=== PATIENT | male | born 1965 | race Caucasian/White ===

== ENCOUNTER → 2017-08-22 12:10 | Outpatient (CLI) | payer OTHER, SELFPAY ==
[2017-08-22 12:45] LABS: Absolute Lymphocyte Count 1.87 X10^3/ul (0.83-4.51); Absolute Neutrophil Count 3.2 X10^3/uL (2.0-7.7); Basophil# 0.02 X10^3/uL; Basophil% 0.4 % (0-1); Eosinophils% 1.8 % (0-5); Hematocrit 42.6 % (40-54); Hemoglobin 14.7 g/dl (13.0-16.5); Lymphocyte # 1.87 X10^3/ul (4.0); Lymphocyte % 33.9 % (19-41); Mean Corp Hgb Conc 34.5 g/gl (32-36); Mean Corpuscular Volume 89.9 fL (80-94); Mean Platelet Vol. 9.1 fl (6.2-12.0); Monocyte# 0.35 X10^3/uL; Monocyte% 6.4 % (0-10); Neutrophil # 3.17 X10^3/uL (2.7-7.7); Neutrophil % 57.5 % (47-70); POSITIVE COUNT NO; POSITIVE DIFFERENTIAL NO; POSITIVE MORPHOLOGY NO; Platelet Count 224 K/mm3 (150-450); RBC Distribution Width CV 13.4 % (11.6-14.6); Red Blood Count 4.74 M/mm3 (4.6-6.2); White Blood Count 5.5 K/mm3 (4.4-11.0)
== END ==
PROVIDERS: Family Provider Internal Medicine; PCP Internal Medicine; Visit Provider Internal Medicine
DX: D72.819 Decreased white blood cell count, unspecified (principal)
CPT/HCPCS: 36415; 85025

== ENCOUNTER → 2018-04-03 08:00 | Outpatient (CLI) | payer OTHER, SELFPAY ==
[2018-04-03 08:09] LABS: Bacteria 0 SEEN /hpf (None Seen); Mucous, Urine 0 SEEN /hpf (<or=2+); Squamous Epithelial Cells - UA 0 SEEN /hpf (0-5); White Blood Cells 0 SEEN /hpf (0-5)
[2018-04-03 09:20] LABS: Absolute Lymphocyte Count 1.86 X10^3/ul (0.83-4.51); Basophil# 0.04 X10^3/uL; Basophil% 0.9 % (0-1); Eosinophil# 0.16 X10^3/uL; Eosinophils% 3.6 % (0-5); Hematocrit 41.9 % (40-54); Hemoglobin 13.9 g/dl (13.0-16.5); Lymphocyte # 1.86 X10^3/ul (4.0); Lymphocyte % 41.8 % (19-41); Mean Corp Hgb Conc 33.2 g/gl (32-36); Mean Corpuscular Hgb 30.9 pg (27.0-32.0); Mean Corpuscular Volume 93.1 fL (80-94); Mean Platelet Vol. 9.9 fl (6.2-12.0); Neutrophil # 1.98 X10^3/uL (2.7-7.7); Neutrophil % 44.5 % (47-70); Platelet Count 209 K/mm3 (150-450); RBC Distribution Width CV 13.4 % (11.6-14.6); RBC Distribution Width SD 44.3 fl (35.1-43.9); White Blood Count 4.5 K/mm3 (4.4-11.0)
[2018-04-03 09:23] LABS: Color, Urine Yellow (Yellow); Glucose, Dipstick Normal (Normal); Ketone-Dipstick Negative (Negative); Leukocyte Esterase-Dipstick Negative /ul (Negative); Nitrite-Dipstick Negative (Negative); Occult Blood-Urine 25 /ul (Negative); Protein-Dipstick Negative (Negative); Urine Bilirubin Dipstick Negative (Negative); Urine Clarity Clear (Clear); Urine Urobilinogen Normal (Normal); Urine pH 6.5 (5.0 - 8.0)
[2018-04-03 09:26] LABS: POSITIVE COUNT NO; POSITIVE DIFFERENTIAL NO; POSITIVE MORPHOLOGY NO
[2018-04-03 09:37] LABS: Red Blood Cells-Urine 0-5 SEEN /hpf (0-5)
[2018-04-03 09:44] LABS: Microalbumin,Random Urine 6.3 mg/L (NO RANGE EST.); Microalbumin:Creatinine Ratio 8.9 mg/g CRE (<30 mg/g CRE)
[2018-04-03 09:46] LABS: ALB/GLOB Ratio 1.1 RATIO (0.9-2.4); AST(SGOT) 20 U/L (15-37); Alanine Aminotransfer ALT/SGPT 39 U/L (16-61); Albumin, Serum 3.6 g/dL (3.2-5.0); Alkaline Phosphatase 72 U/L (45-117); Anion Gap 6 (5-15); BUN 10 mg/dL (7-18); BUN/Creat Ratio 10.2 RATIO (10-20); Calcium,Total 8.5 mg/dL (8.5-10.1); Chloride 108 mmol/L (98-107); Cholesterol 141 mg/dL (200); Creatinine, Serum 0.98 mg/dL (0.70-1.30); EST Glomerular Filtration Rate 84 mL/min (>60); Est Glom Filt Rate - Afr Amer 102 mL/min (>60); Globulin 3.3 g/dL (2.2-4.2); Glucose 93 mg/dL (74-106); High Density Lipoprotein 34 mg/dL; Potassium 4.4 mmol/L (3.5-5.1); Protein, Total 6.9 g/dL (6.4-8.2); Sodium Level 142 mmol/L (136-145); Thyroid Stim Hormone (TSH) 2.56 uIU/mL (0.358-3.74); Triglycerides 178 mg/dL; Very Low Density Lipoprotein 36 mg/dL (5-40)
[2018-04-03 10:21] LABS: Vitamin D,25 Hydroxy 38.3 ng/mL (29.95-100.01)
--- OUTSIDE RECORDS SUMMARY | 2018-05-29 07:49 | XMS RPT_ITS | Continuity of Care Document ---
:1965 Author Organization [facility] Address [address] [facility] [address] [place] [address] Phone Support Name Relationship Address Phone Marcus Matias Unavailable [address] [place] [address] Alton Matias Unavailable [address] [facility] [address] [place] [address] Care Team Providers Name Role Phone Anai Hernandez DO Unavailable Dameon Mcgregor MD Unavailable Maegan Mathew MD Unavailable Dr. Jorje Hogan MD Unavailable Dr. Rashawn Foster Unavailable Mesfin Milligan MD Unavailable Alton Hurst DPM Unavailable MATILDE Rouse Unavailable Unavailable Pancho Carias Unavailable Unavailable Felicia Galdamez Unavailable Unavailable Unavailable Unavailable Problems Name Dates Details Acute bronchitis due to other specified organisms (J20.8, 466.0) Status: Active Acute pain of both knees (M25.561, 338.19) Status: Active Bilateral hearing loss, unspecified hearing loss type (H91.93, 389.9) Status: Active BMI 34.0-34.9,adult (Z68.34, V85.34) Status: Active BMI 35.0-35.9,adult (Z68.35, V85.35) Status: Active BPH without urinary obstruction (N40.0, 600.00) Comments: pt didnt want rx ( ithought would help with sleep) saw urology few yrs ago for blood in urine and /mar normal Status: Active Colon polyps (K63.5, 211.3) Comments: scope 2013 due in 5yr-[facility] Status: Active Common cold virus (J00, 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) Status: Active CRP elevated (R79.82, 790.95) Status: Active Enchondroma (D16.9, 213.9) Status: Active Encounter for screening for malignant neoplasm of colon (Renamed from Special screening for malignant neoplasms, colon) (Z12.11, V76.51) Comments: last scope 2014/lea 5yr repeat Status: Active family hx of bladder and thyroid cancer- check Tsh and ua cbc cmp Status: Active Hearing loss, unspecified laterality (389.9) Status: Active Hematuria (R31.9, 599.7) Status: Active 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, 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 Hypercholesterolemia (E78.00, 272.0) Comments: he might try statin qod Status: Active Impaired fasting glucose (R73.01, 790.21) Status: Active Nonsmoker (Z78.9, V49.89) Status: Active Other and unspecified hyperlipidemia (E78.5, 272.4) Status: Active Possible exposure to STD (Z20.2, V01.6) Status: Active probable sebaceous cyst- will follow- call if any change Status: Active screening Status: Active Screening for prostate cancer (Z12.5, V76.44) Status: Active Skin lesion of back (L98.9, 709.9) Comments: mixture of lentigo ansd sebs and skin tags Status: Active Sleep Disorder (G47.9, 780.50) Status: Active Tachycardia (R00.0, 785.0) Comments: ? related to OTC cough med, caffeine? Status: Active Unspecified Diagnosis Status: Active Upper Respiratory Infection (Renamed from Infection of the upper respiratory tract) (J06.9, 465.9) Status: Active Vasectomy Status: Active Vitamin D deficiency (E55.9, 268.9) Comments: increase vit D 5K Status: Active Wheeze (R06.2, 786.07) Status: Active Medications Name Dates Details ASPIRIN LOW DOSE, 81MG (Oral Tablet) Active 1 tab qd (81 MG) CoQ10 Active MULTIVITAMIN (PO Tab) 1 tab qd for 0 days Refills: 0 Ordered:13-Sep-2009 Starr McmahonActive Omeprazole 20 MG Oral Tablet Delayed Release 1 (one) Capsule daily for 90 days Quantity: 90 {Capsule} Refills: 1 Ordered:11-Apr-2018 Maikel Hernandez DO, DO, Kathleen Start : 11-Apr-2018 Active ProAir HFA 108 (90 Base) MCG/ACT Inhalation Aerosol Solution 2 (two) Aerosol Soln puffs q 6hrs prn wheeze for 0 days Quantity: 1 {Inhaler} Refills: 0 Ordered:21-Jun-2017 CiMarietta mayfield CNP Start : 21-Jun-2017 Active Simvastatin 20 MG Oral Tablet 1 (one) Tablet qd duane for 0 days Quantity: 90 {Tablet} Refills: 1 Ordered:11-Apr-2018 Maikel Hernandez DO, DO, Kathleen Start : 11-Apr-2018 Active Vascepa 1 GM Oral Capsule 2 (two) Capsule Capsule pills twice a day for 90 days Quantity: 360 {Capsule} Refills: 1 Ordered:11-Apr-2018 Maikel Hernandez DO, DO, Kathleen Start : 11-Apr-2018 Active Acyclovir 400 MG Oral Tablet 1 (one) Tablet Tablet bid for 30 days Quantity: 60 {Tablet} Refills: 11 Ordered:25-Mar-2017 Kendra Mcclure LPN L Start : 08-Jan-2014 End : 25-Mar-2017 Inactive ANUSOL-HC, 25MG (Rectal Suppository) 1 (one) Suppository prn for 30 days Quantity: 30 {Suppository} Refills: 0 Ordered:21-Oct-2009 Starr Mcmahon Start : 21-Oct-2009 End : 20-Nov-2009 Inactive ASPIRIN LOW DOSE, 81MG (Oral Tablet) 1 (one) Tablet qd for 30 days Quantity: 30 {Tablet} Refills: 0 Ordered:07-Sep-2013 Teresita Singleton DO Start : 07-Sep-2013 End : 07-Oct-2013 Inactive Augmentin 875-125 MG Oral Tablet 1 (one) Tablet bid for 0 days Quantity: 28 {Tablet} Refills: 0 Ordered:05-Apr-2017 Kendra Mcclure LPN Start : 25-Mar-2017 End : 05-Apr-2017 Inactive Comments:Take with food Cheratussin AC 100-10 MG/5ML Oral Solution 1-2 Teaspoon q6hrs prn for 0 days Quantity: 6 {Ounce} Refills: 0 Ordered:17-Oct-2016 Flor Rouse LPN Start : 23-Apr-2016 End : 17-Oct-2016 Inactive NIASPAN, 500MG (Oral Tablet Extended Release) 1 (one) Tablet ER qd for 0 days Quantity: 30 {Tablet_ER} Refills: 3 Ordered:05-Apr-2008 Starr Mcmahon Start : 05-Apr-2008 End : 06-Jul-2008 Inactive Vitamin D 4 qd End : 11-Apr-2018 Inactive Zithromax Z-Hernán 250 MG Oral Tablet 1 (one) Tablet TAD for 0 days Quantity: 1 {Package} Refills: 0 Ordered:23-Aug-2017 Flor Rouse LPN Start : 21-Jun-2017 End : 23-Aug-2017 Inactive Zithromax Z-Hernán 250 MG Oral Tablet 1 (one) Tablet TAD for 0 days Quantity: 1 {Package} Refills: 0 Ordered:17-Oct-2016 Flor Rouse LPN Start : 23-Apr-2016 End : 17-Oct-2016 Inactive AMOXICILLIN-POT CLAVULANATE, 875-125MG (Oral Tablet) 1 (one) Tablet Tablet bid for 0 days Quantity: 20 {Tablet} Refills: 0 Ordered:13-Sep-2015 Starr Mcmahon Start : 27-Jul-2014 End : 13-Sep-2015 Discontinued LUNESTA, 2MG (Oral Tablet) 1 Tablet qhs prn for 0 days Quantity: 30 {Tablet} Refills: 3 Ordered:07-Sep-2013 Starr Mcmahon Start : 29-Aug-2012 End : 07-Sep-2013 Discontinued NASACORT AQ, 55MCG/ACT (Nasal Aerosol Solution) 2 (two) Puff(s) once daily for 0 days Quantity: 1 {Aerosol_Soln} Refills: 0 Ordered:13-Jul-2011 Starr Mcmahon Start : 13-Jul-2011 End : 13-Jul-2011 Discontinued PREVACID, 30MG (Oral Capsule Delayed Release) [address] daily for 0 days Quantity: 30 {Capsule_DR} Refills: 3 Ordered:28-Dec-2011 Starr Mcmahon Start : 28-Dec-2011 End : 28-Dec-2011 Discontinued TRAZODONE HCL, 50MG (Oral Tablet) 1/2 Tablet qhs for 0 days Quantity: 30 {Tablet} Refills: 3 Ordered:29-Aug-2012 Teresita Singleton DO Start : 29-Aug-2012 End : 29-Aug-2012 Discontinued Allergies and Adverse Reactions Name Dates Details Augmentin *PENICILLINS* Reaction: Itching (Allergy) Status: Active NIASPAN, 1000MG (Oral Tablet Status: Active Extended Release) (Allergy) Comments: palpitations and flushing No Known Drug Allergies Onset: 29-Aug-2012 Status: Inactive (Allergy) No Known Drug Allergies Onset: 29-Aug-2012 Status: Inactive (Allergy) Past Medical History Name Dates Details Abnormal laboratory test (R89.9, 796.4) Status: Inactive as of 24-Apr-2017 Acute bronchospasm due to viral infection (J98.01, 519.11) Status: Resolved as of 23-Aug-2017 alopecia areata Status: Resolved as of 28-Dec-2011 Anemia, unspecified (D64.9, 285.9) Status: Resolved as of 13-Jul-2011 Benign paroxysmal positional vertigo, unspecified laterality (H81.10, 386.11) Status: Resolved as of 28-Dec-2011 BMI 33.0-33.9,adult (Z68.33, V85.33) Status: Inactive as of 24-Apr-2017 Body aches (R52, 780.96) Status: Inactive as of 24-Apr-2017 Chest pain (R07.9, 786.59) Status: Resolved as of 26-Jan-2014 Chills (R68.83, 780.64) Status: Inactive as of 24-Apr-2017 Constipation (K59.00, 564.00) Comments: add prunes and water - do fiber Status: Inactive as of 13-Apr-2016 Cough (R05, 786.2) Status: Inactive as of 17-Oct-2016 Cough (R05, 786.2) Status: Inactive as of 23-Aug-2017 Elevated blood pressure (not hypertension) (R03.0, 796.2) Status: Resolved as of 28-Dec-2011 Encounter for screening for malignant neoplasm of testis (Z12.71, V76.45) Status: Inactive as of 12-Oct-2008 Facial pressure (R68.89, 780.99) Status: Inactive as of 11-Apr-2018 Heartburn (R12, 787.1) Status: Inactive as of 24-Apr-2017 Hematuria (R31.9, 599.70) Comments: benign -- work up by urology Status: Inactive as of 24-Apr-2017 Hemorrhoids, unspecified hemorrhoid type (K64.9, 455.6) Status: Inactive as of 24-Apr-2017 Leukopenia, unspecified type (D72.819, 288.50) Status: Resolved as of 11-Apr-2018 Low Back Pain (Renamed from Low back ache) (M54.5, 724.2) Comments: chronic stable- continue present regimen Status: Inactive as of 13-Apr-2016 Need for prophylactic vaccination and inoculation against influenza (Z23, V04.81) Status: Inactive as of 13-Jul-2011 Onychomycosis (B35.1, 110.1) Status: Inactive as of 13-Apr-2016 Paresthesia (R20.2, 782.0) Comments: he feels better at this point and doesnt want to do emgncs yet Status: Inactive as of 13-Apr-2016 Pulsatile tinnitus (H93.19, 388.30) Status: Resolved as of 26-Jan-2014 Right foot pain (M79.671, 729.5) Status: Inactive as of 24-Apr-2017 Sinusitis, bacterial (J32.9, 473.9) Status: Inactive as of 24-Apr-2017 Vertigo (R42, 780.4) Status: Resolved as of 07-Sep-2013 Procedures Procedure Dates Details Colonoscopy Completed Comments: Normal. 02/2014 and recheck in 5 years Date Value Details 11-Apr-2018 Knee 4 or More Views Result: Comments: See Note; NOTES: [facility] Imaging Services [address] [place] [address] Knee 4 or More Views MR#: [id number] Acct: [id number] Name: MARCUS MATIAS Rep #: [id number] : 1965 M 52 From: Sanchez Elliott MD PCP: Anai Hernandez DO Status: REG CLI Study: Knee 4 or More Views Date of Exam: 04/11/18 Exam# [id number] Ordering Dr: Anai Hernandez DO STUDY: X- RAY - LEFT KNEE REASON FOR EXAM: Male, 52 years old. Pain and swelling TECHNIQUE: 4 view(s) of the knee. COMPARISON: None. FINDINGS: There is intramedullary mottl ed sclerosis of the mid femoral shaft Normal visualized proximal tibia and fibula. Normal proximal tibiofibular articulation. Normal medial femorotibial compartment. Normal lateral femorotibial compart ment. Normal patellofemoral articulation. There is an enthesophyte in the region of the quadriceps tendon insertion on the superior patella. The soft tissue structures are unremarkable. RAD/Knee 4 or More Views IMPRESSION: Mottled intramedullary sclerotic process of the mid femoral shaft consistent with enchondroma versus bone infarct. Small e nthesophyte of the superior patella. There is no evidence of fracture, dislocation, significant degenerative disease, free intra-articular calcifications, or suprapatellar effusion. Electronically Sig janet: Sanchez Elliott MD at 18:20 EST , Service support , CC: Anai Hernandez DO Service Parts Coordinator: Signed 11-Apr-2018 Knee 4 or More Views Result: Comments: See Note; NOTES: [facility] Imaging Services [address] [place] [address] Knee 4 or More Views MR#: [id number] Acct: [id number] Name: MARCUS MATIAS Rep #: [id number] : 1965 M 52 From: Sanchez Elliott MD PCP: Anai Hernandez DO Status: REG CLI Study: Knee 4 or More Views Date of Exam: 04/11/18 Exam# [id number] Ordering Dr: Anai Hernandez DO STUDY: X- RAY - RIGHT KNEE REASON FOR EXAM: Male, 52 years old. Pain TECHNIQUE: 4 view(s) of the knee. COMPARISON: None. FINDINGS: Normal visualized distal femur. Normal vi sualized proximal tibia and fibula. Normal proximal tibiofibular articulation. Normal medial femorotibial compartment. Normal lateral femorotibial compartment. Normal patellofemoral articulation. The soft tissue structures are unremarkable. RAD/Knee 4 or More Views IMPRESSION: Normal x-ray examination of the knee. Electronically Signed: Zac Elliott MD at 18:21 EST , Service support , CC: Anai Hernandez DO Service Parts Coordinator: Signed 21-Apr-2015 Abdomen Single View Result: Comments: See Note; NOTES: [facility] Imaging Services [address] [place] [address] Verdana 4d Abdomen Single View MR#: [id number] Acct: [id number] Name: MARCUS MATIAS Rep #: [id number] : 1965 M 49 From: Jimmy Negrete DO PCP: Teresita Singleton DO Status: REG CLI Study: Abdomen Single View Date of Exam: 04/21/15 Exam# [id number] Ordering Dr: Anahy Lo MD STUDY: X-RAY - ABDOMEN/PELVIS REASON FOR EXAM: Male, 49 years old. Hematuria TECHNIQUE: Two AP supine views of the abdomen and pelvis. COMPARISON: Ultrasound 04/21/15 FINDINGS: Normal visualized lung bases. There is an unremarkable bowel gas pattern. There is a moderate amount of fecal debris throughout the colon. There is no demonstrated f ree abdominal air. The visualized liver, spleen and kidneys are grossly normal in size and morphology. No definite renal calcification. Normal visualized osseous structures. Small phleboliths are seen within the pelvis. IMPRESSION: No acute process. No definite renal calcifications. Electronically Signed: Jimmy Negrete DO at 7:34 EST Te l , Service support [phone], RAD/Abdomen Single View IMPRESSION: No acute process. No definite renal calcifications. Electronically Signed: Jimmy Negrete DO at 7:34 EST Tel , Service support [phone], CC: Teresita Singleton DO; Obie Lo MD Service Parts Coordinator: Signed 21-Apr-2015 Kidney and Bladder Result: Comments: See Note; NOTES: [facility] Imaging Services [address] [place] [address] Verdana 4d Kidney and Bladder MR#: [id number] Acct: [id number] Name: Awa MATIAS Rep #: [id number] : 1965 M 49 From: Daniel Long MD PCP: Teresita Singleton DO Status: REG CLI Study: Kidney and Bladder Date of Exam: 04/21/15 Exam# [id number] Ordering Dr: Maegan Lo MD STUDY: RENAL ULTRASOUND - COMPLETE REASON FOR EXAM: Male, 49 years old. Hematuria. TECHNIQUE: Ultrasound evaluation of the kidneys was performed with real-time and static patel-scale i maging. COMPARISON: None. FINDINGS: RIGHT KIDNEY: Normal location of the right kidney, which is normal in size. The right kidney measures 10.0 cm x 4.6 cm x 5 .5 cm. There is a normal cortex of the right kidney. The renal cortex measures 1.9 cm. There is no right renal mass or cyst. There are no right renal calculi. There is no right hydronephrosis. DIST AL RIGHT URETER: There is non-visualization of the distal right ureter. There is no demonstrated right ureterovesical junction calculus. There is no demonstrated right ureteral jet. LEFT KIDNEY: Nor mal location of the left kidney, which is normal in size. The left kidney measures 11.4 cm x 5.1 cm x 5.8 cm. There is a normal cortex of the left kidney. The renal cortex measures 1.2 cm. There is no left renal mass or cyst. I suspect a 6 mm nonobstructive calculus in the left kidney. There is no left hydronephrosis. DISTAL LEFT URETER: There is non- visualization of the distal left ureter. The re is no demonstrated left ureterovesical junction calculus. There is no demonstrated left ureteral jet. BLADDER: The bladder is empty at the time of the examination. ____ IMPRESSION: Findings suggestive of a small nonobstructive calculus in the left kidney. Electronically Signed: Daniel Long MD at 11:21 EST Tel [phone], Service support [phone], CC: Teresita Singleton DO; Obie Lo MD Service Parts Coordinator: Signed 13-Dec-2014 L/S Spine Min 4 Views Result: Comments: See Note; NOTES: [facility] Imaging Services [address] [place] [address] Radiology Report MR#: [id number] Acct: [id number] Name: MARCUS MATIAS Rep #: [id number] : 1965 M 49 From: Sai Wu DO PCP: Teresita Singleton DO Status: REG CLI Study: L/S Spine Min 4 Views Date of Exam: 12/13/14 Exam# [id number] Ordering Dr: Teresita Singleton DO STUDY: X-RAY - LUMBAR SPINE REASON FOR EXAM: Male, 49 years old. Lower back pain. No trauma. TECHNIQUE: 5 view(s) of the lumbar spine were obtained. COMPARISON: None FIND INGS: Normal lumbar lordosis. There is no substantial scoliosis. There is a normal alignment of the vertebrae. Minimal endplate spondylosis at multiple levels. Normal disc space heights. There is n o evidence of acute fracture or loss of vertebral axial height. One The soft tissue structures are unremarkable. IMPRESSION: Minimal endplate spondylosis witho ut other evidence of lumbar spine abnormality. Electronically Signed: Sai Wu DO at 16:53 EDT Tel [phone], Service support [phone], RAD/L/S Spine Min 4 Views IMPRESSION: Minimal endplate spondylosis without other evidence of lumbar spine abnormality. Electronically Signed: Sai Wu DO at 16:53 EDT Tel [phone], Service support [phone], CC: Teresita Singleton DO Service Parts Coordinator: Signed 15-Sep-2013 Echocardiogram Complete Result: Comments: See Note; NOTES: [facility] Cardiovascular Services [address] [place] [address] Echo Complete 09/15/13 0754 MR#: [id number] Acct: [id number] Name: JESICA MATIAS Rep #: [id number] : 1965 47 From: Jorje Gomez MD Attending Dr: Teresita Singleton DO Status: REG CLI Ordering Dr: Teresita Singleton DO Date: 09/15/13 Location: [facility] Sex: M C Admitted: [facility] This was a 2D Doppler, Color Flow transthoracic echocardiogram. The exam was of fair technical quality due to body habitus. Exam performed in department. Left Ventricle Normal LV size. Left v entricular systolic function is normal. The estimated ejection fraction is 65 %. Right Ventricle Normal RV size. Normal systolic function. Atria Normal left atrium. Normal right atrium. No doppl er evidence for ASD. Bubble contrast study negative for right to left interatrial shunt. Mitral Valve There is no mitral annular calcification. Normal mitral valve. Trivial eccentric mitral valve insufficiency. Tricuspid Valve Normal tricuspid valve. Trivial tricuspid valve insufficiency. Right ventricular systolic pressure estimated to be 23 mmHg. Aortic Valve Trisinus/trileaflet aorti c valve. Normal aortic valve. Pulmonic Valve The pulmonic valve is not well visualized. Trivial pulmonic valve insufficiency. Great Vessels Normal sized aortic root. Pericardium/Pleural No per icardial effusion. Medication Performed a rapid injection of agitated mix of 9 cc saline and 1cc air to assess for atrial septal defect. LVIDd: 3.7 cm IVSd: 1.3 cm Ao root diam: 3.4 cm LAV(MOD-b p): 38.6 ml LVIDs: 2.4 cm LVPWd: 1.2 cm Ao root area: 9.1 cm2 LAV(MOD-bp) Indexed: 18.2 ml/m2 RVDd: 3.4 cm FS: 35.8 % LA dimension: 3.9 cm LAV(MOD-sp2): 38.6 ml LAV(MOD-sp4): 34.9 ml LA A4 area: 14.0 cm2 RA A4 area: 12.9 cm2 MV E max joon: Lat Peak E' Joon: Med Peak E' Joon: Ao V2 max: 67.3 cm/sec 11.6 cm/sec 8.5 cm/sec 105.3 cm/sec MV A max joon: Ao max P.4 mmHg 60.3 cm/sec MV E/A: 1.1 LV V1 max: 100.4 cm/sec PA V 2 max: 76.0 cm/sec TR max joon: 209.0 cm/sec E /E' lat: 5.8 LV V1 max P.0 mmHg PA max P.3 mmHg TR max P.5 mmHg E/E' med: 7.9 Interpretation Summary Left ventricular systolic function is normal. The estimated ejection fraction is 65 %. Trivial eccentric mitral valve insufficiency. Trivial tricuspid v alve insufficiency. Trivial pulmonic valve insufficiency. Bubble contrast study negative for right to left interatrial shunt. Right ventricular systolic pressure estimated to be 23 mmHg. Ordering Physician: Teresita Singleton Performed By: Aggie Hathaway [facility] : Teresita Singleton DO Date Dictated: 09/15/13 0754 Date Transcribed: 09/15/13 1712 Service Parts Coordinator: Signed 15-Sep-2013 Chest PA and Lateral Result: Comments: See Note; NOTES: [facility] Imaging Services [address] [place] [address] Radiology Report MR#: [id number] Acct: [id number] Name: MARCUS MATIAS Rep #: [id number] : 1965 M 47 From: Daniel Long MD PCP: Teresita Singleton DO Status: REG CLI Study: Chest PA and Lateral Date of Exam: 09/15/13 Exam# [id number] Ordering Dr: Teresita Singleton DO STUDY: X -RAY CHEST REASON FOR EXAM: Male, 47 years old. Chest pain. TECHNIQUE: PA and lateral views of the chest. COMPARISON: Comparison is made with prior study dated April 03, 2011. FINDINGS: There is elevation of the right hemidiaphragm. The lungs are clear and expanded. There is no demonstrated pleural abnormality. Normal size heart. Normal mediastinum and nunu. Normal visualized pulmonary arteries. Normal visualized aortic arch and descending thoracic aorta. Normal visualized thoracic spine. Normal visualized ribs, clavicles, and shoulders. T here is no demonstrated abnormality of the visualized soft tissue structures of the upper abdomen. IMPRESSION: No acute abnormality is seen. Electronically Sig janet: Daniel Long MD at 13:17 EDT Tel [phone], Service support [phone], CC: Teresita Singleton DO Service Parts Coordinator: Signed 15-Sep-2013 Nuclear Stress Test - Treadmil Result: Comments: See Note; NOTES: [facility] Imaging Services [address] [place] [address] Nuclear Medicine Report MR#: [id number] Acct: [id number] Name: MARCUS MATIAS Rep #: [id number] : 1965 M 47 From: Jorje Gomez MD PCP: Teresita Singleton DO Status: REG CLI Study: Nuclear Stress Test - Treadmil Date of Exam: 09/15/13 Exam# [id number] Ordering Dr: Teresita Singleton DO EXERCISE TOLERANCE TEST: The patient exercised on a Johan protocol for 9 minutes completing stage 3 achieving a peak heart rate of 166 beats per minute (97% predicted maximum heart rate) and a p eak blood pressure of 138/88 mmHg and a peak MET capacity of 10 METS. The baseline ECG demonstrated normal sinus rhythm. The peak exercise ECG demonstrated no obvious ECG changes. There were no ca rdiac dysrhythmias pretest, during exercise, or recovery. The functional capacity was considered good. The patient had no complaint of chest discomfort during exercise or recovery. The examination was discontinued secondary to dyspnea and leg fatigue.. IMPRESSION: 1. Technically adequate (percent predicted maximum heart rate greater than 85%) exercise tolerance test. 2. Peak exercise ECG wit h no obvious ECG changes. 3. Nuclear images pending. MYOCARDIAL PERFUSION IMAGING STUDY: TECHNIQUE: The patient was injected with 13.6 mCi of Tc99m Cardiolite and subsequently rest SPECT Cardiolit e nuclear imaging was obtained in the horizontal long, vertical long, and short axes views. The patient exercised on a Johan protocol for 9 minutes achieving a peak heart rate of 166 beats per minute (97% predicted maximum heart rate) and a peak blood pressure of 138/88 mmHg and a peak MET capacity of 10 METS. The patient was injected with 40.2 mCi of Tc99m Cardiolite and subsequently stress SPECT Cardiolite nuclear imaging was obtained in the horizontal long, vertical long, and short axes views. A gated Cardiolite study at peak stress was obtained. INTERPRETATION: Rest and stress SPECT Car diolite nuclear imaging demonstrate relative uniform tracer uptake and myocardial perfusion appearing within normal limits. There was end systolic thickening and brightening. The gated Cardiolite stud y demonstrates myocardial thickening and inward wall motion. The reported LVEF was 69%. IMPRESSION: 1. Rest and stress SPECT Cardiolite nuclear imaging demonstrate relative uniform tracer uptake a nd myocardial perfusion appearing within normal limits. 2. The gated Cardiolite study reports an LVEF of 69%. CC: Teresita Singleton DO Service Parts Coordinator: WAN Signed 07-Sep-2013 Spirometry (00704) Result: 07-Sep-2013 EKG (82368) Result: [MEASUREMENTS ANALYSIS] Date of Test: 09/07/2013 10:09:59; Heart Rate: 75; OR Interval: 166; QRS: 89; QT Interval: 370; Corrected QT Interval (QTc): 396; P Wave [place]: 24; QRS Wave [place]: 13; T Wave [place]: 19; Blood Pressure: 110/80 [ECG DIAGNOSTIC STATEMENTS] Date of Test: 09/07/2013 10:09:59; Summary: Sinus Rhythm WITHIN NORMAL LIMITS Family History Unknown Family Member Name Dates Details Brother 1 Comments: 3 brothers all younger and healthy Status: Active Father Comments: In good health Status: Active Maternal Grandfather Comments: colon cancer age 80 aortic aneurysm cad Status: Active Maternal Grandmother Comments: melanoma Status: Active Mother Comments: breast and thyroid cancer htn Status: Active Paternal Grandfather Comments: bladder cancer Status: Active Social History Name Dates Details Alcohol Use Comments: Occasional alcohol use Status: Active No Drug Use Status: Active Non Smoker/No Tobacco Use Comments: never smoker Status: Active recently 2011 Status: Active Tobacco use: Never smoker. Status: Active Tobacco use: Never smoker. Status: Active Smoking Status Name Dates Details Never smoker Vital Signs Date Test Result Details :56 Pulse 84 /min Comments: Pattern: Regular Respiration Rate 18 /min Comments: Pattern: Unlabored O2 SAT 93 % Comments: Room air BP Systolic 138 mm[Hg] Comments: Patient Position: Standing; Cuff Location: Left Arm; Cuff Size: Large BP Diastolic 84 mm[Hg] Comments: Patient Position: Standing; Cuff Location: Left Arm; Cuff Size: Large Weight 233.5 lb Height 68 in Body Mass Index Calculated 35.5 kg/m2 Body Surface Area Calculated 2.18 m2 :00 Pulse 84 /min Comments: Pattern: Regular Respiration Rate 18 /min Comments: Pattern: Unlabored O2 SAT 98 % Comments: Room air BP Systolic 122 mm[Hg] Comments: Patient Position: Sitting; Cuff Location: Left Arm; Cuff Size: Large BP Diastolic 98 mm[Hg] Comments: Patient Position: Sitting; Cuff Location: Left Arm; Cuff Size: Large Weight 232.25 lb Height 68 in Body Mass Index Calculated 35.31 kg/m2 Body Surface Area Calculated 2.18 m2 :13 Temperature 97.2 f Pulse 93 /min Comments: Pattern: Regular Respiration Rate 17 /min Comments: Pattern: Unlabored O2 SAT 95 % Comments: Room air BP Systolic 122 mm[Hg] Comments: Patient Position: Sitting; Cuff Location: Left Arm; Cuff Size: Standard BP Diastolic 82 mm[Hg] Comments: Patient Position: Sitting; Cuff Location: Left Arm; Cuff Size: Standard Weight 233 lb Height 68 in Body Mass Index Calculated 35.43 kg/m2 Body Surface Area Calculated 2.18 m2 :59 Pulse 88 /min Comments: Pattern: Regular Respiration Rate 18 /min Comments: Pattern: Unlabored O2 SAT 98 % Comments: Room air BP Systolic 138 mm[Hg] Comments: Patient Position: Sitting; Cuff Location: Left Arm; Cuff Size: Large BP Diastolic 72 mm[Hg] Comments: Patient Position: Sitting; Cuff Location: Left Arm; Cuff Size: Large Weight 227.5 lb Height 68 in Body Mass Index Calculated 34.59 kg/m2 Body Surface Area Calculated 2.16 m2 :47 Temperature 98.8 f Comments: Method: Temporal Pulse 111 /min Comments: Pattern: Regular Respiration Rate 16 /min Comments: Pattern: Unlabored O2 SAT 94 % Comments: Room air BP Systolic 124 mm[Hg] Comments: Patient Position: Sitting; Cuff Location: Left Arm; Cuff Size: Standard BP Diastolic 80 mm[Hg] Comments: Patient Position: Sitting; Cuff Location: Left Arm; Cuff Size: Standard Weight 225.25 lb Height 68 in Body Mass Index Calculated 34.25 kg/m2 Body Surface Area Calculated 2.15 m2 :49 Pulse 76 /min Comments: Pattern: Regular Respiration Rate 18 /min Comments: Pattern: Unlabored O2 SAT 97 % Comments: Room air BP Systolic 122 mm[Hg] Comments: Patient Position: Sitting; Cuff Location: Left Arm; Cuff Size: Large BP Diastolic 82 mm[Hg] Comments: Patient Position: Sitting; Cuff Location: Left Arm; Cuff Size: Large Weight 225.25 lb Height 68 in Body Mass Index Calculated 34.25 kg/m2 Body Surface Area Calculated 2.15 m2 :14 Temperature 98.8 f Pulse 112 /min Comments: Pattern: Regular Respiration Rate 17 /min Comments: Pattern: Unlabored O2 SAT 97 % Comments: Room air BP Systolic 116 mm[Hg] Comments: Patient Position: Sitting; Cuff Location: Left Arm; Cuff Size: Standard BP Diastolic 78 mm[Hg] Comments: Patient Position: Sitting; Cuff Location: Left Arm; Cuff Size: Standard Weight 223.125 lb Height 68 in Body Mass Index Calculated 33.93 kg/m2 Body Surface Area Calculated 2.14 m2 :02 Pulse 73 /min Comments: Pattern: Regular Respiration Rate 18 /min Comments: Pattern: Unlabored O2 SAT 98 % Comments: Room air BP Systolic 122 mm[Hg] Comments: Patient Position: Sitting; Cuff Location: Left Arm; Cuff Size: Standard BP Diastolic 78 mm[Hg] Comments: Patient Position: Sitting; Cuff Location: Left Arm; Cuff Size: Standard Weight 223.125 lb Height 68 in Body Mass Index Calculated 33.93 kg/m2 Body Surface Area Calculated 2.14 m2 :25 Temperature 97.9 f Comments: Method: Temporal Pulse 96 /min Comments: Pattern: Regular Respiration Rate 15 /min Comments: Pattern: Unlabored O2 SAT 97 % Comments: Room air BP Systolic 104 mm[Hg] Comments: Patient Position: Sitting; Cuff Location: Left Arm; Cuff Size: Standard BP Diastolic 76 mm[Hg] Comments: Patient Position: Sitting; Cuff Location: Left Arm; Cuff Size: Standard Weight 225 lb Height 68 in Body Mass Index Calculated 34.21 kg/m2 Body Surface Area Calculated 2.15 m2 :38 Pulse 93 /min Comments: Pattern: Regular Respiration Rate 18 /min Comments: Pattern: Unlabored O2 SAT 98 % Comments: Room air BP Systolic 120 mm[Hg] Comments: Patient Position: Sitting; Cuff Location: Left Arm; Cuff Size: Large BP Diastolic 70 mm[Hg] Comments: Patient Position: Sitting; Cuff Location: Left Arm; Cuff Size: Large Weight 219 lb Height 68 in Body Mass Index Calculated 33.3 kg/m2 Body Surface Area Calculated 2.12 m2 :41 Temperature 97.6 f Comments: Method: Oral Pulse 86 /min Comments: Pattern: Regular Respiration Rate 16 /min Comments: Pattern: Unlabored BP Systolic 124 mm[Hg] Comments: Patient Position: Sitting; Cuff Location: Left Arm; Cuff Size: Standard BP Diastolic 76 mm[Hg] Comments: Patient Position: Sitting; Cuff Location: Left Arm; Cuff Size: Standard Weight 204 lb Height 68 in Body Mass Index Calculated 31.02 kg/m2 Body Surface Area Calculated 2.06 m2 :17 Temperature 99.2 f Pulse 100 /min Comments: Pattern: Regular Respiration Rate 16 /min Comments: Pattern: Unlabored BP Systolic 126 mm[Hg] Comments: Patient Position: Sitting; Cuff Location: Left Arm; Cuff Size: Large BP Diastolic 90 mm[Hg] Comments: Patient Position: Sitting; Cuff Location: Left Arm; Cuff Size: Large Weight 211 lb Height 68 in Body Mass Index Calculated 32.08 kg/m2 Body Surface Area Calculated 2.09 m2 :32 Temperature 98.5 f Pulse 84 /min Comments: Pattern: Regular Respiration Rate 16 /min Comments: Pattern: Unlabored BP Systolic 128 mm[Hg] Comments: Patient Position: Sitting; Cuff Location: Left Arm; Cuff Size: Large BP Diastolic 80 mm[Hg] Comments: Patient Position: Sitting; Cuff Location: Left Arm; Cuff Size: Large Weight 211 lb Height 68 in Body Mass Index Calculated 32.08 kg/m2 Body Surface Area Calculated 2.09 m2 :09 Pulse 92 /min Comments: Pattern: Regular Respiration Rate 16 /min Comments: Pattern: Unlabored O2 SAT 97 % Comments: Room air BP Systolic 126 mm[Hg] Comments: Patient Position: Sitting; Cuff Location: Left Arm; Cuff Size: Standard BP Diastolic 84 mm[Hg] Comments: Patient Position: Sitting; Cuff Location: Left Arm; Cuff Size: Standard Weight 206 lb Height 68 in Body Mass Index Calculated 31.32 kg/m2 Body Surface Area Calculated 2.07 m2 :43 Comments: I am nervous Temperature 97.8 f Comments: Method: Oral Pulse 108 /min Comments: Pattern: Regular Respiration Rate 16 /min O2 SAT 98 % Comments: Room air BP Systolic 142 mm[Hg] Comments: Patient Position: Sitting; Cuff Location: Left Arm; Cuff Size: Standard BP Diastolic 90 mm[Hg] Comments: Patient Position: Sitting; Cuff Location: Left Arm; Cuff Size: Standard Weight 207.4375 lb Height 68 in Body Mass Index Calculated 31.54 kg/m2 Body Surface Area Calculated 2.08 m2 :01 Temperature 97.2 f Comments: Method: Temporal Pulse 76 /min Comments: Pattern: Regular Respiration Rate 16 /min Comments: Pattern: Unlabored O2 SAT 98 % Comments: Room air BP Systolic 128 mm[Hg] Comments: Patient Position: Sitting; Cuff Location: Left Arm; Cuff Size: Standard BP Diastolic 74 mm[Hg] Comments: Patient Position: Sitting; Cuff Location: Left Arm; Cuff Size: Standard Weight 210 lb Height 68.75 in Body Mass Index Calculated 31.24 kg/m2 Body Surface Area Calculated 2.1 m2 :46 Temperature 98.1 f Pulse 92 /min Comments: Pattern: Regular Respiration Rate 16 /min Comments: Pattern: Unlabored BP Systolic 110 mm[Hg] Comments: Patient Position: Sitting; Cuff Location: Left Arm; Cuff Size: Large BP Diastolic 80 mm[Hg] Comments: Patient Position: Sitting; Cuff Location: Left Arm; Cuff Size: Large Weight 213 lb Height 68.75 in Body Mass Index Calculated 31.68 kg/m2 Body Surface Area Calculated 2.12 m2 :31 Temperature 97 f Pulse 78 /min Comments: Pattern: Regular Respiration Rate 18 /min Comments: Pattern: Unlabored BP Systolic 110 mm[Hg] Comments: Patient Position: Sitting; Cuff Location: Left Arm; Cuff Size: Large BP Diastolic 80 mm[Hg] Comments: Patient Position: Sitting; Cuff Location: Left Arm; Cuff Size: Large Weight 207 lb Height 69.25 in Body Mass Index Calculated 30.35 kg/m2 Body Surface Area Calculated 2.1 m2 :57 Temperature 97 f Pulse 84 /min Comments: Pattern: Regular Respiration Rate 16 /min Comments: Pattern: Unlabored BP Systolic 118 mm[Hg] Comments: Patient Position: Sitting; Cuff Location: Left Arm; Cuff Size: Large BP Diastolic 80 mm[Hg] Comments: Patient Position: Sitting; Cuff Location: Left Arm; Cuff Size: Large Weight 204 lb Height 69.25 in Body Mass Index Calculated 29.91 kg/m2 Body Surface Area Calculated 2.09 m2 :44 Temperature 97.3 f Pulse 84 /min Comments: Pattern: Regular Respiration Rate 16 /min Comments: Pattern: Unlabored BP Systolic 120 mm[Hg] Comments: Patient Position: Sitting; Cuff Location: Left Arm; Cuff Size: Large BP Diastolic 84 mm[Hg] Comments: Patient Position: Sitting; Cuff Location: Left Arm; Cuff Size: Large Weight 202 lb Height 69.25 in Body Mass Index Calculated 29.61 kg/m2 Body Surface Area Calculated 2.08 m2 :29 Temperature 98.3 f Pulse 92 /min Comments: Pattern: Regular Respiration Rate 18 /min Comments: Pattern: Unlabored BP Systolic 98 mm[Hg] Comments: Patient Position: Sitting; Cuff Location: Left Arm; Cuff Size: Large BP Diastolic 74 mm[Hg] Comments: Patient Position: Sitting; Cuff Location: Left Arm; Cuff Size: Large Weight 192 lb Height 69.25 in Body Mass Index Calculated 28.15 kg/m2 Body Surface Area Calculated 2.04 m2 :49 Temperature 97 f Pulse 96 /min Comments: Pattern: Regular Respiration Rate 16 /min Comments: Pattern: Unlabored BP Systolic 110 mm[Hg] Comments: Patient Position: Sitting; Cuff Location: Left Arm; Cuff Size: Large BP Diastolic 86 mm[Hg] Comments: Patient Position: Sitting; Cuff Location: Left Arm; Cuff Size: Large Weight 204 lb Height 69.25 in Body Mass Index Calculated 29.91 kg/m2 Body Surface Area Calculated 2.09 m2 :28 Temperature 97.1 f Comments: Method: Oral Pulse 78 /min Comments: Pattern: Regular Respiration Rate 16 /min Comments: Pattern: Unlabored BP Systolic 122 mm[Hg] Comments: Patient Position: Sitting; Cuff Location: Left Arm; Cuff Size: Standard BP Diastolic 80 mm[Hg] Comments: Patient Position: Sitting; Cuff Location: Left Arm; Cuff Size: Standard Weight 201 lb Height 68.75 in Body Mass Index Calculated 29.9 kg/m2 Body Surface Area Calculated 2.06 m2 :40 Temperature 97.6 f Comments: Method: Oral Pulse 80 /min Comments: Pattern: Regular Respiration Rate 16 /min O2 SAT 95 % Comments: Room air BP Systolic 120 mm[Hg] Comments: Patient Position: Sitting; Cuff Location: Left Arm; Cuff Size: Standard BP Diastolic 80 mm[Hg] Comments: Patient Position: Sitting; Cuff Location: Left Arm; Cuff Size: Standard Weight 201 lb Height 68.75 in Body Mass Index Calculated 29.9 kg/m2 Body Surface Area Calculated 2.06 m2 :52 Temperature 97.1 f Pulse 82 /min Comments: Pattern: Regular Respiration Rate 18 /min Comments: Pattern: Unlabored BP Systolic 122 mm[Hg] Comments: Patient Position: Sitting; Cuff Location: Left Arm; Cuff Size: Large BP Diastolic 88 mm[Hg] Comments: Patient Position: Sitting; Cuff Location: Left Arm; Cuff Size: Large Weight 201 lb Height 68.75 in Body Mass Index Calculated 29.9 kg/m2 Body Surface Area Calculated 2.06 m2 :48 Temperature 96.6 f Pulse 72 /min Comments: Pattern: Regular Respiration Rate 16 /min Comments: Pattern: Unlabored BP Systolic 106 mm[Hg] Comments: Patient Position: Sitting; Cuff Location: Left Arm; Cuff Size: Standard BP Diastolic 78 mm[Hg] Comments: Patient Position: Sitting; Cuff Location: Left Arm; Cuff Size: Standard Weight 177 lb Height 69 in Body Mass Index Calculated 26.14 kg/m2 Body Surface Area Calculated 1.96 m2 :27 BP Systolic 122 mm[Hg] Comments: Patient Position: Sitting; Cuff Location: Left Arm; Cuff Size: Standard BP Diastolic 78 mm[Hg] Comments: Patient Position: Sitting; Cuff Location: Left Arm; Cuff Size: Standard :55 Pulse 96 /min Comments: Pattern: Regular Respiration Rate 16 /min Comments: Pattern: Unlabored BP Systolic 102 mm[Hg] Comments: Patient Position: Sitting; Cuff Location: Left Arm; Cuff Size: Standard BP Diastolic 82 mm[Hg] Comments: Patient Position: Sitting; Cuff Location: Left Arm; Cuff Size: Standard Weight 190 lb Height 68.75 in Body Mass Index Calculated 28.26 kg/m2 Body Surface Area Calculated 2.02 m2 :17 BP Systolic 125 mm[Hg] Comments: Patient Position: Sitting; Cuff Location: Undefined; Cuff Size: Undefined BP Diastolic 75 mm[Hg] Comments: Patient Position: Sitting; Cuff Location: Undefined; Cuff Size: Undefined Weight 0 lb Height 0 in Head Circumference 0.00 cm :47 Temperature 98.1 f Comments: Method: Undefined Pulse 84 /min Comments: Pattern: Regular Respiration Rate 18 /min Comments: Pattern: Undefined BP Systolic 124 mm[Hg] Comments: Patient Position: Sitting; Cuff Location: Left Arm; Cuff Size: Standard BP Diastolic 86 mm[Hg] Comments: Patient Position: Sitting; Cuff Location: Left Arm; Cuff Size: Standard Weight 204 lb Height 0 in Head Circumference 0.00 cm :16 Temperature 98 f Comments: Method: Undefined Pulse 96 /min Comments: Pattern: Regular Respiration Rate 16 /min Comments: Pattern: Undefined BP Systolic 100 mm[Hg] Comments: Patient Position: Sitting; Cuff Location: Left Arm; Cuff Size: Large BP Diastolic 74 mm[Hg] Comments: Patient Position: Sitting; Cuff Location: Left Arm; Cuff Size: Large Weight 206 lb Height 0 in Head Circumference 0.00 cm :13 Temperature 98.5 f Comments: Method: Undefined Pulse 80 /min Comments: Pattern: Regular Respiration Rate 16 /min Comments: Pattern: Undefined BP Systolic 118 mm[Hg] Comments: Patient Position: Sitting; Cuff Location: Right Arm; Cuff Size: Large BP Diastolic 80 mm[Hg] Comments: Patient Position: Sitting; Cuff Location: Right Arm; Cuff Size: Large Weight 205 lb Height 0 in Head Circumference 0.00 cm :04 Temperature 98 f Comments: Method: Undefined Pulse 76 /min Comments: Pattern: Regular Respiration Rate 16 /min Comments: Pattern: Undefined BP Systolic 112 mm[Hg] Comments: Patient Position: Sitting; Cuff Location: Right Arm; Cuff Size: Large BP Diastolic 78 mm[Hg] Comments: Patient Position: Sitting; Cuff Location: Right Arm; Cuff Size: Large Weight 0 lb Height 0 in Head Circumference 0.00 cm :35 Temperature 98.2 f Comments: Method: Undefined Pulse 76 /min Comments: Pattern: Regular Respiration Rate 16 /min Comments: Pattern: Undefined BP Systolic 116 mm[Hg] Comments: Patient Position: Sitting; Cuff Location: Right Arm; Cuff Size: Large BP Diastolic 94 mm[Hg] Comments: Patient Position: Sitting; Cuff Location: Right Arm; Cuff Size: Large Weight 199 lb Height 0 in Head Circumference 0.00 cm :32 Temperature 98.3 f Comments: Method: Oral Pulse 88 /min Comments: Pattern: Regular Respiration Rate 16 /min Comments: Pattern: Unlabored BP Systolic 116 mm[Hg] Comments: Patient Position: Sitting; Cuff Location: Right Arm; Cuff Size: Standard BP Diastolic 72 mm[Hg] Comments: Patient Position: Sitting; Cuff Location: Right Arm; Cuff Size: Standard Weight 202 lb Height 69 in Body Mass Index Calculated 29.83 kg/m2 Body Surface Area Calculated 2.07 m2 Head Circumference 0.00 cm Results Date Description Value Details :55 CBC W/Diff, Automated Comments: [facility] [id number] [place], [address] Absolute Lymph 1.81 {X10_3/ul} (Normal) Range: 0.83-4.51 Absolute Neut 2.4 {X10_3/uL} (Normal) Range: 2.0-7.7 IM GRAN % 0.200 % (Normal) Range: 0.0-0.9 Comments: IG% - Immature Granulocytes (promyelocytes, myelocytes andmetamyelocytes) > 1% indicates that a LEFT SHIFT is Present. BASO% 0.7 % (Normal) Range: 0-1 EO% 1.5 % (Normal) Range: 0-5 MONO% 5.9 % (Normal) Range: 0-10 LY% 39.5 % (Normal) Range: 19-41 NEUT% 52.2 % (Normal) Range: 47-70 MPV 9.4 fL (Normal) Range: 6.2-12.0 PLT 208 K/mm3 (Normal) Range: 150-450 RDW SD 43.3 fL (Normal) Range: 35.1-43.9 RDW CV 13.1 % (Normal) Range: 11.6-14.6 MCHC 33.7 {g/gl} (Normal) Range: 32-36 MCH 30.7 pg (Normal) Range: 27.0-32.0 MCV 91.1 fL (Normal) Range: 80-94 HCT 42.1 % (Normal) Range: 40-54 HGB 14.2 g/dL (Normal) Range: 13.0-16.5 RBC 4.62 {M/mm3} (Normal) Range: 4.6-6.2 WBC 4.6 K/mm3 (Normal) Range: 4.4-11.0 [id number] Comprehensive Metabolic Profil Comments: [facility] [id number] [place], [place], [id number] GAP 9 (Normal) Range: 5-15 CO2 25.0 mmol/L (Normal) Range: 21.0-32.0 CL 107 mmol/L (Normal) Range: 98-107 K 4.0 mmol/L (Normal) Range: 3.5-5.1 NA 141 mmol/L (Normal) Range: 136-145 T BILI 0.50 mg/dL (Normal) Range: 0.20-1.00 ALT 35 U/L (Normal) Range: 16-61 ALK P 82 U/L (Normal) Range: 45-117 AST 14 U/L (Abnormal) Range: 15-37 CA 8.6 mg/dL (Normal) Range: 8.5-10.1 A/G 1.2 {RATIO} (Normal) Range: 0.9-2.4 GLOB 3.2 g/dL (Normal) Range: 2.2-4.2 ALB 3.9 g/dL (Normal) Range: 3.2-5.0 T PROT 7.1 g/dL (Normal) Range: 6.4-8.2 BUN/CRE 12.8 {RATIO} (Normal) Range: 10-20 EST GFR - AA 91 mL/min (Normal) Comments: GFR Calc EST GFR 75 mL/min (Normal) Comments: Non- GFR Calc CREAT,SERUM 1.09 mg/dL (Normal) Range: 0.70-1.30 Comments: The validity of the calculated GFR AND GFRAA in patients over70 years has not been determined. Clinical correlation isessential. BUN 14 mg/dL (Normal) Range: 7-18 GLU 135 mg/dL (Abnormal) Range: 74-106 Comments: Fasting Glucose result greater than or equal to 126 mg/dLsuggests DIABETES MELLITUS per A.D.A. criteria.Please note revised GLUCOSE reference range [id number]/02/2018. [id number] CRP Comments: [facility] [id number] [place], [place], [id number] C-REACTIVE PROT 5.66 mg/L (Abnormal) Range: 0.0-3.0 Comments: C-Reactive Protein (CRP) provides useful information for thediagnosis, therapy and monitoring of inflammatory processesand associated diseases. For the evaluation of Relative Riskfor Cardiovascular Dise ase, a High Sensitivity CRP (HSCRP)should be ordered. :55 CRP, High Sensitivity Cardiac Comments: [facility] [id number] [place], [place], [id number] CRP HIGH SENS 5.58 mg/L (Abnormal) Comments: Low Relative Risk of CVD <1.0 mg/L Average Relative Risk of CVD 1.0 - 3.0 mg/L High Relative Risk of CVD >3.0 mg/L :55 Erythrocyte Sed Rate Comments: [facility] [id number] [place], [place], [id number] SED RATE 7 mm/h (Normal) Range: 0-20 :48 HgA1C , Office (59450) HgA1C , Office 5.6 % (Normal) Range: 4.6 - 7.1 :48 Blood Glucose , Office (34147) Blood Glucose , Office 105 (Normal) :08 CBC W/Diff, Automated Comments: [facility] [id number] [place], [address] Absolute Lymph 1.86 {X10_3/ul} (Normal) Range: 0.83-4.51 Absolute Neut 2.0 {X10_3/uL} (Normal) Range: 2.0-7.7 IM GRAN % 0.200 % (Normal) Range: 0.0-0.9 Comments: IG% - Immature Granulocytes (promyelocytes, myelocytes andmetamyelocytes) > 1% indicates that a LEFT SHIFT is Present. BASO% 0.9 % (Normal) Range: 0-1 EO% 3.6 % (Normal) Range: 0-5 MONO% 9.0 % (Normal) Range: 0-10 LY% 41.8 % (Abnormal) Range: 19-41 NEUT% 44.5 % (Abnormal) Range: 47-70 MPV 9.9 fL (Normal) Range: 6.2-12.0 PLT 209 K/mm3 (Normal) Range: 150-450 RDW SD 44.3 fL (Abnormal) Range: 35.1-43.9 RDW CV 13.4 % (Normal) Range: 11.6-14.6 MCHC 33.2 {g/gl} (Normal) Range: 32-36 MCH 30.9 pg (Normal) Range: 27.0-32.0 MCV 93.1 fL (Normal) Range: 80-94 HCT 41.9 % (Normal) Range: 40-54 HGB 13.9 g/dL (Normal) Range: 13.0-16.5 RBC 4.50 {M/mm3} (Abnormal) Range: 4.6-6.2 WBC 4.5 K/mm3 (Normal) Range: 4.4-11.0 [id number] Comprehensive Metabolic Profil Comments: [facility] [id number] [place], [address] GAP 6 (Normal) Range: 5-15 CO2 28.0 mmol/L (Normal) Range: 21.0-32.0 CL 108 mmol/L (Abnormal) Range: 98-107 K 4.4 mmol/L (Normal) Range: 3.5-5.1 NA 142 mmol/L (Normal) Range: 136-145 T BILI 0.40 mg/dL (Normal) Range: 0.20-1.00 ALT 39 U/L (Normal) Range: 16-61 ALK P 72 U/L (Normal) Range: 45-117 AST 20 U/L (Normal) Range: 15-37 CA 8.5 mg/dL (Normal) Range: 8.5-10.1 A/G 1.1 {RATIO} (Normal) Range: 0.9-2.4 GLOB 3.3 g/dL (Normal) Range: 2.2-4.2 ALB 3.6 g/dL (Normal) Range: 3.2-5.0 T PROT 6.9 g/dL (Normal) Range: 6.4-8.2 BUN/CRE 10.2 {RATIO} (Normal) Range: 10-20 EST GFR - AA 102 mL/min (Normal) Comments: GFR Calc EST GFR 84 mL/min (Normal) Comments: Non- GFR Calc CREAT,SERUM 0.98 mg/dL (Normal) Range: 0.70-1.30 Comments: The validity of the calculated GFR AND GFRAA in patients over70 years has not been determined. Clinical correlation isessential. BUN 10 mg/dL (Normal) Range: 7-18 GLU 93 mg/dL (Normal) Range: 74-106 Comments: Please note revised GLUCOSE reference range /02/2018. [id number] Lipid Profile Comments: [facility] [id number] [place], [place], [phone]) VLDL 36 mg/dL (Normal) Range: 5-40 LDL 71 mg/dL (Normal) Range: 0-130 HDL 34 mg/dL (Abnormal) Comments: The drugs N-Acetylcysteine and Metamizole may falselydepress this assay. Reference Range HDL <40 mg/dL Low HDL Cholesterol HDL >or= 60 mg/dL High HDL Cholesterol TRIG 178 mg/dL (Normal) Comments: The drugs N-Acetylcysteine and Metamizole may falselydepress this assay.Serum Triglycerides Reference Interval Normal <150 mg/dL Borderline high 150 - 199 mg/dL High 200 - 499 mg/dL Very High > or = 500 mg/dL CHOL 141 mg/dL (Normal) Comments: <200 mg/dL Desirable 200-240 mg/dL Borderline >240 mg/dL High Risk :08 Microalb:Creat Ratio,Random UR Comments: [facility] [id number] [place], [address] MALB:CREAT 8.9 {mg/g_CRE} (Normal) MICROALBUMIN,UR 6.3 mg/L (Normal) UR CREAT 71.30 mg/dL (Normal) :08 PSA,Total - Annual Screen Comments: [facility] [id number] [place], [address] PSA,TOT SCREEN 0.20 ng/mL (Normal) Range: 0.00-4.00 Comments: This test was performed using the TPSA assay method for [employer] chemistry system. Values obtained with differentassay methods cannot be used interchangably.When changing PSA assays in the course of monitoring apatient, additional sequential testing should be carriedout to confirm baseline values. :08 Thyroid Stim Hormone (TSH) Comments: [facility] [id number] [place], [id number] TSH 2.56 {uIU/mL} (Normal) Range: 0.358-3.74 :08 Urinalysis, Complete Comments: How was Urine Obtained? CLEAN [facility] [id number] [place], [id number] MUCUS, URINE 0 SEEN {/hpf} (Normal) BACTERIA 0 SEEN {/hpf} (Normal) SQUAM EPI 0 SEEN {/hpf} (Normal) Range: 0-5 RBC-UA 0-5 SEEN {/hpf} (Normal) Range: 0-5 WBC 0 SEEN {/hpf} (Normal) Range: 0-5 LEUK ESTERASE Negative /ul (Normal) OCCULT BLOOD-UR 25 /ul (Abnormal) NITRITE UR Negative (Normal) UROBILI Normal mg/dL (Normal) PROT DIPSTX Negative mg/dL (Normal) pH UR 6.5 (Normal) Range: 5.0 - 8.0 SP.GR. DIPSTX 1.010 (Normal) Range: 1.002-1.030 KETONE UR Negative mg/dL (Normal) BILIRUBIN URINE Negative mg/dL (Normal) GLUCOSE, UR Normal mg/dL (Normal) CLARITY Clear (Normal) COLOR Yellow (Normal) :08 Vitamin D,25 Hydroxy Comments: [facility] [id number] [place], [address] Vitamin D 25-OH 38.3 ng/mL (Normal) Range: 29.95-100.01 Comments: Vitamin D 25(OH) Status Range Deficiency <20 ng/mL (50nmol/L) Insuffciency 20 - 30 ng/mL (50 - 75 nmol/L) Sufficiency 30 - 100 ng/mL (75 - 250 nmol/L) Toxicity >100 ng/mL (>250 nmol/L) :56 HgA1C , Office (19372) HgA1C , Office 5.6 % (Normal) Range: 4.6 - 7.1 :55 Blood Glucose , Office (59908) Blood Glucose , Office 97 (Normal) :18 CBC W/Diff, Automated Comments: [facility] [id number] [place], [id number] ; ov 4/20 Absolute Lymph 1.87 {X10_3/ul} (Normal) Range: 0.83-4.51 Absolute Neut 3.2 {X10_3/uL} (Normal) Range: 2.0-7.7 IM GRAN % 0.000 % (Normal) Range: 0.0-0.9 Comments: IG% - Immature Granulocytes (promyelocytes, myelocytes andmetamyelocytes) > 1% indicates that a LEFT SHIFT is Present. BASO% 0.4 % (Normal) Range: 0-1 EO% 1.8 % (Normal) Range: 0-5 MONO% 6.4 % (Normal) Range: 0-10 LY% 33.9 % (Normal) Range: 19-41 NEUT% 57.5 % (Normal) Range: 47-70 MPV 9.1 fL (Normal) Range: 6.2-12.0 PLT 224 K/mm3 (Normal) Range: 150-450 RDW SD 44.0 fL (Abnormal) Range: 35.1-43.9 RDW CV 13.4 % (Normal) Range: 11.6-14.6 MCHC 34.5 {g/gl} (Normal) Range: 32-36 MCH 31.0 pg (Normal) Range: 27.0-32.0 MCV 89.9 fL (Normal) Range: 80-94 HCT 42.6 % (Normal) Range: 40-54 HGB 14.7 g/dL (Normal) Range: 13.0-16.5 RBC 4.74 {M/mm3} (Normal) Range: 4.6-6.2 WBC 5.5 K/mm3 (Normal) Range: 4.4-11.0 55-Yfe-747287:29 CBC W/Diff, Automated Comments: [facility] [address] [place], [place], [id number] Absolute Lymph 1.69 {X10_3/ul} (Normal) Range: 0.83-4.51 Absolute Neut 1.8 {X10_3/uL} (Abnormal) Range: 2.0-7.7 IM GRAN % 0.200 % (Normal) Range: 0.0-0.9 Comments: IG% - Immature Granulocytes (promyelocytes, myelocytes andmetamyelocytes) > 1% indicates that a LEFT SHIFT is Present. BASO% 0.7 % (Normal) Range: 0-1 EO% 2.7 % (Normal) Range: 0-5 MONO% 10.2 % (Abnormal) Range: 0-10 LY% 42.1 % (Abnormal) Range: 19-41 NEUT% 44.1 % (Abnormal) Range: 47-70 MPV 9.6 fL (Normal) Range: 6.2-12.0 PLT 199 K/mm3 (Normal) Range: 150-450 RDW SD 46.1 fL (Abnormal) Range: 35.1-43.9 RDW CV 13.8 % (Normal) Range: 11.6-14.6 MCHC 32.9 {g/gl} (Normal) Range: 32-36 MCH 30.3 pg (Normal) Range: 27.0-32.0 MCV 92.4 fL (Normal) Range: 80-94 HCT 42.3 % (Normal) Range: 40-54 HGB 13.9 g/dL (Normal) Range: 13.0-16.5 RBC 4.58 {M/mm3} (Abnormal) Range: 4.6-6.2 WBC 4.0 K/mm3 (Abnormal) Range: 4.4-11.0 :29 Erythrocyte Sed Rate Comments: [facility] [address] [place], [place], [id number] SED RATE 4 mm/h (Normal) Range: 0-20 :53 HgA1C , Office (20735) HgA1C , Office 5.6 % (Normal) Range: 4.6 - 7.1 :53 Blood Glucose , Office (62702) Blood Glucose , Office 100 (Normal) :25 CBC W/Diff, Automated Comments: [facility] [address] [place], [place], [id number] Absolute Lymph 1.62 {X10_3/ul} (Normal) Range: 0.83-4.51 Absolute Neut 1.5 {X10_3/uL} (Abnormal) Range: 2.0-7.7 IM GRAN % 0.000 % (Normal) Range: 0.0-0.9 Comments: IG% - Immature Granulocytes (promyelocytes, myelocytes andmetamyelocytes) > 1% indicates that a LEFT SHIFT is Present. BASO% 1.1 % (Abnormal) Range: 0-1 EO% 2.3 % (Normal) Range: 0-5 MONO% 7.6 % (Normal) Range: 0-10 LY% 45.9 % (Abnormal) Range: 19-41 NEUT% 43.1 % (Abnormal) Range: 47-70 MPV 9.4 fL (Normal) Range: 6.2-12.0 PLT 212 K/mm3 (Normal) Range: 150-450 RDW SD 44.5 fL (Abnormal) Range: 35.1-43.9 RDW CV 13.4 % (Normal) Range: 11.6-14.6 MCHC 32.8 {g/gl} (Normal) Range: 32-36 MCH 30.2 pg (Normal) Range: 27.0-32.0 MCV 92.0 fL (Normal) Range: 80-94 HCT 42.7 % (Normal) Range: 40-54 HGB 14.0 g/dL (Normal) Range: 13.0-16.5 RBC 4.64 {M/mm3} (Normal) Range: 4.6-6.2 WBC 3.5 K/mm3 (Abnormal) Range: 4.4-11.0 :25 Comprehensive Metabolic Profil Comments: [facility] [address] [place], [place], [address] GAP 7 (Normal) Range: 5-15 CO2 25.0 mmol/L (Normal) Range: 21.0-32.0 CL 107 mmol/L (Normal) Range: 98-107 K 4.2 mmol/L (Normal) Range: 3.5-5.1 NA 139 mmol/L (Normal) Range: 136-145 T BILI 0.70 mg/dL (Normal) Range: 0.20-1.00 ALT 31 U/L (Normal) Range: 12-78 ALK P 88 U/L (Normal) Range: 45-117 AST 19 U/L (Normal) Range: 15-37 CA 8.6 mg/dL (Normal) Range: 8.5-10.1 A/G 1.1 {RATIO} (Normal) Range: 0.9-2.4 GLOB 3.6 g/dL (Normal) Range: 2.2-4.2 ALB 3.9 g/dL (Normal) Range: 3.4-5.0 Comments: Please note revised Albumin AND Globulin reference rangeeffective 2017. T PROT 7.5 g/dL (Normal) Range: 6.4-8.2 BUN/CRE 13.6 {RATIO} (Normal) Range: 10-20 EST GFR - AA 106 mL/min (Normal) Comments: GFR Calc EST GFR 87 mL/min (Normal) Comments: Non- GFR Calc CREAT,SERUM 0.96 mg/dL (Normal) Range: 0.70-1.30 Comments: The validity of the calculated GFR AND GFRAA in patients over70 years has not been determined. Clinical correlation isessential. BUN 13 mg/dL (Normal) Range: 7-18 GLU 99 mg/dL (Normal) Range: 70-110 :25 Lipid Profile Comments: [facility] [address] [place], [place], [id number] VLDL 27 mg/dL (Normal) Range: 5-40 LDL 80 mg/dL (Normal) Range: 0-130 HDL 35 mg/dL (Abnormal) Comments: The drugs N-Acetylcysteine and Metamizole may falselydepress this assay. Reference Range HDL <40 mg/dL Low HDL Cholesterol HDL >or= 60 mg/dL High HDL Cholesterol TRIG 135 mg/dL (Normal) Comments: The drugs N-Acetylcysteine and Metamizole may falselydepress this assay.Serum Triglycerides Reference Interval Normal <150 mg/dL Borderline high 150 - 199 mg/dL High 200 - 499 mg/dL Very High > or = 500 mg/dL CHOL 142 mg/dL (Normal) Comments: <200 mg/dL Desirable 200-240 mg/dL Borderline >240 mg/dL High Risk :25 Microalb:Creat Ratio,Random UR Comments: [facility] [address] [place], [place], [id number] MALB:CREAT 13.5 {mg/g_CRE} (Normal) MICROALBUMIN,UR 12.4 mg/L (Normal) UR CREAT 92.00 mg/dL (Normal) :25 Thyroid Stim Hormone (TSH) Comments: [facility] [address] [place], [place], [id number] TSH 2.01 {uIU/mL} (Normal) Range: 0.358-3.74 :25 Vitamin D,25 Hydroxy Comments: [facility] [address] [facility] [address] [place], [place], [id number] Vitamin D 25-OH 26.3 ng/mL (Normal) Comments: Vitamin D 25(OH) Status Range Deficiency <20 ng/mL (50nmol/L) Insuffciency 20 - 30 ng/mL (50 - 75 nmol/L) Sufficiency 30 - 100 ng/mL (75 - 250 nmol/L) Toxicity >100 ng/mL (>250 nmol/L) :50 Rapid Flu (33781 x 2) Comments: Negative Influenza A Ag Negative (Normal) :53 HgA1C , Office (27936) HgA1C , Office 5.5 % (Normal) Range: 4.6 - 7.1 :53 Blood Glucose , Office (20507) Blood Glucose , Office 85 (Normal) 3-Qyf-877851:23 Microscopic Examination Comments: PATIENT WAS FASTINGPERFORMED BY: [employer] [address]ublin [place] [id number] Bacteria None seen (Normal) Mucus Threads Present (Normal) Epithelial Cells (non renal) None seen {/hpf} (Normal) Range: 0 - 10 RBC None seen {/hpf} (Normal) Range: 0 - 2 WBC 0-5 {/hpf} (Normal) Range: 0 - 5 :23 CALCIFIDIOL (32099) VIT D 25 Comments: PATIENT WAS FASTINGPERFORMED BY: [facility] Liptkc[address]Dublin [place] [id number] Vitamin D, 25-Hydroxy 29.6 ng/mL (Abnormal) Range: 30.0-100.0 Comments: Vitamin D deficiency has been defined by the [place] and an Endocrine Society practice guideline as alevel of serum 25-OH vitamin D less than 20 ng/mL (1,2).The Endocrine Society went on to further define vitamin Dinsufficiency as a level between 21 and 29 ng/mL (2).1. IOM ([place]). 2010. Dietary reference intakes for calcium and D. [place]: The National Academies Press.2. Darcie MF, Chris NC, Nancy WAN, et al. Evaluation, treatment, and prevention of vitamin D deficiency: an Endocrine Society clinical practice guideline. JCEM. 2010; 96(7):1911-30. 2-Plf-993955:23 TSH (99871) Comments: PATIENT WAS FASTINGPERFORMED BY: [facility] [address]Dublin [place] [id number] TSH 2.180 {uIU/mL} (Normal) Range: 0.450-4.500 5-Vqr-685544:23 URINALYSIS, W/ MICRO (92890) Comments: PATIENT WAS FASTINGPERFORMED BY: [facility] Mkqjkb[address]Dublin [place] [id number] Microscopic Examination See below: (Normal) Comments: Microscopic was indicated and was performed. Nitrite, Urine Negative (Normal) Urobilinogen,Semi-Qn 0.2 mg/dL (Normal) Range: 0.2-1.0 Bilirubin Negative (Normal) Occult Blood Trace (Abnormal) Ketones Negative (Normal) Glucose Negative (Normal) Protein Negative (Normal) WBC Esterase Negative (Normal) Appearance Clear (Normal) Urine-Color Yellow (Normal) pH 6.5 (Normal) Range: 5.0-7.5 Specific [place] 1.016 (Normal) Range: 1.005-1.030 0-Hxd-154297:23 MICROALBUMIN: CREATININE RATIO Comments: PATIENT WAS FASTINGPERFORMED BY: [facility]edsafeEng[facility] CenterJgllgr3041 [facility] [id number] ([id number]) AND (35483) Microalb/Creat Ratio <3.1 {mg/g_creat} (Normal) Range: 0.0-30.0 Microalbumin, Urine <3.0 ug/mL (Normal) Creatinine, Urine 96.8 mg/dL (Normal) :23 METABOLIC PANEL, COMPREHENSIVE Comments: PATIENT WAS FASTINGPERFORMED BY: [facility]edsafePres[facility] HospitalHjewdc2170 [facility] [id number] (29928) ALT (SGPT) 27 [iU]/L (Normal) Range: 0-44 AST (SGOT) 21 [iU]/L (Normal) Range: 0-40 Alkaline Phosphatase, S 72 [iU]/L (Normal) Range: 39-117 Bilirubin, Total 0.4 mg/dL (Normal) Range: 0.0-1.2 A/G Ratio 1.9 (Normal) Range: 1.2-2.2 Globulin, Total 2.3 g/dL (Normal) Range: 1.5-4.5 Albumin, Serum 4.4 g/dL (Normal) Range: 3.5-5.5 Protein, Total, Serum 6.7 g/dL (Normal) Range: 6.0-8.5 Calcium, Serum 9.3 mg/dL (Normal) Range: 8.7-10.2 Carbon Dioxide, Total 22 mmol/L (Normal) Range: 18-29 Chloride, Serum 103 mmol/L (Normal) Range: 96-106 Potassium, Serum 4.7 mmol/L (Normal) Range: 3.5-5.2 Sodium, Serum 144 mmol/L (Normal) Range: 134-144 BUN/Creatinine Ratio 16 (Normal) Range: 9-20 eGFR If Africn Am 115 mL/min/1.73 (Normal) eGFR If NonAfricn Am 100 mL/min/1.73 (Normal) Creatinine, Serum 0.86 mg/dL (Normal) Range: 0.76-1.27 BUN 14 mg/dL (Normal) Range: 6-24 Glucose, Serum 82 mg/dL (Normal) Range: 65-99 9-Yxy-366790:23 LIPID PANEL (23213) Comments: PATIENT WAS FASTINGPERFORMED BY: [facility]Nov[facility] [id number] LDL/HDL Ratio 2.3 {ratio_units} (Normal) Range: 0.0-3.6 Comments: LDL/HDL Ratio Men Women 1/2 Avg.Risk 1.0 1.5 Av g.Risk 3.6 3.2 2X Avg.Risk 6.2 5.0 3X Avg.Risk 8.0 6.1 LDL Cholesterol Calc 84 mg/dL (Normal) Range: 0-99 VLDL Cholesterol Nader 24 mg/dL (Normal) Range: 5-40 HDL Cholesterol 37 mg/dL (Abnormal) Triglycerides 118 mg/dL (Normal) Range: 0-149 Cholesterol, Total 145 mg/dL (Normal) Range: 100-199 9-Xcz-022050:23 CBC W/AUTO DIFF WBC (57404) Comments: PATIENT WAS FASTINGPERFORMED BY: [facility]Nov[facility] [id number] Immature Grans (Abs) 0.0 {x10E3/uL} (Normal) Range: 0.0-0.1 Immature Granulocytes 0 % (Normal) Baso (Absolute) 0.0 {x10E3/uL} (Normal) Range: 0.0-0.2 Eos (Absolute) 0.1 {x10E3/uL} (Normal) Range: 0.0-0.4 Monocytes(Absolute) 0.4 {x10E3/uL} (Normal) Range: 0.1-0.9 Lymphs (Absolute) 1.7 {x10E3/uL} (Normal) Range: 0.7-3.1 Neutrophils (Absolute) 2.6 {x10E3/uL} (Normal) Range: 1.4-7.0 Basos 1 % (Normal) Eos 1 % (Normal) Monocytes 8 % (Normal) Lymphs 35 % (Normal) Neutrophils 55 % (Normal) Platelets 215 {x10E3/uL} (Normal) Range: 150-379 RDW 13.6 % (Normal) Range: 12.3-15.4 MCHC 33.4 g/dL (Normal) Range: 31.5-35.7 MCH 30.5 pg (Normal) Range: 26.6-33.0 MCV 91 fL (Normal) Range: 79-97 Hematocrit 42.8 % (Normal) Range: 37.5-51.0 Hemoglobin 14.3 g/dL (Normal) Range: 12.6-17.7 RBC 4.69 {x10E6/uL} (Normal) Range: 4.14-5.80 WBC 4.7 {x10E3/uL} (Normal) Range: 3.4-10.8 :09 HgA1C , Office (98169) HgA1C , Office 5.4 % (Normal) Range: 4.6 - 7.1 :29 CBC W/Diff, Automated Comments: [facility] [address] [place], [place], [id number] Absolute Lymph 1.84 {X10_3/ul} (Normal) Range: 0.83-4.51 Absolute Neut 1.9 {X10_3/uL} (Abnormal) Range: 2.0-7.7 IM GRAN % 0.200 % (Normal) Range: 0.0-0.9 Comments: IG% - Immature Granulocytes (promyelocytes, myelocytes andmetamyelocytes) > 1% indicates that a LEFT SHIFT is Present. BASO% 1.0 % (Normal) Range: 0-1 EO% 2.4 % (Normal) Range: 0-5 MONO% 5.5 % (Normal) Range: 0-10 LY% 44.3 % (Abnormal) Range: 19-41 NEUT% 46.6 % (Abnormal) Range: 47-70 MPV 9.8 fL (Normal) Range: 6.2-12.0 PLT 234 K/mm3 (Normal) Range: 150-450 RDW SD 44.2 fL (Abnormal) Range: 35.1-43.9 RDW CV 13.3 % (Normal) Range: 11.6-14.6 MCHC 33.6 {g/gl} (Normal) Range: 32-36 MCH 31.0 pg (Normal) Range: 27.0-32.0 MCV 92.0 fL (Normal) Range: 80-94 HCT 42.8 % (Normal) Range: 40-54 HGB 14.4 g/dL (Normal) Range: 13.0-16.5 RBC 4.65 {M/mm3} (Normal) Range: 4.6-6.2 WBC 4.2 K/mm3 (Abnormal) Range: 4.4-11.0 10-Apr-20168:29 Comprehensive Metabolic Profil Comments: [facility] [address] [place], [place], [id number] GAP 5 (Normal) Range: 5-15 CO2 29.0 mmol/L (Normal) Range: 21.0-32.0 CL 107 mmol/L (Normal) Range: 98-107 K 4.1 mmol/L (Normal) Range: 3.5-5.1 NA 141 mmol/L (Normal) Range: 136-145 T BILI 0.50 mg/dL (Normal) Range: 0.20-1.00 ALT 34 U/L (Normal) Range: 12-78 ALK P 75 U/L (Normal) Range: 45-117 AST 17 U/L (Normal) Range: 15-37 CA 8.5 mg/dL (Normal) Range: 8.5-10.1 A/G 1.1 {RATIO} (Normal) Range: 0.9-2.4 GLOB 3.3 g/dL (Normal) Range: 2.3-3.5 ALB 3.7 g/dL (Normal) Range: 3.4-5.0 T PROT 7.0 g/dL (Normal) Range: 6.4-8.2 BUN/CRE 11.4 {RATIO} (Normal) Range: 10-20 EST GFR - AA 95 mL/min (Normal) Comments: GFR Calc EST GFR 79 mL/min (Normal) Comments: Non- GFR Calc CREAT,SERUM 1.05 mg/dL (Normal) Range: 0.70-1.30 Comments: The validity of the calculated GFR AND GFRAA in patients over70 years has not been determined. Clinical correlation isessential. BUN 12 mg/dL (Normal) Range: 7-18 GLU 99 mg/dL (Normal) Range: 70-110 :29 Lipid Profile Comments: [facility] [address] [place], [place], [id number] VLDL 29 mg/dL (Normal) Range: 5-40 LDL 96 mg/dL (Normal) Range: 0-130 HDL 38 mg/dL (Abnormal) Comments: The drugs N-Acetylcysteine and Metamizole may falsely deressthis assay. Reference Range HDL <40 mg/dL Low HDL Cholesterol HDL >or= 60 mg/dL High HDL Cholesterol TRIG 147 mg/dL (Normal) Comments: The drugs N-Acetylcysteine and Metamizole may falsely deressthis assay.Serum Triglycerides Reference Interval Normal <150 mg/dL Borderline high 150 - 199 mg/dL High 200 - 499 mg/dL Very High > or = 500 mg/dL CHOL 163 mg/dL (Normal) Comments: <200 mg/dL Desirable 200-240 mg/dL Borderline >240 mg/dL High Risk 10-Apr-20168:29 Microalb:Creat Ratio,Random UR Comments: [facility] [address] [place], [address] MALB:CREAT 7.5 {mg/g_CRE} (Normal) MICROALBUMIN,UR 8.2 mg/L (Normal) UR CREAT 109.00 mg/dL (Normal) 19-Vlw-04819:00 Cytology, Body Fluid / CSF Comments: Specimen Source: [facility] [address] [place], [address] CYTOLOGY,BF/CSF SEE PATHOLOGY REPORT (Normal) Comments: Specimen submitted to Anatomical Pathology Department anne marie. 05-Xwm-81347:00 Urinalysis, Complete Comments: How was Urine Obtained? [facility] [address] [place], [address] MUCUS, URINE 1+ {/hpf} (Normal) BACTERIA 0 SEEN {/hpf} (Normal) SQUAM EPI 0 SEEN {/hpf} (Normal) Range: 0-5 RBC-UA 0-5 SEEN {/hpf} Range: 0-5 (Normal) WBC 0 SEEN {/hpf} (Normal) Range: 0-5 LEUK ESTERASE Negative /ul (Normal) OCCULT BLOOD-UR 50 /ul (Abnormal) NITRITE UR Negative (Normal) UROBILI Normal mg/dL (Normal) PROT DIPSTX Negative mg/dL (Normal) pH UR 6.0 (Normal) Range: 5.0 - 8.0 SP.GR. DIPSTX 1.020 (Normal) Range: 1.002-1.030 KETONE UR Negative mg/dL (Normal) BILIRUBIN URINE Negative mg/dL (Normal) GLUCOSE, UR Normal mg/dL (Normal) CLARITY Clear (Normal) COLOR Yellow (Normal) 51-Atd-42460:00 CYTOSPIN ON FLUID See Note (Normal) Comments: [facility] [address] [place], [place], [id number] Comments: Patient: MARCUS MATIAS : 1965 (50/M) Acct Num: [id number] Phys: Rolando CHADWICK,Philip Unit Num: [id number] Loc: LABSPEC Specimen: [id number] Received: 11/01/15 - 1428 Spec Type: CYSPIN FL TISSUES TISSUES: CYTOLOGY GROSS Received is 70 ml of gold cloudy fluid labeled with the patient's name and and designated per the requisition as urine. Submit joselin for cytology preparation. 11/01/15 TC:5 CPT:25836 CYTOLOGY STUDY Slides are reviewed. DIAGNOSIS CYTOLOGY Urine for cytology (cytospins): Negative for malignant cells. AM:kena 11/02/15 HEADER OPERATION: Not noted PRE-OP DIAGNOSIS: Hematuria TISSUE SUBMITTED: Urine for cytology Signed Srinivasa Trejo 11/02/15 <sig nature on file> 32-Mfz-582064:05 HgA1C , Office (35326) HgA1C , Office 5.5 % (Normal) Range: 4.6 - 7.1 :05 CBC W/Diff, Automated Comments: [facility] [address] [place], [place], [phone] Absolute Lymph 1.54 {X10_3/ul} (Normal) Range: 0.83-4.51 Absolute Neut 2.0 {X10_3/uL} (Normal) Range: 2.0-7.7 IM GRAN % 0.000 % (Normal) Range: 0.0-0.9 Comments: IG% - Immature Granulocytes (promyelocytes, myelocytes andmetamyelocytes) > 1% indicates that a LEFT SHIFT is Present. BASO% 0.8 % (Normal) Range: 0-1 EO% 2.8 % (Normal) Range: 0-5 MONO% 7.3 % (Normal) Range: 0-10 LY% 38.6 % (Normal) Range: 19-41 NEUT% 50.5 % (Normal) Range: 47-70 MPV 9.2 fL (Normal) Range: 6.2-12.0 PLT 210 K/mm3 (Normal) Range: 150-450 RDW SD 45.1 fL (Abnormal) Range: 35.1-43.9 RDW CV 13.5 % (Normal) Range: 11.6-14.6 MCHC 34.0 {g/gl} (Normal) Range: 32-36 MCH 31.1 pg (Normal) Range: 27.0-32.0 MCV 91.5 fL (Normal) Range: 80-94 HCT 40.9 % (Normal) Range: 40-54 HGB 13.9 g/dL (Normal) Range: 13.0-16.5 RBC 4.47 {M/mm3} (Abnormal) Range: 4.6-6.2 WBC 4.0 K/mm3 (Abnormal) Range: 4.4-11.0 :05 Comprehensive Metabolic Profil Comments: [facility] [address] [place], [place], [phone] GAP 8 (Normal) Range: 5-15 CO2 24.0 mmol/L (Normal) Range: 21.0-32.0 CL 109 mmol/L (Abnormal) Range: 98-107 K 4.0 mmol/L (Normal) Range: 3.5-5.1 NA 141 mmol/L (Normal) Range: 136-145 T BILI 0.50 mg/dL (Normal) Range: 0.20-1.00 ALT 38 U/L (Normal) Range: 12-78 ALK P 63 U/L (Normal) Range: 50-136 AST 22 U/L (Normal) Range: 15-37 CA 8.3 mg/dL (Abnormal) Range: 8.5-10.1 A/G 1.2 {RATIO} (Normal) Range: 0.9-2.4 GLOB 3.3 g/dL (Normal) Range: 2.3-3.5 ALB 3.9 g/dL (Normal) Range: 3.4-5.0 T PROT 7.2 g/dL (Normal) Range: 6.4-8.2 BUN/CRE 11.3 {RATIO} (Normal) Range: 10-20 EST GFR - AA 105 mL/min (Normal) Comments: GFR Calc EST GFR 86 mL/min (Normal) Comments: Non- GFR Calc CREAT,SERUM 0.97 mg/dL (Normal) Range: 0.70-1.30 Comments: The validity of the calculated GFR AND GFRAA in patients over70 years has not been determined. Clinical correlation isessential. BUN 11 mg/dL (Normal) Range: 7-18 GLU 104 mg/dL (Normal) Range: 70-110 :05 Lipid Profile Comments: [facility] [address] [place], [place], [id number] ; sent message he needs an apt VLDL 43 mg/dL (Abnormal) Range: 5-40 LDL 93 mg/dL (Normal) Range: 0-130 HDL 37 mg/dL (Abnormal) Comments: Reference Range HDL <40 mg/dL Low HDL Cholesterol HDL >or= 60 mg/dL High HDL Cholesterol TRIG 214 mg/dL (Abnormal) Comments: Serum Triglycerides Reference Interval Normal <150 mg/dL Borderline high 150 - 199 mg/dL High 200 - 499 mg/dL Very High > or = 500 mg/dL CHOL 173 mg/dL (Normal) Comments: <200 mg/dL Desirable 200-240 mg/dL Borderline >240 mg/dL High Risk :05 PSA,Total - Annual Screen Comments: [facility] [address] [place], [address] PSA,TOT SCREEN 0.24 ng/mL (Normal) Range: 0.00-4.00 Comments: This test was performed using the TPSA assay method for [employer] chemistry system. Values obtained with differentassay methods cannot be used interchangably.When changing PSA assays in the course of monitoring apatient, additional sequential testing should be carriedout to confirm baseline values. 49-Kbb-127297:50 Cytology, Body Fluid / CSF Comments: [facility] [address] [place], [address] CYTOLOGY,BF/CSF SEE PATHOLOGY REPORT (Normal) Comments: Specimen submitted to Anatomical Pathology Department [facility]. :50 Urinalysis, Complete Comments: How was Urine Obtained? [facility] [address] [place], [address] MUCUS, URINE 0 SEEN {/hpf} (Normal) BACTERIA 0 SEEN {/hpf} (Normal) SQUAM EPI 0 SEEN {/hpf} (Normal) Range: 0-5 RBC-UA 0-5 SEEN {/hpf} Range: 0-5 (Normal) WBC 0 SEEN {/hpf} (Normal) Range: 0-5 LEUK ESTERASE Negative /ul (Normal) OCCULT BLOOD-UR 25 /ul (Abnormal) NITRITE UR Negative (Normal) UROBILI Normal mg/dL (Normal) PROT DIPSTX Negative mg/dL (Normal) pH UR 6.0 (Normal) Range: 5.0 - 8.0 SP.GR. DIPSTX 1.015 (Normal) Range: 1.002-1.030 KETONE UR Negative mg/dL (Normal) BILIRUBIN URINE Negative mg/dL (Normal) GLUCOSE, UR Normal mg/dL (Normal) CLARITY Clear (Normal) COLOR Yellow (Normal) :00 CYTOSPIN ON FLUID See Note (Normal) Comments: [facility] [address] [place], [address] Comments: Patient: MARCUS MATIAS : 1965 (49/M) Acct Num: [id number] Phys: Rolando CHADWICK,Philip Unit Num: [id number] Loc: LABSPEC Specimen: [id number] Received: 04/26/15 - 1422 Spec Type: CYSPIN FL TISSUES TISSUES: CULTURE RESULTS No results available. CYTOLOGY GROSS Received is 60 ml of yellow gold hazy fluid labeled with the patient's name and and d esignated per the requisition as urine. Submitted for cytology preparation. / 04/26/15 TC:5 CPT: 71299 CYTOLOGY STUDY Slides are reviewed. DIAGNOSIS CYTOLOGY Urine for cytology (cyto spin): Negative for malignant cells. AM: 04/27/15 HEADER OPERATION: Not noted PRE-OP DIAGNOSIS: Hematuria TISSUE SUBMITTED: Urine cytology Signed Srinivasa Neil 04/27/15 <signature on file> :42 Blood Glucose , Office (37036) Blood Glucose , Office 94 (Normal) :34 HgA1C , Office (85170) HgA1C , Office 5.6 % (Normal) Range: 4.6 - 7.1 :57 Comprehensive Metabolic Profil Comments: Test performed at:[facility] [address] [place] [address] GAP 5 (Normal) Range: 5-15 CO2 28.0 mmol/L (Normal) Range: 21.0-32.0 CL 107 mmol/L (Normal) Range: 98-107 K 4.4 mmol/L (Normal) Range: 3.5-5.1 NA 140 mmol/L (Normal) Range: 136-145 T BILI 0.60 mg/dL (Normal) Range: 0.20-1.00 ALT 35 U/L (Normal) Range: 12-78 ALK P 65 U/L (Normal) Range: 50-136 AST 19 U/L (Normal) Range: 15-37 CA 8.9 mg/dL (Normal) Range: 8.5-10.1 A/G 1.3 {RATIO} (Normal) Range: 0.9-2.4 GLOB 3.0 g/dL (Normal) Range: 2.3-3.5 ALB 4.0 g/dL (Normal) Range: 3.4-5.0 T PROT 7.0 g/dL (Normal) Range: 6.4-8.2 BUN/CRE 14.4 {RATIO} (Normal) Range: 10-20 EST GFR - AA 105 mL/min (Normal) EST GFR 87 mL/min (Normal) CREAT,SERUM 0.97 mg/dL (Normal) Range: 0.70-1.30 Comments: Please note revised CREATININE reference range zssbsmvue30/22/2015. BUN 14 mg/dL (Normal) Range: 7-18 GLU 96 mg/dL (Normal) Range: 70-110 :57 Lipid Profile Comments: Test performed at:[facility] [id number] [facility] [place] [address] ; has fu 8-10 VLDL 27 mg/dL (Normal) Range: 5-40 LDL 96 mg/dL (Normal) Range: 0-130 HDL 39 mg/dL (Abnormal) Comments: Reference Range HDL <40 mg/dL Low HDL Cholesterol HDL >or= 60 mg/dL High HDL Cholesterol TRIG 135 mg/dL (Normal) Comments: Serum Triglycerides Reference Interval Normal <150 mg/dL Borderline high 150 - 199 mg/dL High 200 - 499 mg/dL Very High > or = 500 mg/dL CHOL 162 mg/dL (Normal) Comments: <200 mg/dL Desirable 200-240 mg/dL Borderline >240 mg/dL High Risk :57 Microalb:Creat Ratio,Random UR Comments: Test performed at:[facility] [id number] [place] [address] MALB:CREAT 5.0 {mg/g_CRE} (Normal) MICROALBUMIN,UR 8.1 mg/L (Normal) UR CREAT 152.00 mg/dL (Normal) :57 Urinalysis, Complete Comments: How was Urine Obtained? CLEAN CATCHTest performed at:[facility] [id number] [place] [address] ; non-emergent till apt MUCUS, URINE 1+ {/hpf} (Normal) BACTERIA 0 SEEN {/hpf} (Normal) RBC-UA 0-5 SEEN {/hpf} Range: 0-5 (Normal) WBC 0 SEEN {/hpf} Range: 0-5 (Normal) LEUK ESTERASE Negative /ul (Normal) OCCULT BLOOD-UR 50 /ul (Abnormal) NITRITE UR Negative (Normal) UROBILI Normal mg/dL (Normal) PROT DIPSTX Negative mg/dL (Normal) pH UR 6.0 (Normal) Range: 5.0 - 8.0 SP.GR. DIPSTX 1.015 (Normal) Range: 1.002-1.030 KETONE UR Negative mg/dL (Normal) BILIRUBIN URINE Negative mg/dL (Normal) GLUCOSE, UR Normal mg/dL (Normal) CLARITY Clear (Normal) COLOR Yellow (Normal) SQUAM EPI 0 SEEN {/hpf} Range: 0-5 (Normal) :0 COLBX (Normal) Comments: Patient: MARCUS MATIAS : 1965 (48/M)Acct Num: [id number] Phys: FuenteslupeRashawnDavidfrancine Num: [id number] Loc: LABSPECSpecimen: [id number] Received: 02/15/14 - pec Type: COLON BXTIS 0 SUESTISSUES:GROSS DESCRIPTIONReceived is one container labeled with the patient name and designated rightcolon polyp biopsy. The specimen consists of multiple irregular fragments oflight narayan soft tis ronald that in aggregate measure 0.7 x 0.5 x 0.1 cm. Thespecimen is totally submitted in one cassette. / MADELAINE:tana 02/16/14 TC:1CPT: [id number]: ColonoscopyPRE-OPERATIVE DIAGNOSIS: Screening / po lypTISSUE SUBMITTED: Polyp biopsy right colon, rule out adenomaMICROSCOPIC DIAGNOSISPolyp, right colon, biopsy:Fragments of hyperplastic polyp.MADELAINE:tana 02/17/14Signed Alex Martins 02/17/14<signature on file> [id number] HgA1C , Office ([id number]) HgA1C , Office 5.7 % (Normal) Range: 4.6 - 7.1 :12 CMP Comments: Specimen slightly hemolyzed. Results may be affected.; non-emergent till apt GAP 3 (Abnormal) Range: 5-15 CO2 29.0 mmol/L (Normal) Range: 21.0-32.0 CL 105 mmol/L (Normal) Range: 98-107 K 4.4 mmol/L (Normal) Range: 3.5-5.1 NA 137 mmol/L (Normal) Range: 136-145 BIT 0.70 mg/dL (Normal) Range: 0.00-1.00 ALT 36 U/L (Normal) Range: 12-78 ALK 67 U/L (Normal) Range: 45-117 AST 25 U/L (Normal) Range: 15-37 CA 9.0 mg/dL (Normal) Range: 8.5-10.1 AG 1.1 {RATIO} (Normal) Range: 0.9-2.4 GLOB 3.5 g/dL (Normal) Range: 2.7-4.2 ALB 3.9 g/dL (Normal) Range: 3.4-5.0 TPROT 7.4 g/dL (Normal) Range: 6.4-8.2 BC 14.0 {RATIO} (Normal) Range: 10-20 GFRAA 102 mL/min (Normal) GFR 84 mL/min (Normal) CREAT 1.0 mg/dL (Normal) Range: 0.8-1.3 BUN 14 mg/dL (Normal) Range: 7-18 GLU 93 mg/dL (Normal) Range: 70-110 :12 LIPID Comments: Specimen slightly hemolyzed. Results may be affected. VLDL 49 mg/dL (Abnormal) Range: 5-40 LDL 80 mg/dL (Normal) Range: 0-130 HDL 31 mg/dL (Abnormal) Comments: Reference RangeHDL <40 mg/dL Low HDL CholesterolHDL >or= 60 mg/dL High HDL Cholesterol TRIG 247 mg/dL (Abnormal) Range: 0-199 Comments: Serum Triglycerides Reference IntervalNormal <150 mg/dLBorderline high 150 - 199 mg/dLHigh 200 - 499 mg/ dLVery High > or = 500 mg/dL CHOL 160 mg/dL (Normal) Comments: <200 mg/dL Snevoulaa029-220 mg/dL Borderline>240 mg/dL High Risk [id number] Ct, Ng, Trich vag by Comments: PATIENT NOT FASTINGPERFORMED BY: [address] [id number] BY: [address] [id number] CYNDI Chlamydia by CYNDI Negative (Normal) Gonococcus by CYNDI Negative (Normal) Trich vag by CYNDI Negative (Normal) [id number] Hepatitis Panel (4) Comments: PATIENT NOT FASTINGPERFORMED BY: [address] [id number] BY: [address] [id number] Inf ormation: SRC:UR URINE Hep B Core Ab, IgM Negative (Normal) Hep C Virus Ab <0.1 {s/co_ratio} (Normal) Range: 0.0-0.9 Comments: Negative: < 0.8 Indeterminate 0.8 - 0.9 Positive: > 0.9 . In order to reduce the incidence of a false positive result, the CDC recommends that all s/co ratios between 1.0 and 10.9 be confirmed by a more specific supplemental or PCR testing. [facility] [employer] [facility] [employer] offers HCV Ab w/Reflex to Verification test #[id number]. HBsAg Screen Negative (Normal) Hep A Ab, IgM Negative (Normal) [id number] HSV 1 and 2 IgM Abs, Comments: PATIENT NOT FASTINGPERFORMED BY: [place] [id number] [facility] [id number] BY: [address] [id number] Indirect HSV 1 IgM Antibodies <1:10 {titer} (Normal) HSV 2 IgM Antibodies <1:10 {titer} (Normal) Comments: HSV 1 and HSV 2 share many cross-reacting antigens. Elevated titersto both HSV 1 and HSV 2 may represent crossreactive HSV antibodiesrather than exposure to both HSV 1 and HSV 2.Results for this test ar e for research purposes only by the assay'smanufacturer. The performance characteristics of this product havenot been established. Results should not be used as a diagnosticprocedure without confirmati on of the diagnosis by another medicallyestablished diagnostic product or procedure. :04 HSV 1 and 2-Specific Ab, Comments: PATIENT NOT FASTINGPERFORMED BY: trustedsafeEng[facility] and Medical CenterOvjnkk2122 [facility] [id number] BY: [address] [id number] IgG HSV 1 IgG, Type Spec 55.70 {index} (Abnormal) Range: 0.00-0.90 Comments: Negative <0.91 Equivocal 0.91 - 1.09 Positive >1.09 Note: Negative indica victor m no antibodies detected to HSV-1. Equivocal may suggest early infection. If clinically appropriate, retest at later date. Positive indicates antibodies detected to HSV-1. HSV 2 IgG, Type Spec 2.74 {index} (Abnormal) Range: 0.00-0.90 Comments: Negative <0.91 Equivocal 0.91 - 1.09 Positive >1.09 Note: Negative indica victor m no antibodies detected to HSV-2. Equivocal may suggest early infection. If clinically appropriate, retest at later date. Positive indicates antibodies detected to HSV-2. :04 Panel [id number] Comments: PATIENT NOT FASTINGPERFORMED BY: [employer] [address] [place] [address] [id number] BY: [employer] [id number] HIV 1/O/2 Abs, Non Reactive Qual (Normal) HIV 1/O/2 <1.00 (Normal) Comments: Index Value: Specimen reactivity relative to the negative cutoff. Abs-Index Value : RPR Non Reactive Comments: PATIENT NOT FASTINGPERFORMED BY: [employer] [address] [place] [address] [id number] BY: [address] [id number] 04 (Normal) [id number]-[id number]:01 CBCD ANC 3.2 {X10_3/uL} (Normal) Range: 2.0-7.7 IG% 0.200 % (Normal) Range: 0.0-0.9 Comments: IG% - Immature Granulocytes (promyelocytes, myelocytes andmetamyelocytes) > 1% indicates that a LEFT SHIFT is Present. B% 0.4 % (Normal) Range: 0-1 E% 1.6 % (Normal) Range: 0-5 M% 6.5 % (Normal) Range: 0-10 L% 28.3 % (Normal) Range: 19-41 MPV 9.5 fL (Normal) Range: 6.2-12.0 N% 63.0 % (Normal) Range: 47-70 PLT 218 K/mm3 (Normal) Range: 150-450 RDWSD 42.7 fL (Normal) Range: 35.1-43.9 RDWCV 13.3 % (Normal) Range: 11.6-14.6 MCH 30.7 pg (Normal) Range: 27.0-32.0 MCHC 34.6 {g/gl} (Normal) Range: 32-36 HCT 42.5 % (Normal) Range: 40-54 MCV 88.7 fL (Normal) Range: 80-94 HGB 14.7 g/dL (Normal) Range: 13.0-16.5 RBC 4.79 {M/mm3} (Normal) Range: 4.6-6.2 WBC 5.1 K/mm3 (Normal) Range: 4.4-11.0 [id number]:01 CMP Comments: will review at 09/25/13 appt CO2 24.0 mmol/L (Normal) Range: 21.0-32.0 GAP 6 (Normal) Range: 5-15 CL 109 mmol/L (Abnormal) Range: 98-107 K 4.2 mmol/L (Normal) Range: 3.5-5.1 NA 139 mmol/L (Normal) Range: 136-145 BIT 0.50 mg/dL (Normal) Range: 0.00-1.00 ALT 33 U/L (Normal) Range: 12-78 ALK 66 U/L (Normal) Range: 45-117 AST 21 U/L (Normal) Range: 15-37 CA 9.2 mg/dL (Normal) Range: 8.5-10.1 AG 1.2 {RATIO} (Normal) Range: 0.9-2.4 ALB 4.0 g/dL (Normal) Range: 3.4-5.0 GLOB 3.4 g/dL (Normal) Range: 2.7-4.2 TPROT 7.4 g/dL (Normal) Range: 6.4-8.2 BC 13.8 {RATIO} (Normal) Range: 10-20 GFRAA 132 mL/min (Normal) GFR 109 mL/min (Normal) BUN 11 mg/dL (Normal) Range: 7-18 CREAT 0.8 mg/dL (Normal) Range: 0.8-1.3 GLU 91 mg/dL (Normal) Range: 70-110 :01 LIPID HDL 31 mg/dL (Abnormal) Comments: Reference RangeHDL <40 mg/dL Low HDL CholesterolHDL >or= 60 mg/dL High HDL Cholesterol LDL 91 mg/dL (Normal) Range: 0-130 TRIG 224 mg/dL (Abnormal) Range: 0-199 Comments: Serum Triglycerides Reference IntervalNormal <150 mg/dLBorderline high 150 - 199 mg/dLHigh 200 - 499 mg/ dLVery High > or = 500 mg/dL VLDL 45 mg/dL (Abnormal) Range: 5-40 CHOL 167 mg/dL (Normal) Comments: <200 mg/dL Tchaonlcx049-234 mg/dL Borderline>240 mg/dL High Risk [id number] MIACRE Comments: PLEASE ADD URINE FROM YESTERDAY 09/15/13 MIALB < 5.0 mg/L (Normal) tMICROCREAT Test not performed {mg/g_CRE} (Normal) CREU 65.8 mg/dL (Normal) : PSA 0.26 ng/mL (Normal) Range: 0.00-4.00 Comments: This test was performed using the TPSA assay method for the[employer] chemistry system. Values obtained with differentassay methods cannot be used interchangably.When changing PSA assays in the course of monitoring apatient, additional sequential testing should be carriedout to confirm baseline values. : TSH 2.06 {uIU/mL} (Normal) Range: 0.358-3.74 :01 UAC Comments: How was Urine Obtained? CLEAN CATCH UMUC 0 SEEN {/hpf} (Normal) UBAC 0 SEEN {/hpf} (Normal) UEPIS 0 SEEN {/hpf} (Normal) Range: 0-5 URBC 0-5 SEEN {/hpf} (Normal) Range: 0-5 UWBC 0 SEEN {/hpf} (Normal) Range: 0-5 WESLEY Negative /ul (Normal) ANJANA Negative (Normal) UOB 10 /ul (Abnormal) UROBU Normal mg/dL (Normal) uPROTU Negative mg/dL (Normal) AURELIANO 7.0 (Normal) Range: 5.0 - 8.0 SGU 1.005 (Normal) Range: 1.002-1.030 BILIU Negative mg/dL (Normal) KETU Negative mg/dL (Normal) GLUR Normal mg/dL (Normal) UCLAR Clear (Normal) UCOL Yellow (Normal) :54 B12 522 pg/mL (Normal) Range: 211-911 Comments: Effective 2012:54 FERMÍN 1 ug/dL (Normal) Range: 0-19 Comments: The Centers for Disease Control and Prevention statesblood lead levels less than 10 ug/dL in children havebeen associated with numerous adverse health effects.[facility] Guidelines: Blood lead level s in therange 5-9 ug/dL have been associated with adversehealth effects in children aged 6 years and younger..Environmental Exposure:WHO Recommendation <20Occupational Exposure:OSHA Lead Std 40.Detection Limit = 1Performed at: [address] [id number] Director: Tank Cummings PhD, Phone: [phone] :[phone] MIACRE tMICROCREAT 4.8 {mg/g_CRE} (Normal) MIALB 6.3 mg/L (Normal) CREU 128.6 mg/dL (Normal) :54 TSH 2.23 {uIU/mL} (Normal) Range: 0.358-3.74 :57 CMP GAP 7 (Normal) Range: 5-15 CO2 28.0 mmol/L (Normal) Range: 21.0-32.0 CL 104 mmol/L (Normal) Range: 98-107 K 4.3 mmol/L (Normal) Range: 3.5-5.1 NA 139 mmol/L (Normal) Range: 136-145 BIT 0.50 mg/dL (Normal) Range: 0.00-1.00 ALT 34 U/L (Normal) Range: 12-78 ALK 65 U/L (Normal) Range: 50-136 AST 18 U/L (Normal) Range: 15-37 CA 9.5 mg/dL (Normal) Range: 8.5-10.1 AG 1.1 {RATIO} (Normal) Range: 0.9-2.4 GLOB 3.6 g/dL (Normal) Range: 2.7-4.2 ALB 4.0 g/dL (Normal) Range: 3.4-5.0 TPROT 7.6 g/dL (Normal) Range: 6.4-8.2 BC 14.0 {RATIO} (Normal) Range: 10-20 GFRAA 103 mL/min (Normal) GFR 85 mL/min (Normal) CREAT 1.0 mg/dL (Normal) Range: 0.8-1.3 BUN 14 mg/dL (Normal) Range: 7-18 GLU 88 mg/dL (Normal) Range: 70-110 :57 LIPID VLDL 31 mg/dL (Normal) Range: 5-40 LDL 95 mg/dL (Normal) Range: 0-130 HDL 28 mg/dL (Abnormal) Comments: Reference RangeHDL <40 mg/dL Low HDL CholesterolHDL >or= 60 mg/dL High HDL Cholesterol TRIG 156 mg/dL (Normal) Comments: Serum Triglycerides Reference IntervalNormal <150 mg/dLBorderline high 150 - 199 mg/dLHigh 200 - 499 mg/ dLVery High > or = 500 mg/dL CHOL 154 mg/dL (Normal) Comments: <200 mg/dL Kpnsnnjlt260-034 mg/dL Borderline>240 mg/dL High Risk :57 PSA 0.31 ng/mL (Normal) Range: 0.00-4.00 :38 CBCMD RBCM NORM C+C {NORMAL} (Normal) PE ADEQUATE (Normal) EOS 1 % (Normal) Range: 0-5 MON 7 % (Normal) Range: 0-10 LYMPH 42 % (Abnormal) Range: 19-41 BAND 1 % (Normal) Range: 0-5 PMN 49 % (Normal) Range: 47-70 EZ 100 (Normal) ANC 1.9 3/uL (Abnormal) Range: 2.0-7.7 PLT 187 K/mm3 (Normal) Range: 150-450 RDW 13.2 % (Normal) Range: 11.6-14.6 MCHC 33.8 g/dL (Normal) Range: 32-36 MCH 31.2 pg (Normal) Range: 27.0-32.0 MCV 92.4 fL (Normal) Range: 80-94 HCT 41.8 % (Normal) Range: 40-54 HGB 14.1 g.dL (Normal) Range: 13.0-16.5 Comments: Please note: Revised HEMOGLOBIN REFERENCE RANGES Reference Range effective 11. RBC 4.53 {M/mm3} (Abnormal) Range: 4.6-6.2 WBC 3.7 K/mm3 (Abnormal) Range: 4.4-11.0 :38 CMP GAP 9 (Normal) Range: 5-15 CO2 28.0 mmol/L (Normal) Range: 21.0-32.0 CL 104 mmol/L (Normal) Range: 98-107 K 4.5 mmol/L (Normal) Range: 3.5-5.1 NA 141 mmol/L (Normal) Range: 136-145 BIT 0.50 mg/dL (Normal) Range: 0.00-1.00 ALT 32 U/L (Normal) Range: 12-78 ALK 56 U/L (Normal) Range: 50-136 AST 19 U/L (Normal) Range: 15-37 CA 9.0 mg/dL (Normal) Range: 8.5-10.1 AG 1.2 {RATIO} (Normal) Range: 0.9-2.4 GLOB 3.3 g/dL (Normal) Range: 2.7-4.2 ALB 3.9 g/dL (Normal) Range: 3.4-5.0 TPROT 7.2 g/dL (Normal) Range: 6.4-8.2 BC 15.0 {RATIO} (Normal) Range: 10-20 GFRAA 103 mL/min (Normal) GFR 85 mL/min (Normal) CREAT 1.0 mg/dL (Normal) Range: 0.8-1.3 BUN 15 mg/dL (Normal) Range: 7-18 GLU 91 mg/dL (Normal) Range: 70-110 :38 LIPID VLDL 24 mg/dL (Normal) Range: 5-40 LDL 94 mg/dL (Normal) Range: 0-130 HDL 34 mg/dL (Abnormal) Comments: Reference Range HDL <40 mg/dL Low HDL Cholesterol HDL >or= 60 mg/dL High HDL Cholesterol TRIG 122 mg/dL (Normal) Comments: Serum Triglycerides Reference Interval Normal <150 mg/dL Borderline high 150 - 199 mg/dL High 200 - 499 mg/dL Very High > or = 500 mg/dL CHOL 152 mg/dL (Normal) Comments: <200 mg/dL Desirable 200-240 mg/dL Borderline >240 mg/dL High Risk :38 MIACRE tMICROCREAT 24.7 {mg/g_CRE} (Normal) MIALB 8.8 mg/L (Normal) CREU 35.6 mg/dL (Normal) :07 CBCMD RBCM NORM C+C {NORMAL} (Normal) PE ADEQUATE (Normal) EOS 3 % (Normal) Range: 0-5 MON 3 % (Normal) Range: 0-10 LYMPH 16 % (Abnormal) Range: 19-41 PMN 78 % (Abnormal) Range: 47-70 EZ 100 (Normal) ANC 3.9 3/uL (Normal) Range: 2.0-7.7 PLT 256 K/mm3 (Normal) Range: 150-450 RDW 13.1 % (Normal) Range: 11.6-14.6 MCHC 34.1 g/dL (Normal) Range: 32-36 MCH 30.7 pg (Normal) Range: 27.0-32.0 MCV 90.0 fL (Normal) Range: 80-94 HCT 42.0 % (Normal) Range: 40-54 HGB 14.3 g/dL (Normal) Range: 14.0-18.0 RBC 4.66 {M/mm3} (Normal) Range: 4.6-6.2 WBC 5.8 K/mm3 (Normal) Range: 4.4-11.0 :07 CMP GAP 8 (Normal) Range: 5-15 CO2 27.0 mmol/L (Normal) Range: 21.0-32.0 CL 106 mmol/L (Normal) Range: 98-107 K 4.3 mmol/L (Normal) Range: 3.5-5.1 NA 141 mmol/L (Normal) Range: 136-145 BIT 0.50 mg/dL (Normal) Range: 0.00-1.00 ALT 29 U/L (Normal) Range: 12-78 ALK 66 U/L (Normal) Range: 50-136 AST 7 U/L (Abnormal) Range: 15-37 CA 8.7 mg/dL (Normal) Range: 8.5-10.1 AG 1.0 {RATIO} (Normal) Range: 0.9-2.4 GLOB 3.8 g/dL (Normal) Range: 2.7-4.2 ALB 3.9 g/dL (Normal) Range: 3.4-5.0 TPROT 7.7 g/dL (Normal) Range: 6.4-8.2 BC 12.7 {RATIO} (Normal) Range: 10-20 GFRAA 92 mL/min (Normal) GFR 76 mL/min (Normal) CREAT 1.1 mg/dL (Normal) Range: 0.8-1.3 BUN 14 mg/dL (Normal) Range: 7-18 GLU 108 mg/dL (Normal) Range: 70-110 :07 MERON 130 ng/mL (Normal) Range: 26-388 :07 IBC %ISAT 20.3 % (Normal) Range: 15.0-55.0 FE 72 ug/dL (Normal) Range: 65-175 TIBC 355 ug/dL (Normal) Range: 250-450 :07 UAC UMUC 0 SEEN {/hpf} (Normal) UBAC 0 SEEN {/hpf} (Normal) UEPIS 0 SEEN {/hpf} (Normal) Range: 0-5 URBC 0-5 SEEN {/hpf} (Normal) Range: 0-5 UWBC 0 SEEN {/hpf} (Normal) Range: 0-5 WESLEY NEGATIVE (Normal) UOB TRACE-INTACT (Abnormal) ANJANA NEGATIVE (Normal) UROBU 0.2 EU/dl (Normal) Range: 0.2 - 1.0 uPROTU NEGATIVE (Normal) AURELIANO 6.0 (Normal) Range: 5.0-8.0 SGU 1.020 (Normal) Range: 1.002-1.030 KETU NEGATIVE mg/dL (Normal) BILIU NEGATIVE (Normal) GLUR NEGATIVE (Normal) UCLAR CLEAR (Normal) UCOL YELLOW (Normal) [id number]:11 CHEST, PA AND LATERAL Radiology Report See Note (Normal) Comments: PROCEDURE: X-RAY CHEST REASON FOR EXAM: Male, 45 years old. Chest pain TECHNIQUE: PA and lateral views of the chest. COMPARISON: None. FINDINGS: The lungs are expanded. There is no demonstrate d parenchymalabnormality.There is no demonstrated pleural abnormality. Normal heart and pericardium. Normal mediastinum and nunu. Normal visualized pulmonary arteries.Normalvisualized aortic arch and d escending thoracic aorta. Normal visualized thoracic spine. Normal visualized ribs, clavicles, andshoulders. There is no demonstrated abnormality of the visualized soft tissuestructures of the upper ab domen. IMPRESSION:Normal x-ray examination of the chest. Dictated on 04/03/11 1612 by BETZY VALLEJO MD, BTranscribed on 04/04/11 1413 by ITS IMPORTSign by BETZY VALLEJO MD on 04/04/11 1414 Sign by : BETZY VALLEJO MD; ADDENDA: appt 04/17/1108-Mar-20116:18 CBCD,SMEAR DIFF Comments: appt 03/14/11 RED CELL MORPH SeeNote {NORMAL} (Normal) Comments: Result: NORM C+C PLT EST SeeNote (Normal) Comments: Result: ADEQUATE EOS 1 % (Normal) Range: 0-5 MONOCYTE 9 % (Normal) Range: 0-10 LYMPH 39 % (Normal) Range: 19-41 BAND 1 % (Normal) Range: 0-5 SEGS 50 % (Normal) Range: 47-70 CELLS COUNTED 100 (Normal) ABSOLUTE NEUT 2.0 3/uL (Normal) Range: 2.0-7.7 PLT 218 K/mm3 (Normal) Range: 150-450 RDW 13.5 % (Normal) Range: 11.6-14.6 MCHC 35.2 g/dL (Normal) Range: 32-36 MCH 31.5 pg (Normal) Range: 27.0-32.0 MCV 89.7 fL (Normal) Range: 80-94 HCT 39.5 % (Abnormal) Range: 40-54 HGB 13.9 g/dL (Abnormal) Range: 14.0-18.0 RBC 4.40 {M/mm3} (Abnormal) Range: 4.6-6.2 WBC 4.2 K/mm3 (Abnormal) Range: 4.4-11.0 :18 COMP METABOLIC GAP 7 (Normal) Range: 5-15 CO2 28.0 mmol/L (Normal) Range: 21.0-32.0 CL 106 mmol/L (Normal) Range: 98-107 K 4.6 mmol/L (Normal) Range: 3.5-5.1 NA 141 mmol/L (Normal) Range: 136-145 T BILI 0.70 mg/dL (Normal) Range: 0.00-1.00 ALT 32 U/L (Normal) Range: 12-78 ALK P 58 U/L (Normal) Range: 50-136 AST 17 U/L (Normal) Range: 15-37 CA 8.6 mg/dL (Normal) Range: 8.5-10.1 A/G 1.2 {RATIO} (Normal) Range: 0.9-2.4 GLOB 3.3 g/dL (Normal) Range: 2.7-4.2 ALB 4.0 g/dL (Normal) Range: 3.4-5.0 T PROT 7.3 g/dL (Normal) Range: 6.4-8.2 BUN/CRE 11.8 {RATIO} (Normal) Range: 10-20 EST GFR - AA 92 mL/min (Normal) EST GFR 76 mL/min (Normal) CREAT,SERUM 1.1 mg/dL (Normal) Range: 0.8-1.3 BUN 13 mg/dL (Normal) Range: 7-18 GLU 95 mg/dL (Normal) Range: 70-110 :18 LIPID LDL 72 mg/dL (Normal) Range: 0-130 VLDL 40 mg/dL (Normal) Range: 5-40 HDL 32 mg/dL (Abnormal) Comments: Reference Range HDL <40 mg/dL Low HDL Cholesterol HDL >or= 60 mg/dL High HDL Cholesterol CHOL 144 mg/dL (Normal) Comments: <200 mg/dL Desirable 200-240 mg/dL Borderline >240 mg/dL High Risk TRIG 200 mg/dL (Abnormal) Comments: Serum Triglycerides Reference Interval Normal <150 mg/dL Borderline high 150 - 199 mg/dL High 200 - 499 mg/dL Very High > or = 500 mg/dL :18 PSA, SCREEN 0.3 ng/mL (Normal) Range: 0.0-4.0 :18 ROUTINE UA Comments: appt 03/14/11 LEUK ESTERASE SeeNote (Normal) Comments: Result: NEGATIVE OCCULT BLOOD-UR SeeNote (Abnormal) Comments: Result: TRACE-INTACT NITRITE UR SeeNote (Normal) Comments: Result: NEGATIVE PROT DIPSTX SeeNote (Normal) Comments: Result: NEGATIVE UROBILI 0.2 EU/dl (Normal) Range: 0.2 - 1.0 pH UR 6.0 (Normal) Range: 5.0-8.0 SP.GR. DIPSTX 1.025 (Normal) Range: 1.002-1.030 KETONE UR SeeNote mg/dL (Normal) Comments: Result: NEGATIVE BILIRUBIN URINE SeeNote (Normal) Comments: Result: NEGATIVE GLUCOSE, UR SeeNote (Normal) Comments: Result: NEGATIVE CLARITY CLEAR (Normal) COLOR YELLOW (Normal) [id number]:06 COMPLETE UA BACTERIA 0 SEEN {/hpf} (Normal) MUCUS, URINE 0 SEEN {/hpf} (Normal) RBC-UA SeeNote {/hpf} (Normal) Range: 0-5 Comments: Result: 0-5 SEEN SQUAM EPI 0 SEEN {/hpf} (Normal) Range: 0-5 LEUK ESTERASE SeeNote (Normal) Comments: Result: NEGATIVE WBC 0 SEEN {/hpf} (Normal) Range: 0-5 NITRITE UR SeeNote (Normal) Comments: Result: NEGATIVE OCCULT BLOOD-UR 1+ (Abnormal) UROBILI 0.2 EU/dl (Normal) Range: 0.2 - 1.0 PROT DIPSTX SeeNote (Normal) Comments: Result: NEGATIVE pH UR 5.5 (Normal) Range: 5.0-8.0 SP.GR. DIPSTX 1.025 (Normal) Range: 1.002-1.030 BILIRUBIN URINE SeeNote (Normal) Comments: Result: NEGATIVE KETONE UR SeeNote mg/dL (Normal) Comments: Result: NEGATIVE GLUCOSE, UR SeeNote (Normal) Comments: Result: NEGATIVE CLARITY CLEAR (Normal) COLOR YELLOW (Normal) :28 LIVER ALT 29 U/L (Normal) Range: 12-78 D BILI 0.13 mg/dL (Normal) Range: 0.00-0.30 T BILI 0.60 mg/dL (Normal) Range: 0.00-1.00 ALK P 74 U/L (Normal) Range: 50-136 ALB 4.4 g/dL (Normal) Range: 3.4-5.0 AST 16 U/L (Normal) Range: 15-37 T PROT 7.8 g/dL (Normal) Range: 6.4-8.2 :27 LIPID HDL 35 mg/dL (Normal) Comments: Reference RangeHDL <40 mg/dL Low HDL CholesterolHDL >or= 60 mg/dL High HDL Cholesterol LDL 100 mg/dL (Normal) Range: 0-130 VLDL 25 mg/dL (Normal) Range: 5-40 TRIG 127 mg/dL (Normal) Comments: Serum Triglycerides Reference IntervalNormal <150 mg/dLBorderline high 150 - 199 mg/dLHigh 200 - 499 mg/ dLVery High > or = 500 mg/dL CHOL 160 mg/dL (Normal) Comments: <200 mg/dL [id number] mg/dL Borderline>240 mg/dL High Risk :27 LIVER D BILI 0.13 mg/dL (Normal) Range: 0.00-0.30 T BILI 0.80 mg/dL (Normal) Range: 0.00-1.00 ALB 4.2 g/dL (Normal) Range: 3.4-5.0 ALK P 71 U/L (Normal) Range: 50-136 ALT 33 U/L (Normal) Range: 12-78 AST 14 U/L (Abnormal) Range: 15-37 T PROT 7.3 g/dL (Normal) Range: 6.4-8.2 :27 PSA, SCREEN 0.2 ng/mL (Normal) Range: 0.0-4.0 :28 LIPID CHOL 136 mg/dL (Normal) Comments: <200 mg/dL Desirable 200-240 mg/dL Borderline >240 mg/dL High Risk HDL 35 mg/dL (Normal) Comments: Reference Range HDL <40 mg/dL Low HDL Cholesterol HDL >or= 60 mg/dL High HDL Cholesterol LDL 70 mg/dL (Normal) Range: 0-130 TRIG 156 mg/dL (Normal) Comments: Serum Triglycerides Reference Interval Normal <150 mg/dL Borderline high 150 - 199 mg/dL High 200 - 499 mg/dL Very High > or = 500 mg/dL VLDL 31 mg/dL (Normal) Range: -40 :28 LIVER ALB 3.7 g/dL (Normal) Range: 3.4-5.0 ALK P 77 U/L (Normal) Range: 50-136 ALT 45 U/L (Normal) Range: 30-65 AST 15 U/L (Normal) Range: 15-37 D BILI 0.14 mg/dL (Normal) Range: 0.00-0.30 T BILI 0.50 mg/dL (Normal) Range: 0.00-1.00 T PROT 7.1 g/dL (Normal) Range: 6.4-8.2 :33 URINALYSIS W/O MICRO (92497) UA - APPEARANCE clear (Normal) UA - BILIRUBIN Negative (Normal) UA - BLOOD Hemolyzed Small (Normal) UA - COLOR yellow (Normal) UA - GLUCOSE Negative (Normal) UA - KETONES Negative mg/dL (Normal) UA - LEUKOCYTE ESTERASE Negative (Normal) UA - NITRITE Negative (Normal) UA - PH 6.0 (Normal) UA - PROTEIN Negative mg/dL (Normal) UA - REDUCING SUBSTANCE neg (Normal) UA - SPECIFIC GRAVITY 1.020 (Normal) UA - URINE SEDIMENT neg (Normal) :47 LIPID CHOL 122 mg/dL (Normal) Comments: <200 mg/dL Desirable 200-240 mg/dL Borderline >240 mg/dL High Risk HDL 33 mg/dL (Abnormal) Comments: Reference Range HDL <40 mg/dL Low HDL Cholesterol HDL >or= 60 mg/dL High HDL Cholesterol LDL 63 mg/dL (Normal) Range: 0-130 TRIG 131 mg/dL (Normal) Comments: Serum Triglycerides Reference Interval Normal <150 mg/dL Borderline high 150 - 199 mg/dL High 200 - 499 mg/dL Very High > or = 500 mg/dL VLDL 26 mg/dL (Normal) Range: 40 :47 LIVER ALB 3.8 g/dL (Normal) Range: 3.4-5.0 ALK P 70 U/L (Normal) Range: 50-136 ALT 35 U/L (Normal) Range: 30-65 AST 14 U/L (Abnormal) Range: 15-37 D BILI 0.11 mg/dL (Normal) Range: 0.00-0.30 T BILI 0.50 mg/dL (Normal) Range: 0.00-1.00 T PROT 7.3 g/dL (Normal) Range: 6.4-8.2 [id number] Urinalysis, Office ([id number]) UA - BILIRUBIN Negative (Normal) UA - BLOOD Non Hemolyzed Trace (Normal) UA - GLUCOSE Negative (Normal) UA - KETONES Small mg/dL (Normal) UA - LEUKOCYTE ESTERASE Negative (Normal) UA - NITRITE Negative (Normal) UA - PH 7.0 (Normal) UA - PROTEIN Negative mg/dL (Normal) UA - SPECIFIC GRAVITY 1.020 (Normal) URINE UROBILINGN ELENA TIMED Normal mg/dL (Normal) :07 PELVIS WITHOUT CONTRAST Radiology Report See Note (Normal) Comments: Exam Number: [id number] CT SCAN OF ABDOMEN AND PELVIS HISTORYHematuria. Stone protocol ordered. Scans were obtained at 3.75-mm intervals from the lung bases throughthe symphysis pubis without oral or in travenous contrast enhancement. The liver is homogeneous. There are no dilated intrahepatic ductsidentified. No abnormality of the gallbladder is identified. Thespleen is normal. No abnormality of t he pancreas is identified. Noadrenal lesion is seen. No renal mass, hydronephrosis, or renalcalculus is identified. There is no periaortic adenopathy. Caliberof the abdominal aorta is within normal limits. There is nodilatation of the ureters. No ureteral calculi are identified. Scans through the pelvis demonstrate no abnormality of the urinarybladder. The prostate is unremarkable. Seminal v esicles are normal. No abnormality of the colon is identified. The appendix isnot seen. Bony structures are grossly intact. IMPRESSIONNo abnormality is identified. Reported By: SHAI WHYTE M.D. :06 ABDOMEN WITHOUT CONTRAST Radiology Report See Note (Normal) Comments: Exam Number: [id number] CT SCAN OF ABDOMEN AND PELVIS HISTORYHematuria. Stone protocol ordered. Scans were obtained at 3.75-mm intervals from the lung bases throughthe symphysis pubis without oral or in travenous contrast enhancement. The liver is homogeneous. There are no dilated intrahepatic ductsidentified. No abnormality of the gallbladder is identified. Thespleen is normal. No abnormality of t he pancreas is identified. Noadrenal lesion is seen. No renal mass, hydronephrosis, or renalcalculus is identified. There is no periaortic adenopathy. Caliberof the abdominal aorta is within normal limits. There is nodilatation of the ureters. No ureteral calculi are identified. Scans through the pelvis demonstrate no abnormality of the urinarybladder. The prostate is unremarkable. Seminal v esicles are normal. No abnormality of the colon is identified. The appendix isnot seen. Bony structures are grossly intact. IMPRESSIONNo abnormality is identified. Reported By: SHAI WHYTE M.D. [id number] DAGOBERTO-D [id number] DAGOBERTO-DIRECT 19 AU/mL (Normal) Range: 0-99 Comments: Negative <100 Equivocal 100 - 120 Positive >120 98-Hex-195517:23 C-REACTIVE PROT 3.87 mg/L (Normal) Range: 0.0-6.0 Comments: Test performed using the Dimension C-Reactive ProteinExtended Range assay method. This assay meets the AHA/CDC 2003 recommendations fordetermining patients at high risk for cardiovasculardisease. Reference: High risk CRP >3.0 mg/L 82-Kky-818781:23 CBCD,SMEAR DIFF ATYPICAL LYMPH RARE % (Normal) BAND 1 % (Normal) Range: 0-5 CELLS COUNTED 100 (Normal) EOS 3 % (Normal) Range: 0-5 HCT 43.2 % (Normal) Range: 40-54 HGB 15.0 g/dL (Normal) Range: 14.0-18.0 LYMPH 32 % (Normal) Range: 19-41 MCH 31.0 pg (Normal) Range: 27.0-32.0 MCHC 34.8 g/dL (Normal) Range: 32-36 MCV 88.9 fL (Normal) Range: 80-94 MONOCYTE 6 % (Normal) Range: 0-10 PLT 238 K/mm3 (Normal) Range: 150-450 PLT EST SeeNote (Normal) Comments: Result: ADEQUATE RBC 4.85 {M/mm3} (Normal) Range: 4.6-6.2 RDW 13.1 % (Normal) Range: 11.6-14.6 RED CELL MORPH SeeNote {NORMAL} (Normal) Comments: Result: NORM C+C SEGS 58 % (Normal) Range: 47-70 WBC 4.4 K/mm3 (Normal) Range: 4.4-11.0 :23 COMP METABOLIC A/G 1.4 {RATIO} (Normal) Range: 0.9-2.4 ALB 4.3 g/dL (Normal) Range: 3.4-5.0 ALK P 71 U/L (Normal) Range: 50-136 ALT 46 U/L (Normal) Range: 30-65 AST 17 U/L (Normal) Range: 15-37 BUN 12 mg/dL (Normal) Range: 7-18 BUN/CRE 13.3 {RATIO} (Normal) Range: 10-20 CA 9.0 mg/dL (Normal) Range: 8.5-10.1 CL 106 mmol/L (Normal) Range: 98-107 CO2 29.4 mmol/L (Normal) Range: 21.0-32.0 CREAT,SERUM 0.9 mg/dL (Normal) Range: 0.8-1.3 GAP 5 (Normal) Range: 5-15 GLOB 3.1 g/dL (Normal) Range: 2.7-4.2 GLU 86 mg/dL (Normal) Range: 70-110 K 4.7 mmol/L (Normal) Range: 3.5-5.1 NA 140 mmol/L (Normal) Range: 136-145 T BILI 0.53 mg/dL (Normal) Range: 0.00-1.00 T PROT 7.4 g/dL (Normal) Range: 6.4-8.2 :23 ESR SED RATE 7 mm/h (Normal) Range: 0-15 :23 FERRITIN 249 ng/mL (Normal) Range: 26-388 :23 LIPID CHOL 214 mg/dL (Abnormal) Comments: <200 mg/dL Desirable 200-240 mg/dL Borderline >240 mg/dL High Risk HDL 31 mg/dL (Abnormal) Comments: Reference Range HDL <40 mg/dL Low HDL Cholesterol HDL >or= 60 mg/dL High HDL Cholesterol LDL 149 mg/dL (Abnormal) Range: 0-130 TRIG 169 mg/dL (Normal) Comments: Serum Triglycerides Reference Interval Normal <150 mg/dL Borderline high 150 - 199 mg/dL High 200 - 499 mg/dL Very High > or = 500 mg/dL VLDL 34 mg/dL (Normal) Range: 5-40 :23 PSA,TOT SCREEN 0.23 ng/mL (Normal) Range: 0.00-4.00 Comments: This test was performed using the TPSA method for theManyWho chemistry system.Values obtained with different assay methods cannot be usedinterchangably.When changing PSA assays in the course of monito ring apatient, additional sequential testing should be carriedout to confirm baseline values. :23 RA LATEX 6502 6.7 {IU/mL} (Normal) Range: 0.0-13.9 Comments: Performed At: [address] [id number] :23 ROUTINE UA BILIRUBIN URINE SeeNote (Normal) Comments: Result: NEGATIVE CLARITY CLEAR (Normal) COLOR YELLOW (Normal) GLUCOSE, UR SeeNote (Normal) Comments: Result: NEGATIVE KETONE UR SeeNote mg/dL (Normal) Comments: Result: NEGATIVE LEUK ESTERASE SeeNote (Normal) Comments: Result: NEGATIVE NITRITE UR SeeNote (Normal) Comments: Result: NEGATIVE OCCULT BLOOD-UR SeeNote (Abnormal) Comments: Result: TRACE-LYSED pH UR 5.5 (Normal) Range: 5.0-8.0 PROT DIPSTX SeeNote (Normal) Comments: Result: NEGATIVE SP.GR. DIPSTX 1.025 (Normal) Range: 1.002-1.030 UROBILI 0.2 EU/dl (Normal) Range: 0.2 - 1.0 :23 TSH 1.78 {uIU/mL} (Normal) Range: 0.34-4.82 :23 VITAMIN B12 430 pg/mL (Normal) Range: 211-911 Plan of Care Name Dates Details Instructions Impaired fasting glucose : Reviewed Lab Indication: Impaired fasting glucose Impaired fasting glucose : Follow up in 4 months Indication: Impaired fasting glucose Impaired fasting glucose : *Diabetes Education Indication: Impaired fasting glucose Other and unspecified hyperlipidemia : Cholesterol mgmt Indication: Other and unspecified hyperlipidemia Encounter for screening for malignant neoplasm of colon (Renamed from Special screening for malignant neoplasms, colon) : *Colon Cancer Screening Indication: Encounter for screening for malignant neoplasm of colon (Renamed from Special screening for malignant neoplasms, colon) Impaired fasting glucose : Follow up in 4 months Indication: Impaired fasting glucose Other and unspecified hyperlipidemia : Cholesterol mgmt Indication: Other and unspecified hyperlipidemia Other and unspecified hyperlipidemia : *Cholesterol - Nonprescription Treatment Indication: Other and unspecified hyperlipidemia Other and unspecified hyperlipidemia : Reviewed Lab Indication: Other and unspecified hyperlipidemia Impaired fasting glucose : Eprescribed prescriptions (G8553) Indication: Impaired fasting glucose Cough : Eprescribed prescriptions (G8553) Indication: Cough Impaired fasting glucose : Follow up in 4 months Indication: Impaired fasting glucose Impaired fasting glucose : *Diabetes Education Indication: Impaired fasting glucose Other and unspecified hyperlipidemia : Cholesterol mgmt Indication: Other and unspecified hyperlipidemia Hypercholesterolemia : Reviewed Lab Indication: Hypercholesterolemia Impaired fasting glucose : Eprescribed prescriptions (G8553) Indication: Impaired fasting glucose Sinusitis, bacterial : Follow up if no improvement or if symptoms worsen Indication: Sinusitis, bacterial Nonsmoker : Eprescribed prescriptions (G8553) Indication: Nonsmoker Impaired fasting glucose : Follow up in 6 months Indication: Impaired fasting glucose Hematuria : Reviewed Loop Tacker Letter Indication: Hematuria Impaired fasting glucose : *Diabetes Education Indication: Impaired fasting glucose Hypercholesterolemia : Cholesterol mgmt Indication: Hypercholesterolemia Common cold virus : Follow up if no improvement or if symptoms worsen Indication: Common cold virus Common cold virus : Common Cold *: cold Indication: Common cold virus Hematuria : Reviewed Loop Tacker Letter Indication: Hematuria Impaired fasting glucose : Follow up in 6 months Indication: Impaired fasting glucose Impaired fasting glucose : *Diabetes Education Indication: Impaired fasting glucose Hypercholesterolemia : Eprescribed prescriptions (G8553) Indication: Hypercholesterolemia Hypercholesterolemia : Eprescribed prescriptions (G8553) Indication: Hypercholesterolemia Acute bronchitis due to other specified organisms : Eprescribed prescriptions (G8553) Indication: Acute bronchitis due to other specified organisms Acute bronchitis due to other specified organisms : *URI Symptoms Indication: Acute bronchitis due to other specified organisms Acute bronchitis due to other specified organisms : *Antibiotic Usage Education - Male Indication: Acute bronchitis due to other specified organisms Impaired fasting glucose : Eprescribed prescriptions (G8553) Indication: Impaired fasting glucose Upper Respiratory Infection (Renamed from Infection of the upper respiratory tract) : Cough: cold Indication: Upper Respiratory Infection (Renamed from Infection of the upper respiratory tract) Upper Respiratory Infection (Renamed from Infection of the upper respiratory tract) : Eprescribed prescriptions (G8553) Indication: Upper Respiratory Infection (Renamed from Infection of the upper respiratory tract) Hypercholesterolemia : Diet, Exercise, and Wt loss Indication: Hypercholesterolemia Impaired fasting glucose : Eprescribed prescriptions (G8553) Indication: Impaired fasting glucose 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 or 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 Possible exposure to STD : Eprescribed prescriptions (G8553) Indication: Possible exposure to STD Possible exposure to STD : Follow up in 10 days with [facility] Indication: Possible exposure to STD Impaired fasting glucose : Diet, Exercise, and Wt loss Indication: Impaired fasting glucose Impaired fasting glucose : Diabetes and Illness: diabetes Indication: Impaired fasting glucose Impaired fasting glucose : *Diabetes Education Indication: Impaired fasting glucose Impaired fasting glucose : Diet, Exercise, and Wt loss Indication: Impaired fasting glucose Heartburn : Follow up in 2 weeks Indication: Heartburn Vertigo : *Vertigo Education Indication: Vertigo Hypercholesterolemia : Diet, Exercise, and Wt loss Indication: Hypercholesterolemia Elevated blood pressure (not hypertension) : Diet, Exercise, and Wt loss Indication: Elevated blood pressure (not hypertension) Other and unspecified hyperlipidemia : Diet and Exercise Indication: Other and unspecified hyperlipidemia Other and unspecified hyperlipidemia : Cholesterol - Medication Side Effects Indication: Other and unspecified hyperlipidemia Other and unspecified hyperlipidemia : CHOLESTEROL MGMT. Indication: Other and unspecified hyperlipidemia Elevated blood pressure (not hypertension) : Diet and Exercise Indication: Elevated blood pressure (not hypertension) family hx of bladder and thyroid cancer- check Tsh and ua cbc cmp : FOLLOW UP - MAKE APPT AFTER DIAGNOSTIC TESTS Indication: family hx of bladder and thyroid cancer- check Tsh and ua cbc cmp Planned Observations C-REACTIVE PROTEIN (41613)Indication: CRP elevated On: 48-Xyk-76626:24 Request ALKALINE PHOSPHATASE (87859)Indication: Enchondroma On: :29 Request METABOLIC PANEL, COMPREHENSIVE (90089)Indication: Enchondroma On: : Request CBC W/AUTO DIFF WBC (60022)Indication: Enchondroma On: :29 Request C-REACT PROT HIGH SENS(hsCRP) (71806)Indication: Enchondroma On: :29 Request ESR-F (SED RATE ERYTHROCYTE - MALE) (96282)Indication: Enchondroma On: :28 Request PSA (PROSTATE SPECIFIC ANTIGEN) (V76.44)Indication: Screening for prostate cancer On: :24 Request CALCIFIDIOL (12458) VIT D 25Indication: Vitamin D deficiency On: :17 Request TSH (12365)Indication: Impaired fasting glucose On: :17 Request URINALYSIS, W/ MICRO (56329)Indication: Impaired fasting glucose On: :17 Request MICROALBUMIN: CREATININE RATIO ([id number]) AND (41041)Indication: Impaired fasting glucose On: :17 Request METABOLIC PANEL, COMPREHENSIVE (96171)Indication: Impaired fasting glucose On: : Request LIPID PANEL ([id number])Indication: Impaired fasting glucose On: :17 Request CBC W/AUTO DIFF WBC ([id number])Indication: Impaired fasting glucose On: :17 Request CBC, PLATELETS & MANUAL DIFF ([id number])Indication: Leukopenia, unspecified type On: 50-Tjk-251747:39 Request CBC WITH MANUAL DIFF ([id number])Indication: Leukopenia, unspecified type On: 53-Vwr-477742:00 Request Comments: also have pathology look at for peripheral smear Sed Rate Erythrocyte (54344)Indication: Leukopenia, unspecified type On: 68-Hhs-17895:59 Request TSH ([id number])Indication: Impaired fasting glucose On: :21 Request MICROALBUMIN: CREATININE RATIO (48999) AND ([id number])Indication: Impaired fasting glucose On: :21 Request METABOLIC PANEL, COMPREHENSIVE (41842)Indication: Impaired fasting glucose On: :21 Request LIPID PANEL (85930)Indication: Impaired fasting glucose On: :21 Request CBC W/AUTO DIFF WBC (21852)Indication: Impaired fasting glucose On: :21 Request CALCIFIDIOL (38446) VIT D 25Indication: Vitamin D deficiency On: :20 Request CBC WITH MANUAL DIFF (51376)Indication: Abnormal laboratory test On: :27 Request Comments: do in 1 mo CBC W/AUTO DIFF WBC (24631)Indication: Impaired fasting glucose On: : Request MICROALBUMIN: CREATININE RATIO ([id number]) AND ([id number])Indication: Impaired fasting glucose On: : Request METABOLIC PANEL, COMPREHENSIVE (77848)Indication: Hypercholesterolemia On: :06 Request LIPID PANEL (70615)Indication: Hypercholesterolemia On: :05 Request LIPID PANEL ([id number])Indication: Other and unspecified hyperlipidemia On: :23 Request CBC with auto diff ([id number])Indication: Impaired fasting glucose On: : Request METABOLIC PANEL, COMPREHENSIVE ([id number])Indication: Impaired fasting glucose On: : Request Hemoglobin Glyclated (HGB A1C) (05071)Indication: Impaired fasting glucose On: : Request PSA (PROSTATE SPECIFIC ANTIGEN) (V76.44)Indication: Screening for prostate cancer On: : Request URINALYSIS, W/ MICRO (16113)Indication: Hematuria On: 52-Qvx-567124:17 Request MICROALBUMIN: CREATININE RATIO (56661) AND ([id number])Indication: Impaired fasting glucose On: :17 Request METABOLIC PANEL, COMPREHENSIVE ([id number])Indication: Impaired fasting glucose On: 85-Wes-412467:17 Request LIPID PANEL (55858)Indication: Hypercholesterolemia On: :17 Request RPR (RAPID PLASMA REAGIN) ([id number])Indication: Unspecified Diagnosis On: 02-Hsl-052744:03 Request HIV ANTIGEN (61554)Indication: Possible exposure to STD On: :59 Request HIV-2 ANTIBODY (22744)Indication: Possible exposure to STD On: 19-Mwx-809474:[address],NG,TV (Chlamydia, Gonorrhea, Trichomonas) (95080)Indication: Possible exposure to STD On: 78-Rej-579063:56 Request Herpes Simplex I Ag, Direct Fluorescent Ab (06307)Indication: Possible exposure to STD On: :55 Request Herpes Simplex (HSV) II Ab (41972)Indication: Possible exposure to STD On: 67-Cvs-485013:54 Request HEPATITIS PANEL (80662)Indication: Possible exposure to STD On: 84-Iwe-316733:54 Request LIPID PANEL ([id number])Indication: Other and unspecified hyperlipidemia On: :44 Request METABOLIC PANEL, COMPREHENSIVE (31483)Indication: Impaired fasting glucose On: :44 Request PSA (PROSTATE SPECIFIC ANTIGEN) (V76.44)Indication: Screening for prostate cancer On: :55 Request TSH ([id number])Indication: Chest pain On: :55 Request MICROALBUMIN: CREATININE RATIO ([id number]) AND (94862)Indication: Impaired fasting glucose On: : Request URINALYSIS, W/ MICRO ([id number])Indication: Impaired fasting glucose On: :55 Request CBC WITH MANUAL DIFF ([id number])Indication: Impaired fasting glucose On: : Request METABOLIC PANEL, COMPREHENSIVE ([id number])Indication: Impaired fasting glucose On: :55 Request LIPID PANEL (43066)Indication: Other and unspecified hyperlipidemia On: :55 Request CBC WITH MANUAL DIFF ([id number])Indication: Impaired fasting glucose On: :03 Request METABOLIC PANEL, COMPREHENSIVE ([id number])Indication: Impaired fasting glucose On: :03 Request HEPATIC FUNCTION PANEL (46036)Indication: Other and unspecified hyperlipidemia On: : Request LIPID PANEL (81207)Indication: Other and unspecified hyperlipidemia On: :03 Request LEAD ([id number])Indication: Paresthesia On: :28 Request MICROALBUMIN: CREATININE RATIO ([id number]) AND ([id number])Indication: Impaired fasting glucose On: : Request CBC WITH MANUAL DIFF ([id number])Indication: Paresthesia On: : Request VITAMIN B-12 (CYANOCOBALAMIN) ([id number])Indication: Paresthesia On: : Request TSH ([id number])Indication: Sleep Disorder On: : Request LEAD ([id number])Indication: Paresthesia On: :10 Request VITAMIN B-12 (CYANOCOBALAMIN) (80610)Indication: Paresthesia On: :10 Request LIPID PANEL (83704)Indication: Other and unspecified hyperlipidemia On: 5-Vjv-692362:10 Request PSA (PROSTATE SPECIFIC ANTIGEN) (V76.44)Indication: BPH without urinary obstruction On: :09 Request TSH ([id number])Indication: Paresthesia On: :09 Request MICROALBUMIN: CREATININE RATIO (50213) AND ([id number])Indication: Impaired fasting glucose On: :09 Request CBC WITH MANUAL DIFF ([id number])Indication: Paresthesia On: : Request METABOLIC PANEL, COMPREHENSIVE ([id number])Indication: Paresthesia On: :09 Request Hemoglobin Glyclated (HGB A1C) (12441)Indication: Impaired fasting glucose On: : Request PSA (PROSTATE SPECIFIC ANTIGEN) (V76.44)Indication: BPH without urinary obstruction On: 78-Iqn-293122:05 Request METABOLIC PANEL, COMPREHENSIVE ([id number])Indication: Impaired fasting glucose On: 89-Boa-068797:05 Request LIPID PANEL (70401)Indication: Other and unspecified hyperlipidemia On: 50-Awv-005863:04 Request HgA1C , Office (18203)Indication: Impaired fasting glucose On: 01-Zvx-24426:20 Request CBC WITH MANUAL DIFF ([id number])Indication: Impaired fasting glucose On: :14 Request METABOLIC PANEL, COMPREHENSIVE ([id number])Indication: Impaired fasting glucose On: 13-Jul-20118:14 Request MICROALBUMIN: CREATININE RATIO ([id number]) AND ([id number])Indication: Impaired fasting glucose On: 13-Jul-20118:14 Request LIPID PANEL ([id number])Indication: Other and unspecified hyperlipidemia On: 13-Jul-20118:13 Request HgA1C , Office ([id number])Indication: Impaired fasting glucose On: 13-Jul-20118:05 Request CBC WITH MANUAL DIFF ([id number])Indication: Anemia, unspecified On: 7-Zjp-016506:21 Request IRON BINDING CAPACITY (TIBC) ([id number])Indication: Anemia, unspecified On: : Request IRON ([id number])Indication: Anemia, unspecified On: : Request FERRITIN ([id number])Indication: Anemia, unspecified On: : Request CBC WITH MANUAL DIFF ([id number])Indication: Elevated blood pressure (not hypertension) On: :20 Request METABOLIC PANEL, COMPREHENSIVE (49621)Indication: Elevated blood pressure (not hypertension) On: : Request URINALYSIS, W/ MICRO ([id number])Indication: Hematuria On: :20 Request Lipid Panel ([id number])Indication: Hypercholesterolemia On: : Request PSA (Prostate Specific Antigen), Screening (06982)Indication: Elevated blood pressure (not hypertension) On: : Request CBC with manual diff ([id number])Indication: Elevated blood pressure (not hypertension) On: : Request Metabolic Panel, Comprehensive ([id number])Indication: Elevated blood pressure (not hypertension) On: : Request URINALYSIS (78041)Indication: Elevated blood pressure (not hypertension) On: : Request URINALYSIS, W/ MICRO (81463)Indication: Hematuria On: :32 Request HEPATIC FUNCTION PANEL ([id number])Indication: Hypercholesterolemia On: :20 Request METABOLIC PANEL, COMPREHENSIVE ([id number])Indication: Elevated blood pressure (not hypertension) On: :25 Request URINALYSIS, W/ MICRO ([id number])Indication: Elevated blood pressure (not hypertension) On: :24 Request HEPATIC FUNCTION PANEL ([id number])Indication: Other and unspecified hyperlipidemia On: :24 Request LIPID PANEL (17973)Indication: Other and unspecified hyperlipidemia On: :24 Request PSA (PROSTATE SPECIFIC ANTIGEN) (V76.44)Indication: Hematuria On: :12 Request HEPATIC FUNCTION PANEL ([id number])Indication: Other and unspecified hyperlipidemia On: :11 Request LIPID PANEL ([id number])Indication: Other and unspecified hyperlipidemia On: :11 Request HEPATIC FUNCTION PANEL ([id number])Indication: Other and unspecified hyperlipidemia On: :33 Request LIPID PANEL (90772)Indication: Other and unspecified hyperlipidemia On: :33 Request HEPATIC FUNCTION PANEL ([id number])Indication: Other and unspecified hyperlipidemia On: :53 Request LIPID PANEL ([id number])Indication: Other and unspecified hyperlipidemia On: :53 Request HEPATIC FUNCTION PANEL ([id number])Indication: Other and unspecified hyperlipidemia On: : Request LIPID PANEL (57071)Indication: Other and unspecified hyperlipidemia On: : Request LIPID PANEL ([id number])Indication: Other and unspecified hyperlipidemia On: : Request URINALYSIS W/O MICRO ([id number])Indication: Elevated blood pressure (not hypertension) On: :08 Request PSA (PROSTATE SPECIFIC ANTIGEN) (V76.44)Indication: Screening for prostate cancer On: : Request SED RATE ERYTHROCYTE (91501)Indication: alopecia areata On: : Request C-REACTIVE PROTEIN ([id number])Indication: alopecia areata On: : Request RHEUMATOID FACTOR-QUANT ([id number])Indication: alopecia areata On: : Request DAGOBERTO (ANTINUCLEAR ANTIBODY) ([id number])Indication: alopecia areata On: : Request TSH ([id number])Indication: alopecia areata On: : Request METABOLIC PANEL, COMPREHENSIVE (13546)Indication: Elevated blood pressure (not hypertension) On: : Request CBC WITH MANUAL DIFF ([id number])Indication: alopecia areata On: : Request FERRITIN ([id number])Indication: alopecia areata On: : Request VITAMIN B-12 (CYANOCOBALAMIN) ([id number])Indication: alopecia areata On: : Request LIPID PANEL ([id number])Indication: Other and unspecified hyperlipidemia On: 4-Gei-251940:30 Request PSA (PROSTATE SPECIFIC ANTIGEN) ([id number])Indication: Screening for prostate cancer On: 2-Zhn-405232:29 Request Planned Encounters Medical; 4 Month FU - On: 15-Aug-2018 9:00 [facility] Anai Hernandez DO, DO, Kathleen Planned Procedures X-RAY KNEE WITH PATELLA, FIVE VIEWS On: 11-Apr-2018 Intent ([id number])By: Anai Hernandez DO Comments: L DO, Anai X-RAY KNEE WITH PATELLA, FIVE VIEWS On: 11-Apr-2018 Intent ([id number])By: Anai Hernandez DO Comments: R DOAnai ELECTROCARDIOGRAM, COMPLETE (ECG) On: 11-Apr-2018 Intent ([id number])By: Anai Hernandez DO Comments: nsr no acute chg DO, Anai Aerosol Treatment ([id number])By: Luba On: 21-Jun-2017 Intent [place] DEJESUS ELECTROCARDIOGRAM, COMPLETE (ECG) On: 25-Mar-2017 Intent ([id number])By: Flor Manriquez Comments: Sinus Rhythm-Heart rate 97. Aerosol Treatment (02961)By: Luba On: 23-Apr-2016 Intent [place] DEJESUS ELECTROCARDIOGRAM, COMPLETE (ECG) On: 23-Apr-2016 Intent ([id number])By: Marietta Verduzco CNP ELECTROCARDIOGRAM, COMPLETE (ECG) On: 13-Apr-2016 Intent ([id number])By: Anai Hernandez DO Comments: nsr no acute chg Anai QUEZADA Radiology - Lumbar SpineBy: Mani QUEZADA, On: 13-Dec-2014 Intent Teresita A EKG ([id number])By: Teresita Singleton DO On: 13-Dec-2014 Intent Comments: ekg showed normal sinus rhythym, normal axis, no acute st/t wave changes Inhaler Demo ([id number])By: Mani QUEZADA, On: 07-Sep-2013 Intent Teresita Zya Echo CompleteBy: Teresita Singleton DO A On: 07-Sep-2013 Intent Nuclear Stress Test/Stress On: 07-Sep-2013 Intent SPECT/TreadmillBy: Teresita Singleton DO Radiology - Chest- PA and LatBy: Fast On: 07-Sep-2013 Intent Teresita QUEZADA Eprescribed prescriptions (G8553)By: On: 29-Aug-2012 Intent Starr Mcmahonid DopplerBy: Teresita Singleton DO A On: 08-Aug-2012 Intent Eprescribed prescriptions (G8553)By: On: 07-Apr-2012 Intent Starr Mcmahon TD Injection , IM ([id number])By: On: 13-Jul-2011 Intent Starr Mcmahon Comments: 2006 EKGBy: Ciesa STUDIO OWNER, Meghna On: 03-Apr-2011 Intent Radiology - Chest- PA and LatBy: Fast On: 14-Mar-2011 Intent DO Teresita A Comments: include left anterior ribs EKG ([id number])By: Teresita Singleton DO On: 14-Mar-2011 Intent Comments: ekg showed normal sinus rhythym, normal axis, no acute st/t wave changes FLU VAC, SPLIT, >3 YEARS, INTRAMUSC On: 14-Mar-2011 Intent ([id number])By: Starr Mcmahon Comments: Lot: [id number]: 11/03/11Site: Lt DeltoidDose: Prefilled DoseARiding, 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 IMMUNIZ ADMNIN, 1 VAC, SNGL/COMBO On: 14-Mar-2011 Intent ([id number])By: Starr Mcmahon FLU VAC, SPLIT, >3 YEARS, INTRAMUSC On: 15-Mar-2010 Intent ([id number])By: Starr Mcmahon Comments: Lot #[id number]-L dltd/IMDose 0.5mlgiven by:MATILDE LIRA EKG ([id number])By: Starr Mcmahon On: 15-Mar-2010 Intent Comments: ekg showed normal sinus rhythym, normal axis, no acute st/t wave changes IMMUNIZ ADMNIN, 1 VAC, SNGL/COMBO On: 15-Mar-2010 Intent ([id number])By: Starr Mcmahon CT - Abdomen & Pelvis Stone On: 05-Apr-2008 Intent ProtocolBy: Mani QUEZADA Teresita A EKG ([id number])By: Starr Mcmahon On: 21-Mar-2008 Intent Comments: ekg showed normal sinus rhythym, normal axis, no acute st/t wave changes EKG ([id number])By: Teresita Singleton DO On: 04-Feb-2006 Intent Comments: ekg showed normal sinus rhythym, normal axis, no acute st/t wave changes Instructions Name Dates Details Impaired fasting glucose : How to access health information online Indication: Impaired fasting glucose Impaired fasting glucose : How to access health information online - Detail Indication: Impaired fasting glucose Impaired fasting glucose : Patient Instructions Indication: Impaired fasting glucose Impaired fasting glucose : How to access health information online Indication: Impaired fasting glucose Impaired fasting glucose : How to access health information online - Detail Indication: Impaired fasting glucose Impaired fasting glucose : Patient Instructions Indication: Impaired fasting glucose BMI 35.0-35.9,adult : Patient Instructions Indication: BMI 35.0-35.9,adult Cough : How to access health information online Indication: Cough Cough : How to access health information online - Detail Indication: Cough Cough : Patient Instructions Indication: Cough Impaired fasting glucose : How to access health information online Indication: Impaired fasting glucose Impaired fasting glucose : How to access health information online - Detail Indication: Impaired fasting glucose Impaired fasting glucose : Patient Instructions Indication: Impaired fasting glucose Nonsmoker : How to access health information online Indication: Nonsmoker Nonsmoker : How to access health information online - Detail Indication: Nonsmoker Nonsmoker : Patient Instructions Indication: Nonsmoker BMI 34.0-34.9,adult : How to access health information online Indication: BMI 34.0-34.9,adult BMI 34.0-34.9,adult : How to access health information online - Detail Indication: BMI 34.0-34.9,adult BMI 34.0-34.9,adult : Patient Instructions Indication: BMI 34.0-34.9,adult Common cold virus : Patient Instructions Indication: Common cold virus Hypercholesterolemia : How to access health information online Indication: Hypercholesterolemia Hypercholesterolemia : How to access health information online - Detail Indication: Hypercholesterolemia Hypercholesterolemia : Patient Instructions Indication: Hypercholesterolemia Hypercholesterolemia : How to access health information online Indication: Hypercholesterolemia Hypercholesterolemia : How to access health information online - Detail Indication: Hypercholesterolemia Hypercholesterolemia : Patient Instructions Indication: Hypercholesterolemia Acute bronchitis due to other specified organisms : Patient Instructions Indication: Acute bronchitis due to other specified organisms Impaired fasting glucose : Patient Instructions Indication: Impaired fasting glucose Upper Respiratory Infection (Renamed from Infection of the upper respiratory tract) : Patient Instructions Indication: Upper Respiratory Infection (Renamed from Infection of the upper respiratory tract) Impaired fasting glucose : Patient Instructions Indication: Impaired fasting glucose Possible exposure to STD : How to access health information online Indication: Possible exposure to STD Possible exposure to STD : How to access health information online - Detail Indication: Possible exposure to STD Possible exposure to STD : Patient Instructions Indication: Possible exposure to STD Chest pain : Patient Instructions Indication: Chest pain Chest pain : Patient Instructions Indication: Chest pain Sleep Disorder : Patient Instructions Indication: Sleep Disorder Sleep Disorder : Patient Instructions Indication: Sleep Disorder Paresthesia : Patient Instructions Indication: Paresthesia Advance Directives Name Dates Details Immunization Registry [facility] - Effective on 04/11/2018. Effective: 11-Apr-2018 Expiration date unspecified Encounters Lab Order On: 17-Apr-2018 8:22 Encounter Diagnosis: CRP elevated End: 17-Apr-2018 8:26 [facility] Annotation/Addendum On: 14-Apr-2018 17:20 Encounter Diagnosis: Enchondroma End: 14-Apr-2018 17:29 [facility] Office Visit On: 11-Apr-2018 8:47 Encounter Reason: Follow up tests - Date: (04/03/18)., [ADDITIONAL REASON] Follow up for chronic medical issues - The patient feels well with minor complai End: 11-Apr-2018 10:27 nts, has good energy level and is sleeping well. Patient has been compliant with instructions. Current medication use: no side effects and compliant with dosing regimen. Patient sleeps 6 hours per night . Nutrition: balanced diet and supplemental vitamins. The medical issues the patient is following up for include All identified problems below, blood sugar issues, gastric reflux, high blood pressure an d high cholesterol. blood pressure range :, fasting blood sugars : and weight :. Encounter Diagnosis: Impaired fasting glucose (790.21), BMI 35.0-35.9,adult, Nonsmoker, BPH without urinary obstruction, Other and unspecified hyperlipidemia (272.4), Vitamin D deficiency, Leukopenia, unspecified type, Colon polyps, Acute pain of both knees [facility] Office Visit On: 23-Aug-2017 8:54 Encounter Reason: Follow up for chronic medical issues - The patient does not feel well, has decreased energy level and is sleeping poorly. Patient has been compliant with instructions. Current medication use: no side ef End: 23-Aug-2017 9:28 fects and compliant with dosing regimen. Patient sleeps 4 hours per night. Nutrition: inappropriate diet and no supplemental vitamins & iron. The medical issues the patient is following up for inclu de All identified problems below, blood sugar issues, gastric reflux, high blood pressure and high cholesterol. weight :., [ADDITIONAL REASON] Follow up tests - Date: (08/22/17). Encounter Diagnosis: Nonsmoker, Impaired fasting glucose (790.21), BMI 35.0-35.9,adult, Other and unspecified hyperlipidemia (272.4), Vitamin D deficiency, BPH without urinary obstruction, Screening for prostate cancer, Encounter for screening for malignant neoplasm of colon (Renamed from Special screening for malignant neoplasms, colon), Skin lesion of back [facility] Office Visit On: 21-Jun-2017 8:10 Encounter Reason: Cough - Symptoms include cough, wheezing and stuffy nose. The cough is described as moist. Onset of cough followed cold symptoms. The cough occurs constantly. Symptoms are exacerbated by lying down. Ass End: 21-Jun-2017 8:56 ociated symptoms include headache. Previous presentation included a cough. Note for Cough: Had cold symptoms first then cough with wheeze that wont go away 5 daysEncounter Diagnosis: Nonsmoker, Cough, BMI 35.0-35.9,adult, Acute bronchospasm due to viral infection [facility] Annotation/Addendum On: 01-May-2017 16:38 Encounter Diagnosis: Leukopenia, unspecified type End: 01-May-2017 16:39 [facility] Office Visit On: 24-Apr-2017 8:51 Encounter Reason: Follow up for chronic medical issues - The patient does not feel well, has decreased energy level and is sleeping poorly. Patient has been compliant with instructions. Current medication use: no side ef End: 24-Apr-2017 10:06 fects and compliant with dosing regimen. Patient sleeps 4 hours per night. Nutrition: inappropriate diet and no supplemental vitamins & iron. The medical issues the patient is following up for inclu de All identified problems below, blood sugar issues, gastric reflux, high blood pressure and high cholesterol. weight :., [ADDITIONAL REASON] Follow up tests - Date: (04/19/17). Encounter Diagnosis: Impaired fasting glucose (790.21), BMI 34.0-34.9,adult, Nonsmoker, Vitamin D deficiency, Hypercholesterolemia, Other and unspecified hyperlipidemia (272.4), Leukopenia, unspecified type [facility] Annotation/Addendum On: 05-Apr-2017 15:04 Encounter Diagnosis: Sinusitis, bacterial End: 05-Apr-2017 15:06 [facility] Phone Encounter On: 05-Apr-2017 8:30 [facility] End: 05-Apr-2017 8:32 Office Visit On: 25-Mar-2017 10:46 Encounter Reason: Flu Like Symptoms - Symptoms include chills, nasal congestion and headache. Onset was sudden. Note for Flu like symptoms: Symptoms started about 6 days ago with chest congestion and cough-which aren't End: 25-Mar-2017 12:08 bad anymore-now it has moved to head. Headaches, facial pressure, tenderness, ear pressure, cough-green/yellow, no nasal drainage, nasal congestion, some fever or chills that comes and goes, body aches . No earaches, sore throat, sneezing, CP or SOB. had pneumonia two weeks ago- on amoxicillin. Pt taking ibuprofen and OTC cold med-not working that much. When coughing-head really hurts.Encounter Diagnosis: BMI 34.0-34.9,adult, Nonsmoker, Chills, Body aches, Tachycardia, Sinusitis, bacterial, Facial pressure [facility] Office Visit On: 17-Oct-2016 8:49 Encounter Reason: Follow up for chronic medical issues - The patient feels well with minor complaints, has good energy level and is sleeping well. Patient has been compliant with instructions. Current medication use: no End: 17-Oct-2016 9:30 side effects and compliant with dosing regimen. Patient sleeps 7 hours per night. Nutrition: balanced diet and supplemental vitamins. The medical issues the patient is following up for include All ident ified problems below, blood sugar issues, high blood pressure and high cholesterol. blood pressure range : and weight :., [ADDITIONAL REASON] Follow up tests - Date: (10/11/16 labs). Encounter Diagnosis: Nonsmoker, BMI 34.0-34.9,adult, Impaired fasting glucose (790.21), Hypercholesterolemia, Vitamin D deficiency, Hematuria, Bilateral hearing loss, unspecified hearing loss type, Right foot pain [facility] Office Visit On: 23-Apr-2016 9:10 Encounter Reason: Cold Symptoms - Symptoms include nasal congestion, runny nose, sore throat (slight), productive cough and facial pressure. Onset was sudden 6 day(s) ago. The symptoms occur constantly. The patient descr End: 23-Apr-2016 9:58 ibes this as unchanged. Associated symptoms include chills. Previous presentation included nasal congestion, runny nose, sore throat, productive cough and chills. Note for Cold symptoms: started sneez ing 5 days ago, head congestion and cough and chest. The worst thing is head congestion. Took Theraflu and coricidan. Encounter Diagnosis: BMI 33.0-33.9,adult, Nonsmoker, Tachycardia, Cough, Wheeze, Common cold virus [facility] Office Visit On: 13-Apr-2016 8:58 Encounter Reason: Follow up for chronic medical issues - The patient feels well with minor complaints, has good energy level and is sleeping well. Patient has been compliant with instructions. Current medication use: no End: 13-Apr-2016 13:19 side effects and compliant with dosing regimen. Patient sleeps 6 hours per night. Nutrition: balanced diet and supplemental vitamins. The medical issues the patient is following up for include All ident ified problems below, high blood pressure and high cholesterol. blood pressure range : and weight :.Encounter Diagnosis: Hypercholesterolemia, BMI 33.0-33.9,adult, Nonsmoker, Heartburn (787.1), Impaired fasting glucose (790.21), Hematuria (599.7) [facility] Phone Encounter On: 11-Apr-2016 15:27 Encounter Diagnosis: Abnormal laboratory test End: 11-Apr-2016 15:28 [facility] Office Visit On: 13-Sep-2015 13:16 Encounter Reason: Follow up for chronic medical issues - The patient feels well with minor complaints (back pain continues- wonders if there's anything can be done about it? He knows its arthritis.), has good energy leve End: 14-Sep-2015 22:51 l and is sleeping poorly (old habit). Patient has been compliant with instructions. Current medication use: no side effects and compliant with dosing regimen. Patient sleeps 6 hours per night. Nutrition : inappropriate diet, supplemental vitamins and low salt diet. The medical issues the patient is following up for include All identified problems below, high blood pressure and high cholesterol. Note fo r Follow up for chronic medical issues: his weight up- he less active over the winter- bp is good - he never did therapy for his back we discussed only way to go further with mri is do therapy first- he usually feels issues when gets up and gets better as day goes on - he uses tylenol and this helps- he did see rolando and he didnt do cystoscopy- as he felt like patient didnt need to do it but is follwoing up again with him this summer, [ADDITIONAL REASON] Follow up, Laboratory Test Results - Date: (08/31/15). Encounter Diagnosis: Hypercholesterolemia, Heartburn (787.1), Impaired fasting glucose (790.21), Hematuria (599.7), Low Back Pain (Renamed from Low back ache), Colon polyps, Nonsmoker [facility] Office Visit On: 07-Jul-2015 12:27 Encounter Reason: Upper Respiratory Infection (URI) - No changes in management were made at the last visit. Symptoms include nasal congestion, runny nose and productive cough. Onset was sudden. The symptoms occur constan End: 07-Jul-2015 13:22 tly. The patient describes this as moderate in severity and unchanged.Encounter Diagnosis: Cough, Acute bronchitis due to other specified organisms [facility] Office Visit On: 13-Dec-2014 9:33 Encounter Reason: Follow up for chronic medical issues - The patient feels well with minor complaints (low back pain), has good energy level and is sleeping well. Patient has been compliant with instructions. Current med End: 13-Dec-2014 10:27 ication use: no side effects and compliant with dosing regimen. Patient sleeps 6 hours per night. Nutrition: balanced diet, supplemental vitamins and low salt diet. The medical issues the patient is fol lowing up for include All identified problems below, high blood pressure and high cholesterol. Note for Follow up for chronic medical issues: feeling better and trying to lose weight - his chol better and tolerating meds bp and sugar good- he stillhasnt urology- but he said he will - had some gerd but better on prilosec, [ADDITIONAL REASON] Follow up, Laboratory Test Results - Date: (12/10/14). , [ADDITIONAL REASON] Back pain - The onset of the pain has been gradual and has been occurring in an intermittent pattern for 6 months. The course has been increasing. The pain is characterized as a dul l ache. The pain is described as being located in the lower back and lumbar area. The pain does not radiate. There are no precipitating factors. The symptoms are aggravated by prolonged sitting and lyin g down. The symptoms are relieved by exertion and anti-inflammatory use. There has been no associated abdominal pain, chills, dysuria, fever, flank pain, hip pain, incontinence of stool, incontinence of urine, leg weakness or paresthesias in leg. Note for Pain: chronic no trauma but more problematic in am - takes tylenol makes go away worse with driiving more- no leg sx Encounter Diagnosis: Impaired fasting glucose (790.21), Other and unspecified hyperlipidemia (272.4), Hematuria (599.7), Heartburn (787.1), SCREENING FOR CANCER OF THE PROSTATE (V76.44), Low Back Pain (Renamed from Low back ache) [facility] Historical Summary On: 22-Oct-2014 14:51 [facility] End: 22-Oct-2014 14:53 Office Visit On: 27-Jul-2014 8:17 Encounter Reason: Cough - The onset of the cough has been 1 weeks. The cough is characterized as productive of mucopurulent sputum. The amount of sputum produced is less than a half a cup per day. The cough occurs all t End: 27-Jul-2014 8:39 he time. The symptoms have been associated with fever and hoarseness, while the symptoms have not been associated with dyspnea, headache, runny nose or sore throat. the color of the sputum is yellowish. Note for Cough : low grade temp chest congestion- was home 3 days from work last week- worse in [place]- Encounter Diagnosis: Upper Respiratory Infection (Renamed from Infection of the upper respiratory tract) [facility] Office Visit On: 26-Jan-2014 10:25 Encounter Reason: Follow up for chronic medical issues - The patient feels well with no complaints, has good energy level and is sleeping well. Patient has been compliant with instructions. Current medication use: no matt End: 26-Jan-2014 22:43 e effects and compliant with dosing regimen. Patient sleeps 6 hours per night. Nutrition: balanced diet, supplemental vitamins and low salt diet. The medical issues the patient is following up for inclu de All identified problems below, high blood pressure and high cholesterol. Note for Follow up for chronic medical issues: no more chest pain- and is sleeping or at least can go back to sleep - hasnt seen urology yet- he will when he gets stress test paid off and didnt see sarahy saxena gone- doesnt eat ton carbs not exercising- has appt for colonso opy, [ADDITIONAL REASON] Follow up, Laboratory Test Results - Date: (01/20/14). Encounter Diagnosis: Impaired fasting glucose (790.21), Chest pain (786.59), Pulsatile tinnitus (388.30), Hypercholesterolemia (272.0), Hematuria (599.7), Heartburn (787.1) [facility] Office Visit On: 08-Jan-2014 7:55 Encounter Reason: Follow up tests - Date: (01/01/14 blood work).Encounter Diagnosis: Possible exposure to STD, HSV-2 seropositive End: 08-Jan-2014 8:30 [facility] Annotation/Addendum On: 01-Jan-2014 15:03 Encounter Diagnosis: Unspecified Diagnosis End: 01-Jan-2014 15:04 [facility] Office Visit On: 01-Jan-2014 14:33 Encounter Reason: STD, Unspecified - The patient describes this as mild.Encounter Diagnosis: Possible exposure to STD End: 01-Jan-2014 15:02 [facility] Office Visit On: 30-Sep-2013 10:00 Encounter Reason: Follow up tests - Date: (labs and tests September 2013). Note for Discuss procedure results: he feels like having less ??chest pain and now not having with exertion and tests neg- he thinks stress related a End: 01-Oct-2013 9:09 nd doesnt want to take anything for it =-=wakes up not restd- he sleeps 6 hours - wakes up and cant easily shut mind down- he does have family hx of bladder cancer referred him in past to [facility] and never did so he will nowEncounter Diagnosis: Chest pain (786.59), Other and unspecified hyperlipidemia (272.4), Hematuria (599.7), screening , Impaired fasting glucose (790.21), Heartburn (787.1), HEARING LOSS, UNSPECIFIED (389.9) [facility] Office Visit On: 07-Sep-2013 9:33 Encounter Reason: Foot Problem - Symptoms do not include foot pain, foot swelling or itching feet. Symptoms are located in the left foot. Onset was gradual month(s) ago. The symptoms occur constantly. The patient describ End: 07-Sep-2013 20:48 es symptoms as unchanged. Associated symptoms include thickened toenails and discolored toenails, while associated symptoms do not include peeling skin. Note for Foot problem: Pt thinks he has fungus on his left foot., [ADDITIONAL REASON] Chest pain - The onset of the pain has been gradual and has been occurring in an intermittent pattern for 2 weeks. The pain is described as a mild pressure sensation. The pain is de scribed as being located in the left chest. The pain does not radiate. There are no precipitating factors. There has been no associated abdominal pain, dizziness, dyspnea, fever, nausea, neck pain, palp itations, shoulder pain or syncope. Note for Pain: doesnt get sweaty- not radiating- does happen sometimes with exertion sometimes not-- not sob - but is a pressure- but yesterday broke outin sweat ju st sitting there not sure if had chest pressure there- - aunts uncles grandfather with cad- uncle with early cad- - no dizzy leg swelling or cough - no syncope no palpitations- no fever - no wheeze Encounter Diagnosis: Chest pain (786.59), Other and unspecified hyperlipidemia (272.4), Impaired fasting glucose (790.21), SCREENING FOR CANCER OF THE PROSTATE (V76.44), Onchomycosis (110.1) [facility] Office Visit On: 29-Aug-2012 10:27 Encounter Reason: Follow up, Laboratory Test Results - Date: (08/18/12). Current symptoms/reason for visit include/s Symptoms include other (doesnt like the trazadone cause makes him tired- He did cut the dose in half as End: 01-Sep-2012 8:50 we suggested and still tired to where its affecting his driving and normal daily functions. He is sleeping better though.). Note for Follow up to discuss laboratory test results: doesnt think paresthesias as badEncounter Diagnosis: Sleep Disorder (780.50), Other and unspecified hyperlipidemia (272.4), Paresthesia (782.0), Impaired fasting glucose (790.21) [facility] Office Visit On: 08-Aug-2012 11:44 Encounter Reason: Sleep Disturbance - The onset of the sleep disturbance has been gradual and has been occurring in a persistent pattern for 3 months. The course has been recurrent. The sleep disturbance is described as End: 11-Aug-2012 13:41 moderate. 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 The symptoms have been associated with tried benadryl and tried OTC meds, while the symptoms have not been associated with caffiene use daily or caffeine use daily. Note for Sleep Disturbance: he doesnt have trouble falling asleep - but freq wakenings- he wakes up and starts thinking then cant shut down- he isnt exercisin g- - tried melatonin no help an benadryl minimal help, [ADDITIONAL REASON] Tinnitus - The onset of the tinnitus has been gradual and has been occurring in a persistent pattern for months. The course has been recurrent. It is characterized as pulsating (heart beat in ear). It affects both ears. There has been no associated dizziness, headache, hearing loss , nausea, vertigo, visual disturbances or vomiting. Note for Tinnitus: usually when he wakes in middle of night hears it Encounter Diagnosis: Pulsatile tinnitus (388.30), Sleep Disorder (780.50), Impaired fasting glucose (790.21), Paresthesia (782.0), Other and unspecified hyperlipidemia (272.4) [facility] Office Visit On: 07-Apr-2012 11:38 Encounter Reason: Paresthesias - The symptoms first began 1 month. The onset of the paresthesias has been at night/evening and gradual. The paresthesias is improving. The patient describes the paresthesias as persistent, End: 07-Apr-2012 12:15 pins and needles and tingling. The paresthesias affects the foot and toes. Associated features do not include: chest pain, dizziness, lightheadedness, palpitations or shortness of breath. There are no precipitating factors. Note for Paresthesias: notices at night when feet are up - not much during- day- no weakness- nop keep him up at night and no calf pain Encounter Diagnosis: Paresthesia (782.0), Impaired fasting glucose (790.21), BPH without Urin. Obst (600.00), Other and unspecified hyperlipidemia (272.4) [facility] Office Visit On: 28-Dec-2011 9:12 Encounter Reason: Follow up for chronic medical issues - The patient feels well with no complaints, has good energy level and is sleeping well. Patient has been compliant with instructions. Current medication use: no matt End: 28-Dec-2011 10:10 e effects and compliant with dosing regimen. Patient sleeps 6 hours per night. Nutrition: balanced diet, supplemental vitamins and low salt diet. The medical issues the patient is following up for inclu de All identified problems below, high blood pressure and high cholesterol. Note for Follow up for chronic medical issues: feeling well recently - no vertigo - tolerating meds - no gerd and working on weight loss -sugars better, [ADDITIONAL REASON] Follow up, Laboratory Test Results - Date: (12/25/11). Encounter Diagnosis: Impaired fasting glucose (790.21), Other and unspecified hyperlipidemia (272.4), Elevated Blood Pressure(796.2), alopecia areata, VERTIGO, BENIGN PAROXYSMAL POSITION (386.11), BPH without Urin. Obst (600.00) [facility] Office Visit On: 13-Jul-2011 7:39 Encounter Reason: Follow up for chronic medical issues - The patient feels well with no complaints, has good energy level and is sleeping well. Patient has been compliant with instructions. Current medication use: no matt End: 13-Jul-2011 8:22 e effects and compliant with dosing regimen. Patient sleeps 6 hours per night. Nutrition: balanced diet, supplemental vitamins and low salt diet. The medical issues the patient is following up for inclu de All identified problems below, high blood pressure and high cholesterol. Note for Follow up for chronic medical issues: feelingok but not active and wieght still going up -discusseed need to interv stanley into sugar chol and bp - he is goingto get back on bandwagon- and if not willneed more meds- no gerd anemia better and no issues with urination, [ADDITIONAL REASON] Follow up, Laboratory Test Results - Date: (07/11/11). Encounter Diagnosis: Other and unspecified hyperlipidemia (272.4), Heartburn (787.1), Anemia(285.9), BPH without Urin. Obst (600.00), Impaired fasting glucose (790.21) [facility] Office Visit On: 17-Apr-2011 10:15 Encounter Reason: Follow up acute care visit - The patient feeling better since last seen and improving. Patient has been compliant with instructions. Current medication use: no side effects, compliant with dosing regime End: 17-Apr-2011 10:47 n and considered effective by patient. Patient sleeps 6 hours per night. The medical issues the patient is following up for include All identified problems below and other (vertigo).Encounter Diagnosis: VERTIGO, BENIGN PAROXYSMAL POSITION (386.11) [facility] Office Visit On: 03-Apr-2011 14:36 Encounter Reason: Dizziness/ - The onset of the dizziness/ has been sudden and has been occurring in an intermittent pattern for 4 days. The course has been recurrent. The dizziness/ is characterized as spinning of the e End: 03-Apr-2011 15:45 nvironment. There has been no associated diplopia, fasting, fever, headache, loss of hearing, nausea, sweating or tinnitus.Encounter Diagnosis: Vertigo (780.4), Chest pain (786.59), Heartburn (787.1) [facility] Office Visit On: 14-Mar-2011 10:48 Encounter Reason: Follow up for chronic medical issues - The patient feels well with no complaints, has good energy level and is sleeping well. Patient has been compliant with instructions. Current medication use: no matt End: 14-Mar-2011 11:34 e effects and compliant with dosing regimen. Patient sleeps 7 hours per night. Nutrition: balanced diet, supplemental vitamins and low salt diet. The medical issues the patient is following up for inclu de All identified problems below, high blood pressure and high cholesterol. Note for Follow up for chronic medical issues: he gained alot of his weight back- admits he hasnt been watching his diet or exercising and bp is up-no blood in stools- did give blood with anemia 6 mos ago- no dark stools- but pain left lower chestwhen lies down - not when up- been going on few mos- alopecia resolved- no issues with urinating, [ADDITIONAL REASON] Follow up, Laboratory Test Results - Date: (03/08/11). Encounter Diagnosis: Need for prophylactic vaccination and inoculation against influenza (V04.81), Hypercholesterolemia (272.0), Elevated Blood Pressure(796.2), Hematuria (599.7), BPH without Urin. Obst (600.00), Anemia(285.9), Chest pain (786.59) [facility] Phone Encounter On: 28-Feb-2011 17:05 Encounter Diagnosis: Elevated Blood Pressure(796.2), Hypercholesterolemia (272.0) End: 28-Feb-2011 17:08 [facility] Office Visit On: 15-Mar-2010 11:37 Encounter Reason: Follow up for chronic medical issues - The patient feels well with no complaints, has good energy level and is sleeping well. Patient has been compliant with instructions. Current medication use: no matt End: 15-Mar-2010 12:32 e effects and compliant with dosing regimen. Patient sleeps 7 hours per night. Nutrition: balanced diet, supplemental vitamins and low salt diet. The medical issues the patient is following up for inclu de All identified problems below, high blood pressure and high cholesterol. Note for Follow up for chronic medical issues: feels well hemmies and constipation better and better diet bhanu tis cuasing we ight loss- was trying- low carb- bp is good and urianry stream goodEncounter Diagnosis: Need for prophylactic vaccination and inoculation against influenza (V04.81), Hypercholesterolemia (272.0), BPH without Urin. Obst (600.00), Hematuria (599.7) [facility] Office Visit On: 13-Sep-2009 8:43 Encounter Reason: Follow up for chronic medical issues - The patient feels well with minor complaints (hemroids- painful and itchy, mostly painful after bowel movements. Mild bleeding. Tried preparation h and it helps ti End: 13-Sep-2009 9:42 ll he has a bowel movement. This all started when he changed his eating habits and had issues with constipation, which is now better but now has hemroids.) ,has good energy level and is sleeping poorly (waking up early and then cant get back to sleep). Patient has been compliant with instructions. Current medication use: no side effects and compliant with dosing regimen. Patient sleeps 5 hours per nig ht. Nutrition: balanced diet ,supplemental vitamins and low salt diet. The medical issues the patient is following up for include All identified problems below ,high blood pressure and high cholesterol. weight : (193- in the am, naked). Note for Follow up for chronic medical issues: weight down 14 pounds and trying-, [ADDITIONAL REASON] Follow up, Laboratory Test Results - Date: (09/08/09). Encounter Diagnosis: Other and unspecified hyperlipidemia (272.4), Hemorrhoids (455.6), Constipation(564.00), Elevated Blood Pressure(796.2) [facility] Office Visit On: 15-Mar-2009 11:47 Encounter Reason: Follow up for chronic medical issues - The patient feels well with no complaints ,has good energy level and is sleeping well. Patient has been compliant with instructions. Current medication use: no matt End: 15-Mar-2009 12:18 e effects and compliant with dosing regimen. Patient sleeps 7 hours per night. Nutrition: balanced diet ,no supplemental vitamins & iron and low salt diet. The medical issues the patient is followin g up for include All identified problems below ,high blood pressure and high cholesterol. Note for Follow up for chronic medical issues: he hasnt seen dea connolly and his bp wa sup some- no issues with simvistatin, [ADDITIONAL REASON] Follow up, Laboratory Test Results - Date: (02/01/09). Encounter Diagnosis: Other and unspecified hyperlipidemia (272.4), Hematuria (599.7), Elevated Blood Pressure(796.2) [facility] Office Visit On: 12-Oct-2008 8:08 Encounter Reason: Follow up for chronic medical issues - The patient feels well with no complaints ,has good energy level and is sleeping poorly (off and on). Patient has been compliant with instructions. Current medicat End: 12-Oct-2008 8:49 ion use: no side effects and compliant with dosing regimen. Patient sleeps 6 hours per night. Nutrition: balanced diet and supplemental vitamins. The medical issues the patient is following up for inclu de All identified problems below ,high cholesterol and other (hematuria, elevated bp's). Note for Follow up for chronic medical issues: he is doing pretty well - his chol is way down and he is not hav ign significant side effects from the meds- his bp is down, [ADDITIONAL REASON] Follow up, Laboratory Test Results - Date: (10/06/08). Encounter Diagnosis: Other and unspecified hyperlipidemia (272.4), Hematuria (599.7), Elevated Blood Pressure(796.2), probable sebaceous cyst- will follow- call if any change [facility] Office Visit On: 06-Jul-2008 12:13 Encounter Reason: Follow up for chronic medical issues - The patient feels well with minor complaints (cant take niaspan d/t s/e of flushing) ,has good energy level and is sleeping well. Patient has been compliant with i End: 06-Jul-2008 22:12 nstructions. Current medication use: experiencing side effects (severe flushing from niaspan) and non-compliant with dosing regimen (stopped taking niaspan). Patient sleeps 7 hours per night. Nutrition: balanced diet ,no supplemental vitamins & iron and low salt diet. The medical issues the patient is following up for include All identified problems below ,high cholesterol and other (hematuria, el evated bp's, alopecia areata). Note for Follow up for chronic medical issues: she saw Grace- and told him should heal on its own- and is Encounter Diagnosis: Other and unspecified hyperlipidemia (272.4), Elevated Blood Pressure(796.2), Hematuria (599.7) [facility] Office Visit On: 05-Apr-2008 11:52 Encounter Reason: Follow up, Laboratory Test Results - Date: (03/19/08). Encounter Diagnosis: Other and unspecified hyperlipidemia (272.4), Elevated Blood Pressure(796.2), alopecia areata, Hematuria (599.7) End: 05-Apr-2008 12:36 [facility] Office Visit On: 19-Mar-2008 11:35 Encounter Reason: Follow up for chronic medical issues - The patient feels well with minor complaints (hair loss) ,has good energy level and is sleeping well. Patient has been compliant with instructions. Current medicat End: 21-Mar-2008 21:19 ion use: no side effects and compliant with dosing regimen. Patient sleeps 6 hours per night. Nutrition: balanced diet and supplemental vitamins. The medical issues the patient is following up for inclu de All identified problems below and high cholesterol. Note for Follow up for chronic medical issues: his chol was way high 260 range at a health screening in feb-- Encounter Diagnosis: Other and unspecified hyperlipidemia (272.4), SCREENING FOR CANCER OF THE PROSTATE (V76.44), alopecia areata, Elevated Blood Pressure(796.2) [facility] Historical Summary On: 05-Feb-2006 7:45 [facility] End: 05-Feb-2006 7:48 Office Visit On: 04-Feb-2006 14:31 Encounter Reason: Physical male exam - Last seen between 1-3 months ago (acv-sinsitis, before that was maybe 4 years ago, per pt.). General health: feels well with no complaints ,has good energy level and is sleeping wel End: 04-Feb-2006 15:36 l. The patient's appetite is normal. Nutrition: normal/adequate. Exercises 0 days per week. Sleeps on average 6 hours per night. Normal bowel and bladder habits. There are no current emotional problems. The patient's libido is normal. Encounter Diagnosis: Other and unspecified hyperlipidemia (272.4), SCREENING FOR CANCER OF THE PROSTATE (V76.44), SCREEN FOR CANCER OF THE TESTIS (V76.45), family hx of bladder and thyroid cancer- check Tsh and ua cbc cmp [facility] Historical Summary On: 04-Feb-2006 11:17 [facility] End: 04-Feb-2006 11:18 Historical Summary On: 31-Jan-2006 9:38 [facility] End: 31-Jan-2006 9:38 Payers [facility] Mat[facility]; zay guarantor
--- OUTSIDE RECORDS SUMMARY | 2018-05-29 07:50 | XMS RPT_ITS | Continuity of Care Document ---
:1965 Author Organization [facility] Address [address] [facility] [address] [place] [address] Phone Support Name Relationship Address Phone Marcus Matias Unavailable [address] [place] [address] Alton Matias Unavailable [address] [place] [address] Care Team Providers Name Role Phone Anai Hernandez DO Unavailable Dameon Mcgregor MD Unavailable Maegan Mathew MD Unavailable Dr. Jorje Hogan MD Unavailable Dr. 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 Enchondroma (D16.9, 213.9) Status: Active [...] tab qd for 0 days Refills: 0 Ordered:11-May-2010 Starr McmahonActive Omeprazole 20 MG Oral Tablet Delayed Release 1 (one) Capsule daily for 90 days Quantity: 90 {Capsule} Refills: 1 Ordered:11-Apr-2018 Maikel Hernandez DO, DO, Kathleen Start : 11-Apr-2018 Active ProAir HFA 108 (90 Base) MCG/ACT Inhalation Aerosol Solution 2 (two) Aerosol Soln puffs q 6hrs prn wheeze for 0 days Quantity: 1 {Inhaler} Refills: 0 Ordered:21-Jun-2017 Marietta Verduzco CNP Start : 21-Jun-2017 Active Simvastatin 20 [...] {Tablet} Refills: 11 Ordered:25-Mar-2017 Kendra Mcclure LPN Start : 08-Jan-2014 End : 25-Mar-2017 Inactive ANUSOL-HC, 25MG (Rectal Suppository) 1 (one) Suppository prn for 30 days Quantity: 30 {Suppository} Refills: 0 Ordered:21-Oct-2009 Starr Mcmahon Start : 21-Oct-2009 End : 20-Nov-2009 Inactive ASPIRIN LOW DOSE, 81MG (Oral Tablet) 1 (one) Tablet qd for 30 days Quantity: 30 {Tablet} Refills: 0 Ordered:07-Sep-2013 Mani Teresita Start : 07-Sep-2013 End : 07-Oct-2013 Inactive [...] Quantity: 1 {Package} Refills: 0 Ordered:17-Oct-2016 Flor Rosue LPN Start : 23-Apr-2016 End : 17-Oct-2016 [...] More Views Result: Comments: See Note; NOTES: [facility] Imaging Services [address] [place] [address] Knee 4 or More Views MR#: [id number] Acct: [id number] Name: MARCUS MATIAS Rep #: [id number] : 1965 M 52 From: Sanchez Elliott MD PCP: Anai Hernandez DO Status: REG CLI Study: Knee 4 or More Views Date of Exam: 04/11/18 Exam# [id number] Ordering Dr: Anai Hernandez DO STUDY: X- [...] Service support , CC: Anai Hernandez DO Assisted Living Housekeeper: Signed 11-Apr-2018 Knee 4 or More Views Result: Comments: See Note; NOTES: [facility] Imaging Services [address] [place] [address] Knee 4 or More Views MR#: [id number] Acct: [id number] Name: MARCUS MATIAS Rep #: [id number] : 1965 M 52 From: Sanchez Elliott MD PCP: Anai Hernandez DO Status: REG CLI Study: Knee 4 or More Views Date of Exam: 04/11/18 Exam# [id number] Ordering Dr: Anai Hernandez DO STUDY: X- [...] Service support , CC: Anai Hernandez DO Assisted Living Housekeeper: Signed 21-Apr-2015 Abdomen Single View Result: Comments: See Note; NOTES: [facility] Imaging Services [address] [place] [address] Verdana 4d Abdomen Single View MR#: [id number] Acct: [id number] Name: MARCUS MATIAS Rep #: [id number] : 1965 M 49 From: Jimmy Negrete DO PCP: Teresita Singleton DO Status: REG CLI Study: Abdomen Single View Date of Exam: 04/21/15 Exam# [id number] Ordering Dr: Anahy Lo MD STUDY: X-RAY [...] No definite renal calcifications. Electronically Signed: Jimmy DO Caden at 7:34 EST Te l , Service support [phone], RAD/Abdomen Single View IMPRESSION: No acute process. No definite renal calcifications. Electronically Signed: Jimmy DO Caden at 7:34 EST Tel , Service support [phone], CC: Teresita Singleton DO; Obie Lo MD Assisted Living Housekeeper: Signed 21-Apr-2015 Kidney and Bladder Result: Comments: See Note; NOTES: [facility] Imaging Services [address] [place] [address] Verdana 4d Kidney and Bladder MR#: [id number] Acct: [id number] Name: Awa MATIAS Rep #: [id number] : 1965 M 49 From: Daniel Long MD PCP: Teresita Singleton DO Status: REG CLI Study: Kidney and Bladder Date of Exam: 04/21/15 Exam# [id number] Ordering Dr: Maegan Lo MD STUDY: RENAL [...] Daniel Long MD at 11:21 EST Tel [phone], Service support [phone], CC: Teresita Singleton DO; Obie Lo MD Assisted Living Housekeeper: Signed 13-Dec-2014 L/S Spine Min 4 Views Result: Comments: See Note; NOTES: [facility] Imaging Services [address] [place] [address] Radiology Report MR#: [id number] Acct: [id number] Name: MARCUS MATIAS Rep #: [id number] : 1965 M 49 From: Sai Wu DO PCP: Teresita Singleton DO Status: REG CLI Study: L/S Spine Min 4 Views Date of Exam: 12/13/14 Exam# [id number] Ordering Dr: Teresita Singleton DO STUDY: X-RAY [...] Sai Wu DO at 16:53 EDT Tel [phone], Service support [phone], RAD/L/S Spine Min 4 Views IMPRESSION: Minimal endplate spondylosis without other evidence of lumbar spine abnormality. Electronically Signed: Sai Wu DO at 16:53 EDT Tel [phone], Service support [phone], CC: Teresita Singleton DO Assisted Living Housekeeper: Signed 15-Sep-2013 Echocardiogram Complete Result: Comments: See Note; NOTES: [facility] Cardiovascular Services [address] [place] [address] Echo Complete 09/15/13 0754 MR#: [id number] Acct: [id number] Name: JESICA MATIAS Rep #: [id number] : 1965 47 From: Jorje Gomez MD Attending Dr: Teresita Singleton DO Status: REG CLI Ordering Dr: Teresita Singleton DO Date: 09/15/13 Location: [facility] Sex: M C Admitted: [facility] This was a 2D Doppler, Color Flow [...] Physician: Teresita Singleton Performed By: Aggie Hathaway RDCS : Teresita Singleton DO Date Dictated: 09/15/13 0754 Date Transcribed: 09/15/13 171 Assisted Living Housekeeper: Signed 15-Sep-2013 Chest PA and Lateral Result: Comments: See Note; NOTES: [facility] Imaging Services [address] [place] [address] Radiology Report MR#: [id number] Acct: [id number] Name: MARCUS MATIAS Rep #: [id number] : 1965 M 47 From: Daniel Long MD PCP: Teresita Singleton DO Status: REG CLI Study: Chest PA and Lateral Date of Exam: 09/15/13 Exam# [id number] Ordering Dr: Teresita Singleton DO STUDY: X [...] Daniel Long MD at 13:17 EDT Tel [phone], Service support [phone], CC: Teresita Singleton DO Assisted Living Housekeeper: Signed 15-Sep-2013 Nuclear Stress Test - Treadmil Result: Comments: See Note; NOTES: [facility] Imaging Services [address] [place] [address] Nuclear Medicine Report MR#: [id number] Acct: [id number] Name: MARCUS MATIAS Rep #: [id number] : 1965 M 47 From: Jorje Gomez MD PCP: Teresita Singleton DO Status: REG CLI Study: Nuclear Stress Test - Treadmil Date of Exam: 09/15/13 Exam# [id number] Ordering Dr: Teresita Singleton DO EXERCISE TOLERANCE TEST: The patient exercised on a Jhoan protocol for 9 minutes completing stage 3 [...] LVEF of 69%. CC: Teresita Singleton DO Assisted Living Housekeeper: WAN Signed 07-Sep-2013 Spirometry (38010) Result: 07-Sep-2013 EKG (76364) Result: [MEASUREMENTS ANALYSIS] Date of Test: 09/07/2013 10:09:59; Heart Rate: 75; VA Interval: 166; QRS: 89; QT Interval: 370; Corrected QT Interval (QTc): 396; P Wave Arcadia: 24; QRS Wave Arcadia: 13; T Wave [place]cadia: 19; Blood Pressure: 110/80 [ECG DIAGNOSTIC STATEMENTS] [...] 0.00 cm Results Date Description Value Details :48 HgA1C , Office (13154) HgA1C , Office 5.6 % (Normal) Range: 4.6 - 7.1 :48 Blood Glucose , Office (02765) Blood Glucose , Office 105 (Normal) :08 CBC W/Diff, Automated Comments: [facility] [address]uzj[address] [facility] [place], [place], [address] Absolute Lymph 1.86 {X10_3/ul} (Normal) Range: 0.83-4.51 [...] 4.6-6.2 WBC 4.5 K/mm3 (Normal) Range: 4.4-11.0 64-Hzr-78130:08 Comprehensive Metabolic Profil Comments: [facility] [address] [place], [place], [id number] GAP 6 (Normal) Range: 5-15 CO2 28.0 [...] Comments: Please note revised GLUCOSE reference range ymfowmgql11/02/2018. 11-Xaz-77815:08 Lipid Profile Comments: [facility] [address] [place], [place], [id number] VLDL 36 mg/dL (Normal) Range: 5-40 LDL [...] 200-240 mg/dL Borderline >240 mg/dL High Risk 80-Rpi-51169:08 Microalb:Creat Ratio,Random UR Comments: [facility] [address] [place], [place], [address] MALB:CREAT 8.9 {mg/g_CRE} (Normal) MICROALBUMIN,UR 6.3 mg/L (Normal) UR CREAT 71.30 mg/dL (Normal) 23-Pye-13269:08 PSA,Total - Annual Screen Comments: [facility] [address] [place], [address] PSA,TOT SCREEN 0.20 ng/mL (Normal) Range: 0.00-4.00 Comments: This test was performed using the TPSA assay method for Yorxs chemistry system. Values obtained with differentassay methods cannot be used interchangably.When changing PSA assays in the course of monitoring apatient, additional sequential testing should be carriedout to confirm baseline values. :08 Thyroid Stim Hormone (TSH) Comments: [facility] [address] [place], [address] TSH 2.56 {uIU/mL} (Normal) Range: 0.358-3.74 :08 Urinalysis, Complete Comments: How was Urine Obtained? CLEAN [facility] [address] [place], [address] MUCUS, URINE 0 SEEN {/hpf} (Normal) [...] Yellow (Normal) :08 Vitamin D,25 Hydroxy Comments: [facility] [address] [place], [address] Vitamin D 25-OH 38.3 ng/mL (Normal) Range: 29.95-100.01 Comments: Vitamin D 25(OH) Status Range Deficiency <20 ng/mL (50nmol/L) Insuffciency 20 - 30 ng/mL (50 - 75 nmol/L) Sufficiency 30 - 100 ng/mL (75 - 250 nmol/L) Toxicity >100 ng/mL (>250 nmol/L) :56 HgA1C , Office (13874) HgA1C , Office 5.6 % (Normal) Range: 4.6 - 7.1 :55 Blood Glucose , Office (18495) Blood Glucose , Office 97 (Normal) :18 CBC W/Diff, Automated Comments: [facility] [address] [place], [address] ; ov 20 Absolute Lymph 1.87 {X10_3/ul} (Normal) Range: 0.83-4.51 [...] 4.6-6.2 WBC 5.5 K/mm3 (Normal) Range: 4.4-11.0 :29 CBC W/Diff, Automated Comments: [facility] [address] [place], [place], [id number] Absolute Lymph 1.69 {X10_3/ul} (Normal) Range: 0.83-4.51 [...] Range: 4.4-11.0 :29 Erythrocyte Sed Rate Comments: [facility] [address] [place], [place], [id number] SED RATE 4 mm/h (Normal) Range: 0-20 51-Hpk-87161:53 HgA1C , Office (92467) HgA1C , Office 5.6 % (Normal) Range: 4.6 - 7.1 :53 Blood Glucose , Office (94325) Blood Glucose , Office 100 (Normal) :25 CBC W/Diff, Automated Comments: [facility] [address] [place], [place], [address] Absolute Lymph 1.62 {X10_3/ul} (Normal) Range: 0.83-4.51 [...] Range: 4.4-11.0 :25 Comprehensive Metabolic Profil Comments: [facility] [address] [place], [place], [address] GAP 7 (Normal) Range: 5-15 CO2 25.0 [...] 7-18 GLU 99 mg/dL (Normal) Range: 70-110 03-Sey-22124:25 Lipid Profile Comments: [facility] [address] [place], [address] VLDL 27 mg/dL (Normal) Range: 5-40 LDL [...] High Risk :25 Microalb:Creat Ratio,Random UR Comments: [facility] [address] [place], [address] MALB:CREAT 13.5 {mg/g_CRE} (Normal) MICROALBUMIN,UR 12.4 mg/L (Normal) UR CREAT 92.00 mg/dL (Normal) :25 Thyroid Stim Hormone (TSH) Comments: [facility] [address] [place], [address] TSH 2.01 {uIU/mL} (Normal) Range: 0.358-3.74 :25 Vitamin D,25 Hydroxy Comments: [facility] [address]uj[address] [facility] [place], [address] Vitamin D 25-OH 26.3 ng/mL (Normal) Comments: Vitamin D 25(OH) Status Range Deficiency <20 ng/mL (50nmol/L) Insuffciency 20 - 30 ng/mL (50 - 75 nmol/L) Sufficiency 30 - 100 ng/mL (75 - 250 nmol/L) Toxicity >100 ng/mL (>250 nmol/L) 42-Xot-593145:50 Rapid Flu (67636 x 2) Comments: Negative Influenza A Ag Negative (Normal) :53 HgA1C , Office (82171) HgA1C , Office 5.5 % (Normal) Range: 4.6 - 7.1 :53 Blood Glucose , Office (26646) Blood Glucose , Office 85 (Normal) 1-And-433247:23 Microscopic Examination Comments: PATIENT WAS FASTINGPERFORMED BY: [facility] Fsuxzh6412 [facility] [id number] Bacteria None seen (Normal) Mucus Threads Present (Normal) Epithelial Cells (non renal) None seen {/hpf} (Normal) Range: 0 - 10 RBC None seen {/hpf} (Normal) Range: 0 - 2 WBC 0-5 {/hpf} (Normal) Range: 0 - 5 :23 CALCIFIDIOL (86962) VIT D 25 Comments: PATIENT WAS FASTINGPERFORMED BY: Domino Rovlub1134 [facility] [id number] Vitamin D, 25-Hydroxy 29.6 ng/mL (Abnormal) Range: 30.0-100.0 Comments: Vitamin D deficiency has been defined by the [place] of[place]icine and an Endocrine Society practice guideline as alevel of serum 25-OH vitamin D less than 20 ng/mL (1,2).The Endocrine Society went on to further define vitamin Dinsufficiency as a level between 21 and 29 ng/mL (2).1. IOM ([place] of Medicine). 2010. Dietary reference intakes for calcium and D. [place]: The National AcademSOAK (Smart Operational Agricultural toolKit) Press.2. Darcie MF, Chris CHERY, Nancy WAN, et al. Evaluation, treatment, and prevention of vitamin D deficiency: an Endocrine Society clinical practice guideline. JCEM. 2010; 96(7):1911-30. 2-Gfd-272946:23 TSH (91269) Comments: PATIENT WAS FASTINGPERFORMED BY: Domino Tjsbpe2551 [facility] [id number] TSH 2.180 {uIU/mL} (Normal) Range: 0.450-4.500 :23 URINALYSIS, W/ MICRO (99734) Comments: PATIENT WAS FASTINGPERFORMED BY: Domino Ytmyny1584 [facility] [id number] Microscopic Examination See below: (Normal) Comments: Microscopic was indicated and was performed. Nitrite, Urine Negative (Normal) Urobilinogen,Semi-Qn 0.2 mg/dL (Normal) Range: 0.2-1.0 Bilirubin Negative (Normal) Occult Blood Trace (Abnormal) Ketones Negative (Normal) Glucose Negative (Normal) Protein Negative (Normal) WBC Esterase Negative (Normal) Appearance Clear (Normal) Urine-Color Yellow (Normal) pH 6.5 (Normal) Range: 5.0-7.5 Specific [place] 1.016 (Normal) Range: 1.005-1.030 6-Jjc-150635:23 MICROALBUMIN: CREATININE RATIO Comments: PATIENT WAS FASTINGPERFORMED BY: [facility]Northern [facility] CenterTjnypg8923 [facility] [id number] (63113) AND (65573) Microalb/Creat Ratio <3.1 {mg/g_creat} (Normal) Range: 0.0-30.0 Microalbumin, Urine <3.0 ug/mL (Normal) Creatinine, Urine 96.8 mg/dL (Normal) :23 METABOLIC PANEL, COMPREHENSIVE Comments: PATIENT WAS FASTINGPERFORMED BY: Domino Jkbusp9010 [facility]. [facility]. [facility] [id number] (38260) ALT (SGPT) 27 [iU]/L (Normal) Range: 0-44 [...] Glucose, Serum 82 mg/dL (Normal) Range: 65-99 8-Dha-039839:23 LIPID PANEL (48317) Comments: PATIENT WAS FASTINGPERFORMED BY: Smadex6370 [facility] [id number] LDL/HDL Ratio 2.3 {ratio_units} (Normal) Range: 0.0-3.6 Comments: LDL/HDL Ratio Men Women 1/2 Avg.Risk 1.0 1.5 Av g.Risk 3.6 3.2 2X Avg.Risk 6.2 5.0 3X Avg.Risk 8.0 6.1 LDL Cholesterol Calc 84 mg/dL (Normal) Range: 0-99 VLDL Cholesterol Nader 24 mg/dL (Normal) Range: 5-40 HDL Cholesterol 37 mg/dL (Abnormal) Triglycerides 118 mg/dL (Normal) Range: 0-149 Cholesterol, Total 145 mg/dL (Normal) Range: 100-199 :23 CBC W/AUTO DIFF WBC (93214) Comments: PATIENT WAS FASTINGPERFORMED BY: Smadex6370 [facility] [id number] Immature Grans (Abs) 0.0 {x10E3/uL} (Normal) Range: [...] (Normal) Range: 3.4-10.8 :09 HgA1C , Office (54336) HgA1C , Office 5.4 % (Normal) Range: 4.6 - 7.1 :29 CBC W/Diff, Automated Comments: [facility] [address] [place], [address] Absolute Lymph 1.84 {X10_3/ul} (Normal) Range: 0.83-4.51 [...] 4.6-6.2 WBC 4.2 K/mm3 (Abnormal) Range: 4.4-11.0 :29 Comprehensive Metabolic Profil Comments: [facility] [address] [place], [place], [address] GAP 5 (Normal) Range: 5-15 CO2 29.0 [...] (Normal) Range: 70-110 :29 Lipid Profile Comments: [facility] [address] [place], [place], [address] VLDL 29 mg/dL (Normal) Range: 5-40 LDL [...] High Risk 10-Apr-20168:29 Microalb:Creat Ratio,Random UR Comments: [facility] [address] [place] [address], [address] MALB:CREAT 7.5 {mg/g_CRE} (Normal) MICROALBUMIN,UR 8.2 mg/L (Normal) UR CREAT 109.00 mg/dL (Normal) 92-Ffm-58141:00 Cytology, Body Fluid / CSF Comments: Specimen Source: [facility] [address] [place] [address], [address] CYTOLOGY,BF/CSF SEE PATHOLOGY REPORT (Normal) Comments: Specimen submitted to Anatomical Pathology Department [facility]. :00 Urinalysis, Complete Comments: How was Urine Obtained? CLEAN [facility] [address] [place], [address] MUCUS, URINE 1+ {/hpf} (Normal) BACTERIA 0 [...] CYTOSPIN ON FLUID See Note (Normal) Comments: [facility] [address] [place], [place], [address] Comments: Patient: MARCUS MATIAS : 1965 (50/M) Acct Num: [id number] Phys: Rolando CHADWICK,Philip Unit Num: [id number] Loc: LABSPEC Specimen: [id number] Received: 11/01/151427 Spec Type: CYSPIN FL TISSUES TISSUES: CYTOLOGY GROSS Received is 70 ml of gold cloudy fluid labeled with the patient's name and and designated per the requisition as urine. Submit joselin for cytology preparation. 11/01/15 TC:5 CPT:46111 CYTOLOGY STUDY Slides are reviewed. DIAGNOSIS CYTOLOGY Urine for cytology (cytospins): Negative for malignant cells. AM:kena 11/02/15 HEADER OPERATION: Not noted PRE-OP DIAGNOSIS: Hematuria TISSUE SUBMITTED: Urine for cytology Signed Srinivasa [facility] 11/02/15 <sig nature on file> :05 HgA1C , Office (43005) HgA1C , Office 5.5 % (Normal) Range: 4.6 - 7.1 :05 CBC W/Diff, Automated Comments: [facility] [address] [place], [address] Absolute Lymph 1.54 {X10_3/ul} (Normal) Range: 0.83-4.51 [...] 4.6-6.2 WBC 4.0 K/mm3 (Abnormal) Range: 4.4-11.0 46-Zxu-43656:05 Comprehensive Metabolic Profil Comments: [facility] [address], [place], [address] GAP 8 (Normal) Range: 5-15 CO2 24.0 [...] (Normal) Range: 70-110 :05 Lipid Profile Comments: [facility] [address] [place], [address] ; sent message he needs an apt [...] Risk :05 PSA,Total - Annual Screen Comments: [facility] [address] [place], [address] PSA,TOT SCREEN 0.24 ng/mL (Normal) Range: 0.00-4.00 Comments: This test was performed using the TPSA assay method for theViamericas chemistry system. Values obtained with differentassay methods cannot be used interchangably.When changing PSA assays in the course of monitoring apatient, additional sequential testing should be carriedout to confirm baseline values. 35-Iqg-967995:50 Cytology, Body Fluid / CSF Comments: [facility] [address] [place], [address] CYTOLOGY,BF/CSF SEE PATHOLOGY REPORT (Normal) Comments: Specimen submitted to Anatomical Pathology Department anne marie. 78-Rsl-089891:50 Urinalysis, Complete Comments: How was Urine Obtained? [facility] [address]ilq[address] [place], [address] MUCUS, URINE 0 SEEN {/hpf} (Normal) BACTERIA [...] (Normal) CLARITY Clear (Normal) COLOR Yellow (Normal) 50-Swc-24219:00 CYTOSPIN ON FLUID See Note (Normal) Comments: [facility] [address] [place], [address] Comments: Patient: MARCUS MATIAS : 1965 (49/M) Acct Num: [id number] Phys: Rolando CHADWICK,Philip Unit Num: [id number] Loc: LABSPEC Specimen: [id number] Received: 04/26/151422 Spec Type: CYSPIN FL TISSUES TISSUES: CULTURE RESULTS No results available. CYTOLOGY GROSS Received is 60 ml of yellow gold hazy fluid labeled with the patient's name and and d esignated per the requisition as urine. Submitted for cytology preparation. / 04/26/15 TC:5 CPT: 20020 CYTOLOGY STUDY Slides are reviewed. DIAGNOSIS CYTOLOGY Urine for cytology (cyto spin): Negative for malignant cells. AM:ch 04/27/15 HEADER OPERATION: Not noted PRE-OP DIAGNOSIS: Hematuria TISSUE SUBMITTED: Urine cytology Signed Srinivasa Neil 04/27/15 <signature on file> :42 Blood Glucose , Office (34757) Blood Glucose , Office 94 (Normal) :34 HgA1C , Office (45853) HgA1C , Office 5.6 % (Normal) Range: 4.6 - 7.1 :57 Comprehensive Metabolic Profil Comments: Test performed at:[facility] [address] [place] [address] GAP 5 (Normal) Range: 5-15 CO2 28.0 [...] Comments: Please note revised CREATININE reference range pvgdaqnws40/22/2015. BUN 14 mg/dL (Normal) Range: 7-18 GLU 96 mg/dL (Normal) Range: 70-110 :57 Lipid Profile Comments: Test performed at:[facility] [address] [place], [place] [address] ; has fu 8-10 VLDL 27 mg/dL [...] :57 Microalb:Creat Ratio,Random UR Comments: Test performed at:[facility] [address] [place] [address] MALB:CREAT 5.0 {mg/g_CRE} (Normal) MICROALBUMIN,UR 8.1 mg/L (Normal) UR CREAT 152.00 mg/dL (Normal) :57 Urinalysis, Complete Comments: How was Urine Obtained? CLEAN CATCHTest performed at:[facility] [address] [place] [address] ; non-emergent till apt MUCUS, [...] Patient: MARCUS MATIAS : 1965 (48/M)Acct Num: [id number] Phys: Beena Foster Num: [id number] Loc: LABSPECSpecimen: [id number] Received: 02/15/141Spec Type: COLON BXTIS 0 SUESTISSUES:GROSS DESCRIPTIONReceived is one container labeled with the patient name and designated rightcolon polyp biopsy. The specimen consists of multiple irregular fragments oflight narayan soft tis ronald that in aggregate measure 0.7 x 0.5 x 0.1 cm. Thespecimen is totally submitted in one cassette. / MADELAINE:tana 02/16/14 TC:1CPT: 22141PGHJFAAYSTZUUHN: ColonoscopyPRE-OPERATIVE DIAGNOSIS: Screening / po lypTISSUE SUBMITTED: Polyp biopsy right colon, rule out adenomaMICROSCOPIC DIAGNOSISPolyp, right colon, biopsy:Fragments of hyperplastic polyp.MADELAINE:tana 02/17/14Signed Alex Martins 02/17/14<signature on file> 60-Uic-491525:26 HgA1C , Office (12858) HgA1C , Office 5.7 % (Normal) Range: [...] 7-18 GLU 93 mg/dL (Normal) Range: 70-110 14-Qms-21261:12 LIPID Comments: Specimen slightly hemolyzed. Results may [...] CHOL 160 mg/dL (Normal) Comments: <200 mg/dL Ililplbny586-170 mg/dL Borderline>240 mg/dL High Risk 83-Fqm-086983:04 Ct, Ng, Trich vag by Comments: PATIENT NOT FASTINGPERFORMED BY: CB [facility] Buoqzm8373 [facility] [id number] BY: BN [facility] [address] [id number] CYNDI Chlamydia by CYNDI Negative (Normal) Gonococcus by CYNDI Negative (Normal) Trich vag by CYNDI Negative (Normal) 87-Luh-733659:04 Hepatitis Panel (4) Comments: PATIENT NOT FASTINGPERFORMED BY: [place] [id number] [facility] [id number] BY: [address] [id number] Inf ormation: SRC:UR URINE Hep B Core Ab, IgM Negative (Normal) Hep C Virus Ab <0.1 {s/co_ratio} (Normal) Range: 0.0-0.9 Comments: Negative: < 0.8 Indeterminate 0.8 - 0.9 Positive: > 0.9 . In order to reduce the incidence of a false positive result, the [facility] recommends that all s/co ratios between 1.0 and 10.9 be confirmed by a more specific supplemental or PCR testing. [facility] offers HCV Ab w/Reflex to Verification test #908149. HBsAg Screen Negative (Normal) Hep A Ab, IgM Negative (Normal) :04 HSV 1 and 2 IgM Abs, Comments: PATIENT NOT FASTINGPERFORMED BY: [facility]6370 [facility] [id number] BY: [address] [id number] Indirect HSV 1 IgM Antibodies <1:10 {titer} [...] 2-Specific Ab, Comments: PATIENT NOT FASTINGPERFORMED BY: [place] [id number] [facility] [id number] BY: [address] [id number] IgG HSV 1 IgG, Type Spec 55.70 [...] date. Positive indicates antibodies detected to HSV-2. 58-Otp-193336:04 [facility] [facility] [id number] Comments: PATIENT NOT FASTINGPERFORMED BY: Power ContentSt. Joseph's Regional Medical CenterZdtinl[address] [place] [address] [id number] BY: Domino[address] [id number] HIV 1/O/2 Abs, Non Reactive Qual (Normal) HIV 1/O/2 <1.00 (Normal) Comments: Index Value: Specimen reactivity relative to the negative cutoff. Abs-Index Value : RPR Non Reactive Comments: PATIENT NOT FASTINGPERFORMED BY: [facility] [id number] [place] [address] [id number] BY: Domino[address] [id number] (Normal) 75-Dtk-790915:01 CBCD ANC 3.2 {X10_3/uL} (Normal) Range: 2.0-7.7 [...] 4.6-6.2 WBC 5.1 K/mm3 (Normal) Range: 4.4-11.0 21-Vjc-477359:01 CMP Comments: will review at 09/25/13 appt [...] CHOL 167 mg/dL (Normal) Comments: <200 mg/dL Sddhepoes801-018 mg/dL Borderline>240 mg/dL High Risk 63-Vtu-575339:38 MIACRE Comments: PLEASE ADD URINE FROM YESTERDAY 09/15/13 MIALB < 5.0 mg/L (Normal) tMICROCREAT Test not performed {mg/g_CRE} (Normal) CREU 65.8 mg/dL (Normal) : PSA 0.26 ng/mL (Normal) Range: 0.00-4.00 Comments: This test was performed using the TPSA assay method for [employer] chemistry system. Values obtained with differentassay methods [...] children havebeen associated with numerous adverse health effects.[facility] Guidelines: Blood lead level s in therange 5-9 ug/dL have been associated with adversehealth effects in children aged 6 years and younger..Environmental Exposure:WHO Recommendation <20Occupational Exposure:OSHA Lead Std 40.Detection Limit = 1Performed at: [address] [id number] Director: Tank Cummings PhD, Phone: [phone] :54 MIACRE tMICROCREAT 4.8 {mg/g_CRE} (Normal) MIALB [...] CHOL 154 mg/dL (Normal) Comments: <200 mg/dL Vmgnhmkzs969-189 mg/dL Borderline>240 mg/dL High Risk :57 PSA [...] (Normal) UCLAR CLEAR (Normal) UCOL YELLOW (Normal) 69-Ztg-489880:11 CHEST, PA AND LATERAL Radiology Report See [...] Dictated on 04/03/11 1612 by BETZY VALLEJO MD BTranscribed on 04/04/11 1413 by ITS IMPORTSign by BETZY VALLEJO MD on 04/04/11 1414 Sign by : BETZY VALLEJO MD; ADDENDA: appt 04/17/11:18 CBCD,SMEAR DIFF Comments: appt 03/14/11 RED CELL [...] NEGATIVE CLARITY CLEAR (Normal) COLOR YELLOW (Normal) 07-Yqv-712137:06 COMPLETE UA BACTERIA 0 SEEN {/hpf} (Normal) [...] NEGATIVE CLARITY CLEAR (Normal) COLOR YELLOW (Normal) 44-Blm-383967:28 LIVER ALT 29 U/L (Normal) Range: 12-78 [...] CHOL 160 mg/dL (Normal) Comments: <200 mg/dL Erqgjcguy511-685 mg/dL Borderline>240 mg/dL High Risk :27 LIVER [...] 500 mg/dL VLDL 31 mg/dL (Normal) Range: 5-40 :28 LIVER ALB 3.7 g/dL (Normal) Range: 3.4-5.0 ALK P 77 U/L (Normal) Range: 50-136 ALT 45 U/L (Normal) Range: 30-65 AST 15 U/L (Normal) Range: 15-37 D BILI 0.14 mg/dL (Normal) Range: 0.00-0.30 T BILI 0.50 mg/dL (Normal) Range: 0.00-1.00 T PROT 7.1 g/dL (Normal) Range: 6.4-8.2 :33 URINALYSIS W/O MICRO ([id number]) UA - APPEARANCE clear (Normal) UA - [...] 500 mg/dL VLDL 26 mg/dL (Normal) Range: 5-40 :47 LIVER ALB 3.8 g/dL (Normal) Range: 3.4-5.0 ALK P 70 U/L (Normal) Range: 50-136 ALT 35 U/L (Normal) Range: 30-65 AST 14 U/L (Abnormal) Range: 15-37 D BILI 0.11 mg/dL (Normal) Range: 0.00-0.30 T BILI 0.50 mg/dL (Normal) Range: 0.00-1.00 T PROT 7.3 g/dL (Normal) Range: 6.4-8.2 :51 Urinalysis, Office ([id number]) UA - BILIRUBIN Negative (Normal) UA - [...] Report See Note (Normal) Comments: Exam Number: [id number] CT SCAN OF ABDOMEN AND PELVIS HISTORYHematuria. [...] Report See Note (Normal) Comments: Exam Number: [id number] CT SCAN OF ABDOMEN AND PELVIS HISTORYHematuria. [...] is identified. Reported By: SHAI WHYTE M.D. :23 DAGOBERTO-D [id number] DAGOBERTO-DIRECT 19 AU/mL (Normal) Range: 0-99 Comments: Negative <100 Equivocal 100 - 120 Positive >120 :23 C-REACTIVE PROT 3.87 mg/L (Normal) Range: 0.0-6.0 Comments: Test performed using the Dimension C-Reactive ProteinExtended Range assay method. This assay meets the AHA/CDC 2003 recommendations fordetermining patients at high risk for cardiovasculardisease. Reference: High risk CRP >3.0 mg/L :23 CBCD,SMEAR DIFF ATYPICAL LYMPH RARE % (Normal) [...] was performed using the TPSA method for the[employer] chemistry system.Values obtained with different assay methods cannot be usedinterchangably.When changing PSA assays in the course of monito ring apatient, additional sequential testing should be carriedout to confirm baseline values. :23 RA LATEX 6502 6.7 {IU/mL} (Normal) Range: 0.0-13.9 Comments: Performed At: [address] [id number] 05-Xjm-003715:23 ROUTINE UA BILIRUBIN URINE SeeNote (Normal) Comments: [...] Indication: Impaired fasting glucose Hematuria : Reviewed Alcohol Law Enforcement Agent Letter Indication: Hematuria Impaired fasting glucose : *Diabetes Education Indication: Impaired fasting glucose Hypercholesterolemia : Cholesterol mgmt Indication: Hypercholesterolemia Common cold virus : Follow up if no improvement or if symptoms worsen Indication: Common cold virus Common cold virus : Common Cold *: cold Indication: Common cold virus Hematuria : Reviewed Alcohol Law Enforcement Agent Letter Indication: Hematuria Impaired fasting glucose : [...] : Follow up in [address] [facility] Indication: Possible exposure to STD Impaired fasting [...] Tsh and ua cbc cmp Planned Observations ALKALINE PHOSPHATASE ([id number])Indication: Enchondroma On: : Request METABOLIC PANEL, COMPREHENSIVE (74326)Indication: Enchondroma On: Request CBC W/AUTO DIFF WBC (84700)Indication: Enchondroma On: : Request C-REACT PROT HIGH SENS(hsCRP) (38917)Indication: Enchondroma On: Request ESR-F (SED RATE ERYTHROCYTE - MALE) (09776)Indication: Enchondroma On: :28 Request PSA (PROSTATE SPECIFIC ANTIGEN) (V76.44)Indication: Screening for prostate cancer On: :24 Request CALCIFIDIOL (49106) VIT D 25Indication: Vitamin D deficiency On: :17 Request TSH (68863)Indication: Impaired fasting glucose On: :17 Request URINALYSIS, W/ MICRO (80480)Indication: Impaired fasting glucose On: :17 Request MICROALBUMIN: CREATININE RATIO (08082) AND (33861)Indication: Impaired fasting glucose On: :17 Request METABOLIC PANEL, COMPREHENSIVE (93343)Indication: Impaired fasting glucose On: :17 Request LIPID PANEL (33458)Indication: Impaired fasting glucose On: :17 Request CBC W/AUTO DIFF WBC (19161)Indication: Impaired fasting glucose On: :17 Request CBC, PLATELETS & MANUAL DIFF (63172)Indication: Leukopenia, unspecified type On: 24-Crn-950269:39 Request CBC WITH MANUAL DIFF ([id number])Indication: Leukopenia, unspecified type On: 13-Yge-567652:00 Request Comments: also have pathology look at for peripheral smear Sed Rate Erythrocyte (60040)Indication: Leukopenia, unspecified type On: :59 Request TSH (39394)Indication: Impaired fasting glucose On: :21 Request MICROALBUMIN: CREATININE RATIO (47463) AND (71898)Indication: Impaired fasting glucose On: :21 Request METABOLIC PANEL, COMPREHENSIVE (94787)Indication: Impaired fasting glucose On: :21 Request LIPID PANEL (26712)Indication: Impaired fasting glucose On: :21 Request CBC W/AUTO DIFF WBC (03262)Indication: Impaired fasting glucose On: :21 Request CALCIFIDIOL (90891) VIT D 25Indication: Vitamin D deficiency On: :20 Request CBC WITH MANUAL DIFF (95482)Indication: Abnormal laboratory test On: :27 Request Comments: do in 1 mo CBC W/AUTO DIFF WBC (32528)Indication: Impaired fasting glucose On: :22 Request MICROALBUMIN: CREATININE RATIO (53723) AND (03244)Indication: Impaired fasting glucose On: :22 Request METABOLIC PANEL, COMPREHENSIVE (57288)Indication: Hypercholesterolemia On: :06 Request LIPID PANEL (76572)Indication: Hypercholesterolemia On: 99-Sjs-196541:05 Request LIPID PANEL (37002)Indication: Other and unspecified hyperlipidemia On: 89-Egy-346926:23 Request CBC with auto diff (88656)Indication: Impaired fasting glucose On: : Request METABOLIC PANEL, COMPREHENSIVE (62528)Indication: Impaired fasting glucose On: : Request Hemoglobin Glyclated (HGB A1C) (96188)Indication: Impaired fasting glucose On: : Request PSA (PROSTATE SPECIFIC ANTIGEN) (V76.44)Indication: Screening for prostate cancer On: : Request URINALYSIS, W/ MICRO (87125)Indication: Hematuria On: : Request MICROALBUMIN: CREATININE RATIO (87068) AND (22157)Indication: Impaired fasting glucose On: : Request METABOLIC PANEL, COMPREHENSIVE (61973)Indication: Impaired fasting glucose On: : Request LIPID PANEL (95501)Indication: Hypercholesterolemia On: : Request RPR (RAPID PLASMA REAGIN) (41140)Indication: Unspecified Diagnosis On: 83-Wbj-032832:03 Request HIV ANTIGEN (09897)Indication: Possible exposure to STD On: 30-Mjr-312138:59 Request HIV-2 ANTIBODY (37431)Indication: Possible exposure to STD On: 31-Rsk-939717:[address],NG,TV (Chlamydia, Gonorrhea, Trichomonas) (61953)Indication: Possible exposure to STD On: 93-Ddu-932349:56 Request Herpes Simplex I Ag, Direct Fluorescent Ab (99250)Indication: Possible exposure to STD On: :55 Request Herpes Simplex (HSV) II Ab (05973)Indication: Possible exposure to STD On: :54 Request HEPATITIS PANEL (65881)Indication: Possible exposure to STD On: 95-Xtm-082900:54 Request LIPID PANEL (64210)Indication: Other and unspecified hyperlipidemia On: Request METABOLIC PANEL, COMPREHENSIVE (78924)Indication: Impaired fasting glucose On: :44 Request PSA (PROSTATE SPECIFIC ANTIGEN) (V76.44)Indication: Screening for prostate cancer On: :55 Request TSH (25444)Indication: Chest pain On: :55 Request MICROALBUMIN: CREATININE RATIO (95119) AND (63500)Indication: Impaired fasting glucose On: :55 Request URINALYSIS, W/ MICRO (43955)Indication: Impaired fasting glucose On: : Request CBC WITH MANUAL DIFF (41648)Indication: Impaired fasting glucose On: :55 Request METABOLIC PANEL, COMPREHENSIVE (74647)Indication: Impaired fasting glucose On: : Request LIPID PANEL (22082)Indication: Other and unspecified hyperlipidemia On: : Request CBC WITH MANUAL DIFF (37502)Indication: Impaired fasting glucose On: : Request METABOLIC PANEL, COMPREHENSIVE (20288)Indication: Impaired fasting glucose On: Request HEPATIC FUNCTION PANEL (45404)Indication: Other and unspecified hyperlipidemia On: : Request LIPID PANEL (10894)Indication: Other and unspecified hyperlipidemia On: : Request LEAD (29970)Indication: Paresthesia On: :28 Request MICROALBUMIN: CREATININE RATIO (38049) AND (32300)Indication: Impaired fasting glucose On: : Request CBC WITH MANUAL DIFF (07640)Indication: Paresthesia On: Request VITAMIN B-12 (CYANOCOBALAMIN) (89645)Indication: Paresthesia On: : Request TSH (81456)Indication: Sleep Disorder On: Request LEAD (44836)Indication: Paresthesia On: : Request VITAMIN B-12 (CYANOCOBALAMIN) (69258)Indication: Paresthesia On: :10 Request LIPID PANEL (02309)Indication: Other and unspecified hyperlipidemia On: : Request PSA (PROSTATE SPECIFIC ANTIGEN) (V76.44)Indication: BPH without urinary obstruction On: :09 Request TSH (76607)Indication: Paresthesia On: :09 Request MICROALBUMIN: CREATININE RATIO (14852) AND (10251)Indication: Impaired fasting glucose On: 7-Qbs-810777:09 Request CBC WITH MANUAL DIFF (40938)Indication: Paresthesia On: 0-Qcn-404482:09 Request METABOLIC PANEL, COMPREHENSIVE (57171)Indication: Paresthesia On: 6-Pkc-057013:09 Request Hemoglobin Glyclated (HGB A1C) (25100)Indication: Impaired fasting glucose On: 1-Nnf-127138:09 Request PSA (PROSTATE SPECIFIC ANTIGEN) (V76.44)Indication: BPH without urinary obstruction On: 25-Lal-346631:05 Request METABOLIC PANEL, COMPREHENSIVE (41906)Indication: Impaired fasting glucose On: 16-Xkl-002282:05 Request LIPID PANEL (46635)Indication: Other and unspecified hyperlipidemia On: 07-Mfr-421477:04 Request HgA1C , Office (93387)Indication: Impaired fasting glucose On: 29-Zfo-22429:20 Request CBC WITH MANUAL DIFF (77132)Indication: Impaired fasting glucose On: 13-Jul-20118:14 Request METABOLIC PANEL, COMPREHENSIVE (43490)Indication: Impaired fasting glucose On: 13-Jul-20118:14 Request MICROALBUMIN: CREATININE RATIO (84113) AND (05539)Indication: Impaired fasting glucose On: 13-Jul-20118:14 Request LIPID PANEL (95555)Indication: Other and unspecified hyperlipidemia On: 13-Jul-20118:13 Request HgA1C , Office (72221)Indication: Impaired fasting glucose On: 13-Jul-20118:05 Request CBC WITH MANUAL DIFF (58748)Indication: Anemia, unspecified On: :21 Request IRON BINDING CAPACITY (TIBC) (00101)Indication: Anemia, unspecified On: 3-Dgh-879841:21 Request IRON (00540)Indication: Anemia, unspecified On: 5-Qkj-479023:21 Request FERRITIN ([id number])Indication: Anemia, unspecified On: 5-Rxz-201032:21 Request CBC WITH MANUAL DIFF ([id number])Indication: Elevated blood pressure (not hypertension) On: :20 Request METABOLIC PANEL, COMPREHENSIVE (25800)Indication: Elevated blood pressure (not hypertension) On: 9-Wci-133870:20 Request URINALYSIS, W/ MICRO (84206)Indication: Hematuria On: :20 Request Lipid Panel (48658)Indication: Hypercholesterolemia On: :07 Request PSA (Prostate Specific Antigen), Screening (37364)Indication: Elevated blood pressure (not hypertension) On: : Request CBC with manual diff (89872)Indication: Elevated blood pressure (not hypertension) On: :07 Request Metabolic Panel, Comprehensive (22297)Indication: Elevated blood pressure (not hypertension) On: : Request URINALYSIS (28620)Indication: Elevated blood pressure (not hypertension) On: :07 Request URINALYSIS, W/ MICRO (40966)Indication: Hematuria On: :32 Request HEPATIC FUNCTION PANEL (54253)Indication: Hypercholesterolemia On: :20 Request METABOLIC PANEL, COMPREHENSIVE (40159)Indication: Elevated blood pressure (not hypertension) On: :25 Request URINALYSIS, W/ MICRO (23594)Indication: Elevated blood pressure (not hypertension) On: :24 Request HEPATIC FUNCTION PANEL (13719)Indication: Other and unspecified hyperlipidemia On: :24 Request LIPID PANEL (29176)Indication: Other and unspecified hyperlipidemia On: :24 Request PSA (PROSTATE SPECIFIC ANTIGEN) (V76.44)Indication: Hematuria On: :12 Request HEPATIC FUNCTION PANEL (57561)Indication: Other and unspecified hyperlipidemia On: :11 Request LIPID PANEL (99825)Indication: Other and unspecified hyperlipidemia On: :11 Request HEPATIC FUNCTION PANEL (08073)Indication: Other and unspecified hyperlipidemia On: :33 Request LIPID PANEL (71490)Indication: Other and unspecified hyperlipidemia On: :33 Request HEPATIC FUNCTION PANEL (87229)Indication: Other and unspecified hyperlipidemia On: :53 Request LIPID PANEL (99107)Indication: Other and unspecified hyperlipidemia On: :53 Request HEPATIC FUNCTION PANEL (19545)Indication: Other and unspecified hyperlipidemia On: :26 Request LIPID PANEL (44116)Indication: Other and unspecified hyperlipidemia On: : Request LIPID PANEL (42384)Indication: Other and unspecified hyperlipidemia On: :10 Request URINALYSIS W/O MICRO (21855)Indication: Elevated blood pressure (not hypertension) On: : Request PSA (PROSTATE SPECIFIC ANTIGEN) (V76.44)Indication: Screening for prostate cancer On: : Request SED RATE ERYTHROCYTE (86077)Indication: alopecia areata On: Request C-REACTIVE PROTEIN (95042)Indication: alopecia areata On: Request RHEUMATOID FACTOR-QUANT (77235)Indication: alopecia areata On: Request DAGOBERTO (ANTINUCLEAR ANTIBODY) (26104)Indication: alopecia areata On: : Request TSH (59654)Indication: alopecia areata On: : Request METABOLIC PANEL, COMPREHENSIVE (83151)Indication: Elevated blood pressure (not hypertension) On: Request CBC WITH MANUAL DIFF (40123)Indication: alopecia areata On: Request FERRITIN (34028)Indication: alopecia areata On: Request VITAMIN B-12 (CYANOCOBALAMIN) (48864)Indication: alopecia areata On: : Request LIPID PANEL (61432)Indication: Other and unspecified hyperlipidemia On: 7-Ooz-028821:30 Request PSA (PROSTATE SPECIFIC ANTIGEN) (79262)Indication: Screening for prostate cancer On: 4-Oky-197546:29 Request Planned Encounters Medical; 4 Month FU - On: 15-Aug-2018 9:00 [facility] Anai Hernandez DO, DO, Kathleen Planned Procedures X-RAY KNEE WITH PATELLA, FIVE VIEWS On: 11-Apr-2018 Intent (37200)By: Anai Hernandez DO Comments: L Anai QUEZADA X-RAY KNEE WITH PATELLA, FIVE VIEWS On: 11-Apr-2018 Intent (67148)By: Anai Hernandez DO Comments: R Anai QUEZADA ELECTROCARDIOGRAM, COMPLETE (ECG) On: 11-Apr-2018 Intent (93440)By: Anai Hernandez DO Comments: nsr no acute chg Anai QUEZADA Aerosol Treatment (39306)By: Luba On: 21-Jun-2017 Intent [place] DEJESUS ELECTROCARDIOGRAM, COMPLETE (ECG) On: 25-Mar-2017 Intent (30427)By: Flor Manriquez Comments: Sinus Rhythm-Heart rate 97. Aerosol Treatment (88281)By: Luba On: 23-Apr-2016 Intent [place] DEJESUS ELECTROCARDIOGRAM, COMPLETE (ECG) On: 23-Apr-2016 Intent (06832)By: Luba DEJESUS [place] Escobar ELECTROCARDIOGRAM, COMPLETE (ECG) On: 13-Apr-2016 Intent (99222)By: Anai Hernandez DO Comments: nsr no acute chg Anai QUEZADA Radiology - Lumbar SpineBy: Mani QUEZADA, On: 13-Dec-2014 Intent Teresita A EKG (19351)By: Deidra Singleton DOa A On: 13-Dec-2014 Intent Comments: ekg showed normal sinus rhythym, normal axis, no acute st/t wave changes Inhaler Demo (25094)By: Mani QUEZADA, On: 07-Sep-2013 Intent Teresita A Echo CompleteBy: Mani QUEZADA Teresita A On: 07-Sep-2013 Intent Nuclear Stress Test/Stress On: 07-Sep-2013 Intent SPECT/TreadmillBy: Teresita Singleton DO Radiology - Chest- PA and LatBy: Fast On: 07-Sep-2013 Intent DO Teresita A Eprescribed prescriptions ([id number])By: On: 29-Aug-2012 Intent Starr Mcmahon Cartoid DopplerBy: Mani QUEZADA Teresita A On: 08-Aug-2012 Intent Eprescribed prescriptions ([id number])By: On: 07-Apr-2012 Intent Starr Mcmahon TD Injection , IM ([id number])By: On: 13-Jul-2011 Intent Starr Mcmahon Comments: 2007 EKGBy: Luba DEJESUS [place] Escobar On: 03-Apr-2011 Intent Radiology - Chest- PA and LatBy: Fast On: 14-Mar-2011 Intent DO Teresita A Comments: include left anterior ribs EKG ([id number])By: Teresita Singleton DO On: 14-Mar-2011 Intent Comments: ekg showed normal sinus rhythym, normal axis, no acute st/t wave changes FLU VAC, SPLIT, >3 YEARS, INTRAMUSC On: 14-Mar-2011 Intent (80100)By: Starr Mcmahon Comments: Lot: [id number]: 11/03/11Site: Lt DeltoidDose: Prefilled DoseARiding, CALL OR CONTACT CENTRE OPERATOR IMMUNIZ ADMNIN, 1 VAC, SNGL/COMBO On: 14-Mar-2011 Intent (66827)By: Starr Mcmahon FLU VAC, SPLIT, >3 YEARS, INTRAMUSC On: 15-Mar-2010 Intent ([id number])By: Starr Mcmahon Comments: Lot #[id number] 4PExp-/11Site-L dltd/IMDose 0.5mlgiven by:MATILDE LIRA EKG ([id number])By: Starr Mcmahon On: 15-Mar-2010 Intent Comments: ekg showed normal sinus rhythym, normal axis, no acute st/t wave changes IMMUNIZ ADMNIN, 1 VAC, SNGL/COMBO On: 15-Mar-2010 Intent ([id number])By: Starr Mcmahon CT - Abdomen & Pelvis Stone On: 05-Apr-2008 Intent ProtocolBy: Teresita Singleton DO EKG ([id number])By: Starr Mcmahon On: 21-Mar-2008 Intent Comments: ekg showed normal sinus rhythym, normal axis, no acute st/t wave changes EKG (98393)By: Teresita Singleton DO On: 04-Feb-2006 Intent Comments: [...] Advance Directives Name Dates Details Immunization Registry Ruth - Effective on 04/11/2018. Effective: 11-Apr-2018 Expiration date unspecified Encounters Annotation/Addendum On: 14-Apr-2018 17:20 Encounter Diagnosis: Enchondroma [...] test paid off and didnt see sarahy - ringing gone- doesnt eat ton carbs not exercising- [...] moderate. 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 The symptoms have been associated with [...] [facility] End: 31-Jan-2006 9:38 Payers [facility] Matias; trudy guarantor
--- OUTSIDE RECORDS SUMMARY | 2018-05-29 07:51 | XMS RPT_ITS | Continuity of Care Document ---
:1965 Author Organization [facility] Address [address] [facility] [address] [place] [address] Phone Support Name Relationship Address Phone Marcus Matias Unavailable [address] [place] [address] Alton Matias Unavailable 956 05/[address] [facility] [place] [address] Care Team Providers Name Role Phone Anai Hernandez DO Unavailable Dameon Mcgregor MD Unavailable Maegan Mathew MD Unavailable Dr. Jorje Hogan MD Unavailable Dr. 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 Encounter for screening for malignant neoplasm of colon (Renamed from Special screening for malignant neoplasms, colon) (Z12.11, V76.51) Comments: last scope 2014[facility] repeat Status: Active family hx of [...] qd for 0 days Refills: 0 Ordered:13-Sep-2009 Emma Mcmahon Omeprazole 20 MG Oral Tablet Delayed Release 1 (one) Capsule daily for 90 days Quantity: 90 {Capsule} Refills: 1 Ordered:11-Apr-2018 DavidMaikel sow DO, DO, Kathleen Start : 11-Apr-2018 Active ProAir HFA 108 (90 Base) MCG/ACT Inhalation Aerosol Solution 2 (two) Aerosol Soln puffs q 6hrs prn wheeze for 0 days Quantity: 1 {Inhaler} Refills: 0 Ordered:21-Jun-2017 Marietta Verduzco CNP Start : 21-Jun-2017 Active Simvastatin 20 MG Oral Tablet 1 (one) Tablet qd duane for 0 days Quantity: 90 {Tablet} Refills: 1 Ordered:11-Apr-2018 DavidMaikel sow DO, DO, Kathleen Start : 11-Apr-2018 Active Vascepa 1 GM Oral Capsule 2 (two) Capsule Capsule pills twice a day for 90 days Quantity: 360 {Capsule} Refills: 1 Ordered:11-Apr-2018 DavidMaikel sow DO, DO, Kathleen Start : 11-Apr-2018 Active [...] 30 {Tablet} Refills: 0 Ordered:07-Sep-2013 Mani Teresita QUEZADA Zay Start : 07-Sep-2013 End : 07-Oct-2013 Inactive [...] recheck in 5 years Date Value Details 21-Apr-2015 Abdomen Single View Result: Comments: See Note; NOTES: [facility] Imaging Services [address] [place] [address] Verdana 4d Abdomen Single View MR#: [id number] Acct: [id number] Name: MARCUS MATIAS Rep #: [id number] : 1965 M 49 From: Jimmy Negrete DO PCP: Teresita Singleton DO Status: REG CLI Study: Abdomen Single View Date of Exam: 04/21/15 Exam# [id number] Ordering Dr: Anahy Lo MD STUDY: X-RAY [...] 7:34 EST Te l , Service support [phone], RAD/Abdomen Single View IMPRESSION: No acute process. No definite renal calcifications. Electronically Signed: Jimmy Negrete DO at 7:34 EST Tel , Service support [phone], CC: Teresita Singleton DO; Obie Lo MD Lead Pressman: Signed 21-Apr-2015 Kidney and Bladder Result: Comments: See Note; NOTES: [facility] Imaging Services [address] [place] [address] Verdana 4d Kidney and Bladder MR#: [id number] Acct: [id number] Name: Awa MATAIS Rep #: [id number] : 1965 M 49 From: Daniel Long MD PCP: Teresita Singleton DO Status: REG CLI Study: Kidney and Bladder Date of Exam: 04/21/15 Exam# [id number] Ordering Dr: Maegan Lo MD STUDY: RENAL [...] Daniel Long MD at 11:21 EST Tel [phone], Service support [phone], CC: Teresita Singleton DO; Obie Lo MD Lead Pressman: Signed 13-Dec-2014 L/S Spine Min 4 Views Result: Comments: See Note; NOTES: [facility] Imaging Services [address] [place] [address] Radiology Report MR#: [id number] Acct: [id number] Name: MARCUS MATIAS Garth Rep #: [id number] : 1965 M 49 From: Sai Wu DO PCP: Teresita Singleton DO Status: REG CLI Study: L/S Spine Min 4 Views Date of Exam: 12/13/14 Exam# [id number] Ordering Dr: Teresita Singleton DO STUDY: X-RAY [...] Sai Wu DO at 16:53 EDT Tel [phone], Service support [phone], RAD/L/S Spine Min 4 Views IMPRESSION: Minimal endplate spondylosis without other evidence of lumbar spine abnormality. Electronically Signed: Sai Wu DO at 16:53 EDT Tel [phone], Service support [phone], CC: Teresita Singleton DO Lead Pressman: Signed 15-Sep-2013 Echocardiogram Complete Result: Comments: See Note; NOTES: [facility] Cardiovascular Services [address] [place] [address] Echo Complete 09/15/13 0754 MR#: [id number] Acct: [id number] Name: JESICA MATIAS Rep #: [id number] : 1965 47 From: Jorje Gomez MD Attending Dr: Teresita Singleton DO Status: REG CLI Ordering Dr: Teresita Singleton DO Date: 05/13/14 Location: [facility] Sex: M C Admitted: Sasha mackey This was a 2D Doppler, Color Flow [...] Dictated: 09/15/13 0754 Date Transcribed: 09/15/13 1712 Lead Pressman: Signed 15-Sep-2013 Chest PA and Lateral Result: Comments: See Note; NOTES: [facility] Imaging Services [address] [place] [address] Radiology Report MR#: [id number] Acct: [id number] Name: MARCUS MATIAS Rep #: [id number] : 1965 M 47 From: Daniel Long MD PCP: Teresita Singleton DO Status: REG CLI Study: Chest PA and Lateral Date of Exam: 09/15/13 Exam# [id number] Ordering Dr: Teresita Singleton DO STUDY: X [...] Daniel Long MD at 13:17 EDT Tel [phone], Service support [phone], CC: Teresita Singleton DO Lead Pressman: Signed 15-Sep-2013 Nuclear Stress Test - Treadmil Result: Comments: See Note; NOTES: [facility] Imaging Services [address] [place] [address] Nuclear Medicine Report MR#: [id number] Acct: [id number] Name: MARCUS MATIAS Rep #: [id number] : 1965 M 47 From: Jorje Gomez MD PCP: Teresita Singleton DO Status: REG CLI Study: Nuclear Stress Test - Treadmil Date of Exam: 09/15/13 Exam# [id number] Ordering Dr: Teresita Singleton DO EXERCISE TOLERANCE [...] LVEF of 69%. CC: Teresita Singleton DO Lead Pressman: WAN Signed 07-Sep-2013 Spirometry (88432) Result: 07-Sep-2013 EKG (97046) Result: [MEASUREMENTS ANALYSIS] Date of Test: 09/07/2013 10:09:59; Heart Rate: 75; MA Interval: 166; QRS: 89; QT Interval: 370; Corrected QT Interval (QTc): 396; P Wave Whitehouse: 24; QRS Wave [place]: 13; T Wave [place]: 19; Blood Pressure: 110/80 [ECG DIAGNOSTIC STATEMENTS] [...] kg/m2 Body Surface Area Calculated 2.07 m2 30-Slg-241030:43 Comments: I am nervous Temperature 97.8 f [...] Description Value Details :48 HgA1C , Office (64483) HgA1C , Office 5.6 % (Normal) Range: 4.6 - 7.1 :48 Blood Glucose , Office (75740) Blood Glucose , Office 105 (Normal) :08 CBC W/Diff, Automated Comments: [facility] [address] [place], [place], [id number] Absolute Lymph 1.86 {X10_3/ul} (Normal) Range: 0.83-4.51 [...] 4.6-6.2 WBC 4.5 K/mm3 (Normal) Range: 4.4-11.0 26-Mia-46523:08 Comprehensive Metabolic Profil Comments: [facility] [address] [place], [place], [address] GAP 6 (Normal) Range: 5-15 CO2 28.0 [...] Comments: Please note revised GLUCOSE reference range gtwggqnky27/02/2018. 64-Bdw-01020:08 Lipid Profile Comments: [facility] [address] [place], [address] VLDL 36 mg/dL (Normal) Range: 5-40 LDL [...] 200-240 mg/dL Borderline >240 mg/dL High Risk 30-Gaf-19829:08 Microalb:Creat Ratio,Random UR Comments: [facility] [address] [place], [id number] MALB:CREAT 8.9 {mg/g_CRE} (Normal) MICROALBUMIN,UR 6.3 mg/L (Normal) UR CREAT 71.30 mg/dL (Normal) 26-Ujz-54605:08 PSA,Total - Annual Screen Comments: [facility] [address] [place], [id number] PSA,TOT SCREEN 0.20 ng/mL (Normal) Range: 0.00-4.00 Comments: This test was performed using the TPSA assay method for Click With Me Now chemistry system. Values obtained with differentassay methods cannot be used interchangably.When changing PSA assays in the course of monitoring apatient, additional sequential testing should be carriedout to confirm baseline values. :08 Thyroid Stim Hormone (TSH) Comments: [facility] [address] [place], [phone] TSH 2.56 {uIU/mL} (Normal) Range: 0.358-3.74 29-Fxt-82740:08 Urinalysis, Complete Comments: How was Urine Obtained? CLEAN [facility] [address] [place], [phone] MUCUS, URINE 0 SEEN {/hpf} (Normal) BACTERIA [...] Yellow (Normal) :08 Vitamin D,25 Hydroxy Comments: [facility] [address] [place], [address] Vitamin D 25-OH 38.3 ng/mL (Normal) Range: 29.95-100.01 Comments: Vitamin D 25(OH) Status Range Deficiency <20 ng/mL (50nmol/L) Insuffciency 20 - 30 ng/mL (50 - 75 nmol/L) Sufficiency 30 - 100 ng/mL (75 - 250 nmol/L) Toxicity >100 ng/mL (>250 nmol/L) :56 HgA1C , Office (68093) HgA1C , Office 5.6 % (Normal) Range: 4.6 - 7.1 :55 Blood Glucose , Office (21280) Blood Glucose , Office 97 (Normal) :18 CBC W/Diff, Automated Comments: [facility] [address] [place], [address] ; ov 4/20 Absolute Lymph 1.87 {X10_3/ul} [...] 4.6-6.2 WBC 5.5 K/mm3 (Normal) Range: 4.4-11.0 49-Kfg-097746:29 CBC W/Diff, Automated Comments: [facility] [address] [place], [place], [phone] Absolute Lymph 1.69 {X10_3/ul} (Normal) Range: 0.83-4.51 [...] Range: 4.4-11.0 :29 Erythrocyte Sed Rate Comments: [facility] [address] [place], [place], [address] SED RATE 4 mm/h (Normal) Range: 0-20 :53 HgA1C , Office (84337) HgA1C , Office 5.6 % (Normal) Range: 4.6 - 7.1 :53 Blood Glucose , Office (43139) Blood Glucose , Office 100 (Normal) :25 CBC W/Diff, Automated Comments: [facility] [address] [place], [place], [address] Absolute Lymph 1.62 {X10_3/ul} (Normal) Range: 0.83-4.51 [...] Range: 4.4-11.0 :25 Comprehensive Metabolic Profil Comments: [facility] [address] [place], [place], [address] GAP 7 (Normal) Range: 5-15 CO2 25.0 [...] (Normal) Range: 70-110 :25 Lipid Profile Comments: [facility] [address] [place], [place], [phone] VLDL 27 mg/dL (Normal) Range: 5-40 LDL [...] High Risk :25 Microalb:Creat Ratio,Random UR Comments: [facility] [address] [place], [address] MALB:CREAT 13.5 {mg/g_CRE} (Normal) MICROALBUMIN,UR 12.4 mg/L (Normal) UR CREAT 92.00 mg/dL (Normal) :25 Thyroid Stim Hormone (TSH) Comments: [facility] [address] [place], [address] TSH 2.01 {uIU/mL} (Normal) Range: 0.358-3.74 :25 Vitamin D,25 Hydroxy Comments: [facility] [address] [facility] [address] [place], [place], [address] Vitamin D 25-OH 26.3 ng/mL (Normal) Comments: Vitamin D 25(OH) Status Range Deficiency <20 ng/mL (50nmol/L) Insuffciency 20 - 30 ng/mL (50 - 75 nmol/L) Sufficiency 30 - 100 ng/mL (75 - 250 nmol/L) Toxicity >100 ng/mL (>250 nmol/L) :50 Rapid Flu (87019 x 2) Comments: Negative Influenza A Ag Negative (Normal) :53 HgA1C , Office (18262) HgA1C , Office 5.5 % (Normal) Range: 4.6 - 7.1 :53 Blood Glucose , Office (83510) Blood Glucose , Office 85 (Normal) :23 Microscopic Examination Comments: PATIENT WAS FASTINGPERFORMED BY: [facility] Nhsnsl4032 [address] Road[address]ublin [place] [id number] Bacteria None seen (Normal) Mucus Threads Present (Normal) Epithelial Cells (non renal) None seen {/hpf} (Normal) Range: 0 - 10 RBC None seen {/hpf} (Normal) Range: 0 - 2 WBC 0-5 {/hpf} (Normal) Range: 0 - 5 :23 CALCIFIDIOL (33300) VIT D 25 Comments: PATIENT WAS FASTINGPERFORMED BY: [facility] [address] [facility] HospitalDublin [place] [id number] Vitamin D, 25-Hydroxy 29.6 ng/mL (Abnormal) Range: 30.0-100.0 Comments: Vitamin D deficiency has been defined by the [place] of[place]icine and an Endocrine Society practice guideline as alevel of serum 25-OH vitamin D less than 20 ng/mL (1,2).The Endocrine Society went on to further define vitamin Dinsufficiency as a level between 21 and 29 ng/mL (2).1. IOM ([place] of Medicine). 2010. Dietary reference intakes for calcium and D. [place]: The National Academies Press.2. Darcie MF, Chris NC, Nancy WAN, et al. Evaluation, treatment, and prevention of vitamin D deficiency: an Endocrine Society clinical practice guideline. JCEM. 2010; 96(7):1911-30. :23 TSH (13125) Comments: PATIENT WAS FASTINGPERFORMED BY: [facility] [address]xhsov7988 [address]ublin [place] [id number] TSH 2.180 {uIU/mL} (Normal) Range: 0.450-4.500 :23 URINALYSIS, W/ MICRO (14865) Comments: PATIENT WAS FASTINGPERFORMED BY: [facility] Fqgebu1077 [address] RoadDublin [place] [id number] Microscopic Examination See below: (Normal) Comments: Microscopic was indicated and was performed. Nitrite, Urine Negative (Normal) Urobilinogen,Semi-Qn 0.2 mg/dL (Normal) Range: 0.2-1.0 Bilirubin Negative (Normal) Occult Blood Trace (Abnormal) Ketones Negative (Normal) Glucose Negative (Normal) Protein Negative (Normal) WBC Esterase Negative (Normal) Appearance Clear (Normal) Urine-Color Yellow (Normal) pH 6.5 (Normal) Range: 5.0-7.5 Specific [place] 1.016 (Normal) Range: 1.005-1.030 2-Bsa-849841:23 MICROALBUMIN: CREATININE RATIO Comments: PATIENT WAS FASTINGPERFORMED BY: [facility] [id number] (77843) AND (99426) Microalb/Creat Ratio <3.1 {mg/g_creat} (Normal) Range: 0.0-30.0 Microalbumin, Urine <3.0 ug/mL (Normal) Creatinine, Urine 96.8 mg/dL (Normal) 9-Jge-101993:23 METABOLIC PANEL, COMPREHENSIVE Comments: PATIENT WAS FASTINGPERFORMED BY: Birst6370 Friendly ScoreAt[facility] [id number] (04144) ALT (SGPT) 27 [iU]/L (Normal) Range: 0-44 [...] Glucose, Serum 82 mg/dL (Normal) Range: 65-99 2-Zoi-383757:23 LIPID PANEL (06596) Comments: PATIENT WAS FASTINGPERFORMED BY: [facility] [id number] LDL/HDL Ratio 2.3 {ratio_units} (Normal) Range: 0.0-3.6 Comments: LDL/HDL Ratio Men Women 1/2 Avg.Risk 1.0 1.5 Av g.Risk 3.6 3.2 2X Avg.Risk 6.2 5.0 3X Avg.Risk 8.0 6.1 LDL Cholesterol Calc 84 mg/dL (Normal) Range: 0-99 VLDL Cholesterol Nader 24 mg/dL (Normal) Range: 5-40 HDL Cholesterol 37 mg/dL (Abnormal) Triglycerides 118 mg/dL (Normal) Range: 0-149 Cholesterol, Total 145 mg/dL (Normal) Range: 100-199 0-Sen-248097:23 CBC W/AUTO DIFF WBC (53344) Comments: PATIENT WAS FASTINGPERFORMED BY: [facility] [id number] Immature Grans (Abs) 0.0 {x10E3/uL} (Normal) Range: [...] 4.14-5.80 WBC 4.7 {x10E3/uL} (Normal) Range: 3.4-10.8 2-Nmb-423991:09 HgA1C , Office (98464) HgA1C , Office 5.4 % (Normal) Range: 4.6 - 7.1 :29 CBC W/Diff, Automated Comments: [facility] [address] [place], [place], [id number] Absolute Lymph 1.84 {X10_3/ul} (Normal) Range: 0.83-4.51 [...] Range: 4.4-11.0 10-Apr-20168:29 Comprehensive Metabolic Profil Comments: [facility] [address] [place], [place], [address] GAP 5 (Normal) Range: 5-15 CO2 29.0 [...] (Normal) Range: 70-110 :29 Lipid Profile Comments: [facility] [address] [place], [address] VLDL 29 mg/dL (Normal) Range: 5-40 LDL [...] 200-240 mg/dL Borderline >240 mg/dL High Risk :29 Microalb:Creat Ratio,Random UR Comments: [facility] [address] [place], [address] MALB:CREAT 7.5 {mg/g_CRE} (Normal) MICROALBUMIN,UR 8.2 mg/L (Normal) UR CREAT 109.00 mg/dL (Normal) :00 Cytology, Body Fluid / CSF Comments: Specimen Source: [facility] [address] [place], [address] CYTOLOGY,BF/CSF SEE PATHOLOGY REPORT (Normal) Comments: Specimen submitted to Anatomical Pathology Department fortesting. :00 Urinalysis, Complete Comments: How was Urine Obtained? [facility] [address] [place], [address] MUCUS, URINE 1+ {/hpf} (Normal) [...] (Normal) CLARITY Clear (Normal) COLOR Yellow (Normal) 51-Iwu-01606:00 CYTOSPIN ON FLUID See Note (Normal) Comments: [facility] [address] [place], [address] Comments: Patient: MARCUS MATIAS : 1965 (50/M) Acct Num: [id number] Phys: Rolando CHADWICK,Philip Unit Num: [id number] Loc: LABSPEC Specimen: [id number] Received: 11/01/15 - 1428 Spec Type: CYSPIN FL TISSUES TISSUES: CYTOLOGY GROSS Received is 70 ml of gold cloudy fluid labeled with the patient's name and and designated per the requisition as urine. Submit joselin for cytology preparation. 11/01/15 TC:5 CPT:13990 CYTOLOGY STUDY Slides are reviewed. DIAGNOSIS CYTOLOGY Urine for cytology (cytospins): Negative for malignant cells. AM:kena 11/02/15 HEADER OPERATION: Not noted PRE-OP DIAGNOSIS: Hematuria TISSUE SUBMITTED: Urine for cytology Signed Srinivasa Trejo 11/02/15 <sig nature on file> 63-Fnk-912683:05 HgA1C , Office (87509) HgA1C , Office 5.5 % (Normal) Range: 4.6 - 7.1 :05 CBC W/Diff, Automated Comments: [facility] [address] [place], [place], [address] Absolute Lymph 1.54 {X10_3/ul} (Normal) Range: 0.83-4.51 [...] Range: 4.4-11.0 :05 Comprehensive Metabolic Profil Comments: [facility] [address] [place], [place], [address] GAP 8 (Normal) Range: 5-15 CO2 24.0 [...] (Normal) Range: 70-110 :05 Lipid Profile Comments: [facility] [address] [place], [place], [address] ; sent message he needs an apt [...] Risk :05 PSA,Total - Annual Screen Comments: [facility] [address] [place], [place], [address] PSA,TOT SCREEN 0.24 ng/mL (Normal) Range: 0.00-4.00 Comments: This test was performed using the TPSA assay method for theWISETIVI chemistry system. Values obtained with differentassay methods cannot be used interchangably.When changing PSA assays in the course of monitoring apatient, additional sequential testing should be carriedout to confirm baseline values. 93-Qgq-818852:50 Cytology, Body Fluid / CSF Comments: Specimen [facility]: [facility] [address] [place], [address] CYTOLOGY,BF/CSF SEE PATHOLOGY REPORT (Normal) Comments: Specimen submitted to Anatomical Pathology Department [facility]. 55-Vpv-059649:50 Urinalysis, Complete Comments: How was Urine Obtained? Urine, [facility] [address] [place], [address] MUCUS, URINE 0 SEEN {/hpf} [...] (Normal) CLARITY Clear (Normal) COLOR Yellow (Normal) 17-Bnr-45915:00 CYTOSPIN ON FLUID See Note (Normal) Comments: [facility] [address] [place], [place], [address] Comments: Patient: MARCUS MATIAS : 1965 (49/M) Acct Num: [id number] Phys: Rolando CHADWICK,Obie Cuevas Unit Num: [id number] Loc: LABSPEC Specimen: [id number] Received: 04/26/151422 Spec Type: CYSPIN FL TISSUES TISSUES: CULTURE RESULTS No results available. CYTOLOGY GROSS Received is 60 ml of yellow gold hazy fluid labeled with the patient's name and and d esignated per the requisition as urine. Submitted for cytology preparation. / 04/26/15 TC:5 CPT: 14230 CYTOLOGY STUDY Slides are reviewed. DIAGNOSIS CYTOLOGY Urine for cytology (cyto spin): Negative for malignant cells. AM: 04/27/15 HEADER OPERATION: Not noted PRE-OP DIAGNOSIS: Hematuria TISSUE SUBMITTED: Urine cytology Signed Srinivasa Neil 04/27/15 <signature on file> :42 Blood Glucose , Office (62516) Blood Glucose , Office 94 (Normal) :34 HgA1C , Office (01516) HgA1C , Office 5.6 % (Normal) Range: 4.6 - 7.1 :57 Comprehensive Metabolic Profil Comments: Test performed at:[facility] [address] [place] [address] GAP 5 (Normal) Range: 5-15 CO2 28.0 [...] Comments: Please note revised CREATININE reference range qpeosrfsx50/22/2015. BUN 14 mg/dL (Normal) Range: 7-18 GLU 96 mg/dL (Normal) Range: 70-110 :57 Lipid Profile Comments: Test performed at:[facility] [address] [place] [address] ; has fu 8-10 VLDL [...] :57 Microalb:Creat Ratio,Random UR Comments: Test performed at:[facility] [address] [place] [address] MALB:CREAT 5.0 {mg/g_CRE} (Normal) MICROALBUMIN,UR 8.1 mg/L (Normal) UR CREAT 152.00 mg/dL (Normal) :57 Urinalysis, Complete Comments: How was Urine Obtained? CLEAN CATCHTest performed at:[facility] [address] [place] [address] ; non-emergent till apt MUCUS, [...] Patient: MARCUS MATIAS : 1965 (48/M)Acct Num: [id number] Phys: Beena Foster Num: [id number] Loc: LABSPECSpecimen: [id number] Received: 02/15/14 - 1611Spec Type: COLON BXTIS 0 SUESTISSUES:GROSS DESCRIPTIONReceived is one container labeled with the patient name and designated rightcolon polyp biopsy. The specimen consists of multiple irregular fragments oflight narayan soft tis ronald that in aggregate measure 0.7 x 0.5 x 0.1 cm. Thespecimen is totally submitted in one cassette. / MADELAINE:tana 02/16/14 TC:1CPT: 23091FCURMSQHOQRADSE: ColonoscopyPRE-OPERATIVE DIAGNOSIS: Screening / po lypTISSUE SUBMITTED: Polyp biopsy right colon, rule out adenomaMICROSCOPIC DIAGNOSISPolyp, right colon, biopsy:Fragments of hyperplastic polyp.MADELAINE:tana 02/17/14Signed Alex Martins 02/17/14<signature on file> 08-Bgi-434781:26 HgA1C , Office (67459) HgA1C , Office 5.7 % (Normal) Range: [...] CHOL 160 mg/dL (Normal) Comments: <200 mg/dL Wotmaukgs459-387 mg/dL Borderline>240 mg/dL High Risk 05-Gim-947929:04 Ct, Ng, Trich vag by Comments: PATIENT NOT FASTINGPERFORMED BY: [address] [id number] BY: [address] [id number] CYNDI Chlamydia by CYNDI Negative (Normal) Gonococcus by CYNDI Negative (Normal) Trich vag by CYNDI Negative (Normal) 72-Apy-358769:04 Hepatitis Panel (4) Comments: PATIENT NOT FASTINGPERFORMED BY: [address] [id number] BY: [address] [id number] Inf ormation: SRC:UR URINE Hep B Core [...] a more specific supplemental or PCR testing. [facility] offers HCV Ab w/Reflex to Verification test #[id number]. HBsAg Screen Negative (Normal) Hep A Ab, IgM Negative (Normal) :04 HSV 1 and 2 IgM Abs, Comments: PATIENT NOT FASTINGPERFORMED BY: [address] [id number] BY: [address] [id number] Indirect HSV 1 IgM Antibodies <1:10 {titer} [...] by another medicallyestablished diagnostic product or procedure. 98-Ngw-493336:04 HSV 1 and 2-Specific Ab, Comments: PATIENT NOT FASTINGPERFORMED BY: [facility] [id number] BY: [address] [id number] IgG HSV 1 IgG, Type Spec 55.70 [...] indicates antibodies detected to HSV-2. :04 Panel [id number] Comments: PATIENT NOT FASTINGPERFORMED BY: [employer]There[address] [id number] BY: Fi.[address] [id number] HIV 1/O/2 Abs, Non Reactive Qual (Normal) HIV 1/O/2 <1.00 (Normal) Comments: Index Value: Specimen reactivity relative to the negative cutoff. Abs-Index Value : RPR Non Reactive Comments: PATIENT NOT FASTINGPERFORMED BY: [employer] [id number] BY: [address] [id number] 04 (Normal) 60-Dbv-058124:01 CBCD ANC 3.2 {X10_3/uL} (Normal) Range: 2.0-7.7 [...] 4.6-6.2 WBC 5.1 K/mm3 (Normal) Range: 4.4-11.0 58-Igl-571410:01 CMP Comments: will review at 09/25/13 appt [...] 0.8-1.3 GLU 91 mg/dL (Normal) Range: 70-110 02-Jso-148300:01 LIPID HDL 31 mg/dL (Abnormal) Comments: Reference [...] CHOL 167 mg/dL (Normal) Comments: <200 mg/dL Ykdemjjqg975-435 mg/dL Borderline>240 mg/dL High Risk 82-Vlv-249245:38 MIACRE Comments: PLEASE ADD URINE FROM YESTERDAY 09/15/13 MIALB < 5.0 mg/L (Normal) tMICROCREAT Test not performed {mg/g_CRE} (Normal) CREU 65.8 mg/dL (Normal) : PSA 0.26 ng/mL (Normal) Range: 0.00-4.00 Comments: This test was performed using the TPSA assay method for theTrevena chemistry system. Values obtained with differentassay methods [...] children havebeen associated with numerous adverse health effects.[facility] Guidelines: Blood lead level s in therange 5-9 ug/dL have been associated with adversehealth effects in children aged 6 years and younger..Environmental Exposure:WHO Recommendation <20Occupational Exposure:OSHA Lead Std 40.Detection Limit = 1Performed at: [facility] Lab[address] [id number] Director: Tank Cummings PhD, Phone: [phone] MIACRE tMICROCREAT 4.8 {mg/g_CRE} (Normal) MIALB [...] CHOL 154 mg/dL (Normal) Comments: <200 mg/dL Sjmyugxca053-983 mg/dL Borderline>240 mg/dL High Risk :57 PSA [...] (Normal) UCLAR CLEAR (Normal) UCOL YELLOW (Normal) 60-Jxi-723113:11 CHEST, PA AND LATERAL Radiology Report See [...] NEGATIVE CLARITY CLEAR (Normal) COLOR YELLOW (Normal) 17-Wuw-079667:06 COMPLETE UA BACTERIA 0 SEEN {/hpf} (Normal) [...] NEGATIVE CLARITY CLEAR (Normal) COLOR YELLOW (Normal) 18-Xru-911911:28 LIVER ALT 29 U/L (Normal) Range: 12-78 [...] CHOL 160 mg/dL (Normal) Comments: <200 mg/dL Alhwcxyns868-480 mg/dL Borderline>240 mg/dL High Risk :27 LIVER [...] 500 mg/dL VLDL 31 mg/dL (Normal) Range: 40 :28 LIVER ALB 3.7 g/dL (Normal) Range: 3.4-5.0 ALK P 77 U/L (Normal) Range: 50-136 ALT 45 U/L (Normal) Range: 30-65 AST 15 U/L (Normal) Range: 15-37 D BILI 0.14 mg/dL (Normal) Range: 0.00-0.30 T BILI 0.50 mg/dL (Normal) Range: 0.00-1.00 T PROT 7.1 g/dL (Normal) Range: 6.4-8.2 :33 URINALYSIS W/O MICRO ([id number]) UA - APPEARANCE clear (Normal) UA - [...] T PROT 7.3 g/dL (Normal) Range: 6.4-8.2 8-Nei-944687:51 Urinalysis, Office ([id number]) UA - BILIRUBIN Negative (Normal) UA - [...] Report See Note (Normal) Comments: Exam Number: [id number] CT SCAN OF ABDOMEN AND PELVIS HISTORYHematuria. [...] Report See Note (Normal) Comments: Exam Number: [id number] CT SCAN OF ABDOMEN AND PELVIS HISTORYHematuria. [...] is identified. Reported By: SHAI WHYTE M.D. 00-Kci-337660:23 DAGOBERTO-D [id number] DAGOBERTO-DIRECT 19 AU/mL (Normal) Range: 0-99 Comments: Negative <100 Equivocal 100 - 120 Positive >120 :23 C-REACTIVE PROT 3.87 mg/L (Normal) Range: 0.0-6.0 Comments: Test performed using the Dimension C-Reactive ProteinExtended Range assay method. This assay meets the AHA/CDC 2003 recommendations fordetermining patients at high risk for cardiovasculardisease. Reference: High risk CRP >3.0 mg/L 10-Aul-504712:23 CBCD,SMEAR DIFF ATYPICAL LYMPH RARE % (Normal) [...] was performed using the TPSA method for theWISETIVI chemistry system.Values obtained with different assay methods cannot be usedinterchangably.When changing PSA assays in the course of monito ring apatient, additional sequential testing should be carriedout to confirm baseline values. :23 RA LATEX 6502 6.7 {IU/mL} (Normal) Range: 0.0-13.9 Comments: Performed At: [address] [id number] :23 ROUTINE UA BILIRUBIN URINE SeeNote (Normal) [...] Indication: Impaired fasting glucose Hematuria : Reviewed Independent Video Producer Letter Indication: Hematuria Impaired fasting glucose : *Diabetes Education Indication: Impaired fasting glucose Hypercholesterolemia : Cholesterol mgmt Indication: Hypercholesterolemia Common cold virus : Follow up if no improvement or if symptoms worsen Indication: Common cold virus Common cold virus : Common Cold *: cold Indication: Common cold virus Hematuria : Reviewed Independent Video Producer Letter Indication: Hematuria Impaired fasting glucose : [...] : Follow up in 10 days with [facility] Indication: Possible exposure to STD [...] Tsh and ua cbc cmp Planned Observations PSA (PROSTATE SPECIFIC ANTIGEN) (V76.44)Indication: Screening for prostate cancer On: :24 Request CALCIFIDIOL ([id number]) VIT D 25Indication: Vitamin D deficiency On: :17 Request TSH ([id number])Indication: Impaired fasting glucose On: :17 Request URINALYSIS, W/ MICRO ([id number])Indication: Impaired fasting glucose On: :17 Request MICROALBUMIN: CREATININE RATIO ([id number]) AND ([id number])Indication: Impaired fasting glucose On: :17 Request METABOLIC PANEL, COMPREHENSIVE (36041)Indication: Impaired fasting glucose On: :17 Request LIPID PANEL ([id number])Indication: Impaired fasting glucose On: :17 Request CBC W/AUTO DIFF WBC (38392)Indication: Impaired fasting glucose On: :17 Request CBC, PLATELETS & MANUAL DIFF (68151)Indication: Leukopenia, unspecified type On: 37-Gmc-375650:39 Request CBC WITH MANUAL DIFF ([id number])Indication: Leukopenia, unspecified type On: 69-Nao-225164:00 Request Comments: also have pathology look at for peripheral smear Sed Rate Erythrocyte (59246)Indication: Leukopenia, unspecified type On: 91-Glo-77731:59 Request TSH ([id number])Indication: Impaired fasting glucose On: :21 Request MICROALBUMIN: CREATININE RATIO ([id number]) AND (61425)Indication: Impaired fasting glucose On: :21 Request METABOLIC PANEL, COMPREHENSIVE (83620)Indication: Impaired fasting glucose On: :21 Request LIPID PANEL (40867)Indication: Impaired fasting glucose On: :21 Request CBC W/AUTO DIFF WBC (00654)Indication: Impaired fasting glucose On: :21 Request CALCIFIDIOL (49398) VIT D 25Indication: Vitamin D deficiency On: :20 Request CBC WITH MANUAL DIFF (58037)Indication: Abnormal laboratory test On: 2-Jhg-068183:27 Request Comments: do in 1 mo CBC W/AUTO DIFF WBC (55738)Indication: Impaired fasting glucose On: :22 Request MICROALBUMIN: CREATININE RATIO (19204) AND (74132)Indication: Impaired fasting glucose On: :22 Request METABOLIC PANEL, COMPREHENSIVE (12065)Indication: Hypercholesterolemia On: :06 Request LIPID PANEL (58356)Indication: Hypercholesterolemia On: :05 Request LIPID PANEL ([id number])Indication: Other and unspecified hyperlipidemia On: 79-Uuf-686789:23 Request CBC with auto diff (87132)Indication: Impaired fasting glucose On: 63-Poa-833187:11 Request METABOLIC PANEL, COMPREHENSIVE (56312)Indication: Impaired fasting glucose On: : Request Hemoglobin Glyclated (HGB A1C) (31349)Indication: Impaired fasting glucose On: : Request PSA (PROSTATE SPECIFIC ANTIGEN) (V76.44)Indication: Screening for prostate cancer On: : Request URINALYSIS, W/ MICRO (31122)Indication: Hematuria On: :17 Request MICROALBUMIN: CREATININE RATIO (37910) AND ([id number])Indication: Impaired fasting glucose On: : Request METABOLIC PANEL, COMPREHENSIVE (29400)Indication: Impaired fasting glucose On: : Request LIPID PANEL (30164)Indication: Hypercholesterolemia On: : Request RPR (RAPID PLASMA REAGIN) (18741)Indication: Unspecified Diagnosis On: 55-Hfk-056896:03 Request HIV ANTIGEN (37917)Indication: Possible exposure to STD On: :59 Request HIV-2 ANTIBODY (89359)Indication: Possible exposure to STD On: 80-Hbi-182318:[address],NG,TV (Chlamydia, Gonorrhea, Trichomonas) (42245)Indication: Possible exposure to STD On: 68-Bfx-177239:56 Request Herpes Simplex I Ag, Direct Fluorescent Ab (96275)Indication: Possible exposure to STD On: :55 Request Herpes Simplex (HSV) II Ab (78741)Indication: Possible exposure to STD On: :54 Request HEPATITIS PANEL (23931)Indication: Possible exposure to STD On: :54 Request LIPID PANEL (43073)Indication: Other and unspecified hyperlipidemia On: :44 Request METABOLIC PANEL, COMPREHENSIVE (51786)Indication: Impaired fasting glucose On: :44 Request PSA (PROSTATE SPECIFIC ANTIGEN) (V76.44)Indication: Screening for prostate cancer On: :55 Request TSH (03579)Indication: Chest pain On: :55 Request MICROALBUMIN: CREATININE RATIO (72810) AND (77661)Indication: Impaired fasting glucose On: :55 Request URINALYSIS, W/ MICRO (61059)Indication: Impaired fasting glucose On: :55 Request CBC WITH MANUAL DIFF (97875)Indication: Impaired fasting glucose On: :55 Request METABOLIC PANEL, COMPREHENSIVE (63351)Indication: Impaired fasting glucose On: :55 Request LIPID PANEL (52043)Indication: Other and unspecified hyperlipidemia On: :55 Request CBC WITH MANUAL DIFF (70713)Indication: Impaired fasting glucose On: : Request METABOLIC PANEL, COMPREHENSIVE (35786)Indication: Impaired fasting glucose On: : Request HEPATIC FUNCTION PANEL (08030)Indication: Other and unspecified hyperlipidemia On: : Request LIPID PANEL (41294)Indication: Other and unspecified hyperlipidemia On: : Request LEAD ([id number])Indication: Paresthesia On: :28 Request MICROALBUMIN: CREATININE RATIO (39044) AND (80501)Indication: Impaired fasting glucose On: : Request CBC WITH MANUAL DIFF (78393)Indication: Paresthesia On: : Request VITAMIN B-12 (CYANOCOBALAMIN) (54597)Indication: Paresthesia On: Request TSH (03269)Indication: Sleep Disorder On: : Request LEAD (03112)Indication: Paresthesia On: :10 Request VITAMIN B-12 (CYANOCOBALAMIN) (60325)Indication: Paresthesia On: :10 Request LIPID PANEL (33999)Indication: Other and unspecified hyperlipidemia On: :10 Request PSA (PROSTATE SPECIFIC ANTIGEN) (V76.44)Indication: BPH without urinary obstruction On: :09 Request TSH (34333)Indication: Paresthesia On: :09 Request MICROALBUMIN: CREATININE RATIO (22252) AND (79760)Indication: Impaired fasting glucose On: :09 Request CBC WITH MANUAL DIFF (33103)Indication: Paresthesia On: 3-Tdg-194431:09 Request METABOLIC PANEL, COMPREHENSIVE (52276)Indication: Paresthesia On: 5-Smt-518651:09 Request Hemoglobin Glyclated (HGB A1C) (80021)Indication: Impaired fasting glucose On: :09 Request PSA (PROSTATE SPECIFIC ANTIGEN) (V76.44)Indication: BPH without urinary obstruction On: 32-Wja-508073:05 Request METABOLIC PANEL, COMPREHENSIVE (82086)Indication: Impaired fasting glucose On: 22-Bmo-003220:05 Request LIPID PANEL (15328)Indication: Other and unspecified hyperlipidemia On: 79-Yny-872835:04 Request HgA1C , Office (02978)Indication: Impaired fasting glucose On: 34-Hre-60271:20 Request CBC WITH MANUAL DIFF (20702)Indication: Impaired fasting glucose On: :14 Request METABOLIC PANEL, COMPREHENSIVE (20104)Indication: Impaired fasting glucose On: :14 Request MICROALBUMIN: CREATININE RATIO (44859) AND (74136)Indication: Impaired fasting glucose On: :14 Request LIPID PANEL (52608)Indication: Other and unspecified hyperlipidemia On: 13-Jul-20118:13 Request HgA1C , Office (04151)Indication: Impaired fasting glucose On: 13-Jul-20118:05 Request CBC WITH MANUAL DIFF ([id number])Indication: Anemia, unspecified On: 5-Brc-097549:21 Request IRON BINDING CAPACITY (TIBC) (03541)Indication: Anemia, unspecified On: 2-Xgy-305102:21 Request IRON ([id number])Indication: Anemia, unspecified On: :21 Request FERRITIN ([id number])Indication: Anemia, unspecified On: 7-Ynx-315308:21 Request CBC WITH MANUAL DIFF ([id number])Indication: Elevated blood pressure (not hypertension) On: :20 Request METABOLIC PANEL, COMPREHENSIVE (58846)Indication: Elevated blood pressure (not hypertension) On: :20 Request URINALYSIS, W/ MICRO (92802)Indication: Hematuria On: 8-Xyh-035890:20 Request Lipid Panel (07909)Indication: Hypercholesterolemia On: :07 Request PSA (Prostate Specific Antigen), Screening (43578)Indication: Elevated blood pressure (not hypertension) On: :07 Request CBC with manual diff ([id number])Indication: Elevated blood pressure (not hypertension) On: :07 Request Metabolic Panel, Comprehensive (21946)Indication: Elevated blood pressure (not hypertension) On: :07 Request URINALYSIS (71240)Indication: Elevated blood pressure (not hypertension) On: : Request URINALYSIS, W/ MICRO ([id number])Indication: Hematuria On: :32 Request HEPATIC FUNCTION PANEL (39682)Indication: Hypercholesterolemia On: :20 Request METABOLIC PANEL, COMPREHENSIVE ([id number])Indication: Elevated blood pressure (not hypertension) On: :25 Request URINALYSIS, W/ MICRO ([id number])Indication: Elevated blood pressure (not hypertension) On: :24 Request HEPATIC FUNCTION PANEL ([id number])Indication: Other and unspecified hyperlipidemia On: :24 Request LIPID PANEL (08536)Indication: Other and unspecified hyperlipidemia On: :24 Request PSA (PROSTATE SPECIFIC ANTIGEN) (V76.44)Indication: Hematuria On: :12 Request HEPATIC FUNCTION PANEL (49173)Indication: Other and unspecified hyperlipidemia On: :11 Request LIPID PANEL (59375)Indication: Other and unspecified hyperlipidemia On: :11 Request HEPATIC FUNCTION PANEL (02218)Indication: Other and unspecified hyperlipidemia On: :33 Request LIPID PANEL (59214)Indication: Other and unspecified hyperlipidemia On: :33 Request HEPATIC FUNCTION PANEL (09760)Indication: Other and unspecified hyperlipidemia On: :53 Request LIPID PANEL (04401)Indication: Other and unspecified hyperlipidemia On: :53 Request HEPATIC FUNCTION PANEL (31331)Indication: Other and unspecified hyperlipidemia On: :26 Request LIPID PANEL (34959)Indication: Other and unspecified hyperlipidemia On: :26 Request LIPID PANEL (05921)Indication: Other and unspecified hyperlipidemia On: 56-Kyp-214235:10 Request URINALYSIS W/O MICRO (42891)Indication: Elevated blood pressure (not hypertension) On: :08 Request PSA (PROSTATE SPECIFIC ANTIGEN) (V76.44)Indication: Screening for prostate cancer On: Request SED RATE ERYTHROCYTE (22207)Indication: alopecia areata On: Request C-REACTIVE PROTEIN (01779)Indication: alopecia areata On: Request RHEUMATOID FACTOR-QUANT (53910)Indication: alopecia areata On: Request DAGOBERTO (ANTINUCLEAR ANTIBODY) (32823)Indication: alopecia areata On: Request TSH (04928)Indication: alopecia areata On: Request METABOLIC PANEL, COMPREHENSIVE (00738)Indication: Elevated blood pressure (not hypertension) On: Request CBC WITH MANUAL DIFF (63490)Indication: alopecia areata On: Request FERRITIN (33014)Indication: alopecia areata On: Request VITAMIN B-12 (CYANOCOBALAMIN) (33212)Indication: alopecia areata On: Request LIPID PANEL ([id number])Indication: Other and unspecified hyperlipidemia On: 3-Mmg-783461:30 Request PSA (PROSTATE SPECIFIC ANTIGEN) (49105)Indication: Screening for prostate cancer On: 3-Lur-393072:29 Request Planned Encounters Medical; 4 Month FU - On: 15-Aug-2018 9:00 [facility] Anai Hernandez DO, DO, Kathleen Planned Procedures X-RAY KNEE WITH PATELLA, FIVE VIEWS On: 11-Apr-2018 Intent (44874)By: Anai Hernandez DO Comments: L Anai QUEZADA X-RAY KNEE WITH PATELLA, FIVE VIEWS On: 11-Apr-2018 Intent (62050)By: Anai Hernandez DO Comments: R Anai QUEZADA ELECTROCARDIOGRAM, COMPLETE (ECG) On: 11-Apr-2018 Intent (63972)By: Anai Hernandez DO Comments: nsr no acute chg Anai QUEZADA Aerosol Treatment (32379)By: Luba On: 21-Jun-2017 Intent [place] DEJESUS ELECTROCARDIOGRAM, COMPLETE (ECG) On: 25-Mar-2017 Intent (28730)By: Flor Manriquez Comments: Sinus Rhythm-Heart rate 97. Aerosol Treatment (55012)By: Luba On: 23-Apr-2016 Intent [place] DEJESUS ELECTROCARDIOGRAM, COMPLETE (ECG) On: 23-Apr-2016 Intent ([id number])By: Luba DEJESUS [place] Escobar ELECTROCARDIOGRAM, COMPLETE (ECG) On: 13-Apr-2016 Intent (01623)By: Anai Hernandez DO Comments: nsr no acute chg Anai QUEZADA Radiology - Lumbar SpineBy: Mani QUEZADA, On: 13-Dec-2014 Intent Teresita A EKG ([id number])By: Teresita Singleton DO On: 13-Dec-2014 Intent Comments: ekg showed normal sinus rhythym, normal axis, no acute st/t wave changes Inhaler Demo (53283)By: Mani QUEZADA, On: 07-Sep-2013 Intent Teresita A Echo CompleteBy: Teresita Singleton DO A On: 07-Sep-2013 Intent Nuclear Stress Test/Stress On: 07-Sep-2013 Intent SPECT/TreadmillBy: Teresita Singleton DO Radiology - Chest- PA and LatBy: Mani On: 07-Sep-2013 Intent Deidra QUEZADAa A Eprescribed prescriptions ([id number])By: On: 29-Aug-2012 Intent Starr Mcmahon Cartoid DopplerBy: Teresita Singleton DO A On: 08-Aug-2012 Intent Eprescribed prescriptions ([id number])By: On: 07-Apr-2012 Intent Starr Mcmahon TD Injection , IM ([id number])By: On: 13-Jul-2011 Intent Starr Mcmahon Comments: 2006 EKGBy: Luba DEJESUS Meghna On: 03-Apr-2011 Intent Radiology - Chest- PA and LatBy: Mani On: 14-Mar-2011 Intent DO Teresita A Comments: include left anterior ribs EKG ([id number])By: Teresita Singleton DO On: 14-Mar-2011 Intent Comments: ekg showed normal sinus rhythym, normal axis, no acute st/t wave changes FLU VAC, SPLIT, >3 YEARS, INTRAMUSC On: 14-Mar-2011 Intent ([id number])By: Starr Mcmahon Comments: Lot: [id number]: 11/03/11Site: Lt DeltoidDose: Prefilled DoseARiding, TRUST MANAGER ASSISTANT IMMUNIZ ADMNIN, 1 VAC, SNGL/COMBO On: 14-Mar-2011 Intent ([id number])By: Starr Mcmahon FLU VAC, SPLIT, >3 YEARS, INTRAMUSC On: 15-Mar-2010 Intent ([id number])By: Starr Mcmahon Comments: Lot #[id number]/11Site-L dltd/IMDose 0.5mlgiven by:MATILDE LIRA EKG ([id number])By: Starr Mcmahon On: 15-Mar-2010 Intent Comments: ekg showed normal sinus rhythym, normal axis, no acute st/t wave changes IMMUNIZ ADMNIN, 1 VAC, SNGL/COMBO On: 15-Mar-2010 Intent ([id number])By: Starr Mcmahon CT - Abdomen & Pelvis Stone On: 05-Apr-2008 Intent ProtocolBy: Deidra Singleton DOa A EKG ([id number])By: Starr Mcmahon On: 21-Mar-2008 Intent Comments: ekg showed normal sinus rhythym, normal axis, no acute st/t wave changes EKG ([id number])By: Deidra Singleton DOa A On: 04-Feb-2006 Intent Comments: ekg showed normal [...] Advance Directives Name Dates Details Immunization Registry [place] - Effective on 04/11/2018. Effective: 11-Apr-2018 Expiration date unspecified Encounters Office Visit On: 11-Apr-2018 8:47 Encounter Reason: [...] tylenol and this helps- he did see rloando and he didnt do cystoscopy- as he [...] moderate. 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 The symptoms have been associated with [...] [facility] End: 31-Jan-2006 9:38 Payers [facility] Matias; zay guarantor
--- OUTSIDE RECORDS SUMMARY | 2018-05-29 07:53 | XMS RPT_ITS ---
:1965 Author Organization OHIP Care Team Providers Name Role Phone Anai Hernandez DO Attending Unavailable Fast DO, Teresita A Referring Unavailable Anai Hernandez DO Consulting Unavailable Anai Hernandez Attending Unavailable Anai Hernandez Primary Care Unavailable Anai Hernandez Referring Unavailable Anai Hernandez Attending Unavailable David, Anai Primary Care Unavailable David, Anai Attending Unavailable Fast, Teresita Primary Care Unavailable David, Anai Attending Unavailable David, Anai Referring Unavailable David, Anai Primary Care Unavailable David, Anai Attending Unavailable David, Anai Referring Unavailable David, Anai Primary Care Unavailable David, Anai Attending Unavailable David, Anai Referring Unavailable David, Anai Primary Care Unavailable PROBLEMS PROBLEMS DATE TYPE CONDITION / CODE ATTENDING STATUS SOURCE 04/03/2018 Unknown R73.01 - Impaired David, Active Surjit fasting glucose / [facility] R73.01(ICD-10) Hospital Repository 04/03/2018 Unknown Z12.5 - Encounter David, Active [place] for screening for [facility] malignant Hospital neoplasm of Repository prostate / Z12.5(ICD-10) 04/03/2018 Unknown E55.9 - Vitamin D David, Active Surjit deficiency, [facility] unspecified / Hospital E55.9(ICD-10) Repository 04/26/2017 Unknown D72.819 - David, Active Surjit Decreased white [facility] blood cell count, Hospital unspecified / Repository D72.819(ICD-10) PROCEDURES PROCEDURES No Procedure Records FoundRESULTS RESULTS ERYTHROCYTE SED RATE Collected: 04/16/2018 Status: F Source: [place] 1:55 PM [facility] REPOSITORY TYPE CODE TESTS RESULT OUT OF RANGE REFERENCE UNITS LAB L102.0000 0-20 mm/hr Normal SED RATE 7 Performed By: #### L101.9900, L100.0100 #### [facility] [address] [place], [place], [address] CBC W/DIFF, AUTOMATED Collected: 04/16/2018 Status: F Source: [place] 1:55 PM [facility] REPOSITORY TYPE CODE TESTS RESULT OUT OF RANGE REFERENCE UNITS LAB L100.1000 4.4-11.0 K/mm3 Normal WBC 4.6 LAB L100.1200 4.6-6.2 M/mm3 Normal RBC 4.62 LAB L100.1300 13.0-16.5 g/dl Normal HGB 14.2 LAB L100.1400 40-54 % Normal HCT 42.1 LAB L100.1500 80-94 fL Normal MCV 91.1 LAB L100.1600 27.0-32.0 pg Normal MCH 30.7 LAB L100.1700 32-36 g/gl Normal MCHC 33.7 LAB L100.1810 11.6-14.6 % Normal RDW CV 13.1 LAB L100.1820 35.1-43.9 fl Normal RDW SD 43.3 LAB L100.1900 150-450 K/mm3 Normal PLT 208 LAB L100.2000 6.2-12.0 fl Normal MPV 9.4 LAB L100.2100 47-70 % Normal NEUT% 52.2 LAB L100.2200 19-41 % Normal LY% 39.5 LAB L100.2300 0-10 % Normal MONO% 5.9 LAB L100.2400 0-5 % Normal EO% 1.5 LAB L100.2500 0-1 % Normal BASO% 0.7 LAB L100.2550 0.0-0.9 % Normal IM GRAN % 0.200 Result Comment: IG% - Immature Granulocytes (promyelocytes, myelocytes and metamyelocytes) > 1% indicates that a LEFT SHIFT is Present. LAB L100.2620 2.0-7.7 X10 3/uL Normal Absolute Neut 2.4 LAB L100.2720 0.83-4.51 X10 3/ul Normal Absolute Lymph 1.81 Performed By: #### L101.9900, L100.0100 #### [facility] [address] [place], [address] COMPREHENSIVE METABOLIC Collected: 04/16/2018 Status: F Source: [facility] 1:55 PM [facility] REPOSITORY TYPE CODE TESTS RESULT OUT OF RANGE REFERENCE UNITS LAB L501.0100 74-106 mg/dL High GLU 135 Result Comment: Fasting Glucose result greater than or equal to 126 mg/dL suggests DIABETES MELLITUS per A.D.A. criteria. Please note revised GLUCOSE reference range effective 2017. LAB L501.1000 7-18 mg/dL Normal BUN 14 LAB L501.1100 0.70-1.30 mg/dL Normal CREAT,SERUM 1.09 Result Comment: The validity of the calculated GFR AND GFRAA in patients over 70 years has not been determined. Clinical correlation is essential. LAB L501.1110 >60 mL/min Normal EST GFR 75 Result Comment: Non- GFR Calc LAB L501.1115 >60 mL/min Normal EST GFR - AA 91 Result Comment: GFR Calc LAB L501.1300 10-20 RATIO Normal BUN/CRE 12.8 LAB L501.1500 6.4-8.2 g/dL T Normal PROT 7.1 LAB L501.1800 3.2-5.0 g/dL Normal ALB 3.9 LAB L501.1950 2.2-4.2 g/dL Normal GLOB 3.2 LAB L501.2000 0.9-2.4 RATIO Normal A/G 1.2 LAB L501.2200 8.5-10.1 mg/dL CA Normal 8.6 LAB L501.4100 15-37 U/L Low AST 14 LAB L501.4305 45-117 U/L Normal ALK P 82 LAB L501.4405 16-61 U/L Normal ALT 35 LAB L501.4600 0.20-1.00 mg/dL T Normal BILI 0.50 LAB L501.5300 136-145 mmol/L NA Normal 141 LAB L501.5600 3.5-5.1 mmol/L K Normal 4.0 LAB L501.5900 98-107 mmol/L CL Normal 107 LAB L501.6100 21.0-32.0 mmol/L Normal CO2 25.0 LAB L501.6200 5-15 Normal GAP 9 Performed By: #### L500.4050, L501.6710, L501.6750 #### [facility] [address] [place], [address] CRP Collected: 04/16/2018 Status: F Source: [place] 1:55 PM [facility] REPOSITORY TYPE CODE TESTS RESULT OUT OF RANGE REFERENCE UNITS LAB L501.6710 0.0-3.0 mg/L High 5.66 C-REACTIVE PROT Result Comment: C-Reactive Protein (CRP) provides useful information for the diagnosis, therapy and monitoring of inflammatory processes and associated diseases. For the evaluation of Relative Risk for Cardiovascular Disease, a High Sensitivity CRP (HSCRP) should be ordered. Performed By: #### L500.4050, L501.6710, L501.6750 #### [facility] [address] [place], [address] CRP, HIGH SENSITIVITY Collected: 04/16/2018 Status: F Source: [place] CARDIAC 1:55 PM [facility] REPOSITORY TYPE CODE TESTS RESULT OUT OF RANGE REFERENCE UNITS LAB L501.6750 mg/L High CRP HIGH 5.58 SENS Result Comment: Low Relative Risk of CVD <1.0 mg/L Average Relative Risk of CVD 1.0 - 3.0 mg/L High Relative Risk of CVD >3.0 mg/L Performed By: #### L500.4050, L501.6710, L501.6750 #### [facility] [address] [place], [address] KNEE 4 OR MORE Observed: 04/11/2018 Status: F Source: [place] VIEWS 10:36 AM [facility] REPOSITORY [facility] Imaging Services [address] [facility] [place] [address] Knee 4 or More Views MR#: [id number] Acct: [id number] Name: JOSÉ ANTONIO MATIAS Rep #: [id number] : 1965 M 52 From: Sanchez Elliott MD PCP: Anai Hernandez DO Status: REG CLI Study: Knee 4 or More Views Date of Exam: 04/11/18 Exam# [id number] Ordering Dr: Anai Hernandez DO STUDY: X-RAY - LEFT KNEE REASON FOR EXAM: Male, 52 years old. Pain and swelling TECHNIQUE: 4 view(s) of the knee. COMPARISON: None. FINDINGS: There is intramedullary mottled sclerosis of the mid femoral shaft Normal visualized proximal tibia and fibula. Normal proximal tibiofibular articulation. Normal medial femorotibial compartment. Normal lateral femorotibial compartment. Normal patellofemoral articulation. There is an enthesophyte in the region of the quadriceps tendon insertion on the superior patella. The soft tissue structures are unremarkable. RAD/Knee 4 or More Views IMPRESSION: Mottled intramedullary sclerotic process of the mid femoral shaft consistent with enchondroma versus bone infarct. Small enthesophyte of the superior patella. There is no evidence of fracture, dislocation, significant degenerative disease, free intra-articular calcifications, or suprapatellar effusion. Electronically Signed: Sanchez Elliott MD at 18:20 EST , Service support , CC: Anai Hernandze DO Classer: Signed KNEE 4 OR MORE Observed: 04/11/2018 Status: F Source: [place] VIEWS 10:36 AM [facility] REPOSITORY [facility] Imaging Services [address] [place], [place] [address] [address] Knee 4 or More Views MR#: [id number] Acct: [id number] Name: JOSÉ ANTONIO MATIAS Rep #: [id number] : 1965 52 From: Sanchez Elliott MD PCP: Anai Hernandez DO Status: REG CLI Study: Knee 4 or More Views Date of Exam: 04/11/18 Exam# [id number] Ordering Dr: Anai Hernandez DO STUDY: X-RAY - RIGHT KNEE REASON FOR EXAM: Male, 52 years old. Pain TECHNIQUE: 4 view(s) of the knee. COMPARISON: None. FINDINGS: Normal visualized distal femur. Normal visualized proximal tibia and fibula. Normal proximal tibiofibular articulation. Normal medial femorotibial compartment. Normal lateral femorotibial compartment. Normal patellofemoral articulation. The soft tissue structures are unremarkable. RAD/Knee 4 or More Views IMPRESSION: Normal x-ray examination of the knee. Electronically Signed: Sanchez Elliott MD at 18:21 EST , Service support , CC: Anai Hernandez DO Classer: Signed CBC W/DIFF, AUTOMATED Collected: 04/03/2018 Status: F Source: SURJIT 8:08 AM [facility] REPOSITORY TYPE CODE TESTS RESULT OUT OF RANGE REFERENCE UNITS LAB L100.1000 4.4-11.0 K/mm3 Normal WBC 4.5 LAB L100.1200 4.6-6.2 M/mm3 Low RBC 4.50 LAB L100.1300 13.0-16.5 g/dl Normal HGB 13.9 LAB L100.1400 40-54 % Normal HCT 41.9 LAB L100.1500 80-94 fL Normal MCV 93.1 LAB L100.1600 27.0-32.0 pg Normal MCH 30.9 LAB L100.1700 32-36 g/gl Normal MCHC 33.2 LAB L100.1810 11.6-14.6 % Normal RDW CV 13.4 LAB L100.1820 35.1-43.9 fl High RDW SD 44.3 LAB L100.1900 150-450 K/mm3 Normal PLT 209 LAB L100.2000 6.2-12.0 fl Normal MPV 9.9 LAB L100.2100 47-70 % Low NEUT% 44.5 LAB L100.2200 19-41 % High LY% 41.8 LAB L100.2300 0-10 % Normal MONO% 9.0 LAB L100.2400 0-5 % Normal EO% 3.6 LAB L100.2500 0-1 % Normal BASO% 0.9 LAB L100.2550 0.0-0.9 % Normal IM GRAN % 0.200 Result Comment: IG% - Immature Granulocytes (promyelocytes, myelocytes and metamyelocytes) > 1% indicates that a LEFT SHIFT is Present. LAB L100.2620 2.0-7.7 X10 3/uL Normal Absolute Neut 2.0 LAB L100.2720 0.83-4.51 X10 3/ul Normal Absolute Lymph 1.86 Performed By: #### L100.0100 #### [facility] [address] [place], [place], [id number] URINALYSIS, COMPLETE Collected: 04/03/2018 Status: F Source: SURJIT 8:08 AM [facility] REPOSITORY Order Comment: How was Urine Obtained? CLEAN CATCH TYPE CODE TESTS RESULT OUT OF RANGE REFERENCE UNITS LAB L400.3000 Yellow COLOR Normal Yellow LAB L400.3050 Clear Normal CLARITY Clear LAB L400.3200 Normal mg/dl Normal GLUCOSE, UR Normal LAB L400.3300 Negative mg/dL Normal BILIRUBIN URINE Negative LAB L400.3400 Negative mg/dl Normal KETONE UR Negative LAB L400.3465 1.002-1.030 Normal SP.GR. DIPSTX 1.010 LAB L400.3550 5.0 - 8.0 pH UR Normal 6.5 LAB L400.3600 Negative mg/dl PROT Normal DIPSTX Negative LAB L400.3700 Normal mg/dl Normal UROBILI Normal LAB L400.3750 Negative Normal NITRITE UR Negative LAB L400.3780 Negative /ul High 25 OCCULT BLOOD-UR LAB L400.3800 Negative /ul LEUK Normal ESTERASE Negative LAB L400.4050 0-5 /hpf WBC 0 Normal SEEN LAB L400.4100 0-5 /hpf Normal RBC-UA 0-5 SEEN LAB L400.4150 0-5 /hpf SQUAM 0 Normal EPI SEEN LAB L400.4300 None Seen /hpf 0 Normal BACTERIA SEEN LAB L400.4350 <or=2+ /hpf 0 Normal MUCUS, URINE SEEN Performed By: #### L400.0001 #### [facility] [address] [facility] [place], [place], [id number] MICROALB:CREAT Collected: 04/03/2018 Status: F Source: SURJIT RATIO,RANDOM UR 8:08 AM [facility] REPOSITORY TYPE CODE TESTS RESULT OUT OF RANGE REFERENCE UNITS LAB L501.1200 NO RANGE EST. mg/dL Normal UR CREAT 71.30 LAB L502.0500 NO RANGE EST. mg/L Normal 6.3 MICROALBUMIN ,UR LAB L502.0600 <30 mg/g CRE mg/g CRE Normal 8.9 MALB:CREAT Performed By: #### L502.0250 #### [facility] [address] [place], [place], [id number] COMPREHENSIVE METABOLIC Collected: 04/03/2018 Status: F Source: SURJIT KRUEGER 8:08 AM [facility] REPOSITORY TYPE CODE TESTS RESULT OUT OF RANGE REFERENCE UNITS LAB L501.0100 74-106 mg/dL Normal GLU 93 Result Comment: Please note revised GLUCOSE reference range effective 2017. LAB L501.1000 7-18 mg/dL Normal BUN 10 LAB L501.1100 0.70-1.30 mg/dL Normal CREAT,SERUM 0.98 Result Comment: The validity of the calculated GFR AND GFRAA in patients over 70 years has not been determined. Clinical correlation is essential. LAB L501.1110 >60 mL/min Normal EST GFR 84 Result Comment: Non- GFR Calc LAB L501.1115 >60 mL/min Normal EST GFR - AA 102 Result Comment: GFR Calc LAB L501.1300 10-20 RATIO Normal BUN/CRE 10.2 LAB L501.1500 6.4-8.2 g/dL T Normal PROT 6.9 LAB L501.1800 3.2-5.0 g/dL Normal ALB 3.6 LAB L501.1950 2.2-4.2 g/dL Normal GLOB 3.3 LAB L501.2000 0.9-2.4 RATIO Normal A/G 1.1 LAB L501.2200 8.5-10.1 mg/dL CA Normal 8.5 LAB L501.4100 15-37 U/L Normal AST 20 LAB L501.4305 45-117 U/L Normal ALK P 72 LAB L501.4405 16-61 U/L Normal ALT 39 LAB L501.4600 0.20-1.00 mg/dL T Normal BILI 0.40 LAB L501.5300 136-145 mmol/L NA Normal 142 LAB L501.5600 3.5-5.1 mmol/L K Normal 4.4 LAB L501.5900 98-107 mmol/L High CL 108 LAB L501.6100 21.0-32.0 mmol/L Normal CO2 28.0 LAB L501.6200 5-15 Normal GAP 6 Performed By: #### L500.4050, L500.4100, L501.9520, L501.9910 #### [facility] [address] [place], [place], [id number] LIPID PROFILE Collected: 04/03/2018 Status: F Source: SURJIT 8:08 AM [facility] REPOSITORY TYPE CODE TESTS RESULT OUT OF RANGE REFERENCE UNITS LAB L501.4900 200 mg/dL Normal CHOL 141 Result Comment: <200 mg/dL Desirable 200-240 mg/dL Borderline >240 mg/dL High Risk LAB L501.5000 mg/dL Normal TRIG 178 Result Comment: The drugs N-Acetylcysteine and Metamizole may falsely depress this assay. Serum Triglycerides Reference Interval Normal <150 mg/dL Borderline high 150 - 199 mg/dL High 200 - 499 mg/dL Very High > or = 500 mg/dL LAB L501.6400 mg/dL Low HDL 34 Result Comment: The drugs N-Acetylcysteine and Metamizole may falsely depress this assay. Reference Range HDL <40 mg/dL Low HDL Cholesterol HDL >or= 60 mg/dL High HDL Cholesterol LAB L501.6500 0-130 mg/dL Normal LDL 71 LAB L501.6600 5-40 mg/dL Normal VLDL 36 Performed By: #### L500.4050, L500.4100, L501.9520, L501.9910 #### [facility] [address] [place], [place], [id number] THYROID STIM HORMONE Collected: 04/03/2018 Status: F Source: SURJIT (TSH) 8:08 AM [facility] REPOSITORY TYPE CODE TESTS RESULT OUT OF RANGE REFERENCE UNITS LAB L501.9520 0.358-3.74 uIU/mL Normal TSH 2.56 Performed By: #### L500.4050, L500.4100, L501.9520, L501.9910 #### [facility] [address] [place], [place], [address] PSA,TOTAL - ANNUAL Collected: 04/03/2018 Status: F Source: SURJIT SCREEN 8:08 AM [facility] REPOSITORY TYPE CODE TESTS RESULT OUT OF RANGE REFERENCE UNITS LAB L501.9910 0.00-4.00 ng/mL Normal PSA,TOT 0.20 SCREEN Result Comment: This test was performed using the TPSA assay method for the Scimetrika chemistry system. Values obtained with different assay methods cannot be used interchangably. When changing PSA assays in the course of monitoring a patient, additional sequential testing should be carried out to confirm baseline values. Performed By: #### L500.4050, L500.4100, L501.9520, L501.9910 #### [facility] [address] [place], [address] VITAMIN D,25 HYDROXY Collected: 04/03/2018 Status: F Source: [place] 8:08 AM [facility] REPOSITORY TYPE CODE TESTS RESULT OUT OF RANGE REFERENCE UNITS LAB L506.1000 29.95-100.01 ng/mL Normal Vitamin D 38.3 25-OH Result Comment: Vitamin D 25(OH) Status Range Deficiency <20 ng/mL (50nmol/L) Insuffciency 20 - 30 ng/mL (50 - 75 nmol/L) Sufficiency 30 - 100 ng/mL (75 - 250 nmol/L) Toxicity >100 ng/mL (>250 nmol/L) Performed By: #### L506.1000 #### [facility] [address] [facility] [place], [address] CBC W/DIFF, AUTOMATED Collected: 08/22/2017 Status: F Source: [place] 12:18 PM [facility] REPOSITORY TYPE CODE TESTS RESULT OUT OF RANGE REFERENCE UNITS LAB L100.1000 4.4-11.0 K/mm3 Normal WBC 5.5 LAB L100.1200 4.6-6.2 M/mm3 Normal RBC 4.74 LAB L100.1300 13.0-16.5 g/dl Normal HGB 14.7 LAB L100.1400 40-54 % Normal HCT 42.6 LAB L100.1500 80-94 fL Normal MCV 89.9 LAB L100.1600 27.0-32.0 pg Normal MCH 31.0 LAB L100.1700 32-36 g/gl Normal MCHC 34.5 LAB L100.1810 11.6-14.6 % Normal RDW CV 13.4 LAB L100.1820 35.1-43.9 fl High RDW SD 44.0 LAB L100.1900 150-450 K/mm3 Normal PLT 224 LAB L100.2000 6.2-12.0 fl Normal MPV 9.1 LAB L100.2100 47-70 % Normal NEUT% 57.5 LAB L100.2200 19-41 % Normal LY% 33.9 LAB L100.2300 0-10 % Normal MONO% 6.4 LAB L100.2400 0-5 % Normal EO% 1.8 LAB L100.2500 0-1 % Normal BASO% 0.4 LAB L100.2550 0.0-0.9 % Normal IM GRAN % 0.000 Result Comment: IG% - Immature Granulocytes (promyelocytes, myelocytes and metamyelocytes) > 1% indicates that a LEFT SHIFT is Present. LAB L100.2620 2.0-7.7 X10 3/uL Normal Absolute Neut 3.2 LAB L100.2720 0.83-4.51 X10 3/ul Normal Absolute Lymph 1.87 Performed By: #### L100.0100 #### [facility] [address] [place], [address] CBC W/DIFF, AUTOMATED Collected: 04/26/2017 Status: F Source: [place] 3:29 PM [facility] REPOSITORY TYPE CODE TESTS RESULT OUT OF RANGE REFERENCE UNITS LAB L100.1000 4.4-11.0 K/mm3 Low WBC 4.0 LAB L100.1200 4.6-6.2 M/mm3 Low RBC 4.58 LAB L100.1300 13.0-16.5 g/dl Normal HGB 13.9 LAB L100.1400 40-54 % Normal HCT 42.3 LAB L100.1500 80-94 fL Normal MCV 92.4 LAB L100.1600 27.0-32.0 pg Normal MCH 30.3 LAB L100.1700 32-36 g/gl Normal MCHC 32.9 LAB L100.1810 11.6-14.6 % Normal RDW CV 13.8 LAB L100.1820 35.1-43.9 fl High RDW SD 46.1 LAB L100.1900 150-450 K/mm3 Normal PLT 199 LAB L100.2000 6.2-12.0 fl Normal MPV 9.6 LAB L100.2100 47-70 % Low NEUT% 44.1 LAB L100.2200 19-41 % High LY% 42.1 LAB L100.2300 0-10 % High MONO% 10.2 LAB L100.2400 0-5 % Normal EO% 2.7 LAB L100.2500 0-1 % Normal BASO% 0.7 LAB L100.2550 0.0-0.9 % Normal IM GRAN % 0.200 Result Comment: IG% - Immature Granulocytes (promyelocytes, myelocytes and metamyelocytes) > 1% indicates that a LEFT SHIFT is Present. LAB L100.2620 2.0-7.7 X10 3/uL Low Absolute Neut 1.8 LAB L100.2720 0.83-4.51 X10 3/ul Normal Absolute Lymph 1.69 Performed By: #### L100.0100, L101.9900 #### [facility] [address] [place], [address] ERYTHROCYTE SED RATE Collected: 04/26/2017 Status: F Source: [place] 3:29 PM [facility] REPOSITORY TYPE CODE TESTS RESULT OUT OF RANGE REFERENCE UNITS LAB L102.0000 0-20 mm/hr Normal SED RATE 4 Performed By: #### L100.0100, L101.9900 #### [facility] [address] [place], [address] ALLERGIES ALLERGIES No Allergies Records FoundENCOUNTERS ENCOUNTERS ADMIT/DISCHARGE ACCOUNT ADMITTING ENCOUNTER LOCATION SOURCE NUMBER CLASS 04/18/2018 [id number] Ambulatory [place] Surjit 8 [facility] ing:LAB.FUTUR Repository E 04/16/2018 [id number] Ambulatory [place] Surjit 4 [facility] ing:LAB Repository 04/11/2018 [id number] Ambulatory Surjit [place] 3 [facility] ing:HPRAD Repository 04/11/2018 [id number] Ambulatory Building:[facility] [place] Practices Repository 04/03/2018 [id number] Ambulatory [place] Surjit 3 [facility] ing:LAB Repository 08/22/2017 [id number] Ambulatory Surjit [place] 7 [facility] ing:LAB Repository 04/26/2017 [id number] Ambulatory [place] Surjit 2 [facility] ing:LAB Repository PAYERS PAYERS ENCOUNTER GUARANTOR PAYER SUBSCRIBER SOURCE 04/18/2018 JOSÉ ANTONIO Eddy [id number] Insurance:CORESOURCEPo SCAIFEDOB: Community [place]: [id number] [id number] Repository [address]Sba: ([phone]) Date:7452-79-65LU [phone] () [address] [address]XU: 04/18/2018 Secondary NOT GIVENUNK Surjit Insurance:SELF PAY [facility] Number: Effective Repository Date:2018-04-18 04/16/2018 JOSÉ ANTONIO L Primary JOSÉ ANTONIO L Surjit [id number] Insurance:CORESOURCEPo SCAIFEDOB: [facility] [place] Number: [id number] [id number] Repository [address]Ios: ([phone]) Date:1940-61-95VT [phone] (HP) [address] [address]TZ: 04/16/2018 Secondary NOT GIVENUNK [place] Insurance:SELF PAY [facility] Number: Effective Repository Date:2018-04-15 04/11/2018 José Antonio L Primary José Antonio L [place] [id number] Insurance:CORESOURCEPo ScaifeDOB: [facility] [place]icy Number: [id number], [place] [id number] Repository [address]Csz: (330) Date:4590-07-65JV [phone] () [address] [address]IY: 04/11/2018 Secondary NOT GIVENUNK [place] Insurance:SELF PAY [facility] Number: Effective Repository Date:2018-04-11 04/11/2018 José Antonio L Primary Insurance:NGS José Antonio L OHIP Practices ScaifeDOB: NIGERIEN ScaifeDOB: Repository [id number] CORESOURCEPolicy [id number] [place] Number: [address] [place] [address] [id number] [place], [place] [address]Zvq: ([phone]) Date:1971-60-87Kaxt [address]Nxd: Name:[facility] [phone] (HP) (HP)Tel: [phone] CLAIMS [phone] (WP) DEPTMT. KASIE AGRAWAL [address]07[address]QQ: 04/11/2018 Secondary José Antonio L OHIP Practices Insurance:Medical ScaifeDOB: Repository [facility] [id number] Number: [address] [place] [id number] [place], [place] Date:2007-05-06 [address]Dvg: [phone] [id number] [phone] (HP) Name:[facility] [address]Dcdaofhcl, [place] [id number]: 04/03/2018 José Antonio L Primary José Antonio L [place] [id number] Insurance:CORESOURCEPo Sc[facility]DOB[facility] Number: [id number], [place] [id number] Repository [address]Xva: 330) Date:5600-49-74ZF [phone] () [address] [address]VA: 04/03/2018 Secondary NOT GIVENUNK Surjit Insurance:SELF PAY [facility] Number: Effective Repository Date:2018-04-03 08/22/2017 José Antonio L Primary José Antonio L Surjit [id number] Insurance:CORESOURCEPo ScaifeDOB: [facility] [place] [facility] Number: [id number], [place] [id number] Repository [address]Pnq: 330) Date:7782-41-61KS [phone] (HP) [address]. [address]IE AGRAWAL [address]PS: 08/22/2017 Secondary NOT GIVENUNK Surjit Insurance:SELF PAY [facility] Number: Effective Repository Date:2017-08-22 04/26/2017 José Antonio L Primary José Antonio L Surjit [id number] Insurance:CORESOURCEPo ScaifeDOB: [facility] Number: [id number] [place] [id number] Repository [address]Iwb: (330) Date:7728-93-50LC [phone] () [address]OZ. KASIE AGRAWAL [address]ER: 04/26/2017 Secondary NOT GIVENUNK Surjit Insurance:SELF PAY [facility] Effective Repository Date:2017-04-26
--- OUTSIDE RECORDS SUMMARY | 2018-05-29 07:53 | XMS RPT_ITS | Continuity of Care Document ---
:1965 Author Organization [facility] Address [address] [facility] [address] [place] [address] Phone Support Name Relationship Address Phone Marcus Matias Unavailable [address] [place] [address] Alton Matias Unavailable [address] [facility] [place] [address] Care Team Providers Name Role Phone Anai Hernandez DO Unavailable Dameon Mcgregor MD Unavailable Maegan Mathew MD Unavailable Dr. Jorje Hogan MD Unavailable Dr. Rashawn Foster Unavailable Mesfin Milligan MD Unavailable Alton Hurst DPM Unavailable Shira Llamas Unavailable Unavailable MATILDE Rouse Unavailable Unavailable Unavailable Unavailable Problems Name Dates Details Acute bronchitis due to other specified organisms (J20.8, 466.0) Status: Active Bilateral hearing loss, unspecified hearing loss type (H91.93, 389.9) Status: Active BMI 34.0-34.9,adult (Z68.34, V85.34) Status: Active BMI 35.0-35.9,adult (Z68.35, V85.35) Status: Active BPH without urinary obstruction (N40.0, 600.00) Comments: pt didnt want rx ( ithought would help with sleep) saw urology few yrs ago for blood in urine and /mar normal Status: Active Colon polyps (K63.5, 211.3) Comments: due 2018 Status: Active Common cold virus (J00, 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: Active Encounter for screening for malignant neoplasm of colon (Renamed from Special screening for malignant neoplasms, colon) (Z12.11, V76.51) Comments: last scope 2014/cristian 5yr repeat Status: Active Facial pressure (R68.89, 780.99) Status: Active family hx of bladder and thyroid cancer- check Tsh and ua cbc cmp Status: Active Hearing loss, unspecified laterality (389.9) Status: Active Hematuria (R31.9, 599.7) Status: Active 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, 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 Hypercholesterolemia (E78.00, 272.0) Comments: he might try statin qod Status: Active Impaired fasting glucose (R73.01, 790.21) Status: Active Leukopenia, unspecified type (D72.819, 288.50) Status: Active Nonsmoker (Z78.9, V49.89) Status: Active Other and unspecified hyperlipidemia (E78.5, 272.4) Comments: pt considered doing stating qod but didnt Status: Active Possible exposure to STD (Z20.2, [...] Status: Active Vitamin D deficiency (E55.9, 268.9) Status: Active Wheeze (R06.2, 786.07) Status: Active Medications Name Dates Details ASPIRIN LOW DOSE, 81MG (Oral Tablet) Active 1 tab qd (81 MG) CoQ10 Active MULTIVITAMIN (PO Tab) 1 tab qd for 0 days Refills: 0 Ordered:13-Sep-2009 Starr McmahonActive Omeprazole 20 MG Oral Tablet Delayed Release 1 (one) Capsule daily for 90 days Quantity: 90 {Capsule} Refills: 1 Ordered:11-Apr-2018 Flor Rouse LPN Start : 11-Apr-2018 Active ProAir HFA 108 (90 Base) MCG/ACT Inhalation Aerosol Solution 2 (two) Aerosol Soln puffs q 6hrs prn wheeze for 0 days Quantity: 1 {Inhaler} Refills: 0 Ordered:21-Jun-2017 Tashachaparro ANJELICAMarietta Start : 21-Jun-2017 Active Simvastatin 20 MG Oral Tablet 1 (one) Tablet qd duane for 0 days Quantity: 90 {Tablet} Refills: 1 Ordered:11-Apr-2018 Flor Rouse LPN Start : 11-Apr-2018 Active Vascepa 1 GM Oral Capsule 2 (two) Capsule Capsule pills twice a day for 90 days Quantity: 360 {Capsule} Refills: 1 Ordered:11-Apr-2018 Flor Rouse LPN Start : 11-Apr-2018 Active Acyclovir 400 MG [...] Quantity: 30 {Tablet} Refills: 0 Ordered:07-Sep-2013 Mani DO Teresita A Start : 07-Sep-2013 End : 07-Oct-2013 Inactive [...] (Z12.71, V76.45) Status: Inactive as of 12-Oct-2008 Heartburn (R12, 787.1) Status: Inactive as of 24-Apr-2017 Hematuria (R31.9, 599.70) Comments: benign -- work up by urology Status: Inactive as of 24-Apr-2017 Hemorrhoids, unspecified hemorrhoid type (K64.9, 455.6) Status: Inactive as of 24-Apr-2017 Low Back Pain (Renamed from Low back [...] Single View Result: Comments: See Note; NOTES: [facility] Imaging Services [address] [place] [address] Verdana 4d Abdomen Single View MR#: [id number] Acct: [id number] Name: MARCUS MATIAS Rep #: [id number] : 1965 M 49 From: Jimmy Negrete DO PCP: Teresita Singleton DO Status: REG CLI Study: Abdomen Single View Date of Exam: 04/21/15 Exam# [id number] Ordering Dr: Anahy Lo MD STUDY: X-RAY [...] 7:34 EST Te l , Service support [phone], RAD/Abdomen Single View IMPRESSION: No acute process. No definite renal calcifications. Electronically Signed: Jimmy Negrete DO at 7:34 EST Tel , Service support [phone], CC: Teresita Singleton DO; Obie Lo MD Coat Agent: Signed 21-Apr-2015 Kidney and Bladder Result: Comments: See Note; NOTES: [facility] Imaging Services [address] [place] [address] Verdana 4d Kidney and Bladder MR#: [id number] Acct: [id number] Name: Awa MATIAS Rep #: [id number] : 1965 M 49 From: Daniel Long MD PCP: Teresita Singleton DO Status: REG CLI Study: Kidney and Bladder Date of Exam: 04/21/15 Exam# [id number] Ordering Dr: Maegan Lo MD STUDY: RENAL [...] Daniel Long MD at 11:21 EST Tel [phone], Service support [phone], CC: Teresita Singleton DO; Obie Lo MD Coat Agent: Signed 13-Dec-2014 L/S Spine Min 4 Views Result: Comments: See Note; NOTES: [facility] Imaging Services [address] [place] [address] Radiology Report MR#: [id number] Acct: [id number] Name: MARCUS MATIAS Rep #: [id number] : 1965 M 49 From: Sai Wu DO PCP: Teresita Singleton DO Status: REG CLI Study: L/S Spine Min 4 Views Date of Exam: 12/13/14 Exam# [id number] Ordering Dr: Teresita Singleton DO STUDY: X-RAY [...] Sai Wu DO at 16:53 EDT Tel [phone], Service support [phone], RAD/L/S Spine Min 4 Views IMPRESSION: Minimal endplate spondylosis without other evidence of lumbar spine abnormality. Electronically Signed: Sai Wu DO at 16:53 EDT Tel [phone], Service support [phone], CC: Teresita Singleton DO Coat Agent: Signed 15-Sep-2013 Echocardiogram Complete Result: Comments: See Note; NOTES: [facility] Cardiovascular Services [address] [place] [address] Echo Complete 09/15/13 0754 MR#: [id number] Acct: [id number] Name: JESICA MATIAS Rep #: [id number] : 1965 47 From: Jorje Gomez MD Attending Dr: Teresita Singleton DO Status: REG CLI Ordering Dr: Teresita Singleton DO Date: 09/15/13 Location: [facility] Sex: M C Admitted: [facility] This was a 2D Doppler, Color [...] Physician: Teresita Singleton Performed By: Aggie Hathaway LATANYA : Teresita Singleton DO Date Dictated: 09/15/13 0754 Date Transcribed: 09/15/13 1712 Coat Agent: Signed 15-Sep-2013 Chest PA and Lateral Result: Comments: See Note; NOTES: [facility] Imaging Services [address] [place] [address] Radiology Report MR#: [id number] Acct: [id number] Name: MARCUS MATIAS Rep #: [id number] : 1965 M 47 From: Daniel Long MD PCP: Teresita Singleton DO Status: REG CLI Study: Chest PA and Lateral Date of Exam: 09/15/13 Exam# [id number] Ordering Dr: Teresita Singleton DO STUDY: X [...] Daniel Long MD at 13:17 EDT Tel [phone], Service support [phone], CC: Teresita Singleton DO Coat Agent: Signed 15-Sep-2013 Nuclear Stress Test - Treadmil Result: Comments: See Note; NOTES: [facility] Imaging Services [address] [place] [address] Nuclear Medicine Report MR#: [id number] Acct: [id number] Name: MARCUS MATIAS Rep #: [id number] : 1965 M 47 From: Jorje Gomez MD PCP: Teresita Singleton DO Status: REG CLI Study: Nuclear Stress Test - Treadmil Date of Exam: 09/15/13 Exam# [id number] Ordering Dr: Teresita Singleton DO EXERCISE TOLERANCE [...] LVEF of 69%. CC: Teresita Singleton DO Coat Agent: SOCO Signed 07-Sep-2013 Spirometry (09336) Result: 07-Sep-2013 EKG (66451) Result: [MEASUREMENTS ANALYSIS] Date of Test: 09/07/2013 10:09:59; Heart Rate: 75; SC Interval: 166; QRS: 89; QT Interval: 370; Corrected QT Interval (QTc): 396; P Wave Stanley: 24; QRS Wave Stanley: 13; T Wave Stanley: 19; Blood Pressure: 110/80 [ECG DIAGNOSTIC STATEMENTS] [...] kg/m2 Body Surface Area Calculated 2.07 m2 71-Yra-214645:43 Comments: I am nervous Temperature 97.8 f [...] Description Value Details :48 HgA1C , Office (98531) HgA1C , Office 5.6 % (Normal) Range: 4.6 - 7.1 :48 Blood Glucose , Office (78089) Blood Glucose , Office 105 (Normal) :08 CBC W/Diff, Automated Comments: [facility] [address] [place], [place], [id number] Absolute Lymph 1.86 {X10_3/ul} (Normal) Range: 0.83-4.51 [...] 4.6-6.2 WBC 4.5 K/mm3 (Normal) Range: 4.4-11.0 68-Tqq-37332:08 Comprehensive Metabolic Profil Comments: [facility] [address] [place], [place], [address] GAP 6 (Normal) Range: 5-15 CO2 28.0 [...] Please note revised GLUCOSE reference range /02/2018. 68-Vqs-33910:08 Lipid Profile Comments: [facility] [address] [facility] [place], [place], [address] VLDL 36 mg/dL (Normal) Range: 5-40 LDL [...] 200-240 mg/dL Borderline >240 mg/dL High Risk 17-Phv-09513:08 Microalb:Creat Ratio,Random UR Comments: [facility] [address] [place], [place], [address] MALB:CREAT 8.9 {mg/g_CRE} (Normal) MICROALBUMIN,UR 6.3 mg/L (Normal) UR CREAT 71.30 mg/dL (Normal) :08 PSA,Total - Annual Screen Comments: [facility] [address] [place], [address] PSA,TOT SCREEN 0.20 ng/mL (Normal) Range: 0.00-4.00 Comments: This test was performed using the TPSA assay method for theRABBL chemistry system. Values obtained with differentassay methods cannot be used interchangably.When changing PSA assays in the course of monitoring apatient, additional sequential testing should be carriedout to confirm baseline values. :08 Thyroid Stim Hormone (TSH) Comments: [facility] [address] [place], [address] TSH 2.56 {uIU/mL} (Normal) Range: 0.358-3.74 :08 Urinalysis, Complete Comments: How was Urine Obtained? [facility] [address] [place], [address] MUCUS, URINE 0 SEEN {/hpf} (Normal) [...] (Normal) CLARITY Clear (Normal) COLOR Yellow (Normal) 07-Nch-18178:08 Vitamin D,25 Hydroxy Comments: [facility] [address] [place], [address] Vitamin D 25-OH 38.3 ng/mL (Normal) Range: 29.95-100.01 Comments: Vitamin D 25(OH) Status Range Deficiency <20 ng/mL (50nmol/L) Insuffciency 20 - 30 ng/mL (50 - 75 nmol/L) Sufficiency 30 - 100 ng/mL (75 - 250 nmol/L) Toxicity >100 ng/mL (>250 nmol/L) :56 HgA1C , Office (68633) HgA1C , Office 5.6 % (Normal) Range: 4.6 - 7.1 :55 Blood Glucose , Office (66668) Blood Glucose , Office 97 (Normal) :18 CBC W/Diff, Automated Comments: [facility] [address] [place], [address] ; ov 4/20 Absolute Lymph 1.87 {X10_3/ul} [...] 4.6-6.2 WBC 5.5 K/mm3 (Normal) Range: 4.4-11.0 04-Vhk-136545:29 CBC W/Diff, Automated Comments: [facility] [address] [place], [place], [phone] Absolute Lymph 1.69 {X10_3/ul} (Normal) Range: 0.83-4.51 [...] 4.6-6.2 WBC 4.0 K/mm3 (Abnormal) Range: 4.4-11.0 59-Pma-462393:29 Erythrocyte Sed Rate Comments: [facility] [address] [place], [place], [phone] SED RATE 4 mm/h (Normal) Range: 0-20 :53 HgA1C , Office (22163) HgA1C , Office 5.6 % (Normal) Range: 4.6 - 7.1 :53 Blood Glucose , Office (24469) Blood Glucose , Office 100 (Normal) :25 CBC W/Diff, Automated Comments: [facility] [address] [place], [address] Absolute Lymph 1.62 {X10_3/ul} (Normal) Range: 0.83-4.51 [...] Range: 4.4-11.0 :25 Comprehensive Metabolic Profil Comments: [facility] [address] [place], [place], [address] GAP 7 (Normal) Range: 5-15 CO2 25.0 [...] 7-18 GLU 99 mg/dL (Normal) Range: 70-110 37-Ipy-02589:25 Lipid Profile Comments: [facility] [address] [place], [place], [address] VLDL 27 mg/dL (Normal) Range: 5-40 LDL [...] High Risk :25 Microalb:Creat Ratio,Random UR Comments: [facility] [address] [place], [place], [address] MALB:CREAT 13.5 {mg/g_CRE} (Normal) MICROALBUMIN,UR 12.4 mg/L (Normal) UR CREAT 92.00 mg/dL (Normal) :25 Thyroid Stim Hormone (TSH) Comments: [facility] [address] [place], [place], [address] TSH 2.01 {uIU/mL} (Normal) Range: 0.358-3.74 :25 Vitamin D,25 Hydroxy Comments: [facility] [address] [place], [place], [address] Vitamin D 25-OH 26.3 ng/mL (Normal) Comments: Vitamin D 25(OH) Status Range Deficiency <20 ng/mL (50nmol/L) Insuffciency 20 - 30 ng/mL (50 - 75 nmol/L) Sufficiency 30 - 100 ng/mL (75 - 250 nmol/L) Toxicity >100 ng/mL (>250 nmol/L) 22-Bmf-222177:50 Rapid Flu (56491 x 2) Comments: Negative Influenza A Ag Negative (Normal) :53 HgA1C , Office (61928) HgA1C , Office 5.5 % (Normal) Range: 4.6 - 7.1 :53 Blood Glucose , Office (76818) Blood Glucose , Office 85 (Normal) 8-Abh-057110:23 Microscopic Examination Comments: PATIENT WAS FASTINGPERFORMED BY: [facility] Qiqagj0238 [facility] [place] [id number] Bacteria None seen (Normal) Mucus Threads Present (Normal) Epithelial Cells (non renal) None seen {/hpf} (Normal) Range: 0 - 10 RBC None seen {/hpf} (Normal) Range: 0 - 2 WBC 0-5 {/hpf} (Normal) Range: 0 - 5 3-Mli-880776:23 CALCIFIDIOL (62672) VIT D 25 Comments: PATIENT WAS FASTINGPERFORMED BY: SVTC [facility]Re[facility] [address] [facility] [id number] Vitamin D, 25-Hydroxy 29.6 ng/mL (Abnormal) Range: 30.0-100.0 Comments: Vitamin D deficiency has been defined by the [place] [employer] and an Endocrine Society practice guideline as alevel of serum 25-OH vitamin D less than 20 ng/mL (1,2).The Endocrine Society went on to further define vitamin Dinsufficiency as a level between 21 and 29 ng/mL (2).1. IOM ([place] [employer]). 2010. Dietary reference intakes for calcium and D. [place]: The National Academies Press.2. Darcie MF, Chris NC, Nancy WAN, et al. Evaluation, treatment, and prevention of vitamin D deficiency: an Endocrine Society clinical practice guideline. JCEM. 2010; 96(7):1911-30. 4-Ivo-362823:23 TSH (67660) Comments: PATIENT WAS FASTINGPERFORMED BY: [facility] [address]cifda[address] [facility] [id number] TSH 2.180 {uIU/mL} (Normal) Range: 0.450-4.500 0-Unv-999261:23 URINALYSIS, W/ MICRO (23310) Comments: PATIENT WAS FASTINGPERFORMED BY: [facility]Re[facility] [address]xm[address] [facility] [id number] Microscopic Examination See below: (Normal) Comments: Microscopic was indicated and was performed. Nitrite, Urine Negative (Normal) Urobilinogen,Semi-Qn 0.2 mg/dL (Normal) Range: 0.2-1.0 Bilirubin Negative (Normal) Occult Blood Trace (Abnormal) Ketones Negative (Normal) Glucose Negative (Normal) Protein Negative (Normal) WBC Esterase Negative (Normal) Appearance Clear (Normal) Urine-Color Yellow (Normal) pH 6.5 (Normal) Range: 5.0-7.5 Specific [place] 1.016 (Normal) Range: 1.005-1.030 :23 MICROALBUMIN: CREATININE RATIO Comments: PATIENT WAS FASTINGPERFORMED BY: [employer] Uattgq7764 [facility] [id number] (43996) AND (24792) Microalb/Creat Ratio <3.1 {mg/g_creat} (Normal) Range: 0.0-30.0 Microalbumin, Urine <3.0 ug/mL (Normal) Creatinine, Urine 96.8 mg/dL (Normal) :23 METABOLIC PANEL, COMPREHENSIVE Comments: PATIENT WAS FASTINGPERFORMED BY: Incentient6370 [facility] [id number] (36860) ALT (SGPT) 27 [iU]/L (Normal) Range: 0-44 [...] Glucose, Serum 82 mg/dL (Normal) Range: 65-99 :23 LIPID PANEL (32803) Comments: PATIENT WAS FASTINGPERFORMED BY: Incentient6370 [facility] [id number] LDL/HDL Ratio 2.3 {ratio_units} (Normal) Range: 0.0-3.6 Comments: LDL/HDL Ratio Men Women 1/2 Avg.Risk 1.0 1.5 Av g.Risk 3.6 3.2 2X Avg.Risk 6.2 5.0 3X Avg.Risk 8.0 6.1 LDL Cholesterol Calc 84 mg/dL (Normal) Range: 0-99 VLDL Cholesterol Nader 24 mg/dL (Normal) Range: 5-40 HDL Cholesterol 37 mg/dL (Abnormal) Triglycerides 118 mg/dL (Normal) Range: 0-149 Cholesterol, Total 145 mg/dL (Normal) Range: 100-199 5-Djj-234667:23 CBC W/AUTO DIFF WBC (81855) Comments: PATIENT WAS FASTINGPERFORMED BY: TopLog6370 [facility] [id number] Immature Grans (Abs) 0.0 {x10E3/uL} (Normal) Range: [...] (Normal) Range: 3.4-10.8 :09 HgA1C , Office (63657) HgA1C , Office 5.4 % (Normal) Range: 4.6 - 7.1 :29 CBC W/Diff, Automated Comments: [facility] [address] [place], [address] Absolute Lymph 1.84 {X10_3/ul} (Normal) Range: 0.83-4.51 [...] Range: 4.4-11.0 10-Apr-20168:29 Comprehensive Metabolic Profil Comments: [facility] [address] [place], [address] GAP 5 (Normal) Range: 5-15 CO2 29.0 [...] (Normal) Range: 70-110 :29 Lipid Profile Comments: [facility] [address] [place], [place], [address] VLDL 29 mg/dL (Normal) Range: 5-40 LDL [...] High Risk :29 Microalb:Creat Ratio,Random UR Comments: [facility] [address] [place], [address] MALB:CREAT 7.5 {mg/g_CRE} (Normal) MICROALBUMIN,UR 8.2 mg/L (Normal) UR CREAT 109.00 mg/dL (Normal) 57-Dvu-15625:00 Cytology, Body Fluid / CSF Comments: Specimen Source: [facility] [address] [place], [address] CYTOLOGY,BF/CSF SEE PATHOLOGY REPORT (Normal) Comments: Spec[facility]. 85-Bqp-11256:00 Urinalysis, Complete Comments: How was Urine Obtained? [facility] [address] [place], [address] MUCUS, URINE 1+ {/hpf} (Normal) [...] (Normal) CLARITY Clear (Normal) COLOR Yellow (Normal) 99-Scm-47611:00 CYTOSPIN ON FLUID See Note (Normal) Comments: [facility] [address] [place], [address] Comments: Patient: MARCUS MATIAS : 1965 (50/M) Acct Num: [id number] Phys: Rolando CHADWICK,Philip Unit Num: [id number] Loc: LABSPEC Specimen: [id number] Received: 11/01/151427 Spec Type: CYSPIN FL TISSUES TISSUES: CYTOLOGY GROSS Received is 70 ml of gold cloudy fluid labeled with the patient's name and and designated per the requisition as urine. Submit joselin for cytology preparation. 11/01/15 TC:5 CPT:08728 CYTOLOGY STUDY Slides are reviewed. DIAGNOSIS CYTOLOGY Urine for cytology (cytospins): Negative for malignant cells. AM:rg 11/02/15 HEADER OPERATION: Not noted PRE-OP DIAGNOSIS: Hematuria TISSUE SUBMITTED: Urine for cytology Signed Srinivasa [facility] 11/02/15 <sig nature on file> :05 HgA1C , Office (43793) HgA1C , Office 5.5 % (Normal) Range: 4.6 - 7.1 :05 CBC W/Diff, Automated Comments: [facility] [address] [place], [address] Absolute Lymph 1.54 {X10_3/ul} (Normal) [...] 4.6-6.2 WBC 4.0 K/mm3 (Abnormal) Range: 4.4-11.0 82-Jtb-68217:05 Comprehensive Metabolic Profil Comments: [facility] [address], [place], [address] GAP 8 (Normal) Range: 5-15 CO2 24.0 [...] 7-18 GLU 104 mg/dL (Normal) Range: 70-110 05-Axa-82661:05 Lipid Profile Comments: [facility] [address] [place], [address] ; sent message he needs [...] Risk :05 PSA,Total - Annual Screen Comments: [facility] [address] [place], [address] PSA,TOT SCREEN 0.24 ng/mL (Normal) Range: 0.00-4.00 Comments: This test was performed using the TPSA assay method for [employer] chemistry system. Values obtained with differentassay methods cannot be used interchangably.When changing PSA assays in the course of monitoring apatient, additional sequential testing should be carriedout to confirm baseline values. 09-Rew-174972:50 Cytology, Body Fluid / CSF Comments: [facility] [address]ylwu[address] [facility] [place], [address] CYTOLOGY,BF/CSF SEE PATHOLOGY REPORT (Normal) Comments: Specimen submitted to Anatomical Path[facility]. 15-Vla-845935:50 Urinalysis, Complete Comments: How was Urine Obtained? [facility], [facility] [address] [place], [address] MUCUS, URINE 0 SEEN {/hpf} [...] (Normal) CLARITY Clear (Normal) COLOR Yellow (Normal) 54-Sji-22889:00 CYTOSPIN ON FLUID See Note (Normal) Comments: [facility] [address] [facility] [place], [address] Comments: Patient: MARCUS MATIAS : 1965 (49/M) Acct Num: [id number] Phys: Rolando CHADWICK,Obie Cuevas Unit Num: [id number] Loc: LABSPEC Specimen: [id number] Received: 04/26/151422 Spec Type: CYSPIN FL TISSUES TISSUES: CULTURE RESULTS No results available. CYTOLOGY GROSS Received is 60 ml of yellow gold hazy fluid labeled with the patient's name and and d esignated per the requisition as urine. Submitted for cytology preparation. / 04/26/15 TC:5 CPT: 00574 CYTOLOGY STUDY Slides are reviewed. DIAGNOSIS CYTOLOGY Urine for cytology (cyto spin): Negative for malignant cells. AM: 04/27/15 HEADER OPERATION: Not noted PRE-OP DIAGNOSIS: Hematuria TISSUE SUBMITTED: Urine cytology Signed Srinivasa Neil 04/27/15 <signature on file> :42 Blood Glucose , Office (57794) Blood Glucose , Office 94 (Normal) :34 HgA1C , Office (50862) HgA1C , Office 5.6 % (Normal) Range: 4.6 - 7.1 :57 Comprehensive Metabolic Profil Comments: Test performed at:[facility] [address] [place] [address] GAP 5 (Normal) Range: 5-15 CO2 28.0 [...] Comments: Please note revised CREATININE reference range oojctlttl65/22/2015. BUN 14 mg/dL (Normal) Range: 7-18 GLU 96 mg/dL (Normal) Range: 70-110 :57 Lipid Profile Comments: Test performed at:[facility] [address] [place] [address] ; has fu 8-10 VLDL [...] :57 Microalb:Creat Ratio,Random UR Comments: Test performed at:[facility] [address] [place] [address] MALB:CREAT 5.0 {mg/g_CRE} (Normal) MICROALBUMIN,UR 8.1 mg/L (Normal) UR CREAT 152.00 mg/dL (Normal) :57 Urinalysis, Complete Comments: How was Urine Obtained? CLEAN CATCHTest performed at:[facility] [address] [place] [address] ; non-emergent till apt MUCUS, [...] Patient: MARCUS MATIAS : 1965 (48/M)Acct Num: [id number] Phys: CristianRashawnEdmond Num: [id number] Loc: LABSPECSpecimen: [id number] Received: 02/15/14 - 1611Spec Type: COLON BXTIS 0 SUESTISSUES:GROSS DESCRIPTIONReceived is one container labeled with the patient name and designated rightcolon polyp biopsy. The specimen consists of multiple irregular fragments oflight narayan soft tis ronald that in aggregate measure 0.7 x 0.5 x 0.1 cm. Thespecimen is totally submitted in one cassette. / MADELAINE:tana 02/16/14 TC:1CPT: 58700QMKBSSMRTPYRPQR: ColonoscopyPRE-OPERATIVE DIAGNOSIS: Screening / po lypTISSUE SUBMITTED: Polyp biopsy right colon, rule out adenomaMICROSCOPIC DIAGNOSISPolyp, right colon, biopsy:Fragments of hyperplastic polyp.MADELAINE:tana 02/17/14Signed Alex Martins 02/17/14<signature on file> :26 HgA1C , Office (60677) HgA1C , Office 5.7 % (Normal) Range: [...] CHOL 160 mg/dL (Normal) Comments: <200 mg/dL Qhlvfsjzx488-905 mg/dL Borderline>240 mg/dL High Risk 48-Sdw-451658:04 Ct, Ng, Trich vag by Comments: PATIENT NOT FASTINGPERFORMED BY: CB [facility] [address] [facility] [id number] BY: [address] [id number] CYNDI Chlamydia by CYNDI Negative (Normal) Gonococcus by CYNDI Negative (Normal) Trich vag by CYNDI Negative (Normal) :04 Hepatitis Panel (4) Comments: PATIENT NOT FASTINGPERFORMED BY: [address] [id number] BY: [address] [id number] Inf ormation: SRC:UR URINE Hep B Core Ab, IgM Negative (Normal) Hep C Virus Ab <0.1 {s/co_ratio} (Normal) Range: 0.0-0.9 Comments: Negative: < 0.8 Indeterminate 0.8 - 0.9 Positive: > 0.9 . In order to reduce the incidence of a false positive result, the [facility] recommends that all s/co ratios between 1.0 and 10.9 be confirmed by a more specific supplemental or PCR testing. [facility] offers HCV Ab w/Reflex to Verification test #[id number]. HBsAg Screen Negative (Normal) Hep A Ab, IgM Negative (Normal) :04 HSV 1 and 2 IgM Abs, Comments: PATIENT NOT FASTINGPERFORMED BY: [address] [id number] BY: [address] [id number] Indirect HSV 1 IgM Antibodies <1:10 {titer} [...] 2-Specific Ab, Comments: PATIENT NOT FASTINGPERFORMED BY: [employer] [place] [id number] BY: [employer] [id number] IgG HSV 1 IgG, Type Spec 55.70 [...] date. Positive indicates antibodies detected to HSV-2. 02-Xtm-675580:04 [facility] [id number] Comments: PATIENT NOT FASTINGPERFORMED BY: [employer] [id number] BY: [employer] [id number] HIV 1/O/2 Abs, Non Reactive Qual (Normal) HIV 1/O/2 <1.00 (Normal) Comments: Index Value: Specimen reactivity relative to the negative cutoff. Abs-Index Value : RPR Non Reactive Comments: PATIENT NOT FASTINGPERFORMED BY: [facility] SolutionsEs[facility] HospitalQgpsnx5[facility] [id number] BY: [employer] [id number] 04 (Normal) 34-Bmj-343691:01 CBCD ANC 3.2 {X10_3/uL} (Normal) Range: 2.0-7.7 [...] 4.6-6.2 WBC 5.1 K/mm3 (Normal) Range: 4.4-11.0 46-Toc-215804:01 CMP Comments: will review at 09/25/13 appt [...] 0.8-1.3 GLU 91 mg/dL (Normal) Range: 70-110 91-Ipe-310992:01 LIPID HDL 31 mg/dL (Abnormal) Comments: Reference [...] CHOL 167 mg/dL (Normal) Comments: <200 mg/dL Athxisinn375-710 mg/dL Borderline>240 mg/dL High Risk 71-Gds-887272:38 MIACRE Comments: PLEASE ADD URINE FROM YESTERDAY 09/15/13 MIALB < 5.0 mg/L (Normal) tMICROCREAT Test not performed {mg/g_CRE} (Normal) CREU 65.8 mg/dL (Normal) : PSA 0.26 ng/mL (Normal) Range: 0.00-4.00 Comments: This test was performed using the TPSA assay method for theRABBL chemistry system. Values obtained with differentassay methods [...] children havebeen associated with numerous adverse health effects.[facility] Guidelines: Blood lead level s in therange 5-9 ug/dL have been associated with adversehealth effects in children aged 6 years and younger..Environmental Exposure:WHO Recommendation <20Occupational Exposure:OSHA Lead Std 40.Detection Limit = 1Performed at: [facility] [id number] Director: Tank Cummings PhD, Phone: [phone] :54 MIACRE tMICROCREAT 4.8 {mg/g_CRE} (Normal) MIALB [...] CHOL 154 mg/dL (Normal) Comments: <200 mg/dL Jxruawryr113-183 mg/dL Borderline>240 mg/dL High Risk :57 PSA [...] (Normal) UCLAR CLEAR (Normal) UCOL YELLOW (Normal) 05-Gcr-574658:11 CHEST, PA AND LATERAL Radiology Report See [...] 1612 by BETZY VALLEJO MD BTranscribed on 04/04/111412 by ITS IMPORTSign by BETZY VALLEJO MD on 04/04/11 141 Sign by : BETZY VALLEJO MD; ADDENDA: [...] NEGATIVE CLARITY CLEAR (Normal) COLOR YELLOW (Normal) :06 COMPLETE UA BACTERIA 0 SEEN {/hpf} (Normal) [...] NEGATIVE CLARITY CLEAR (Normal) COLOR YELLOW (Normal) 47-Kta-502463:28 LIVER ALT 29 U/L (Normal) Range: 12-78 [...] CHOL 160 mg/dL (Normal) Comments: <200 mg/dL Kezunnarv861-842 mg/dL Borderline>240 mg/dL High Risk :27 LIVER [...] (Normal) Range: 6.4-8.2 :33 URINALYSIS W/O MICRO (77892) UA - APPEARANCE clear (Normal) UA - [...] T PROT 7.3 g/dL (Normal) Range: 6.4-8.2 5-Fqc-243341:51 Urinalysis, Office (86013) UA - BILIRUBIN Negative (Normal) UA - [...] Report See Note (Normal) Comments: Exam Number: [id number] CT SCAN OF ABDOMEN AND PELVIS HISTORYHematuria. [...] Report See Note (Normal) Comments: Exam Number: [id number] CT SCAN OF ABDOMEN AND PELVIS HISTORYHematuria. [...] is identified. Reported By: SHAI WHYTE M.D. 91-Sjx-645931:23 DAGOBERTO-D [id number] DAGOBERTO-DIRECT 19 AU/mL (Normal) Range: 0-99 Comments: [...] was performed using the TPSA method for theRABBL chemistry system.Values obtained with different assay methods cannot be usedinterchangably.When changing PSA assays in the course of monito ring apatient, additional sequential testing should be carriedout to confirm baseline values. :23 RA LATEX 6502 6.7 {IU/mL} (Normal) Range: 0.0-13.9 Comments: Performed At: [facility], [place] [id number] :23 ROUTINE UA BILIRUBIN URINE SeeNote (Normal) [...] Plan of Care Name Dates Details Instructions Encounter for screening for malignant neoplasm of [...] Indication: Impaired fasting glucose Hematuria : Reviewed Castings Trimmer Letter Indication: Hematuria Impaired fasting glucose : *Diabetes Education Indication: Impaired fasting glucose Hypercholesterolemia : Cholesterol mgmt Indication: Hypercholesterolemia Common cold virus : Follow up if no improvement or if symptoms worsen Indication: Common cold virus Common cold virus : Common Cold *: cold Indication: Common cold virus Hematuria : Reviewed Castings Trimmer Letter Indication: Hematuria Impaired fasting glucose : [...] : Follow up in 10 days with [facility] Indication: Possible exposure to STD Impaired fasting [...] for prostate cancer On: :24 Request CALCIFIDIOL (96837) VIT D 25Indication: Vitamin D deficiency On: :17 Request TSH ([id number])Indication: Impaired fasting glucose On: :17 Request URINALYSIS, W/ MICRO (07330)Indication: Impaired fasting glucose On: :17 Request MICROALBUMIN: CREATININE RATIO (42373) AND (38823)Indication: Impaired fasting glucose On: :17 Request METABOLIC PANEL, COMPREHENSIVE (40214)Indication: Impaired fasting glucose On: :17 Request LIPID PANEL (99429)Indication: Impaired fasting glucose On: :17 Request CBC W/AUTO DIFF WBC (66978)Indication: Impaired fasting glucose On: :17 Request CBC, PLATELETS & MANUAL DIFF (34361)Indication: Leukopenia, unspecified type On: 83-Lnj-410500:39 Request CBC WITH MANUAL DIFF (24809)Indication: Leukopenia, unspecified type On: 51-Tis-302905:00 Request Comments: also have pathology look at for peripheral smear Sed Rate Erythrocyte (55888)Indication: Leukopenia, unspecified type On: :59 Request TSH (66181)Indication: Impaired fasting glucose On: : Request MICROALBUMIN: CREATININE RATIO (59743) AND (62498)Indication: Impaired fasting glucose On: : Request METABOLIC PANEL, COMPREHENSIVE (08368)Indication: Impaired fasting glucose On: : Request LIPID PANEL (83327)Indication: Impaired fasting glucose On: : Request CBC W/AUTO DIFF WBC (84827)Indication: Impaired fasting glucose On: : Request CALCIFIDIOL (65596) VIT D 25Indication: Vitamin D deficiency On: : Request CBC WITH MANUAL DIFF (32087)Indication: Abnormal laboratory test On: 9-Ioc-458440:27 Request Comments: do in 1 mo CBC W/AUTO DIFF WBC (83010)Indication: Impaired fasting glucose On: :22 Request MICROALBUMIN: CREATININE RATIO (94689) AND (65942)Indication: Impaired fasting glucose On: :22 Request METABOLIC PANEL, COMPREHENSIVE (03622)Indication: Hypercholesterolemia On: 08-Pjz-281232:06 Request LIPID PANEL (21173)Indication: Hypercholesterolemia On: 70-Byh-061102:05 Request LIPID PANEL (23877)Indication: Other and unspecified hyperlipidemia On: :23 Request CBC with auto diff (57149)Indication: Impaired fasting glucose On: :11 Request METABOLIC PANEL, COMPREHENSIVE (15937)Indication: Impaired fasting glucose On: 04-Nfq-649070:11 Request Hemoglobin Glyclated (HGB A1C) (35330)Indication: Impaired fasting glucose On: :11 Request PSA (PROSTATE SPECIFIC ANTIGEN) (V76.44)Indication: Screening for prostate cancer On: : Request URINALYSIS, W/ MICRO (98395)Indication: Hematuria On: 11-Sxw-305400:17 Request MICROALBUMIN: CREATININE RATIO (91333) AND (72939)Indication: Impaired fasting glucose On: 78-Pcg-873840:17 Request METABOLIC PANEL, COMPREHENSIVE (50048)Indication: Impaired fasting glucose On: 73-Ugf-168378:17 Request LIPID PANEL (81850)Indication: Hypercholesterolemia On: :17 Request RPR (RAPID PLASMA REAGIN) (57415)Indication: Unspecified Diagnosis On: 57-Kqs-761129:03 Request HIV ANTIGEN (62776)Indication: Possible exposure to STD On: :59 Request HIV-2 ANTIBODY (78170)Indication: Possible exposure to STD On: :[address],NG,TV (Chlamydia, Gonorrhea, Trichomonas) (07227)Indication: Possible exposure to STD On: :56 Request Herpes Simplex I Ag, Direct Fluorescent Ab (45912)Indication: Possible exposure to STD On: :55 Request Herpes Simplex (HSV) II Ab (84217)Indication: Possible exposure to STD On: :54 Request HEPATITIS PANEL (38722)Indication: Possible exposure to STD On: 95-Fso-585761:54 Request LIPID PANEL (04933)Indication: Other and unspecified hyperlipidemia On: 27-Hla-507006:44 Request METABOLIC PANEL, COMPREHENSIVE (81127)Indication: Impaired fasting glucose On: 47-Vux-508100:44 Request PSA (PROSTATE SPECIFIC ANTIGEN) (V76.44)Indication: Screening for prostate cancer On: :55 Request TSH (34608)Indication: Chest pain On: :55 Request MICROALBUMIN: CREATININE RATIO (38412) AND (25365)Indication: Impaired fasting glucose On: :55 Request URINALYSIS, W/ MICRO (94512)Indication: Impaired fasting glucose On: :55 Request CBC WITH MANUAL DIFF (90657)Indication: Impaired fasting glucose On: :55 Request METABOLIC PANEL, COMPREHENSIVE (88104)Indication: Impaired fasting glucose On: :55 Request LIPID PANEL (68217)Indication: Other and unspecified hyperlipidemia On: :55 Request CBC WITH MANUAL DIFF (36978)Indication: Impaired fasting glucose On: Request METABOLIC PANEL, COMPREHENSIVE (01921)Indication: Impaired fasting glucose On: : Request HEPATIC FUNCTION PANEL (15346)Indication: Other and unspecified hyperlipidemia On: Request LIPID PANEL (91569)Indication: Other and unspecified hyperlipidemia On: : Request LEAD (35619)Indication: Paresthesia On: Request MICROALBUMIN: CREATININE RATIO (90486) AND (73725)Indication: Impaired fasting glucose On: Request CBC WITH MANUAL DIFF (43150)Indication: Paresthesia On: Request VITAMIN B-12 (CYANOCOBALAMIN) (24098)Indication: Paresthesia On: Request TSH (21433)Indication: Sleep Disorder On: Request LEAD (01022)Indication: Paresthesia On: : Request VITAMIN B-12 (CYANOCOBALAMIN) (71489)Indication: Paresthesia On: : Request LIPID PANEL (23793)Indication: Other and unspecified hyperlipidemia On: : Request PSA (PROSTATE SPECIFIC ANTIGEN) (V76.44)Indication: BPH without urinary obstruction On: : Request TSH (69090)Indication: Paresthesia On: : Request MICROALBUMIN: CREATININE RATIO (66390) AND (68676)Indication: Impaired fasting glucose On: : Request CBC WITH MANUAL DIFF (13535)Indication: Paresthesia On: : Request METABOLIC PANEL, COMPREHENSIVE (63580)Indication: Paresthesia On: : Request Hemoglobin Glyclated (HGB A1C) (99894)Indication: Impaired fasting glucose On: : Request PSA (PROSTATE SPECIFIC ANTIGEN) (V76.44)Indication: BPH without urinary obstruction On: : Request METABOLIC PANEL, COMPREHENSIVE (81308)Indication: Impaired fasting glucose On: : Request LIPID PANEL (43321)Indication: Other and unspecified hyperlipidemia On: 12-Gkb-208699:04 Request HgA1C , Office (34981)Indication: Impaired fasting glucose On: :20 Request CBC WITH MANUAL DIFF (90894)Indication: Impaired fasting glucose On: :14 Request METABOLIC PANEL, COMPREHENSIVE (91577)Indication: Impaired fasting glucose On: :14 Request MICROALBUMIN: CREATININE RATIO (66763) AND (46288)Indication: Impaired fasting glucose On: :14 Request LIPID PANEL (09538)Indication: Other and unspecified hyperlipidemia On: :13 Request HgA1C , Office (32165)Indication: Impaired fasting glucose On: :05 Request CBC WITH MANUAL DIFF (51943)Indication: Anemia, unspecified On: : Request IRON BINDING CAPACITY (TIBC) (91400)Indication: Anemia, unspecified On: : Request IRON (92746)Indication: Anemia, unspecified On: : Request FERRITIN (32854)Indication: Anemia, unspecified On: :21 Request CBC WITH MANUAL DIFF (58213)Indication: Elevated blood pressure (not hypertension) On: :20 Request METABOLIC PANEL, COMPREHENSIVE (05319)Indication: Elevated blood pressure (not hypertension) On: :20 Request URINALYSIS, W/ MICRO (08733)Indication: Hematuria On: :20 Request Lipid Panel (04486)Indication: Hypercholesterolemia On: : Request PSA (Prostate Specific Antigen), Screening (73310)Indication: Elevated blood pressure (not hypertension) On: : Request CBC with manual diff (49779)Indication: Elevated blood pressure (not hypertension) On: : Request Metabolic Panel, Comprehensive (44005)Indication: Elevated blood pressure (not hypertension) On: : Request URINALYSIS (96417)Indication: Elevated blood pressure (not hypertension) On: : Request URINALYSIS, W/ MICRO (73212)Indication: Hematuria On: 96-Rvc-422945:32 Request HEPATIC FUNCTION PANEL (90464)Indication: Hypercholesterolemia On: :20 Request METABOLIC PANEL, COMPREHENSIVE (18471)Indication: Elevated blood pressure (not hypertension) On: :25 Request URINALYSIS, W/ MICRO (62046)Indication: Elevated blood pressure (not hypertension) On: :24 Request HEPATIC FUNCTION PANEL (75168)Indication: Other and unspecified hyperlipidemia On: :24 Request LIPID PANEL (12929)Indication: Other and unspecified hyperlipidemia On: :24 Request PSA (PROSTATE SPECIFIC ANTIGEN) (V76.44)Indication: Hematuria On: :12 Request HEPATIC FUNCTION PANEL (28735)Indication: Other and unspecified hyperlipidemia On: :11 Request LIPID PANEL (14614)Indication: Other and unspecified hyperlipidemia On: :11 Request HEPATIC FUNCTION PANEL (31025)Indication: Other and unspecified hyperlipidemia On: :33 Request LIPID PANEL (68630)Indication: Other and unspecified hyperlipidemia On: :33 Request HEPATIC FUNCTION PANEL (05143)Indication: Other and unspecified hyperlipidemia On: 9-Huj-253928:53 Request LIPID PANEL (80049)Indication: Other and unspecified hyperlipidemia On: 1-Pio-944693:53 Request HEPATIC FUNCTION PANEL (97418)Indication: Other and unspecified hyperlipidemia On: :26 Request LIPID PANEL (29451)Indication: Other and unspecified hyperlipidemia On: :26 Request LIPID PANEL (34406)Indication: Other and unspecified hyperlipidemia On: 16-Cvb-496962:10 Request URINALYSIS W/O MICRO (26949)Indication: Elevated blood pressure (not hypertension) On: :08 Request PSA (PROSTATE SPECIFIC ANTIGEN) (V76.44)Indication: Screening for prostate cancer On: :08 Request SED RATE ERYTHROCYTE (20272)Indication: alopecia areata On: :08 Request C-REACTIVE PROTEIN (59546)Indication: alopecia areata On: :08 Request RHEUMATOID FACTOR-QUANT (91404)Indication: alopecia areata On: :08 Request DAGOBERTO (ANTINUCLEAR ANTIBODY) (11131)Indication: alopecia areata On: : Request TSH (05346)Indication: alopecia areata On: : Request METABOLIC PANEL, COMPREHENSIVE (32333)Indication: Elevated blood pressure (not hypertension) On: Request CBC WITH MANUAL DIFF (11561)Indication: alopecia areata On: Request FERRITIN (95251)Indication: alopecia areata On: : Request VITAMIN B-12 (CYANOCOBALAMIN) (48403)Indication: alopecia areata On: Request LIPID PANEL (48501)Indication: Other and unspecified hyperlipidemia On: 3-Aqb-404058:30 Request PSA (PROSTATE SPECIFIC ANTIGEN) (32310)Indication: Screening for prostate cancer On: :29 Request Planned Procedures Aerosol Treatment (10017)By: Luba On: 21-Jun-2017 Intent [place] DEJESUS ELECTROCARDIOGRAM, COMPLETE (ECG) On: 25-Mar-2017 Intent (32914)By: Flor Manriquez Comments: Sinus Rhythm-Heart rate 97. Aerosol Treatment (16800)By: Luba On: 23-Apr-2016 Intent [place] DEJESUS ELECTROCARDIOGRAM, COMPLETE (ECG) On: 23-Apr-2016 Intent (57126)By: Marietta Verduzco CNP ELECTROCARDIOGRAM, COMPLETE (ECG) On: 13-Apr-2016 Intent (65468)By: Anai Hernandez DO Comments: nsr no acute chg Anai QUEZADA Radiology - Lumbar SpineBy: Mani QUEZADA, On: 13-Dec-2014 Intent Teresita A EKG (05061)By: Teresita Singleton DO On: 13-Dec-2014 Intent Comments: ekg showed normal sinus rhythym, normal axis, no acute st/t wave changes Inhaler Demo (48823)By: Mani QUEZADA, On: 07-Sep-2013 Intent Teresita A Echo CompleteBy: Teresita Singleton DO On: 07-Sep-2013 Intent Nuclear Stress Test/Stress On: 07-Sep-2013 Intent SPECT/TreadmillBy: Teresita Singleton DO A Radiology - Chest- PA and LatBy: Fast On: 07-Sep-2013 Intent Teresita QUEZADA A Eprescribed prescriptions ([id number])By: On: 29-Aug-2012 Intent Starr Mcmahon Cartoid DopplerBy: Deidra Singleton DOa A On: 08-Aug-2012 Intent Eprescribed prescriptions (G8553)By: On: 07-Apr-2012 Intent Starr Mcmahon TD Injection , IM (08532)By: On: 13-Jul-2011 Intent Starr Mcmahon Comments: 2006 EKGBy: Ciesa COUNSELOR MARRIAGE AND FAMILY, Meghna On: 03-Apr-2011 Intent Radiology - Chest- PA and LatBy: Fast On: 14-Mar-2011 Intent Teresita QUEZADA A Comments: include left anterior ribs EKG (66248)By: Teresita Singleton DO A On: 14-Mar-2011 Intent Comments: ekg showed normal sinus rhythym, normal axis, no acute st/t wave changes FLU VAC, SPLIT, >3 YEARS, INTRAMUSC On: 14-Mar-2011 Intent (08818)By: Starr Mcmahon Comments: Lot: [id number]: 11/03/11Site: Lt DeltoidDose: Prefilled DoseARiding, 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 IMMUNIZ ADMNIN, 1 VAC, SNGL/COMBO On: 14-Mar-2011 Intent (07908)By: Starr Mcmahon FLU VAC, SPLIT, >3 YEARS, INTRAMUSC On: 15-Mar-2010 Intent (14691)By: Starr Mcmahon Comments: Lot #[id number]/11Site-L dltd/IMDose 0.5mlgiven by:MATILDE LIRA EKG (65171)By: Starr Mcmahon On: 15-Mar-2010 Intent Comments: ekg showed normal sinus rhythym, normal axis, no acute st/t wave changes IMMUNIZ ADMNIN, 1 VAC, SNGL/COMBO On: 15-Mar-2010 Intent (43766)By: Starr Mcmahon CT - Abdomen & Pelvis Stone On: 05-Apr-2008 Intent ProtocolBy: Teresita Singleton DO A EKG (80817)By: Starr Mcmahon On: 21-Mar-2008 Intent Comments: ekg showed normal sinus rhythym, normal axis, no acute st/t wave changes EKG (18547)By: Teresita Singleton DO On: 04-Feb-2006 Intent Comments: [...] Disorder Paresthesia : Patient Instructions Indication: Paresthesia Encounters Review On: 11-Apr-2018 8:47 Encounter Reason: Follow up tests - Date: (04/03/18)., [ADDITIONAL REASON] Follow up for chronic medical issues - The patient feels well with minor complai nts, has good energy level and is [...] Diagnosis: Impaired fasting glucose (790.21), BMI 35.0-35.9,adult, Nonsmoker [facility] Office Visit On: 23-Aug-2017 [...] moderate. 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 The symptoms have been associated with [...] [facility] End: 31-Jan-2006 9:38 Payers [facility] Aura yates guarantor
== END ==
PROVIDERS: Family Provider Internal Medicine; PCP Internal Medicine; Referring Provider Internal Medicine; Visit Provider Internal Medicine
DX: R73.01 Impaired fasting glucose (principal); E55.9 Vitamin D deficiency, unspecified; Z12.5 Encounter for screening for malignant neoplasm of prostate
CPT/HCPCS: 36415; 80053; 80061; 81001; 82043; 82306; 82570; 84153; 84443; 85025; G0103

== ENCOUNTER → 2018-04-11 10:30 | Outpatient (CLI) | payer OTHER, SELFPAY ==
--- NOTE | 2018-04-11 10:36 | RAD_ITS ---
STUDY: X-RAY - LEFT KNEE REASON FOR EXAM: Male, 52 years old. Pain and swelling TECHNIQUE: 4 view(s) of the knee. COMPARISON: None. FINDINGS: There is intramedullary mottled sclerosis of the mid femoral shaft Normal visualized proximal tibia and fibula. Normal proximal tibiofibular articulation. Normal medial femorotibial compartment. Normal lateral femorotibial compartment. Normal patellofemoral articulation. There is an enthesophyte in the region of the quadriceps tendon insertion on the superior patella. The soft tissue structures are unremarkable. RAD/Knee 4 or More Views IMPRESSION: Mottled intramedullary sclerotic process of the mid femoral shaft consistent with enchondroma versus bone infarct. Small enthesophyte of the superior patella. There is no evidence of fracture, dislocation, significant degenerative disease, free intra-articular calcifications, or suprapatellar effusion. Electronically Signed: Sanchez Elliott MD at 18:20 EST , Service support ,
--- NOTE | 2018-04-11 10:40 | RAD_ITS ---
STUDY: X-RAY - RIGHT KNEE REASON FOR EXAM: Male, 52 years old. Pain TECHNIQUE: 4 view(s) of the knee. COMPARISON: None. FINDINGS: Normal visualized distal femur. Normal visualized proximal tibia and fibula. Normal proximal tibiofibular articulation. Normal medial femorotibial compartment. Normal lateral femorotibial compartment. Normal patellofemoral articulation. The soft tissue structures are unremarkable. RAD/Knee 4 or More Views IMPRESSION: Normal x-ray examination of the knee. Electronically Signed: Sanchez Elliott MD at 18:21 EST , Service support ,
== END ==
PROVIDERS: Family Provider Internal Medicine; PCP Internal Medicine; Referring Provider Internal Medicine; Visit Provider Internal Medicine
DX: M25.561 Pain in right knee (principal); M25.562 Pain in left knee
CPT/HCPCS: 73564

== ENCOUNTER → 2018-04-16 13:49 | Outpatient (CLI) | payer OTHER, SELFPAY ==
[2018-04-16 14:18] LABS: Absolute Lymphocyte Count 1.81 X10^3/ul (0.83-4.51); Absolute Neutrophil Count 2.4 X10^3/uL (2.0-7.7); Basophil# 0.03 X10^3/uL; Basophil% 0.7 % (0-1); Eosinophil# 0.07 X10^3/uL; Eosinophils% 1.5 % (0-5); Erythrocyte Sedimentation Rate 7 mm/hr (0-20); Hematocrit 42.1 % (40-54); Hemoglobin 14.2 g/dl (13.0-16.5); Lymphocyte # 1.81 X10^3/ul (4.0); Lymphocyte % 39.5 % (19-41); Mean Corp Hgb Conc 33.7 g/gl (32-36); Mean Corpuscular Hgb 30.7 pg (27.0-32.0); Mean Corpuscular Volume 91.1 fL (80-94); Mean Platelet Vol. 9.4 fl (6.2-12.0); Monocyte# 0.27 X10^3/uL; Monocyte% 5.9 % (0-10); Neutrophil # 2.39 X10^3/uL (2.7-7.7); Neutrophil % 52.2 % (47-70); Platelet Count 208 K/mm3 (150-450); RBC Distribution Width CV 13.1 % (11.6-14.6); RBC Distribution Width SD 43.3 fl (35.1-43.9); Red Blood Count 4.62 M/mm3 (4.6-6.2); White Blood Count 4.6 K/mm3 (4.4-11.0)
[2018-04-16 14:19] LABS: POSITIVE COUNT NO; POSITIVE DIFFERENTIAL NO; POSITIVE MORPHOLOGY NO
[2018-04-16 14:51] LABS: ALB/GLOB Ratio 1.2 RATIO (0.9-2.4); AST(SGOT) 14 U/L (15-37); Alanine Aminotransfer ALT/SGPT 35 U/L (16-61); Albumin, Serum 3.9 g/dL (3.2-5.0); Alkaline Phosphatase 82 U/L (45-117); Anion Gap 9 (5-15); BUN 14 mg/dL (7-18); BUN/Creat Ratio 12.8 RATIO (10-20); Calcium,Total 8.6 mg/dL (8.5-10.1); Chloride 107 mmol/L (98-107); Creatinine, Serum 1.09 mg/dL (0.70-1.30); EST Glomerular Filtration Rate 75 mL/min (>60); Est Glom Filt Rate - Afr Amer 91 mL/min (>60); Globulin 3.2 g/dL (2.2-4.2); Glucose 135 mg/dL (74-106); Protein, Total 7.1 g/dL (6.4-8.2); Sodium Level 141 mmol/L (136-145)
[2018-04-17 08:52] LABS: CRP, High Sensitivity Cardiac 5.58 mg/L
--- OUTSIDE RECORDS SUMMARY | 2018-06-02 17:48 | XMS RPT_ITS | Continuity of Care Document ---
:1965 Author Organization [facility] Address [address] [facility] [address] [place] [address] Phone Support Name Relationship Address Phone Marcus Matias Unavailable [address] [place] [address] Alton Matias Unavailable 9[address] 05[address] [place] [address] Care Team Providers Name Role Phone Anai [...] (K63.5, 211.3) Comments: scope 2013 due in 5yr-[facility] Status: Active Common cold virus (J00, 460) [...] More Views Result: Comments: See Note; NOTES: [facility] Imaging Services [address] [address] Knee 4 or More Views MR#: [id number] Acct: [id number] Name: MARCUS MATIAS Rep #: [id number] : 1965 M 52 From: Sanchez Elliott MD PCP: Anai Hernandez DO Status: REG CLI Study: Knee 4 or More Views Date of Exam: 04/11/18 Exam# [id number] Ordering Dr: Anai Hernandez DO STUDY: X- [...] Service support , CC: Anai Hernandez DO Substance Abuse Specialist: Signed 11-Apr-2018 Knee 4 or More Views Result: Comments: See Note; NOTES: [facility] Imaging Services [address] [place] [address] Knee 4 or More Views MR#: [id number] Acct: [id number] Name: MARCUS MATIAS Rep #: [id number] : 1965 M 52 From: Sanchez Elliott MD PCP: Anai Hernandez DO Status: REG CLI Study: Knee 4 or More Views Date of Exam: 04/11/18 Exam# [id number] Ordering Dr: Anai Hernandez DO STUDY: X- [...] Service support , CC: Anai Hernandez DO Substance Abuse Specialist: Signed 21-Apr-2015 Abdomen Single View Result: Comments: See Note; NOTES: [facility] Imaging Services [address] [place] [address] Verdana 4d Abdomen Single View MR#: [id number] Acct: [id number] Name: MARCUS MATIAS Rep #: [id number] : 1965 M 49 From: Jimmy Negrete DO PCP: Teresita Singleton DO Status: REG CLI Study: Abdomen Single View Date of Exam: 04/21/15 Exam# [id number] Ordering Dr: Anahy Lo MD STUDY: X-RAY [...] 7:34 EST Te l , Service support [phone], RAD/Abdomen Single View IMPRESSION: No acute process. No definite renal calcifications. Electronically Signed: Jimmy Negrete DO at 7:34 EST Tel , Service support [phone], CC: Teresita Singleton DO; Obie Lo MD Substance Abuse Specialist: Signed 21-Apr-2015 Kidney and Bladder Result: Comments: See Note; NOTES: [facility] Imaging Services [address] [place] [address] Verdana 4d Kidney and Bladder MR#: [id number] Acct: [id number] Name: Awa MATIAS Rep #: [id number] : 1965 M 49 From: Daniel Long MD PCP: Teresita Singleton DO Status: REG CLI Study: Kidney and Bladder Date of Exam: 04/21/15 Exam# [id number] Ordering Dr: Maegan Lo MD STUDY: RENAL [...] Daniel Long MD at 11:21 EST Tel [phone], Service support [phone], CC: Teresita Singleton DO; Obie Lo MD Substance Abuse Specialist: Signed 13-Dec-2014 L/S Spine Min 4 Views Result: Comments: See Note; NOTES: [facility] Imaging Services [address] [place] [address] Radiology Report MR#: [id number] Acct: [id number] Name: MARCUS MATIAS Rep #: [id number] : 1965 M 49 From: Sai Wu DO PCP: Teresita Singleton DO Status: REG CLI Study: L/S Spine Min 4 Views Date of Exam: 12/13/14 Exam# [id number] Ordering Dr: Teresita Singleton DO STUDY: X-RAY [...] Sai Wu DO at 16:53 EDT Tel [phone], Service support [phone], RAD/L/S Spine Min 4 Views IMPRESSION: Minimal endplate spondylosis without other evidence of lumbar spine abnormality. Electronically Signed: Sai Wu DO at 16:53 EDT Tel [phone], Service support [phone], CC: Teresita Singleton DO Substance Abuse Specialist: Signed 15-Sep-2013 Echocardiogram Complete Result: Comments: See Note; NOTES: [facility] Cardiovascular Services [address] [place] [address] Echo Complete 09/15/13 0754 MR#: [id number] Acct: [id number] Name: JESICA MATIAS Rep #: [id number] : 1965 47 From: Jorje Gomez MD Attending Dr: Teresita Singleton DO Status: REG CLI Ordering Dr: Teresita Singleton DO Date: 09/15/13 Location: [facility] Sex: M C Admitted: [facility] This was a 2D Doppler, Color [...] Physician: Teresita Singleton Performed By: Aggie Hathaway [facility] : Teresita Singleton DO Date Dictated: 09/15/13 0754 Date Transcribed: 09/15/13 1712 Substance Abuse Specialist: Signed 15-Sep-2013 Chest PA and Lateral Result: Comments: See Note; NOTES: [facility] Imaging Services [address] [place] [address] Radiology Report MR#: [id number] Acct: [id number] Name: MARCUS MATIAS Rep #: [id number] : 1965 M 47 From: Daniel Long MD PCP: Teresita Singleton DO Status: REG CLI Study: Chest PA and Lateral Date of Exam: 09/15/13 Exam# [id number] Ordering Dr: Teresita Singleton DO STUDY: X [...] Daniel Long MD at 13:17 EDT Tel [phone], Service support [phone], CC: Teresita Singleton DO Substance Abuse Specialist: Signed 15-Sep-2013 Nuclear Stress Test - Treadmil Result: Comments: See Note; NOTES: [facility] Imaging Services [address] [place] [address] Nuclear Medicine Report MR#: [id number] Acct: [id number] Name: MARCUS MATIAS Rep #: [id number] : 1965 M 47 From: Jorje Gomez MD PCP: Teresiat Singleton DO Status: REG CLI Study: Nuclear Stress Test - Treadmil Date of Exam: 09/15/13 Exam# [id number] Ordering Dr: Teresita Singleton DO EXERCISE TOLERANCE [...] LVEF of 69%. CC: Teresita Singleton DO Substance Abuse Specialist: WAN Signed 07-Sep-2013 Spirometry (64726) Result: 07-Sep-2013 EKG (17394) Result: [MEASUREMENTS ANALYSIS] Date of Test: 09/07/2013 10:09:59; Heart Rate: 75; VA Interval: 166; QRS: 89; QT Interval: 370; Corrected QT Interval (QTc): 396; P Wave Eclectic: 24; QRS Wave Eclectic: 13; T Wave Eclectic: 19; Blood Pressure: 110/80 [ECG DIAGNOSTIC STATEMENTS] [...] Value Details :55 CBC W/Diff, Automated Comments: [facility] [address] [place], [address] Absolute Lymph 1.81 {X10_3/ul} (Normal) [...] 4.6-6.2 WBC 4.6 K/mm3 (Normal) Range: 4.4-11.0 07-Ijj-464253:55 Comprehensive Metabolic Profil Comments: [facility] [address] [place], [place], [address] GAP 9 (Normal) Range: 5-15 CO2 25.0 [...] A.D.A. criteria.Please note revised GLUCOSE reference range glnejlzaq95/02/2018. 65-Zvz-708901:55 CRP Comments: [facility] [address] [place], [place], [address] C-REACTIVE PROT 5.66 mg/L (Abnormal) Range: 0.0-3.0 Comments: C-Reactive Protein (CRP) provides useful information for thediagnosis, therapy and monitoring of inflammatory processesand associated diseases. For the evaluation of Relative Riskfor Cardiovascular Dise ase, a High Sensitivity CRP (HSCRP)should be ordered. :55 CRP, High Sensitivity Cardiac Comments: [facility] [address] [place], [place], [address] CRP HIGH SENS 5.58 mg/L (Abnormal) Comments: Low Relative Risk of CVD <1.0 mg/L Average Relative Risk of CVD 1.0 - 3.0 mg/L High Relative Risk of CVD >3.0 mg/L :55 Erythrocyte Sed Rate Comments: [facility] [address] [place], [place], [address] SED RATE 7 mm/h (Normal) Range: 0-20 :48 HgA1C , Office (13982) HgA1C , Office 5.6 % (Normal) Range: 4.6 - 7.1 :48 Blood Glucose , Office (24253) Blood Glucose , Office 105 (Normal) :08 CBC W/Diff, Automated Comments: [facility] [address]al[address] [place], [address] Absolute Lymph 1.86 {X10_3/ul} (Normal) [...] 4.6-6.2 WBC 4.5 K/mm3 (Normal) Range: 4.4-11.0 94-Kvn-71930:08 Comprehensive Metabolic Profil Comments: [facility] [address] [place], [address] GAP 6 (Normal) Range: 5-15 [...] Please note revised GLUCOSE reference range /02/2018. 28-Apd-25683:08 Lipid Profile Comments: [facility] [address] [place], [place], [address](918) VLDL 36 mg/dL (Normal) Range: 5-40 LDL [...] High Risk :08 Microalb:Creat Ratio,Random UR Comments: [facility] [address] [place], [address] MALB:CREAT 8.9 {mg/g_CRE} (Normal) MICROALBUMIN,UR 6.3 mg/L (Normal) UR CREAT 71.30 mg/dL (Normal) :08 PSA,Total - Annual Screen Comments: [facility] [address] [place], [address] PSA,TOT SCREEN 0.20 ng/mL (Normal) Range: 0.00-4.00 Comments: This test was performed using the TPSA assay method for [employer] chemistry system. Values obtained with differentassay methods cannot be used interchangably.When changing PSA assays in the course of monitoring apatient, additional sequential testing should be carriedout to confirm baseline values. :08 Thyroid Stim Hormone (TSH) Comments: [facility] [address] [place], [address] TSH 2.56 {uIU/mL} (Normal) Range: 0.358-3.74 :08 Urinalysis, Complete Comments: How was Urine Obtained? CLEAN [facility] [address] [place], [address] MUCUS, URINE 0 SEEN {/hpf} (Normal) BACTERIA [...] Yellow (Normal) :08 Vitamin D,25 Hydroxy Comments: [facility] [address] [place], [address] Vitamin D 25-OH 38.3 ng/mL (Normal) Range: 29.95-100.01 Comments: Vitamin D 25(OH) Status Range Deficiency <20 ng/mL (50nmol/L) Insuffciency 20 - 30 ng/mL (50 - 75 nmol/L) Sufficiency 30 - 100 ng/mL (75 - 250 nmol/L) Toxicity >100 ng/mL (>250 nmol/L) :56 HgA1C , Office (61478) HgA1C , Office 5.6 % (Normal) Range: 4.6 - 7.1 :55 Blood Glucose , Office (18048) Blood Glucose , Office 97 (Normal) :18 CBC W/Diff, Automated Comments: [facility] [address] [place], [id number] ; ov 4/20 Absolute Lymph 1.87 {X10_3/ul} [...] 4.6-6.2 WBC 5.5 K/mm3 (Normal) Range: 4.4-11.0 66-Ihl-332954:29 CBC W/Diff, Automated Comments: [facility] [address] [place], [place], [address] Absolute Lymph 1.69 {X10_3/ul} (Normal) Range: 0.83-4.51 [...] Range: 4.4-11.0 :29 Erythrocyte Sed Rate Comments: [facility] [address] [place], [place], [address] SED RATE 4 mm/h (Normal) Range: 0-20 :53 HgA1C , Office (69910) HgA1C , Office 5.6 % (Normal) Range: 4.6 - 7.1 :53 Blood Glucose , Office (27947) Blood Glucose , Office 100 (Normal) :25 CBC W/Diff, Automated Comments: [facility] [address] [place], [place], [address] Absolute Lymph 1.62 {X10_3/ul} (Normal) Range: 0.83-4.51 [...] Range: 4.4-11.0 :25 Comprehensive Metabolic Profil Comments: [facility] [address] [place], [place], [address] GAP 7 (Normal) Range: 5-15 CO2 25.0 [...] (Normal) Range: 70-110 :25 Lipid Profile Comments: [facility] [address] [place], [place], [address] VLDL 27 mg/dL (Normal) Range: 5-40 LDL [...] High Risk :25 Microalb:Creat Ratio,Random UR Comments: [facility] [address] [place], [place], [address] MALB:CREAT 13.5 {mg/g_CRE} (Normal) MICROALBUMIN,UR 12.4 mg/L (Normal) UR CREAT 92.00 mg/dL (Normal) :25 Thyroid Stim Hormone (TSH) Comments: [facility] [address] [place], [place], [address] TSH 2.01 {uIU/mL} (Normal) Range: 0.358-3.74 :25 Vitamin D,25 Hydroxy Comments: [facility] [address]oz[address] [facility] [address] [place], [place], [address] Vitamin D 25-OH 26.3 ng/mL (Normal) Comments: Vitamin D 25(OH) Status Range Deficiency <20 ng/mL (50nmol/L) Insuffciency 20 - 30 ng/mL (50 - 75 nmol/L) Sufficiency 30 - 100 ng/mL (75 - 250 nmol/L) Toxicity >100 ng/mL (>250 nmol/L) :50 Rapid Flu (35493 x 2) Comments: Negative Influenza A Ag Negative (Normal) :53 HgA1C , Office (33892) HgA1C , Office 5.5 % (Normal) Range: 4.6 - 7.1 :53 Blood Glucose , Office (00901) Blood Glucose , Office 85 (Normal) 2-Yct-141062:23 Microscopic Examination Comments: PATIENT WAS FASTINGPERFORMED BY: Diabetica Usegta7[address] [place] [id number] Bacteria None seen (Normal) Mucus Threads Present (Normal) Epithelial Cells (non renal) None seen {/hpf} (Normal) Range: 0 - 10 RBC None seen {/hpf} (Normal) Range: 0 - 2 WBC 0-5 {/hpf} (Normal) Range: 0 - 5 :23 CALCIFIDIOL (13444) VIT D 25 Comments: PATIENT WAS FASTINGPERFORMED BY: [facility] Cwvtna26[address] [place] [id number] Vitamin D, 25-Hydroxy 29.6 ng/mL (Abnormal) Range: 30.0-100.0 Comments: Vitamin D deficiency has been defined by the [place] of[place]icine and an Endocrine Society practice guideline as alevel of serum 25-OH vitamin D less than 20 ng/mL (1,2).The Endocrine Society went on to further define vitamin Dinsufficiency as a level between 21 and 29 ng/mL (2).1. IOM ([place] of Medicine). 2010. Dietary reference intakes for calcium and D. [place]: The National Academies Press.2. Darcie MF, Chris NC, Nancy WAN, et al. Evaluation, treatment, and prevention of vitamin D deficiency: an Endocrine Society clinical practice guideline. JCEM. 2010; 96(7):1911-30. 6-Mfh-946296:23 TSH (98009) Comments: PATIENT WAS FASTINGPERFORMED BY: [facility] Nmxwns[address] [place] [id number] TSH 2.180 {uIU/mL} (Normal) Range: 0.450-4.500 4-Lhd-820972:23 URINALYSIS, W/ MICRO (94549) Comments: PATIENT WAS FASTINGPERFORMED BY: [facility] Wtizcg3463 [address] [place] [id number] Microscopic Examination See below: (Normal) Comments: Microscopic was indicated and was performed. Nitrite, Urine Negative (Normal) Urobilinogen,Semi-Qn 0.2 mg/dL (Normal) Range: 0.2-1.0 Bilirubin Negative (Normal) Occult Blood Trace (Abnormal) Ketones Negative (Normal) Glucose Negative (Normal) Protein Negative (Normal) WBC Esterase Negative (Normal) Appearance Clear (Normal) Urine-Color Yellow (Normal) pH 6.5 (Normal) Range: 5.0-7.5 Specific Adams 1.016 (Normal) Range: 1.005-1.030 4-Mfo-596956:23 MICROALBUMIN: CREATININE RATIO Comments: PATIENT WAS FASTINGPERFORMED BY: [facility]University HospitalFqdwec5019 [facility] [id number] (82113) AND (85512) Microalb/Creat Ratio <3.1 {mg/g_creat} (Normal) Range: 0.0-30.0 Microalbumin, Urine <3.0 ug/mL (Normal) Creatinine, Urine 96.8 mg/dL (Normal) :23 METABOLIC PANEL, COMPREHENSIVE Comments: PATIENT WAS FASTINGPERFORMED BY: [facility]forRoosevelt [facility] HospitalFthmax1862 [facility] [id number] (73158) ALT (SGPT) 27 [iU]/L (Normal) Range: 0-44 [...] Glucose, Serum 82 mg/dL (Normal) Range: 65-99 7-Rgy-629386:23 LIPID PANEL (72899) Comments: PATIENT WAS FASTINGPERFORMED BY: [facility] [id number] LDL/HDL Ratio 2.3 {ratio_units} (Normal) Range: 0.0-3.6 Comments: LDL/HDL Ratio Men Women 1/2 Avg.Risk 1.0 1.5 Av g.Risk 3.6 3.2 2X Avg.Risk 6.2 5.0 3X Avg.Risk 8.0 6.1 LDL Cholesterol Calc 84 mg/dL (Normal) Range: 0-99 VLDL Cholesterol Nader 24 mg/dL (Normal) Range: 5-40 HDL Cholesterol 37 mg/dL (Abnormal) Triglycerides 118 mg/dL (Normal) Range: 0-149 Cholesterol, Total 145 mg/dL (Normal) Range: 100-199 6-Viy-694187:23 CBC W/AUTO DIFF WBC (91559) Comments: PATIENT WAS FASTINGPERFORMED BY: [facility] [id number] Immature Grans (Abs) 0.0 {x10E3/uL} (Normal) Range: [...] (Normal) Range: 3.4-10.8 :09 HgA1C , Office (09431) HgA1C , Office 5.4 % (Normal) Range: 4.6 - 7.1 :29 CBC W/Diff, Automated Comments: [facility] [address] [place], [place], [address] Absolute Lymph 1.84 {X10_3/ul} (Normal) Range: 0.83-4.51 [...] Range: 4.4-11.0 10-Apr-20168:29 Comprehensive Metabolic Profil Comments: [facility] [address] [place], [place], [address] GAP 5 (Normal) Range: 5-15 CO2 29.0 [...] (Normal) Range: 70-110 :29 Lipid Profile Comments: [facility] [address] [place], [place], [address] VLDL 29 mg/dL (Normal) Range: 5-40 LDL [...] High Risk 10-Apr-20168:29 Microalb:Creat Ratio,Random UR Comments: [facility] [address] [place], [address] MALB:CREAT 7.5 {mg/g_CRE} (Normal) MICROALBUMIN,UR 8.2 mg/L (Normal) UR CREAT 109.00 mg/dL (Normal) 64-Zpl-87096:00 Cytology, Body Fluid / CSF Comments: Specimen Source: [facility] [address] [place], [address] CYTOLOGY,BF/CSF SEE PATHOLOGY REPORT (Normal) Comments: Specimen submitted to Anatomical Pathology Department anne marie. 95-Fxe-88976:00 Urinalysis, Complete Comments: How was U[facility]? [facility] [address]vo[address] [place], [address] MUCUS, URINE 1+ {/hpf} (Normal) BACTERIA 0 [...] (Normal) CLARITY Clear (Normal) COLOR Yellow (Normal) 02-Iyc-15670:00 CYTOSPIN ON FLUID See Note (Normal) Comments: [facility] [address] [place], [place], [address] Comments: Patient: MARCUS MATIAS : 1965 (50/M) Acct Num: [id number] Phys: Rolando CHADWICK,Philip Unit Num: [id number] Loc: LABSPEC Specimen: [id number] Received: 11/01/15 - 1428 Spec Type: CYSPIN FL TISSUES TISSUES: CYTOLOGY GROSS Received is 70 ml of gold cloudy fluid labeled with the patient's name and and designated per the requisition as urine. Submit joselin for cytology preparation. 11/01/15 TC:5 CPT:99578 CYTOLOGY STUDY Slides are reviewed. DIAGNOSIS CYTOLOGY Urine for cytology (cytospins): Negative for malignant cells. AM:kena 11/02/15 HEADER OPERATION: Not noted PRE-OP DIAGNOSIS: Hematuria TISSUE SUBMITTED: Urine for cytology Signed Srinivasa Trejo 11/02/15 <sig nature on file> 50-Iwk-178108:05 HgA1C , Office (19130) HgA1C , Office 5.5 % (Normal) Range: 4.6 - 7.1 :05 CBC W/Diff, Automated Comments: [facility] [address] [place], [place], [phone] Absolute Lymph 1.54 {X10_3/ul} (Normal) Range: 0.83-4.51 [...] Range: 4.4-11.0 :05 Comprehensive Metabolic Profil Comments: [facility] [address] [place], [place], [address] GAP 8 (Normal) Range: 5-15 CO2 24.0 [...] (Normal) Range: 70-110 :05 Lipid Profile Comments: [facility] [address] [place], [place], [address] ; sent message he needs an apt [...] Risk :05 PSA,Total - Annual Screen Comments: [facility] [address] [place], [address] PSA,TOT SCREEN 0.24 ng/mL (Normal) Range: 0.00-4.00 Comments: This test was performed using the TPSA assay method for [employer] chemistry system. Values obtained with differentassay methods cannot be used interchangably.When changing PSA assays in the course of monitoring apatient, additional sequential testing should be carriedout to confirm baseline values. 75-Peb-820069:50 Cytology, Body Fluid / CSF Comments: [facility] [address]petu[address] [place], [address] CYTOLOGY,BF/CSF SEE PATHOLOGY REPORT (Normal) Comments: Specimen submitted to Anatomical Pathology Department [facility]. :50 Urinalysis, Complete Comments: How was Urine Obtained? [facility] Qpdfmovlzs8[address] [place], [address] MUCUS, URINE 0 SEEN {/hpf} [...] CYTOSPIN ON FLUID See Note (Normal) Comments: [facility] [address] [place], [address] Comments: Patient: MARCUS MATIAS : 1965 (49/M) Acct Num: [id number] Phys: Rolando CHADWICK,Philip Unit Num: [id number] Loc: LABSPEC Specimen: [id number] Received: 04/26/15 - 1422 Spec Type: CYSPIN FL TISSUES TISSUES: CULTURE RESULTS No results available. CYTOLOGY GROSS Received is 60 ml of yellow gold hazy fluid labeled with the patient's name and and d esignated per the requisition as urine. Submitted for cytology preparation. / 04/26/15 TC:5 CPT: 37181 CYTOLOGY STUDY Slides are reviewed. DIAGNOSIS CYTOLOGY Urine for cytology (cyto spin): Negative for malignant cells. AM: 04/27/15 HEADER OPERATION: Not noted PRE-OP DIAGNOSIS: Hematuria TISSUE SUBMITTED: Urine cytology Signed Srinivasa Neil 04/27/15 <signature on file> :42 Blood Glucose , Office (86851) Blood Glucose , Office 94 (Normal) :34 HgA1C , Office (31177) HgA1C , Office 5.6 % (Normal) Range: 4.6 - 7.1 :57 Comprehensive Metabolic Profil Comments: Test performed at:[facility] [address] [place] [address] GAP 5 (Normal) Range: 5-15 CO2 28.0 [...] Comments: Please note revised CREATININE reference range /22/2015. BUN 14 mg/dL (Normal) Range: 7-18 GLU 96 mg/dL (Normal) Range: 70-110 :57 Lipid Profile Comments: Test performed at:[facility] Yengkbbnwx9542 [facility] [place] [address] ; has fu 8-10 VLDL [...] :57 Microalb:Creat Ratio,Random UR Comments: Test performed at:[facility] [address] [place] [address] MALB:CREAT 5.0 {mg/g_CRE} (Normal) MICROALBUMIN,UR 8.1 mg/L (Normal) UR CREAT 152.00 mg/dL (Normal) :57 Urinalysis, Complete Comments: How was Urine Obtained? CLEAN CATCHTest performed at:[facility] [address] [place] [address] ; non-emergent till apt MUCUS, [...] Patient: MARCUS MATIAS : 1965 (48/M)Acct Num: [id number] Phys: FuenteslupeRashawnDavidfrancine Num: [id number] Loc: LABSPECSpecimen: [id number] Received: 02/15/14 - pec Type: COLON BXTIS 0 SUESTISSUES:GROSS DESCRIPTIONReceived is one container labeled with the patient name and designated rightcolon polyp biopsy. The specimen consists of multiple irregular fragments oflight narayan soft tis ronald that in aggregate measure 0.7 x 0.5 x 0.1 cm. Thespecimen is totally submitted in one cassette. / MADELAINE:tana 02/16/14 TC:1CPT: [id number]: ColonoscopyPRE-OPERATIVE DIAGNOSIS: Screening / po lypTISSUE SUBMITTED: Polyp biopsy right colon, rule out adenomaMICROSCOPIC DIAGNOSISPolyp, right colon, biopsy:Fragments of hyperplastic polyp.MADELAINE:tana 02/17/14Signed Alex Martins 02/17/14<signature on file> 53-Xct-792636:26 HgA1C , Office (71726) HgA1C , Office 5.7 % (Normal) Range: [...] CHOL 160 mg/dL (Normal) Comments: <200 mg/dL Aayywmbpj522-416 mg/dL Borderline>240 mg/dL High Risk 26-Mni-266926:04 Ct, Ng, Trich vag by Comments: PATIENT NOT FASTINGPERFORMED BY: [address] [id number] BY: [address] [id number] CYNDI Chlamydia by CYNDI Negative (Normal) Gonococcus by CYNDI Negative (Normal) Trich vag by CYNDI Negative (Normal) 86-Zhw-497068:04 Hepatitis Panel (4) Comments: PATIENT NOT FASTINGPERFORMED BY: [address] [id number] BY: [address] [id number] Inf ormation: SRC:UR URINE Hep B Core [...] a more specific supplemental or PCR testing. [facility] offers HCV Ab w/Reflex to Verification test #[id number]. HBsAg Screen Negative (Normal) Hep A Ab, IgM Negative (Normal) 75-Vey-503563:04 HSV 1 and 2 IgM Abs, Comments: PATIENT NOT FASTINGPERFORMED BY: [place] 8431070 [facility] [id number] BY: [address] [id number] Indirect HSV 1 IgM Antibodies <1:10 {titer} [...] 2-Specific Ab, Comments: PATIENT NOT FASTINGPERFORMED BY: [facility]forUniversity HospitalCmsdcw5683 [facility] [id number] BY: Socruise[address] [id number] IgG HSV 1 IgG, Type Spec 55.70 [...] indicates antibodies detected to HSV-2. :04 Panel [id number] Comments: PATIENT NOT FASTINGPERFORMED BY: Infor [address] [place] [address] [id number] BY: Diabetica[address] [id number] HIV 1/O/2 Abs, Non Reactive Qual (Normal) HIV 1/O/2 <1.00 (Normal) Comments: Index Value: Specimen reactivity relative to the negative cutoff. Abs-Index Value : RPR Non Reactive Comments: PATIENT NOT FASTINGPERFORMED BY: Infor [address] [place] [address] [id number] BY: [address] [id number] 04 (Normal) 50-Zrj-808128:01 CBCD ANC 3.2 {X10_3/uL} (Normal) Range: 2.0-7.7 [...] 4.6-6.2 WBC 5.1 K/mm3 (Normal) Range: 4.4-11.0 69-Oqn-095822:01 CMP Comments: will review at 09/25/13 appt [...] CHOL 167 mg/dL (Normal) Comments: <200 mg/dL Jcyufilun546-152 mg/dL Borderline>240 mg/dL High Risk 32-Gfm-739730:38 MIACRE Comments: PLEASE ADD URINE FROM YESTERDAY 09/15/13 MIALB < 5.0 mg/L (Normal) tMICROCREAT Test not performed {mg/g_CRE} (Normal) CREU 65.8 mg/dL (Normal) : PSA 0.26 ng/mL (Normal) Range: 0.00-4.00 Comments: This test was performed using the TPSA assay method for thejudo chemistry system. Values obtained with differentassay methods [...] children havebeen associated with numerous adverse health effects.[facility] Guidelines: Blood lead level s in therange 5-9 ug/dL have been associated with adversehealth effects in children aged 6 years and younger..Environmental Exposure:WHO Recommendation <20Occupational Exposure:OSHA Lead Std 40.Detection Limit = 1Performed at: [address] [id number] Director: Tank Cummings PhD, Phone: [phone] MIACRE tMICROCREAT 4.8 {mg/g_CRE} (Normal) MIALB [...] CHOL 154 mg/dL (Normal) Comments: <200 mg/dL Cwzjdqhza961-720 mg/dL Borderline>240 mg/dL High Risk :57 PSA [...] (Normal) UCLAR CLEAR (Normal) UCOL YELLOW (Normal) 60-Gnk-737471:11 CHEST, PA AND LATERAL Radiology Report See [...] NEGATIVE CLARITY CLEAR (Normal) COLOR YELLOW (Normal) 56-Lyk-586066:06 COMPLETE UA BACTERIA 0 SEEN {/hpf} (Normal) [...] CHOL 160 mg/dL (Normal) Comments: <200 mg/dL Yisfoazxk571-437 mg/dL Borderline>240 mg/dL High Risk :27 LIVER [...] (Normal) Range: 6.4-8.2 :33 URINALYSIS W/O MICRO ([id number]) UA - APPEARANCE clear (Normal) UA - [...] T PROT 7.3 g/dL (Normal) Range: 6.4-8.2 4-Ppi-258622:51 Urinalysis, Office ([id number]) UA - BILIRUBIN Negative (Normal) UA - [...] Report See Note (Normal) Comments: Exam Number: [id number] CT SCAN OF ABDOMEN AND PELVIS HISTORYHematuria. [...] Report See Note (Normal) Comments: Exam Number: [id number] CT SCAN OF ABDOMEN AND PELVIS HISTORYHematuria. [...] is identified. Reported By: SHAI WHYTE M.D. 74-Hgr-300448:23 DAGOBERTO-D [id number] DAGOBERTO-DIRECT 19 AU/mL (Normal) Range: 0-99 Comments: Negative <100 Equivocal 100 - 120 Positive >120 95-Zko-931739:23 C-REACTIVE PROT 3.87 mg/L (Normal) Range: 0.0-6.0 Comments: Test performed using the Dimension C-Reactive ProteinExtended Range assay method. This assay meets the AHA/CDC 2003 recommendations fordetermining patients at high risk for cardiovasculardisease. Reference: High risk CRP >3.0 mg/L 39-Lvv-512029:23 CBCD,SMEAR DIFF ATYPICAL LYMPH RARE % (Normal) [...] was performed using the TPSA method for thejudo chemistry system.Values obtained with different assay methods cannot be usedinterchangably.When changing PSA assays in the course of monito ring apatient, additional sequential testing should be carriedout to confirm baseline values. :23 RA LATEX 6502 6.7 {IU/mL} (Normal) Range: 0.0-13.9 Comments: Performed At: [address] [id number] :[id number] ROUTINE UA BILIRUBIN URINE SeeNote (Normal) [...] Indication: Impaired fasting glucose Hematuria : Reviewed Public Area Attendant Letter Indication: Hematuria Impaired fasting glucose : *Diabetes Education Indication: Impaired fasting glucose Hypercholesterolemia : Cholesterol mgmt Indication: Hypercholesterolemia Common cold virus : Follow up if no improvement or if symptoms worsen Indication: Common cold virus Common cold virus : Common Cold *: cold Indication: Common cold virus Hematuria : Reviewed Public Area Attendant Letter Indication: Hematuria Impaired fasting glucose : [...] : Follow up in 10 days with [facility] Indication: Possible exposure to STD Impaired [...] ua cbc cmp Planned Observations C-REACTIVE PROTEIN ([id number])Indication: CRP elevated On: 84-Qkv-55072:24 Request ALKALINE PHOSPHATASE (56990)Indication: Enchondroma On: :29 Request METABOLIC PANEL, COMPREHENSIVE (54074)Indication: Enchondroma On: : Request CBC W/AUTO DIFF WBC (30692)Indication: Enchondroma On: :29 Request C-REACT PROT HIGH SENS(hsCRP) (83402)Indication: Enchondroma On: :29 Request ESR-F (SED RATE ERYTHROCYTE - MALE) (14366)Indication: Enchondroma On: :28 Request PSA (PROSTATE SPECIFIC ANTIGEN) (V76.44)Indication: Screening for prostate cancer On: :24 Request CALCIFIDIOL (45816) VIT D 25Indication: Vitamin D deficiency On: :17 Request TSH (06402)Indication: Impaired fasting glucose On: :17 Request URINALYSIS, W/ MICRO ([id number])Indication: Impaired fasting glucose On: :17 Request MICROALBUMIN: CREATININE RATIO (21723) AND ([id number])Indication: Impaired fasting glucose On: :17 Request METABOLIC PANEL, COMPREHENSIVE (16882)Indication: Impaired fasting glucose On: : Request LIPID PANEL (91512)Indication: Impaired fasting glucose On: :17 Request CBC W/AUTO DIFF WBC (59706)Indication: Impaired fasting glucose On: :17 Request CBC, PLATELETS & MANUAL DIFF ([id number])Indication: Leukopenia, unspecified type On: 29-Vjf-381494:39 Request CBC WITH MANUAL DIFF ([id number])Indication: Leukopenia, unspecified type On: 11-Hqn-704647:00 Request Comments: also have pathology look at for peripheral smear Sed Rate Erythrocyte (14009)Indication: Leukopenia, unspecified type On: 35-Sah-39362:59 Request TSH ([id number])Indication: Impaired fasting glucose On: :21 Request MICROALBUMIN: CREATININE RATIO (51166) AND ([id number])Indication: Impaired fasting glucose On: :21 Request METABOLIC PANEL, COMPREHENSIVE (26923)Indication: Impaired fasting glucose On: :21 Request LIPID PANEL (22854)Indication: Impaired fasting glucose On: :21 Request CBC W/AUTO DIFF WBC (98704)Indication: Impaired fasting glucose On: :21 Request CALCIFIDIOL (53902) VIT D 25Indication: Vitamin D deficiency On: :20 Request CBC WITH MANUAL DIFF ([id number])Indication: Abnormal laboratory test On: :27 Request Comments: do in 1 mo CBC W/AUTO DIFF WBC (79020)Indication: Impaired fasting glucose On: : Request MICROALBUMIN: CREATININE RATIO (90202) AND (22448)Indication: Impaired fasting glucose On: : Request METABOLIC PANEL, COMPREHENSIVE (13217)Indication: Hypercholesterolemia On: :06 Request LIPID PANEL (37676)Indication: Hypercholesterolemia On: :05 Request LIPID PANEL (90517)Indication: Other and unspecified hyperlipidemia On: :23 Request CBC with auto diff (02481)Indication: Impaired fasting glucose On: : Request METABOLIC PANEL, COMPREHENSIVE (39319)Indication: Impaired fasting glucose On: : Request Hemoglobin Glyclated (HGB A1C) (64018)Indication: Impaired fasting glucose On: : Request PSA (PROSTATE SPECIFIC ANTIGEN) (V76.44)Indication: Screening for prostate cancer On: : Request URINALYSIS, W/ MICRO (11832)Indication: Hematuria On: 71-Kag-030746:17 Request MICROALBUMIN: CREATININE RATIO (03593) AND ([id number])Indication: Impaired fasting glucose On: :17 Request METABOLIC PANEL, COMPREHENSIVE (33617)Indication: Impaired fasting glucose On: 30-Jaq-074436:17 Request LIPID PANEL (37140)Indication: Hypercholesterolemia On: :17 Request RPR (RAPID PLASMA REAGIN) ([id number])Indication: Unspecified Diagnosis On: 27-Tjs-750145:03 Request HIV ANTIGEN (57750)Indication: Possible exposure to STD On: :59 Request HIV-2 ANTIBODY (76023)Indication: Possible exposure to STD On: 58-Szu-957856:[address],NG,TV (Chlamydia, Gonorrhea, Trichomonas) (74471)Indication: Possible exposure to STD On: 27-Idn-044354:56 Request Herpes Simplex I Ag, Direct Fluorescent Ab (57074)Indication: Possible exposure to STD On: :55 Request Herpes Simplex (HSV) II Ab (71456)Indication: Possible exposure to STD On: 62-Mus-729154:54 Request HEPATITIS PANEL (87426)Indication: Possible exposure to STD On: 15-Qyv-336514:54 Request LIPID PANEL (08729)Indication: Other and unspecified hyperlipidemia On: :44 Request METABOLIC PANEL, COMPREHENSIVE (21946)Indication: Impaired fasting glucose On: :44 Request PSA (PROSTATE SPECIFIC ANTIGEN) (V76.44)Indication: Screening for prostate cancer On: :55 Request TSH ([id number])Indication: Chest pain On: :55 Request MICROALBUMIN: CREATININE RATIO ([id number]) AND ([id number])Indication: Impaired fasting glucose On: : Request URINALYSIS, W/ MICRO (35943)Indication: Impaired fasting glucose On: :55 Request CBC WITH MANUAL DIFF ([id number])Indication: Impaired fasting glucose On: : Request METABOLIC PANEL, COMPREHENSIVE (35920)Indication: Impaired fasting glucose On: :55 Request LIPID PANEL (49510)Indication: Other and unspecified hyperlipidemia On: :55 Request CBC WITH MANUAL DIFF ([id number])Indication: Impaired fasting glucose On: :03 Request METABOLIC PANEL, COMPREHENSIVE (67441)Indication: Impaired fasting glucose On: :03 Request HEPATIC FUNCTION PANEL (58989)Indication: Other and unspecified hyperlipidemia On: : Request LIPID PANEL ([id number])Indication: Other and unspecified hyperlipidemia On: :03 Request LEAD ([id number])Indication: Paresthesia On: :28 Request MICROALBUMIN: CREATININE RATIO (13180) AND ([id number])Indication: Impaired fasting glucose On: : Request CBC WITH MANUAL DIFF ([id number])Indication: Paresthesia On: : Request VITAMIN B-12 (CYANOCOBALAMIN) (96028)Indication: Paresthesia On: : Request TSH ([id number])Indication: Sleep Disorder On: : Request LEAD (21069)Indication: Paresthesia On: :10 Request VITAMIN B-12 (CYANOCOBALAMIN) (55521)Indication: Paresthesia On: :10 Request LIPID PANEL (18877)Indication: Other and unspecified hyperlipidemia On: 1-Pwo-321358:10 Request PSA (PROSTATE SPECIFIC ANTIGEN) (V76.44)Indication: BPH without urinary obstruction On: :09 Request TSH ([id number])Indication: Paresthesia On: :09 Request MICROALBUMIN: CREATININE RATIO (40967) AND ([id number])Indication: Impaired fasting glucose On: :09 Request CBC WITH MANUAL DIFF ([id number])Indication: Paresthesia On: : Request METABOLIC PANEL, COMPREHENSIVE ([id number])Indication: Paresthesia On: :09 Request Hemoglobin Glyclated (HGB A1C) (26425)Indication: Impaired fasting glucose On: : Request PSA (PROSTATE SPECIFIC ANTIGEN) (V76.44)Indication: BPH without urinary obstruction On: 36-Vvn-941836:05 Request METABOLIC PANEL, COMPREHENSIVE (07727)Indication: Impaired fasting glucose On: 54-Hzf-553312:05 Request LIPID PANEL (50010)Indication: Other and unspecified hyperlipidemia On: 26-Dky-696419:04 Request HgA1C , Office ([id number])Indication: Impaired fasting glucose On: 15-Fyg-46439:20 Request CBC WITH MANUAL DIFF (05643)Indication: Impaired fasting glucose On: :14 Request METABOLIC PANEL, COMPREHENSIVE (21140)Indication: Impaired fasting glucose On: 13-Jul-20118:14 Request MICROALBUMIN: CREATININE RATIO ([id number]) AND (85050)Indication: Impaired fasting glucose On: 13-Jul-20118:14 Request LIPID PANEL ([id number])Indication: Other and unspecified hyperlipidemia On: 13-Jul-20118:13 Request HgA1C , Office (30601)Indication: Impaired fasting glucose On: 13-Jul-20118:05 Request CBC WITH MANUAL DIFF (62401)Indication: Anemia, unspecified On: 0-Nqo-083005:21 Request IRON BINDING CAPACITY (TIBC) (56902)Indication: Anemia, unspecified On: : Request IRON ([id number])Indication: Anemia, unspecified On: : Request FERRITIN ([id number])Indication: Anemia, unspecified On: : Request CBC WITH MANUAL DIFF ([id number])Indication: Elevated blood pressure (not hypertension) On: :20 Request METABOLIC PANEL, COMPREHENSIVE (74155)Indication: Elevated blood pressure (not hypertension) On: : Request URINALYSIS, W/ MICRO (75043)Indication: Hematuria On: :20 Request Lipid Panel (09302)Indication: Hypercholesterolemia On: : Request PSA (Prostate Specific Antigen), Screening (44244)Indication: Elevated blood pressure (not hypertension) On: : Request CBC with manual diff ([id number])Indication: Elevated blood pressure (not hypertension) On: : Request Metabolic Panel, Comprehensive ([id number])Indication: Elevated blood pressure (not hypertension) On: : Request URINALYSIS ([id number])Indication: Elevated blood pressure (not hypertension) On: : Request URINALYSIS, W/ MICRO ([id number])Indication: Hematuria On: :32 Request HEPATIC FUNCTION PANEL ([id number])Indication: Hypercholesterolemia On: :20 Request METABOLIC PANEL, COMPREHENSIVE (75707)Indication: Elevated blood pressure (not hypertension) On: :25 Request URINALYSIS, W/ MICRO (07023)Indication: Elevated blood pressure (not hypertension) On: :24 Request HEPATIC FUNCTION PANEL ([id number])Indication: Other and unspecified hyperlipidemia On: :24 Request LIPID PANEL (21150)Indication: Other and unspecified hyperlipidemia On: :24 Request PSA (PROSTATE SPECIFIC ANTIGEN) (V76.44)Indication: Hematuria On: :12 Request HEPATIC FUNCTION PANEL (82021)Indication: Other and unspecified hyperlipidemia On: :11 Request LIPID PANEL ([id number])Indication: Other and unspecified hyperlipidemia On: :11 Request HEPATIC FUNCTION PANEL ([id number])Indication: Other and unspecified hyperlipidemia On: :33 Request LIPID PANEL (83037)Indication: Other and unspecified hyperlipidemia On: :33 Request HEPATIC FUNCTION PANEL ([id number])Indication: Other and unspecified hyperlipidemia On: :53 Request LIPID PANEL ([id number])Indication: Other and unspecified hyperlipidemia On: :53 Request HEPATIC FUNCTION PANEL ([id number])Indication: Other and unspecified hyperlipidemia On: : Request LIPID PANEL ([id number])Indication: Other and unspecified hyperlipidemia On: : Request LIPID PANEL ([id number])Indication: Other and unspecified hyperlipidemia On: : Request URINALYSIS W/O MICRO ([id number])Indication: Elevated blood pressure (not hypertension) On: :08 Request PSA (PROSTATE SPECIFIC ANTIGEN) (V76.44)Indication: Screening for prostate cancer On: : Request SED RATE ERYTHROCYTE ([id number])Indication: alopecia areata On: : Request C-REACTIVE PROTEIN ([id number])Indication: alopecia areata On: : Request RHEUMATOID FACTOR-QUANT (54734)Indication: alopecia areata On: : Request DAGOBERTO (ANTINUCLEAR ANTIBODY) ([id number])Indication: alopecia areata On: : Request TSH ([id number])Indication: alopecia areata On: : Request METABOLIC PANEL, COMPREHENSIVE ([id number])Indication: Elevated blood pressure (not hypertension) On: : Request CBC WITH MANUAL DIFF ([id number])Indication: alopecia areata On: : Request FERRITIN ([id number])Indication: alopecia areata On: : Request VITAMIN B-12 (CYANOCOBALAMIN) ([id number])Indication: alopecia areata On: : Request LIPID PANEL ([id number])Indication: Other and unspecified hyperlipidemia On: 2-Uez-236776:30 Request PSA (PROSTATE SPECIFIC ANTIGEN) ([id number])Indication: Screening for prostate cancer On: 5-Afx-876528:29 Request Planned Encounters Medical; 4 Month FU - On: 15-Aug-2018 9:00 [facility] Anai Hernandez DO, DO, Kathleen Planned Procedures X-RAY KNEE WITH PATELLA, FIVE VIEWS On: 11-Apr-2018 Intent (30956)By: Anai Hernandez DO Comments: L DO, Anai X-RAY KNEE WITH PATELLA, FIVE VIEWS On: 11-Apr-2018 Intent ([id number])By: Anai Hernandez DO Comments: R DOAnai ELECTROCARDIOGRAM, COMPLETE (ECG) On: 11-Apr-2018 Intent (56261)By: Anai Hernandez DO Comments: nsr no acute chg DO, Anai Aerosol Treatment ([id number])By: Luba On: 21-Jun-2017 Intent [place] DEJESUS ELECTROCARDIOGRAM, COMPLETE (ECG) On: 25-Mar-2017 Intent ([id number])By: Flor Manriquez Comments: Sinus Rhythm-Heart rate 97. Aerosol Treatment (90989)By: Luba On: 23-Apr-2016 Intent [place] DEJESUS ELECTROCARDIOGRAM, COMPLETE (ECG) On: 23-Apr-2016 Intent ([id number])By: [place]etta Verduzco CNP ELECTROCARDIOGRAM, COMPLETE (ECG) On: 13-Apr-2016 Intent ([id number])By: Anai Hernandez DO Comments: nsr no acute chg Anai QUEZADA Radiology - Lumbar SpineBy: Mani QUEZADA, On: 13-Dec-2014 Intent Teresita A EKG (20869)By: Teresita Singleton DO On: 13-Dec-2014 Intent Comments: ekg showed normal sinus rhythym, normal axis, no acute st/t wave changes Inhaler Demo ([id number])By: Mani QUEZADA, On: 07-Sep-2013 Intent Teresita Zay Echo CompleteBy: Teresita Singleton DO A On: 07-Sep-2013 Intent Nuclear Stress Test/Stress On: 07-Sep-2013 Intent SPECT/TreadmillBy: Teresita Singleton DO Radiology - Chest- PA and LatBy: Fast On: 07-Sep-2013 Intent Teresita QUEZADA Eprescribed prescriptions ([id number])By: On: 29-Aug-2012 Intent Starr Mcmahonid DopplerBy: Teresita Singleton DO A On: 08-Aug-2012 Intent Eprescribed prescriptions ([id number])By: On: 07-Apr-2012 Intent Starr Mcmahon TD Injection , IM ([id number])By: On: 13-Jul-2011 Intent Starr Mcmahon Comments: 2006 EKGBy: Ciesa CLOTH FINISHING RANGE BACK TENDER, Meghna On: 03-Apr-2011 Intent Radiology - Chest- PA and LatBy: Fast On: 14-Mar-2011 Intent DO Teresita A Comments: include left anterior ribs EKG ([id number])By: Teresita Singleton DO On: 14-Mar-2011 Intent Comments: ekg showed normal sinus rhythym, normal axis, no acute st/t wave changes FLU VAC, SPLIT, >3 YEARS, INTRAMUSC On: 14-Mar-2011 Intent ([id number])By: Starr Mcmahon Comments: Lot: [id number]: 11/03/11Site: Lt DeltoidDose: Prefilled DoseARiding, FURNACE ERECTOR IMMUNIZ ADMNIN, 1 VAC, SNGL/COMBO On: 14-Mar-2011 Intent ([id number])By: Starr Mcmahon FLU VAC, SPLIT, >3 YEARS, INTRAMUSC On: 15-Mar-2010 Intent ([id number])By: Starr Mcmahon Comments: Lot #[id number]/11Site-L dltd/IMDose 0.5mlgiven by:MATILDE LIRA EKG ([id number])By: Starr Mcmahon On: 15-Mar-2010 Intent Comments: ekg showed normal sinus rhythym, normal axis, no acute st/t wave changes IMMUNIZ ADMNIN, 1 VAC, SNGL/COMBO On: 15-Mar-2010 Intent ([id number])By: Starr Mcmahon CT - Abdomen & Pelvis Stone On: 05-Apr-2008 Intent ProtocolBy: Mani QUEZADA Teresita A EKG ([id number])By: Starr Mcmahon On: 21-Mar-2008 Intent Comments: ekg showed normal sinus rhythym, normal axis, no acute st/t wave changes EKG (56771)By: Teresita Singleton DO On: 04-Feb-2006 Intent Comments: [...] Advance Directives Name Dates Details Immunization Registry [place] - Effective on 04/11/2018. Effective: 11-Apr-2018 Expiration [...] moderate. 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 The symptoms have been associated with [...] [facility] End: 31-Jan-2006 9:38 Payers [facility] Matias; zay guarantor
--- OUTSIDE RECORDS SUMMARY | 2018-06-02 17:49 | XMS RPT_ITS | Continuity of Care Document ---
:1965 Author Organization [facility] Address [address] [facility] [address] [place] [address] Phone Support Name Relationship Address Phone Marcus Matias Unavailable [address] [place] [address] Alton Matias Unavailable [address] [place] [address] Care Team Providers Name Role Phone Anai Hernandez DO Unavailable Dameon Mcgregor MD Unavailable Maegan Mathew MD Unavailable Dr. Jorje Hogan MD Unavailable Dr. Rashawn Foster Unavailable Mesfin iMlligan MD Unavailable Alton Hurst DPM Unavailable Shira [...] Single View Result: Comments: See Note; NOTES: [facility] Imaging Services [address] [place] [address] Verdana 4d Abdomen Single View MR#: [id number] Acct: [id number] Name: MARCUS MATIAS Rep #: [id number] : 1965 M 49 From: Jimmy Negrete DO PCP: Teresita Singleton DO Status: REG CLI Study: Abdomen Single View Date of Exam: 04/21/15 Exam# [id number] Ordering Dr: Anahy Lo MD STUDY: X-RAY [...] 7:34 EST Te l , Service support [phone], RAD/Abdomen Single View IMPRESSION: No acute process. No definite renal calcifications. Electronically Signed: Jimmy Negrete DO at 7:34 EST Tel , Service support [phone], CC: Teresita Singleton DO; Obie Lo MD Colored Leather Setter: Signed 21-Apr-2015 Kidney and Bladder Result: Comments: See Note; NOTES: [facility] Imaging Services [address] [place] [address] Verdana 4d Kidney and Bladder MR#: [id number] Acct: [id number] Name: Awa MATIAS Rep #: [id number] : 1965 M 49 From: Daniel Long MD PCP: Teresita Singleton DO Status: REG CLI Study: Kidney and Bladder Date of Exam: 04/21/15 Exam# [id number] Ordering Dr: Maegan Lo MD STUDY: RENAL [...] Daniel Long MD at 11:21 EST Tel [phone], Service support [phone], CC: Teresita Singleton DO; Obie Lo MD Colored Leather Setter: Signed 13-Dec-2014 L/S Spine Min 4 Views Result: Comments: See Note; NOTES: [facility] Imaging Services [address] [place] [address] Radiology Report MR#: [id number] Acct: [id number] Name: MARCUS MATIAS Rep #: [id number] : 1965 M 49 From: Sai Wu DO PCP: Teresita Singleton DO Status: REG CLI Study: L/S Spine Min 4 Views Date of Exam: 12/13/14 Exam# [id number] Ordering Dr: Teresita Singleton DO STUDY: X-RAY [...] Sai Wu DO at 16:53 EDT Tel [phone], Service support [phone], RAD/L/S Spine Min 4 Views IMPRESSION: Minimal endplate spondylosis without other evidence of lumbar spine abnormality. Electronically Signed: Sai Wu DO at 16:53 EDT Tel [phone], Service support [phone], CC: Teresita Singleton DO Colored Leather Setter: Signed 15-Sep-2013 Echocardiogram Complete Result: Comments: See Note; NOTES: [facility] Cardiovascular Services [address] [place] [address] Echo Complete 09/15/13 0754 MR#: [id number] Acct: [id number] Name: JESICA MATIAS Rep #: [id number] : 1965 47 From: Jorje Gomez MD Attending Dr: Teresita Singleton DO Status: REG CLI Ordering Dr: Teresita Singleton DO Date: 09/15/13 Location: [facility] Sex: M C Admitted: [facility] This was a 2D Doppler, Color [...] Dictated: 09/15/13 0754 Date Transcribed: 09/15/13 1712 Colored Leather Setter: Signed 15-Sep-2013 Chest PA and Lateral Result: Comments: See Note; NOTES: [facility] Imaging Services [address] [place] [address] Radiology Report MR#: [id number] Acct: [id number] Name: MARUCS MATIAS Rep #: [id number] : 1965 M 47 From: Daniel Long MD PCP: Teresita Singleton DO Status: REG CLI Study: Chest PA and Lateral Date of Exam: 09/15/13 Exam# [id number] Ordering Dr: Teresita Singleton DO STUDY: X [...] Daniel Long MD at 13:17 EDT Tel [phone], Service support [phone], CC: Teresita Singleton DO Colored Leather Setter: Signed 15-Sep-2013 Nuclear Stress Test - Treadmil Result: Comments: See Note; NOTES: [facility] Imaging Services [address] [place] [address] Nuclear Medicine Report MR#: [id number] Acct: [id number] Name: MARCUS MATIAS Rep #: [id number] : 1965 M 47 From: Jorje Gomez MD PCP: Teresita Singleton DO Status: REG CLI Study: Nuclear Stress Test - Treadmil Date of Exam: 09/15/13 Exam# [id number] Ordering Dr: Teresita Singleton DO EXERCISE TOLERANCE [...] LVEF of 69%. CC: Teresita Singleton DO Colored Leather Setter: SOCO Signed 07-Sep-2013 Spirometry (54098) Result: 07-Sep-2013 EKG (85237) Result: [MEASUREMENTS ANALYSIS] Date of Test: 09/07/2013 10:09:59; Heart Rate: 75; TX Interval: 166; QRS: 89; QT Interval: 370; Corrected QT Interval (QTc): 396; P Wave [place]: 24; QRS Wave [place]: 13; T Wave [place]: 19; Blood Pressure: 110/80 [ECG DIAGNOSTIC STATEMENTS] [...] kg/m2 Body Surface Area Calculated 2.07 m2 90-Hse-325561:43 Comments: I am nervous Temperature 97.8 f [...] Description Value Details :48 HgA1C , Office (42989) HgA1C , Office 5.6 % (Normal) Range: 4.6 - 7.1 :48 Blood Glucose , Office (07407) Blood Glucose , Office 105 (Normal) :08 CBC W/Diff, Automated Comments: [facility] [address] [place], [place], [id number] Absolute Lymph 1.86 {X10_3/ul} (Normal) Range: 0.83-4.51 [...] 4.6-6.2 WBC 4.5 K/mm3 (Normal) Range: 4.4-11.0 37-Yqn-86039:08 Comprehensive Metabolic Profil Comments: [facility] [address] [place], [place], [address] GAP 6 (Normal) Range: 5-15 CO2 28.0 [...] Comments: Please note revised GLUCOSE reference range vllkyzgrt30/02/2018. 86-Kbe-06790:08 Lipid Profile Comments: [facility] [address] [facility]. [place], [place], [address] VLDL 36 mg/dL (Normal) Range: 5-40 LDL [...] 200-240 mg/dL Borderline >240 mg/dL High Risk 66-Kyt-22353:08 Microalb:Creat Ratio,Random UR Comments: [facility] [address] [place], [place], [address] MALB:CREAT 8.9 {mg/g_CRE} (Normal) MICROALBUMIN,UR 6.3 mg/L (Normal) UR CREAT 71.30 mg/dL (Normal) :08 PSA,Total - Annual Screen Comments: [facility] [address] [place], [address] PSA,TOT SCREEN 0.20 ng/mL (Normal) Range: 0.00-4.00 Comments: This test was performed using the TPSA assay method for theMagin chemistry system. Values obtained with differentassay methods cannot be used interchangably.When changing PSA assays in the course of monitoring apatient, additional sequential testing should be carriedout to confirm baseline values. :08 Thyroid Stim Hormone (TSH) Comments: [facility] [address] [place], [address] TSH 2.56 {uIU/mL} (Normal) Range: 0.358-3.74 :08 Urinalysis, Complete Comments: How was Urine Obtained? [facility] [address] [place], [address] MUCUS, URINE 0 SEEN {/hpf} (Normal) [...] (Normal) CLARITY Clear (Normal) COLOR Yellow (Normal) 42-Neq-31598:08 Vitamin D,25 Hydroxy Comments: [facility] [address] [place], [address] Vitamin D 25-OH 38.3 ng/mL (Normal) Range: 29.95-100.01 Comments: Vitamin D 25(OH) Status Range Deficiency <20 ng/mL (50nmol/L) Insuffciency 20 - 30 ng/mL (50 - 75 nmol/L) Sufficiency 30 - 100 ng/mL (75 - 250 nmol/L) Toxicity >100 ng/mL (>250 nmol/L) :56 HgA1C , Office (87436) HgA1C , Office 5.6 % (Normal) Range: 4.6 - 7.1 :55 Blood Glucose , Office (17317) Blood Glucose , Office 97 (Normal) :18 CBC W/Diff, Automated Comments: [facility] [address] [place], [address] ; ov 4/20 Absolute Lymph 1.87 {X10_3/ul} [...] 4.6-6.2 WBC 5.5 K/mm3 (Normal) Range: 4.4-11.0 79-Tbk-111788:29 CBC W/Diff, Automated Comments: [facility] [address] [place], [place], [address] Absolute Lymph 1.69 {X10_3/ul} (Normal) Range: 0.83-4.51 [...] 4.6-6.2 WBC 4.0 K/mm3 (Abnormal) Range: 4.4-11.0 42-Aqd-468836:29 Erythrocyte Sed Rate Comments: [facility] [address] [place], [place], [address] SED RATE 4 mm/h (Normal) Range: 0-20 :53 HgA1C , Office (85860) HgA1C , Office 5.6 % (Normal) Range: 4.6 - 7.1 :53 Blood Glucose , Office (30686) Blood Glucose , Office 100 (Normal) :25 CBC W/Diff, Automated Comments: [facility] [address] [place], [address] Absolute Lymph 1.62 {X10_3/ul} (Normal) [...] Range: 4.4-11.0 :25 Comprehensive Metabolic Profil Comments: [facility] [address] [place], [place], [address] GAP 7 (Normal) Range: 5-15 CO2 25.0 [...] 7-18 GLU 99 mg/dL (Normal) Range: 70-110 41-Tpm-91557:25 Lipid Profile Comments: [facility] [address] [place], [place], [address] VLDL 27 mg/dL (Normal) Range: 5-40 LDL [...] High Risk :25 Microalb:Creat Ratio,Random UR Comments: [facility] [address] [place], [place], [address] MALB:CREAT 13.5 {mg/g_CRE} (Normal) MICROALBUMIN,UR 12.4 mg/L (Normal) UR CREAT 92.00 mg/dL (Normal) :25 Thyroid Stim Hormone (TSH) Comments: [facility] [address] [place], [place], [address] TSH 2.01 {uIU/mL} (Normal) Range: 0.358-3.74 :25 Vitamin D,25 Hydroxy Comments: [facility] [address] [place], [place], [address] Vitamin D 25-OH 26.3 ng/mL (Normal) Comments: Vitamin D 25(OH) Status Range Deficiency <20 ng/mL (50nmol/L) Insuffciency 20 - 30 ng/mL (50 - 75 nmol/L) Sufficiency 30 - 100 ng/mL (75 - 250 nmol/L) Toxicity >100 ng/mL (>250 nmol/L) 13-Mmm-105529:50 Rapid Flu (03129 x 2) Comments: Negative Influenza A Ag Negative (Normal) :53 HgA1C , Office (28260) HgA1C , Office 5.5 % (Normal) Range: 4.6 - 7.1 :53 Blood Glucose , Office (81244) Blood Glucose , Office 85 (Normal) 3-Zjk-346936:23 Microscopic Examination Comments: PATIENT WAS FASTINGPERFORMED BY: CB [facility] Bvfxig7221 [facility] [place] [id number] Bacteria None seen (Normal) Mucus Threads Present (Normal) Epithelial Cells (non renal) None seen {/hpf} (Normal) Range: 0 - 10 RBC None seen {/hpf} (Normal) Range: 0 - 2 WBC 0-5 {/hpf} (Normal) Range: 0 - 5 0-Psx-865309:23 CALCIFIDIOL (59478) VIT D 25 Comments: PATIENT WAS FASTINGPERFORMED BY: [facility] Wsbzix3271 [facility] [id number] Vitamin D, 25-Hydroxy 29.6 ng/mL (Abnormal) Range: 30.0-100.0 Comments: Vitamin D deficiency has been defined by the [place] of[place]icine and an Endocrine Society practice guideline as alevel of serum 25-OH vitamin D less than 20 ng/mL (1,2).The Endocrine Society went on to further define vitamin Dinsufficiency as a level between 21 and 29 ng/mL (2).1. IOM ([place] of Medicine). 2010. Dietary reference intakes for calcium and D. [place]: The National Academies Press.2. Darcie MF, Chris NC, Nancy WAN, et al. Evaluation, treatment, and prevention of vitamin D deficiency: an Endocrine Society clinical practice guideline. JCEM. 2010; 96(7):1911-30. 3-Slg-766091:23 TSH (80768) Comments: PATIENT WAS FASTINGPERFORMED BY: [facility] Ddwfzk3547 [facility] [id number] TSH 2.180 {uIU/mL} (Normal) Range: 0.450-4.500 1-Xyu-213834:23 URINALYSIS, W/ MICRO (21746) Comments: PATIENT WAS FASTINGPERFORMED BY: [facility] Mjfhwz6093 [facility] [id number] Microscopic Examination See below: (Normal) Comments: Microscopic was indicated and was performed. Nitrite, Urine Negative (Normal) Urobilinogen,Semi-Qn 0.2 mg/dL (Normal) Range: 0.2-1.0 Bilirubin Negative (Normal) Occult Blood Trace (Abnormal) Ketones Negative (Normal) Glucose Negative (Normal) Protein Negative (Normal) WBC Esterase Negative (Normal) Appearance Clear (Normal) Urine-Color Yellow (Normal) pH 6.5 (Normal) Range: 5.0-7.5 Specific [place] 1.016 (Normal) Range: 1.005-1.030 :23 MICROALBUMIN: CREATININE RATIO Comments: PATIENT WAS FASTINGPERFORMED BY: [employer] Mxdxak9503 [facility] [id number] (14276) AND (91840) Microalb/Creat Ratio <3.1 {mg/g_creat} (Normal) Range: 0.0-30.0 Microalbumin, Urine <3.0 ug/mL (Normal) Creatinine, Urine 96.8 mg/dL (Normal) :23 METABOLIC PANEL, COMPREHENSIVE Comments: PATIENT WAS FASTINGPERFORMED BY: Schmoozer6370 [facility] [id number] (61177) ALT (SGPT) 27 [iU]/L (Normal) Range: 0-44 [...] mg/dL (Normal) Range: 65-99 :23 LIPID PANEL (50520) Comments: PATIENT WAS FASTINGPERFORMED BY: Schmoozer6370 [facility] [id number] LDL/HDL Ratio 2.3 {ratio_units} (Normal) Range: 0.0-3.6 Comments: LDL/HDL Ratio Men Women 1/2 Avg.Risk 1.0 1.5 Av g.Risk 3.6 3.2 2X Avg.Risk 6.2 5.0 3X Avg.Risk 8.0 6.1 LDL Cholesterol Calc 84 mg/dL (Normal) Range: 0-99 VLDL Cholesterol Nader 24 mg/dL (Normal) Range: 5-40 HDL Cholesterol 37 mg/dL (Abnormal) Triglycerides 118 mg/dL (Normal) Range: 0-149 Cholesterol, Total 145 mg/dL (Normal) Range: 100-199 2-Rag-844095:23 CBC W/AUTO DIFF WBC (93404) Comments: PATIENT WAS FASTINGPERFORMED BY: [employer]6370 [facility] [id number] Immature Grans (Abs) 0.0 {x10E3/uL} (Normal) Range: [...] (Normal) Range: 3.4-10.8 :09 HgA1C , Office (36839) HgA1C , Office 5.4 % (Normal) Range: 4.6 - 7.1 :29 CBC W/Diff, Automated Comments: [facility] [address] [place], [address] Absolute Lymph 1.84 {X10_3/ul} (Normal) Range: 0.83-4.51 [...] Range: 4.4-11.0 10-Apr-20168:29 Comprehensive Metabolic Profil Comments: [facility] [address] [place], [address] GAP 5 (Normal) Range: 5-15 CO2 29.0 [...] (Normal) Range: 70-110 :29 Lipid Profile Comments: [facility] [address] [place], [place], [address] VLDL 29 mg/dL (Normal) Range: 5-40 LDL [...] High Risk :29 Microalb:Creat Ratio,Random UR Comments: [facility] [address] [place], [address] MALB:CREAT 7.5 {mg/g_CRE} (Normal) MICROALBUMIN,UR 8.2 mg/L (Normal) UR CREAT 109.00 mg/dL (Normal) 85-Qvs-36116:00 Cytology, Body Fluid / CSF Comments: Specimen Source: [facility] [address] [place], [address] CYTOLOGY,BF/CSF SEE PATHOLOGY REPORT (Normal) Comments: Specimen submitted to Anatomical Path[facility] Department [facility]. 31-Gnc-24258:00 Urinalysis, Complete Comments: How was Urine Obtained? [facility] [address] [place], [address] MUCUS, URINE 1+ {/hpf} (Normal) [...] (Normal) CLARITY Clear (Normal) COLOR Yellow (Normal) 95-Qme-00242:00 CYTOSPIN ON FLUID See Note (Normal) Comments: [facility] [address] [place], [address] Comments: Patient: MARCUS MATIAS : 1965 (50/M) Acct Num: [id number] Phys: Rolando CHADWICK,Philip Unit Num: [id number] Loc: LABSPEC Specimen: [id number] Received: 11/01/151427 Spec Type: CYSPIN FL TISSUES TISSUES: CYTOLOGY GROSS Received is 70 ml of gold cloudy fluid labeled with the patient's name and and designated per the requisition as urine. Submit joselin for cytology preparation. 11/01/15 TC:5 CPT:55692 CYTOLOGY STUDY Slides are reviewed. DIAGNOSIS CYTOLOGY Urine for cytology (cytospins): Negative for malignant cells. AM:rg 11/02/15 HEADER OPERATION: Not noted PRE-OP DIAGNOSIS: Hematuria TISSUE SUBMITTED: Urine for cytology Signed Srinivasa [facility] 11/02/15 <sig nature on file> :05 HgA1C , Office (97451) HgA1C , Office 5.5 % (Normal) Range: 4.6 - 7.1 :05 CBC W/Diff, Automated Comments: [facility] [address] [place], [address] Absolute Lymph 1.54 {X10_3/ul} (Normal) [...] 4.6-6.2 WBC 4.0 K/mm3 (Abnormal) Range: 4.4-11.0 52-Smz-45658:05 Comprehensive Metabolic Profil Comments: [facility] [address], [place], [address] GAP 8 (Normal) Range: 5-15 CO2 24.0 [...] 7-18 GLU 104 mg/dL (Normal) Range: 70-110 95-Qil-13725:05 Lipid Profile Comments: [facility] [address] [place], [address] ; sent message he needs [...] Risk :05 PSA,Total - Annual Screen Comments: [facility] [address] [place], [address] PSA,TOT SCREEN 0.24 ng/mL (Normal) Range: 0.00-4.00 Comments: This test was performed using the TPSA assay method for [employer] chemistry system. Values obtained with differentassay methods cannot be used interchangably.When changing PSA assays in the course of monitoring apatient, additional sequential testing should be carriedout to confirm baseline values. 18-Jly-088114:50 Cytology, Body Fluid / CSF Comments: Spec[facility]: [facility] Hxjwrxxslt9003 [facility] [place], [address] CYTOLOGY,BF/CSF SEE PATHOLOGY REPORT (Normal) Comments: Specimen submitted to Anatomical Pathology Department [facility]. 00-Lyo-053431:50 Urinalysis, Complete Comments: How was Urine Obtained? Urine, RandomGerman [facility] [address] [place], [address] MUCUS, URINE 0 SEEN {/hpf} [...] (Normal) CLARITY Clear (Normal) COLOR Yellow (Normal) 12-Bgx-62388:00 CYTOSPIN ON FLUID See Note (Normal) Comments: [facility] [address] [facility] [place], [address] Comments: Patient: MARCUS MATIAS : 1965 (49/M) Acct Num: [id number] Phys: Rolando CHADWICK,Obie Cuevas Unit Num: [id number] Loc: LABSPEC Specimen: [id number] Received: 04/26/151422 Spec Type: CYSPIN FL TISSUES TISSUES: CULTURE RESULTS No results available. CYTOLOGY GROSS Received is 60 ml of yellow gold hazy fluid labeled with the patient's name and and d esignated per the requisition as urine. Submitted for cytology preparation. / 04/26/15 TC:5 CPT: 81897 CYTOLOGY STUDY Slides are reviewed. DIAGNOSIS CYTOLOGY Urine for cytology (cyto spin): Negative for malignant cells. AM: 04/27/15 HEADER OPERATION: Not noted PRE-OP DIAGNOSIS: Hematuria TISSUE SUBMITTED: Urine cytology Signed Srinivasa Neil 04/27/15 <signature on file> :42 Blood Glucose , Office (41430) Blood Glucose , Office 94 (Normal) :34 HgA1C , Office (27231) HgA1C , Office 5.6 % (Normal) Range: 4.6 - 7.1 :57 Comprehensive Metabolic Profil Comments: Test performed at:[facility] [address]forhuw[address] [place] [address] GAP 5 (Normal) Range: 5-15 CO2 28.0 [...] Comments: Please note revised CREATININE reference range qfiaxufvw09/22/2015. BUN 14 mg/dL (Normal) Range: 7-18 GLU 96 mg/dL (Normal) Range: 70-110 :57 Lipid Profile Comments: Test performed at:[facility] [address] [place] [address] ; has fu 8-10 VLDL [...] :57 Microalb:Creat Ratio,Random UR Comments: Test performed at:[facility] [address] [place] [address] MALB:CREAT 5.0 {mg/g_CRE} (Normal) MICROALBUMIN,UR 8.1 mg/L (Normal) UR CREAT 152.00 mg/dL (Normal) :57 Urinalysis, Complete Comments: How was Urine Obtained? CLEAN CATCHTest performed at:[facility] [address] [place] [address] ; non-emergent till apt MUCUS, [...] Patient: MARCUS MATIAS : 1965 (48/M)Acct Num: [id number] Phys: CristianRashawnEdmond Num: [id number] Loc: LABSPECSpecimen: [id number] Received: 02/15/14 - 1611Spec Type: COLON BXTIS 0 SUESTISSUES:GROSS DESCRIPTIONReceived is one container labeled with the patient name and designated rightcolon polyp biopsy. The specimen consists of multiple irregular fragments oflight narayan soft tis ronald that in aggregate measure 0.7 x 0.5 x 0.1 cm. Thespecimen is totally submitted in one cassette. / MADELAINE:tana 02/16/14 TC:1CPT: 24840OFMZJOAWKWYTRLO: ColonoscopyPRE-OPERATIVE DIAGNOSIS: Screening / po lypTISSUE SUBMITTED: Polyp biopsy right colon, rule out adenomaMICROSCOPIC DIAGNOSISPolyp, right colon, biopsy:Fragments of hyperplastic polyp.MADELAINE:tana 02/17/14Signed Alex Martins 02/17/14<signature on file> :26 HgA1C , Office (07094) HgA1C , Office 5.7 % (Normal) Range: [...] CHOL 160 mg/dL (Normal) Comments: <200 mg/dL Cqziiucfy205-131 mg/dL Borderline>240 mg/dL High Risk 19-Ifx-948174:04 Ct, Ng, Trich vag by Comments: PATIENT NOT FASTINGPERFORMED BY: CB [facility] Nimhrz0548 [facility] [id number] BY: [address] [id number] CYNDI Chlamydia by CYNDI Negative (Normal) Gonococcus by CYNDI Negative (Normal) Trich vag by CYNDI Negative (Normal) :04 Hepatitis Panel (4) Comments: PATIENT NOT FASTINGPERFORMED BY: [address] [id number] BY: [address] [id number] Inf ormation: SRC:UR URINE Hep B Core Ab, IgM Negative (Normal) Hep C Virus Ab <0.1 {s/co_ratio} (Normal) Range: 0.0-0.9 Comments: Negative: < 0.8 Indeterminate 0.8 - 0.9 Positive: > 0.9 . In order to reduce the incidence of a false positive result, the [facility] recommends that all s/co ratios between 1.0 and 10.9 be confirmed by a more specific supplemental or PCR testing. [facility] offers HCV Ab w/Reflex to Verification test #[id number]. HBsAg Screen Negative (Normal) Hep A Ab, IgM Negative (Normal) :04 HSV 1 and 2 IgM Abs, Comments: PATIENT NOT FASTINGPERFORMED BY: [address] [id number] BY: [address] [id number] Indirect HSV 1 IgM Antibodies <1:10 {titer} [...] 2-Specific Ab, Comments: PATIENT NOT FASTINGPERFORMED BY: Rippld[address] Koch Street[address] [place] [id number] BY: [address] [id number] IgG HSV 1 IgG, Type Spec 55.70 [...] date. Positive indicates antibodies detected to HSV-2. 22-Vta-100534:04 [facility] 777811 Comments: PATIENT NOT FASTINGPERFORMED BY: [employer] [id number] BY: [address] [id number] HIV 1/O/2 Abs, Non Reactive Qual (Normal) HIV 1/O/2 <1.00 (Normal) Comments: Index Value: Specimen reactivity relative to the negative cutoff. Abs-Index Value : RPR Non Reactive Comments: PATIENT NOT FASTINGPERFORMED BY: DigitalsmithsWe[facility] HospitalRuwtxp9357 [facility] [id number] BY: [address] [id number] (Normal) 20-Ngj-774298:01 CBCD ANC 3.2 {X10_3/uL} (Normal) Range: 2.0-7.7 [...] 4.6-6.2 WBC 5.1 K/mm3 (Normal) Range: 4.4-11.0 52-Edk-928410:01 CMP Comments: will review at 09/25/13 appt [...] 0.8-1.3 GLU 91 mg/dL (Normal) Range: 70-110 82-Kiy-292387:01 LIPID HDL 31 mg/dL (Abnormal) Comments: Reference [...] CHOL 167 mg/dL (Normal) Comments: <200 mg/dL Nvskyywop805-915 mg/dL Borderline>240 mg/dL High Risk 43-Oxf-485744:38 MIACRE Comments: PLEASE ADD URINE FROM YESTERDAY 09/15/13 MIALB < 5.0 mg/L (Normal) tMICROCREAT Test not performed {mg/g_CRE} (Normal) CREU 65.8 mg/dL (Normal) : PSA 0.26 ng/mL (Normal) Range: 0.00-4.00 Comments: This test was performed using the TPSA assay method for the[employer] chemistry system. Values obtained with differentassay methods [...] children havebeen associated with numerous adverse health effects.[facility] Guidelines: Blood lead level s in therange 5-9 ug/dL have been associated with adversehealth effects in children aged 6 years and younger..Environmental Exposure:WHO Recommendation <20Occupational Exposure:OSHA Lead Std 40.Detection Limit = 1Performed at: [facility] Lab[address] [id number] Director: Tank Cummings PhD, Phone: [phone] :54 MIACRE tMICROCREAT 4.8 {mg/g_CRE} (Normal) MIALB [...] CHOL 154 mg/dL (Normal) Comments: <200 mg/dL Quipttwqy360-443 mg/dL Borderline>240 mg/dL High Risk :57 PSA [...] (Normal) UCLAR CLEAR (Normal) UCOL YELLOW (Normal) 38-Wmq-208595:11 CHEST, PA AND LATERAL Radiology Report See [...] NEGATIVE CLARITY CLEAR (Normal) COLOR YELLOW (Normal) 95-Djj-916314:28 LIVER ALT 29 U/L (Normal) Range: 12-78 [...] CHOL 160 mg/dL (Normal) Comments: <200 mg/dL Zjtirdpcw960-149 mg/dL Borderline>240 mg/dL High Risk :27 LIVER [...] (Normal) Range: 6.4-8.2 :33 URINALYSIS W/O MICRO (68042) UA - APPEARANCE clear (Normal) UA - [...] T PROT 7.3 g/dL (Normal) Range: 6.4-8.2 7-Fvm-975800:51 Urinalysis, Office (86173) UA - BILIRUBIN Negative (Normal) UA - [...] Report See Note (Normal) Comments: Exam Number: [id number] CT SCAN OF ABDOMEN AND PELVIS HISTORYHematuria. [...] Report See Note (Normal) Comments: Exam Number: [id number] CT SCAN OF ABDOMEN AND PELVIS HISTORYHematuria. [...] is identified. Reported By: SHAI WHYTE M.D. 11-Qvf-058181:23 DAGOBERTO-D [id number] DAGOBERTO-DIRECT 19 AU/mL (Normal) Range: 0-99 Comments: [...] was performed using the TPSA method for theMagin chemistry system.Values obtained with different assay methods cannot be usedinterchangably.When changing PSA assays in the course of monito ring apatient, additional sequential testing should be carriedout to confirm baseline values. :23 RA LATEX 6502 6.7 {IU/mL} (Normal) Range: 0.0-13.9 Comments: Performed At: [facility] [place], [place] [id number] :23 ROUTINE UA BILIRUBIN URINE SeeNote (Normal) [...] Indication: Impaired fasting glucose Hematuria : Reviewed Assembler Unit Letter Indication: Hematuria Impaired fasting glucose : *Diabetes Education Indication: Impaired fasting glucose Hypercholesterolemia : Cholesterol mgmt Indication: Hypercholesterolemia Common cold virus : Follow up if no improvement or if symptoms worsen Indication: Common cold virus Common cold virus : Common Cold *: cold Indication: Common cold virus Hematuria : Reviewed Assembler Unit Letter Indication: Hematuria Impaired fasting glucose : [...] : Follow up in 10 days with [facility] Indication: Possible exposure to STD Impaired [...] for prostate cancer On: :24 Request CALCIFIDIOL (84226) VIT D 25Indication: Vitamin D deficiency On: :17 Request TSH ([id number])Indication: Impaired fasting glucose On: :17 Request URINALYSIS, W/ MICRO ([id number])Indication: Impaired fasting glucose On: :17 Request MICROALBUMIN: CREATININE RATIO ([id number]) AND ([id number])Indication: Impaired fasting glucose On: :17 Request METABOLIC PANEL, COMPREHENSIVE ([id number])Indication: Impaired fasting glucose On: :17 Request LIPID PANEL ([id number])Indication: Impaired fasting glucose On: :17 Request CBC W/AUTO DIFF WBC ([id number])Indication: Impaired fasting glucose On: :17 Request CBC, PLATELETS & MANUAL DIFF ([id number])Indication: Leukopenia, unspecified type On: 37-Nyx-533909:39 Request CBC WITH MANUAL DIFF ([id number])Indication: Leukopenia, unspecified type On: 08-Kqp-967524:00 Request Comments: also have pathology look at for peripheral smear Sed Rate Erythrocyte (99297)Indication: Leukopenia, unspecified type On: :59 Request TSH ([id number])Indication: Impaired fasting glucose On: : Request MICROALBUMIN: CREATININE RATIO ([id number]) AND ([id number])Indication: Impaired fasting glucose On: : Request METABOLIC PANEL, COMPREHENSIVE ([id number])Indication: Impaired fasting glucose On: : Request LIPID PANEL ([id number])Indication: Impaired fasting glucose On: : Request CBC W/AUTO DIFF WBC (81371)Indication: Impaired fasting glucose On: : Request CALCIFIDIOL ([id number]) VIT D 25Indication: Vitamin D deficiency On: : Request CBC WITH MANUAL DIFF ([id number])Indication: Abnormal laboratory test On: 4-Xsa-604486:27 Request Comments: do in 1 mo CBC W/AUTO DIFF WBC ([id number])Indication: Impaired fasting glucose On: :22 Request MICROALBUMIN: CREATININE RATIO ([id number]) AND ([id number])Indication: Impaired fasting glucose On: :22 Request METABOLIC PANEL, COMPREHENSIVE (03889)Indication: Hypercholesterolemia On: 86-Eis-233843:06 Request LIPID PANEL ([id number])Indication: Hypercholesterolemia On: 75-Baw-871813:05 Request LIPID PANEL ([id number])Indication: Other and unspecified hyperlipidemia On: :23 Request CBC with auto diff ([id number])Indication: Impaired fasting glucose On: :11 Request METABOLIC PANEL, COMPREHENSIVE (31215)Indication: Impaired fasting glucose On: 13-Ltw-583952:11 Request Hemoglobin Glyclated (HGB A1C) (30397)Indication: Impaired fasting glucose On: :11 Request PSA (PROSTATE SPECIFIC ANTIGEN) (V76.44)Indication: Screening for prostate cancer On: : Request URINALYSIS, W/ MICRO ([id number])Indication: Hematuria On: 79-Did-629636:17 Request MICROALBUMIN: CREATININE RATIO ([id number]) AND ([id number])Indication: Impaired fasting glucose On: 37-Cwa-995692:17 Request METABOLIC PANEL, COMPREHENSIVE ([id number])Indication: Impaired fasting glucose On: 04-Ecv-542871:17 Request LIPID PANEL ([id number])Indication: Hypercholesterolemia On: :17 Request RPR (RAPID PLASMA REAGIN) ([id number])Indication: Unspecified Diagnosis On: 46-Msw-356604:03 Request HIV ANTIGEN (34907)Indication: Possible exposure to STD On: :59 Request HIV-2 ANTIBODY (70549)Indication: Possible exposure to STD On: :[address],NG,TV (Chlamydia, Gonorrhea, Trichomonas) (60023)Indication: Possible exposure to STD On: :56 Request Herpes Simplex I Ag, Direct Fluorescent Ab (29542)Indication: Possible exposure to STD On: :55 Request Herpes Simplex (HSV) II Ab (13860)Indication: Possible exposure to STD On: :54 Request HEPATITIS PANEL (49416)Indication: Possible exposure to STD On: 56-Anp-846867:54 Request LIPID PANEL ([id number])Indication: Other and unspecified hyperlipidemia On: 48-Uax-227551:44 Request METABOLIC PANEL, COMPREHENSIVE (26811)Indication: Impaired fasting glucose On: 15-Zng-619087:44 Request PSA (PROSTATE SPECIFIC ANTIGEN) (V76.44)Indication: Screening for prostate cancer On: :55 Request TSH ([id number])Indication: Chest pain On: :55 Request MICROALBUMIN: CREATININE RATIO ([id number]) AND ([id number])Indication: Impaired fasting glucose On: :55 Request URINALYSIS, W/ MICRO ([id number])Indication: Impaired fasting glucose On: :55 Request CBC WITH MANUAL DIFF (57617)Indication: Impaired fasting glucose On: :55 Request METABOLIC PANEL, COMPREHENSIVE ([id number])Indication: Impaired fasting glucose On: :55 Request LIPID PANEL (14835)Indication: Other and unspecified hyperlipidemia On: :55 Request CBC WITH MANUAL DIFF ([id number])Indication: Impaired fasting glucose On: Request METABOLIC PANEL, COMPREHENSIVE (99368)Indication: Impaired fasting glucose On: : Request HEPATIC FUNCTION PANEL (60671)Indication: Other and unspecified hyperlipidemia On: Request LIPID PANEL ([id number])Indication: Other and unspecified hyperlipidemia On: : Request LEAD ([id number])Indication: Paresthesia On: Request MICROALBUMIN: CREATININE RATIO (12928) AND ([id number])Indication: Impaired fasting glucose On: Request CBC WITH MANUAL DIFF ([id number])Indication: Paresthesia On: Request VITAMIN B-12 (CYANOCOBALAMIN) (46163)Indication: Paresthesia On: Request TSH ([id number])Indication: Sleep Disorder On: Request LEAD ([id number])Indication: Paresthesia On: : Request VITAMIN B-12 (CYANOCOBALAMIN) (00137)Indication: Paresthesia On: : Request LIPID PANEL (84521)Indication: Other and unspecified hyperlipidemia On: : Request PSA (PROSTATE SPECIFIC ANTIGEN) (V76.44)Indication: BPH without urinary obstruction On: : Request TSH ([id number])Indication: Paresthesia On: : Request MICROALBUMIN: CREATININE RATIO ([id number]) AND ([id number])Indication: Impaired fasting glucose On: : Request CBC WITH MANUAL DIFF ([id number])Indication: Paresthesia On: : Request METABOLIC PANEL, COMPREHENSIVE (48776)Indication: Paresthesia On: : Request Hemoglobin Glyclated (HGB A1C) (48648)Indication: Impaired fasting glucose On: : Request PSA (PROSTATE SPECIFIC ANTIGEN) (V76.44)Indication: BPH without urinary obstruction On: : Request METABOLIC PANEL, COMPREHENSIVE (66736)Indication: Impaired fasting glucose On: : Request LIPID PANEL (31245)Indication: Other and unspecified hyperlipidemia On: 22-Pvp-812823:04 Request HgA1C , Office ([id number])Indication: Impaired fasting glucose On: :20 Request CBC WITH MANUAL DIFF ([id number])Indication: Impaired fasting glucose On: :14 Request METABOLIC PANEL, COMPREHENSIVE (69696)Indication: Impaired fasting glucose On: :14 Request MICROALBUMIN: CREATININE RATIO ([id number]) AND (60563)Indication: Impaired fasting glucose On: :14 Request LIPID PANEL ([id number])Indication: Other and unspecified hyperlipidemia On: :13 Request HgA1C , Office ([id number])Indication: Impaired fasting glucose On: :05 Request CBC WITH MANUAL DIFF ([id number])Indication: Anemia, unspecified On: : Request IRON BINDING CAPACITY (TIBC) (12486)Indication: Anemia, unspecified On: : Request IRON ([id number])Indication: Anemia, unspecified On: : Request FERRITIN ([id number])Indication: Anemia, unspecified On: :21 Request CBC WITH MANUAL DIFF ([id number])Indication: Elevated blood pressure (not hypertension) On: :20 Request METABOLIC PANEL, COMPREHENSIVE ([id number])Indication: Elevated blood pressure (not hypertension) On: :20 Request URINALYSIS, W/ MICRO ([id number])Indication: Hematuria On: :20 Request Lipid Panel ([id number])Indication: Hypercholesterolemia On: : Request PSA (Prostate Specific Antigen), Screening (70108)Indication: Elevated blood pressure (not hypertension) On: : Request CBC with manual diff ([id number])Indication: Elevated blood pressure (not hypertension) On: : Request Metabolic Panel, Comprehensive ([id number])Indication: Elevated blood pressure (not hypertension) On: : Request URINALYSIS ([id number])Indication: Elevated blood pressure (not hypertension) On: : Request URINALYSIS, W/ MICRO ([id number])Indication: Hematuria On: 71-Kqk-408578:32 Request HEPATIC FUNCTION PANEL ([id number])Indication: Hypercholesterolemia On: :20 Request METABOLIC PANEL, COMPREHENSIVE ([id number])Indication: Elevated blood pressure (not hypertension) On: :25 Request URINALYSIS, W/ MICRO ([id number])Indication: Elevated blood pressure (not hypertension) On: :24 Request HEPATIC FUNCTION PANEL ([id number])Indication: Other and unspecified hyperlipidemia On: :24 Request LIPID PANEL ([id number])Indication: Other and unspecified hyperlipidemia On: :24 Request PSA (PROSTATE SPECIFIC ANTIGEN) (V76.44)Indication: Hematuria On: :12 Request HEPATIC FUNCTION PANEL ([id number])Indication: Other and unspecified hyperlipidemia On: :11 Request LIPID PANEL ([id number])Indication: Other and unspecified hyperlipidemia On: :11 Request HEPATIC FUNCTION PANEL ([id number])Indication: Other and unspecified hyperlipidemia On: :33 Request LIPID PANEL ([id number])Indication: Other and unspecified hyperlipidemia On: :33 Request HEPATIC FUNCTION PANEL ([id number])Indication: Other and unspecified hyperlipidemia On: 3-Trl-953724:53 Request LIPID PANEL ([id number])Indication: Other and unspecified hyperlipidemia On: 0-Wyr-226592:53 Request HEPATIC FUNCTION PANEL ([id number])Indication: Other and unspecified hyperlipidemia On: :26 Request LIPID PANEL (12943)Indication: Other and unspecified hyperlipidemia On: :26 Request LIPID PANEL (58076)Indication: Other and unspecified hyperlipidemia On: 45-Xbt-354950:10 Request URINALYSIS W/O MICRO ([id number])Indication: Elevated blood pressure (not hypertension) On: :08 Request PSA (PROSTATE SPECIFIC ANTIGEN) (V76.44)Indication: Screening for prostate cancer On: :08 Request SED RATE ERYTHROCYTE ([id number])Indication: alopecia areata On: :08 Request C-REACTIVE PROTEIN (43583)Indication: alopecia areata On: :08 Request RHEUMATOID FACTOR-QUANT ([id number])Indication: alopecia areata On: :08 Request DAGOBERTO (ANTINUCLEAR ANTIBODY) (75494)Indication: alopecia areata On: : Request TSH ([id number])Indication: alopecia areata On: : Request METABOLIC PANEL, COMPREHENSIVE ([id number])Indication: Elevated blood pressure (not hypertension) On: Request CBC WITH MANUAL DIFF ([id number])Indication: alopecia areata On: Request FERRITIN ([id number])Indication: alopecia areata On: : Request VITAMIN B-12 (CYANOCOBALAMIN) ([id number])Indication: alopecia areata On: Request LIPID PANEL ([id number])Indication: Other and unspecified hyperlipidemia On: 6-Dif-275809:30 Request PSA (PROSTATE SPECIFIC ANTIGEN) (77938)Indication: Screening for prostate cancer On: :29 Request Planned Procedures Aerosol Treatment (84186)By: Luba On: 21-Jun-2017 Intent [place] DEJESUS ELECTROCARDIOGRAM, COMPLETE (ECG) On: 25-Mar-2017 Intent (78883)By: Flor Manriquez Comments: Sinus Rhythm-Heart rate 97. Aerosol Treatment (10053)By: Luba On: 23-Apr-2016 Intent [place] DEJESUS ELECTROCARDIOGRAM, COMPLETE (ECG) On: 23-Apr-2016 Intent ([id number])By: Marietta Verduzco CNP ELECTROCARDIOGRAM, COMPLETE (ECG) On: 13-Apr-2016 Intent (66508)By: Anai Hernandez DO Comments: nsr no acute chg Anai QUEZADA Radiology - Lumbar SpineBy: Mani QUEZADA, On: 13-Dec-2014 Intent Teresita A EKG (77320)By: Teresita Singleton DO On: 13-Dec-2014 Intent Comments: ekg showed normal sinus rhythym, normal axis, no acute st/t wave changes Inhaler Demo (26804)By: Mani QUEZADA, On: 07-Sep-2013 Intent Teresita A [...] Intent Starr Mcmahon TD Injection , IM ([id number])By: On: 13-Jul-2011 Intent Starr Mcmahon Comments: 2006 EKGBy: Ciesa INVENTORY ANALYST, Meghna On: 03-Apr-2011 Intent Radiology - Chest- PA and LatBy: Fast On: 14-Mar-2011 Intent Teresita QUEZADA A Comments: include left anterior ribs EKG ([id number])By: Teresita Singleton DO A On: 14-Mar-2011 Intent Comments: ekg showed normal sinus rhythym, normal axis, no acute st/t wave changes FLU VAC, SPLIT, >3 YEARS, INTRAMUSC On: 14-Mar-2011 Intent ([id number])By: Starr Mcmahon Comments: Lot: [id number]: 11/03/11Site: Lt DeltoidDose: Prefilled DoseARiding, 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 IMMUNIZ ADMNIN, 1 VAC, SNGL/COMBO On: 14-Mar-2011 Intent ([id number])By: Starr Mcmahon FLU VAC, SPLIT, >3 YEARS, INTRAMUSC On: 15-Mar-2010 Intent ([id number])By: Starr Mcmahon Comments: Lot #[id number]/11Site-L dltd/IMDose 0.5mlgiven by:MATILDE LIRA EKG ([id number])By: Starr Mcmahon On: 15-Mar-2010 Intent Comments: ekg showed normal sinus rhythym, normal axis, no acute st/t wave changes IMMUNIZ ADMNIN, 1 VAC, SNGL/COMBO On: 15-Mar-2010 Intent ([id number])By: Starr Mcmahon CT - Abdomen & Pelvis Stone On: 05-Apr-2008 Intent ProtocolBy: Teresita Singleton DO A EKG ([id number])By: Starr Mcmahon On: 21-Mar-2008 Intent Comments: ekg showed normal sinus rhythym, normal axis, no acute st/t wave changes EKG (78016)By: Teresita Singleton DO On: 04-Feb-2006 Intent Comments: [...] moderate. 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 The symptoms have been associated with [...] [facility] End: 31-Jan-2006 9:38 Payers [facility] Aura yates guarantor
--- OUTSIDE RECORDS SUMMARY | 2018-06-02 17:50 | XMS RPT_ITS | Continuity of Care Document ---
:1965 Author Organization [facility] Address [address] [facility] [address] [place] [address] Phone Support Name Relationship Address Phone Marcus Matias Unavailable [address] [place] [address] Alton Matias Unavailable [address] [place] [address] Care Team Providers Name Role Phone Anai [...] (K63.5, 211.3) Comments: scope 2012 due in 5yr-[facility] Status: Active Common cold virus (J00, [...] More Views Result: Comments: See Note; NOTES: [facility] Imaging Services [address] [place] [address] Knee 4 or More Views MR#: [id number] Acct: [id number] Name: MARCUS MATIAS Rep #: [id number] : 1965 M 52 From: Sanchez Elliott MD PCP: Anai Hernandez DO Status: REG CLI Study: Knee 4 or More Views Date of Exam: 04/11/18 Exam# [id number] Ordering Dr: Anai Hernandez DO STUDY: X- [...] Service support , CC: Anai Hernandez DO Gis Technician: Signed 11-Apr-2018 Knee 4 or More Views Result: Comments: See Note; NOTES: [facility] Imaging Services [address] [place] [address] Knee 4 or More Views MR#: [id number] Acct: [id number] Name: MARCUS MATIAS Rep #: [id number] : 1965 M 52 From: Sanchez Elliott MD PCP: Anai Hernandez DO Status: REG CLI Study: Knee 4 or More Views Date of Exam: 04/11/18 Exam# [id number] Ordering Dr: Anai Hernandez DO STUDY: X- [...] Service support , CC: Anai Hernandez DO Gis Technician: Signed 21-Apr-2015 Abdomen Single View Result: Comments: See Note; NOTES: [facility] Imaging Services [address] [place] [address] Verdana 4d Abdomen Single View MR#: [id number] Acct: [id number] Name: MARCUS MATIAS Rep #: [id number] : 1965 M 49 From: Jimmy Negrete DO PCP: Teresita Singleton DO Status: REG CLI Study: Abdomen Single View Date of Exam: 04/21/15 Exam# [id number] Ordering Dr: Anahy Lo MD STUDY: X-RAY [...] 7:34 EST Te l , Service support [phone], RAD/Abdomen Single View IMPRESSION: No acute process. No definite renal calcifications. Electronically Signed: Jimmy DO Caden at 7:34 EST Tel , Service support [phone], CC: Teresita Singleton DO; Obie Lo MD Gis Technician: Signed 21-Apr-2015 Kidney and Bladder Result: Comments: See Note; NOTES: [facility] Imaging Services [address] [place] [address] Verdana 4d Kidney and Bladder MR#: [id number] Acct: [id number] Name: Awa MATIAS Rep #: [id number] : 1965 M 49 From: Daniel Long MD PCP: Teresita Singleton DO Status: REG CLI Study: Kidney and Bladder Date of Exam: 04/21/15 Exam# [id number] Ordering Dr: Maegan Lo MD STUDY: RENAL [...] Daniel Long MD at 11:21 EST Tel [phone], Service support [phone], CC: Teresita Singleton DO; Obie Lo MD Gis Technician: Signed 13-Dec-2014 L/S Spine Min 4 Views Result: Comments: See Note; NOTES: [facility] Imaging Services [address] [place] [address] Radiology Report MR#: [id number] Acct: [id number] Name: MARCUS MATIAS Rep #: [id number] : 1965 M 49 From: Sai Wu DO PCP: Teresita Singleton DO Status: REG CLI Study: L/S Spine Min 4 Views Date of Exam: 12/13/14 Exam# [id number] Ordering Dr: Teresita Singleton DO STUDY: X-RAY [...] Sai Wu DO at 16:53 EDT Tel [phone], Service support [phone], RAD/L/S Spine Min 4 Views IMPRESSION: Minimal endplate spondylosis without other evidence of lumbar spine abnormality. Electronically Signed: Sai Wu DO at 16:53 EDT Tel [phone], Service support [phone], CC: Teresita Singleton DO Gis Technician: Signed 15-Sep-2013 Echocardiogram Complete Result: Comments: See Note; NOTES: [facility] Cardiovascular Services [address] [place] [address] Echo Complete 09/15/13 0754 MR#: [id number] Acct: [id number] Name: JESICA MATIAS Rep #: [id number] : 1965 47 From: Jorje Gomez MD Attending Dr: Teresita Singleton DO Status: REG CLI Ordering Dr: Teresita Singleton DO Date: 09/15/13 Location: [facility] Sex: M C Admitted: [facility] This was a 2D Doppler, Color [...] Dictated: 09/15/13 0754 Date Transcribed: 09/15/13 171 Gis Technician: Signed 15-Sep-2013 Chest PA and Lateral Result: Comments: See Note; NOTES: [facility] Imaging Services [address] [place] [address] Radiology Report MR#: [id number] Acct: [id number] Name: MARCUS MATIAS Rep #: [id number] : 1965 M 47 From: Daniel Long MD PCP: Teresita Singleton DO Status: REG CLI Study: Chest PA and Lateral Date of Exam: 09/15/13 Exam# [id number] Ordering Dr: Teresita Singleton DO STUDY: X [...] Daniel Long MD at 13:17 EDT Tel [phone], Service support [phone], CC: Teresita Singleton DO Gis Technician: Signed 15-Sep-2013 Nuclear Stress Test - Treadmil Result: Comments: See Note; NOTES: [facility] Imaging Services [address] [place] [address] Nuclear Medicine Report MR#: [id number] Acct: [id number] Name: MARCUS MATIAS Rep #: [id number] : 1965 M 47 From: Jorje Gomez MD PCP: Teresita Singleton DO Status: REG CLI Study: Nuclear Stress Test - Treadmil Date of Exam: 09/15/13 Exam# [id number] Ordering Dr: Teresita Singleton DO EXERCISE TOLERANCE [...] LVEF of 69%. CC: Teresita Singleton DO Gis Technician: WAN Signed 07-Sep-2013 Spirometry (66385) Result: 07-Sep-2013 EKG (98307) Result: [MEASUREMENTS ANALYSIS] Date of Test: 09/07/2013 10:09:59; Heart Rate: 75; VT Interval: 166; QRS: 89; QT Interval: 370; Corrected QT Interval (QTc): 396; P Wave Ray: 24; QRS Wave Ray: 13; T Wave Ray: 19; Blood Pressure: 110/80 [ECG DIAGNOSTIC STATEMENTS] [...] Description Value Details :48 HgA1C , Office (87548) HgA1C , Office 5.6 % (Normal) Range: 4.6 - 7.1 :48 Blood Glucose , Office (59197) Blood Glucose , Office 105 (Normal) :08 CBC W/Diff, Automated Comments: [facility] [address] [place], [place], [address] Absolute Lymph 1.86 {X10_3/ul} (Normal) Range: 0.83-4.51 [...] 4.6-6.2 WBC 4.5 K/mm3 (Normal) Range: 4.4-11.0 89-Mrb-31311:08 Comprehensive Metabolic Profil Comments: [facility] [address] [place], [place], [id number] GAP 6 (Normal) Range: 5-15 CO2 28.0 [...] Comments: Please note revised GLUCOSE reference range xpyvtpodf48/02/2018. 49-Yzi-31409:08 Lipid Profile Comments: [facility] [address] [place], [place], [address] VLDL 36 mg/dL (Normal) Range: 5-40 LDL [...] 200-240 mg/dL Borderline >240 mg/dL High Risk 43-Btu-14182:08 Microalb:Creat Ratio,Random UR Comments: [facility] [address] [place], [place], [id number] MALB:CREAT 8.9 {mg/g_CRE} (Normal) MICROALBUMIN,UR 6.3 mg/L (Normal) UR CREAT 71.30 mg/dL (Normal) 43-Qye-51052:08 PSA,Total - Annual Screen Comments: [facility] [address] [place], [address] PSA,TOT SCREEN 0.20 ng/mL (Normal) Range: 0.00-4.00 Comments: This test was performed using the TPSA assay method for [employer]ista.com chemistry system. Values obtained with differentassay methods cannot be used interchangably.When changing PSA assays in the course of monitoring apatient, additional sequential testing should be carriedout to confirm baseline values. :08 Thyroid Stim Hormone (TSH) Comments: [facility] [address] [place], [address] TSH 2.56 {uIU/mL} (Normal) Range: 0.358-3.74 :08 Urinalysis, Complete Comments: How was Urine Obtained? CLEAN [facility] [address] [place], [address] MUCUS, URINE 0 SEEN {/hpf} (Normal) [...] Yellow (Normal) :08 Vitamin D,25 Hydroxy Comments: [facility] [address] [place], [address] Vitamin D 25-OH 38.3 ng/mL (Normal) Range: 29.95-100.01 Comments: Vitamin D 25(OH) Status Range Deficiency <20 ng/mL (50nmol/L) Insuffciency 20 - 30 ng/mL (50 - 75 nmol/L) Sufficiency 30 - 100 ng/mL (75 - 250 nmol/L) Toxicity >100 ng/mL (>250 nmol/L) :56 HgA1C , Office (01053) HgA1C , Office 5.6 % (Normal) Range: 4.6 - 7.1 :55 Blood Glucose , Office (55858) Blood Glucose , Office 97 (Normal) :18 CBC W/Diff, Automated Comments: [facility] [address] [place], [address] ; ov 20 Absolute Lymph 1.87 {X10_3/ul} [...] Range: 4.4-11.0 :29 CBC W/Diff, Automated Comments: [facility] [address] [place], [place], [address] Absolute Lymph 1.69 {X10_3/ul} (Normal) Range: 0.83-4.51 [...] Range: 4.4-11.0 :29 Erythrocyte Sed Rate Comments: [facility] [address] [place], [place], [address] SED RATE 4 mm/h (Normal) Range: 0-20 39-Mjr-76156:53 HgA1C , Office (43622) HgA1C , Office 5.6 % (Normal) Range: 4.6 - 7.1 :53 Blood Glucose , Office (21215) Blood Glucose , Office 100 (Normal) :25 CBC W/Diff, Automated Comments: [facility] [address] [place], [place], [address] Absolute Lymph 1.62 {X10_3/ul} (Normal) Range: 0.83-4.51 [...] Range: 4.4-11.0 :25 Comprehensive Metabolic Profil Comments: [facility] [address] [place], [place], [address] GAP 7 (Normal) Range: 5-15 CO2 25.0 [...] 7-18 GLU 99 mg/dL (Normal) Range: 70-110 77-Ewv-59179:25 Lipid Profile Comments: [facility] [address] [place], [address] VLDL 27 mg/dL (Normal) Range: 5-40 LDL [...] High Risk :25 Microalb:Creat Ratio,Random UR Comments: [facility] [address] [place], [address] MALB:CREAT 13.5 {mg/g_CRE} (Normal) MICROALBUMIN,UR 12.4 mg/L (Normal) UR CREAT 92.00 mg/dL (Normal) :25 Thyroid Stim Hormone (TSH) Comments: [facility] [address] [place], [address] TSH 2.01 {uIU/mL} (Normal) Range: 0.358-3.74 :25 Vitamin D,25 Hydroxy Comments: [facility] [address] [facility], [address] Vitamin D 25-OH 26.3 ng/mL (Normal) Comments: Vitamin D 25(OH) Status Range Deficiency <20 ng/mL (50nmol/L) Insuffciency 20 - 30 ng/mL (50 - 75 nmol/L) Sufficiency 30 - 100 ng/mL (75 - 250 nmol/L) Toxicity >100 ng/mL (>250 nmol/L) 78-Tdq-321076:50 Rapid Flu (68482 x 2) Comments: Negative Influenza A Ag Negative (Normal) :53 HgA1C , Office (85938) HgA1C , Office 5.5 % (Normal) Range: 4.6 - 7.1 :53 Blood Glucose , Office (33429) Blood Glucose , Office 85 (Normal) 8-Awu-272598:23 Microscopic Examination Comments: PATIENT WAS FASTINGPERFORMED BY: [facility] Lioedg0780 [facility] [id number] Bacteria None seen (Normal) Mucus Threads Present (Normal) Epithelial Cells (non renal) None seen {/hpf} (Normal) Range: 0 - 10 RBC None seen {/hpf} (Normal) Range: 0 - 2 WBC 0-5 {/hpf} (Normal) Range: 0 - 5 :23 CALCIFIDIOL (63006) VIT D 25 Comments: PATIENT WAS FASTINGPERFORMED BY: [employer] Lkcllj6706 [facility] [id number] Vitamin D, 25-Hydroxy 29.6 ng/mL (Abnormal) Range: 30.0-100.0 Comments: Vitamin D deficiency has been defined by the [place] ofMedicine and an Endocrine Society practice guideline as alevel of serum 25-OH vitamin D less than 20 ng/mL (1,2).The Endocrine Society went on to further define vitamin Dinsufficiency as a level between 21 and 29 ng/mL (2).1. IOM ([place] of Medicine). 2010. Dietary reference intakes for calcium and D. [place]: The National AcademMedaphis Physician Services Corporation Press.2. Darcie MF, Chris CHERY, Nancy WAN, et al. Evaluation, treatment, and prevention of vitamin D deficiency: an Endocrine Society clinical practice guideline. JCEM. 2010; 96(7):1911-30. 6-Gak-412677:23 TSH (20056) Comments: PATIENT WAS FASTINGPERFORMED BY: [employer] Bputom8594 [facility] [id number] TSH 2.180 {uIU/mL} (Normal) Range: 0.450-4.500 :23 URINALYSIS, W/ MICRO (33950) Comments: PATIENT WAS FASTINGPERFORMED BY: [employer] Wwfgzp9708 [facility] [id number] Microscopic Examination See below: (Normal) Comments: Microscopic was indicated and was performed. Nitrite, Urine Negative (Normal) Urobilinogen,Semi-Qn 0.2 mg/dL (Normal) Range: 0.2-1.0 Bilirubin Negative (Normal) Occult Blood Trace (Abnormal) Ketones Negative (Normal) Glucose Negative (Normal) Protein Negative (Normal) WBC Esterase Negative (Normal) Appearance Clear (Normal) Urine-Color Yellow (Normal) pH 6.5 (Normal) Range: 5.0-7.5 Specific [place] 1.016 (Normal) Range: 1.005-1.030 2-Cfm-428191:23 MICROALBUMIN: CREATININE RATIO Comments: PATIENT WAS FASTINGPERFORMED BY: [employer] NetworksPresbyterian HospitalBftwwr0633 [facility] [id number] (60859) AND (53692) Microalb/Creat Ratio <3.1 {mg/g_creat} (Normal) Range: 0.0-30.0 Microalbumin, Urine <3.0 ug/mL (Normal) Creatinine, Urine 96.8 mg/dL (Normal) :23 METABOLIC PANEL, COMPREHENSIVE Comments: PATIENT WAS FASTINGPERFORMED BY: [employer] Qnwyfg9841 [facility] RoadBuzz360ECU Health [id number] (72438) ALT (SGPT) 27 [iU]/L (Normal) Range: 0-44 [...] Glucose, Serum 82 mg/dL (Normal) Range: 65-99 5-Ubk-931680:23 LIPID PANEL (37837) Comments: PATIENT WAS FASTINGPERFORMED BY: [employer]6370 [facility] [id number] LDL/HDL Ratio 2.3 {ratio_units} (Normal) Range: 0.0-3.6 [...] Range: 100-199 :23 CBC W/AUTO DIFF WBC (40604) Comments: PATIENT WAS FASTINGPERFORMED BY: [employer]6370 [facility] [id number] Immature Grans (Abs) 0.0 {x10E3/uL} (Normal) Range: [...] (Normal) Range: 3.4-10.8 :09 HgA1C , Office (88656) HgA1C , Office 5.4 % (Normal) Range: 4.6 - 7.1 :29 CBC W/Diff, Automated Comments: [facility] [address] [place], [address] Absolute Lymph 1.84 {X10_3/ul} (Normal) Range: 0.83-4.51 [...] Range: 4.4-11.0 :29 Comprehensive Metabolic Profil Comments: [facility] [address] [place], [place], [address] GAP 5 (Normal) Range: 5-15 CO2 29.0 [...] (Normal) Range: 70-110 :29 Lipid Profile Comments: [facility] [address] [place], [place], [address] VLDL 29 mg/dL (Normal) Range: 5-40 LDL [...] High Risk 10-Apr-20168:29 Microalb:Creat Ratio,Random UR Comments: [facility] [address] [place] [address], [address] MALB:CREAT 7.5 {mg/g_CRE} (Normal) MICROALBUMIN,UR 8.2 mg/L (Normal) UR CREAT 109.00 mg/dL (Normal) 51-Pwu-04679:00 Cytology, Body Fluid / CSF Comments: Specimen Source: [facility] [address] [place] [address], [address] CYTOLOGY,BF/CSF SEE PATHOLOGY REPORT (Normal) Comments: [facility] :00 Urinalysis, Complete Comments: How was Urine Obtained? CLEAN [facility] [address] [place], [address] MUCUS, URINE 1+ {/hpf} (Normal) [...] CYTOSPIN ON FLUID See Note (Normal) Comments: [facility] [address] [place], [place], [address] Comments: Patient: MARCUS MATIAS : 1965 (50/M) Acct Num: [id number] Phys: Rolando CHADWICK,Philip Unit Num: [id number] Loc: LABSPEC Specimen: [id number] Received: 11/01/151427 Spec Type: CYSPIN FL TISSUES TISSUES: CYTOLOGY GROSS Received is 70 ml of gold cloudy fluid labeled with the patient's name and and designated per the requisition as urine. Submit joselin for cytology preparation. 11/01/15 TC:5 CPT:99694 CYTOLOGY STUDY Slides are reviewed. DIAGNOSIS CYTOLOGY Urine for cytology (cytospins): Negative for malignant cells. AM:kena 11/02/15 HEADER OPERATION: Not noted PRE-OP DIAGNOSIS: Hematuria TISSUE SUBMITTED: Urine for cytology Signed Srinivasa [facility] 11/02/15 <sig nature on file> :05 HgA1C , Office (00427) HgA1C , Office 5.5 % (Normal) Range: 4.6 - 7.1 :05 CBC W/Diff, Automated Comments: [facility] [address] [place], [address] Absolute Lymph 1.54 {X10_3/ul} (Normal) [...] 4.6-6.2 WBC 4.0 K/mm3 (Abnormal) Range: 4.4-11.0 51-Epz-68206:05 Comprehensive Metabolic Profil Comments: [facility] [address] [place] [place], [place], [address] GAP 8 (Normal) Range: 5-15 CO2 24.0 [...] (Normal) Range: 70-110 :05 Lipid Profile Comments: [facility] [address] [place], [address] ; sent message he needs [...] Risk :05 PSA,Total - Annual Screen Comments: [facility] [address] [place], [address] PSA,TOT SCREEN 0.24 ng/mL (Normal) Range: 0.00-4.00 Comments: This test was performed using the TPSA assay method for theEzFlop - A First of Its Kind Flip Flop chemistry system. Values obtained with differentassay methods cannot be used interchangably.When changing PSA assays in the course of monitoring apatient, additional sequential testing should be carriedout to confirm baseline values. 53-Yry-564355:50 Cytology, Body Fluid / CSF Comments: [facility] [address] [place], [address] CYTOLOGY,BF/CSF SEE PATHOLOGY REPORT (Normal) Comments: Specimen submitted to Anatomical Pathology Department anne marie. 64-Ynw-527475:50 Urinalysis, Complete Comments: How was Urine Obtained? [facility], [facility] [address] [place], [phone] MUCUS, URINE 0 SEEN {/hpf} (Normal) BACTERIA [...] (Normal) CLARITY Clear (Normal) COLOR Yellow (Normal) 43-Fcv-49296:00 CYTOSPIN ON FLUID See Note (Normal) Comments: [facility] [address] [place], [id number] Comments: Patient: MARCUS MATIAS : 1965 (49/M) Acct Num: [id number] Phys: Rolando CHADWICK,Philip Unit Num: [id number] Loc: LABSPEC Specimen: [id number] Received: 04/26/151422 Spec Type: CYSPIN FL TISSUES TISSUES: CULTURE RESULTS No results available. CYTOLOGY GROSS Received is 60 ml of yellow gold hazy fluid labeled with the patient's name and and d esignated per the requisition as urine. Submitted for cytology preparation. / 04/26/15 TC:5 CPT: 46564 CYTOLOGY STUDY Slides are reviewed. DIAGNOSIS CYTOLOGY Urine for cytology (cyto spin): Negative for malignant cells. AM:ch 04/27/15 HEADER OPERATION: Not noted PRE-OP DIAGNOSIS: Hematuria TISSUE SUBMITTED: Urine cytology Signed Srinivasa Neil 04/27/15 <signature on file> :42 Blood Glucose , Office (93881) Blood Glucose , Office 94 (Normal) :34 HgA1C , Office (62644) HgA1C , Office 5.6 % (Normal) Range: 4.6 - 7.1 :57 Comprehensive Metabolic Profil Comments: Test performed at:[facility] [address] [place] [address] GAP 5 (Normal) Range: 5-15 CO2 28.0 [...] Comments: Please note revised CREATININE reference range ettvthvgg28/22/2015. BUN 14 mg/dL (Normal) Range: 7-18 GLU 96 mg/dL (Normal) Range: 70-110 :57 Lipid Profile Comments: Test performed at:[facility] [address] [place], [place] [address] ; has fu 8-10 VLDL 27 mg/dL [...] :57 Microalb:Creat Ratio,Random UR Comments: Test performed at:[facility] [address] [place] [address] MALB:CREAT 5.0 {mg/g_CRE} (Normal) MICROALBUMIN,UR 8.1 mg/L (Normal) UR CREAT 152.00 mg/dL (Normal) :57 Urinalysis, Complete Comments: How was Urine Obtained? CLEAN CATCHTest performed at:[facility] [address] [place] [address] ; non-emergent till apt MUCUS, [...] Patient: MARCUS MATIAS : 1965 (48/M)Acct Num: [id number] Phys: Beena Foster Num: [id number] Loc: LABSPECSpecimen: [id number] Received: 02/15/141Spec Type: COLON BXTIS 0 SUESTISSUES:GROSS DESCRIPTIONReceived is one container labeled with the patient name and designated rightcolon polyp biopsy. The specimen consists of multiple irregular fragments oflight narayan soft tis ronald that in aggregate measure 0.7 x 0.5 x 0.1 cm. Thespecimen is totally submitted in one cassette. / MADELAINE:tana 02/16/14 TC:1CPT: [id number]: ColonoscopyPRE-OPERATIVE DIAGNOSIS: Screening / po lypTISSUE SUBMITTED: Polyp biopsy right colon, rule out adenomaMICROSCOPIC DIAGNOSISPolyp, right colon, biopsy:Fragments of hyperplastic polyp.MADELAINE:tana 02/17/14Signed Alex Martins 02/17/14<signature on file> 03-Sql-375156:26 HgA1C , Office (25174) HgA1C , Office 5.7 % (Normal) Range: [...] 7-18 GLU 93 mg/dL (Normal) Range: 70-110 36-Ewz-48445:12 LIPID Comments: Specimen slightly hemolyzed. Results may [...] CHOL 160 mg/dL (Normal) Comments: <200 mg/dL Stcxckiap381-630 mg/dL Borderline>240 mg/dL High Risk 50-Aux-080782:04 Ct, Ng, Trich vag by Comments: PATIENT NOT FASTINGPERFORMED BY: CB [facility] Dctgvp2976 [facility] [id number] BY: BN [facility] [address] [id number] CYNDI Chlamydia by CYNDI Negative (Normal) Gonococcus by CYNDI Negative (Normal) Trich vag by CYNDI Negative (Normal) 97-Lvy-284486:04 Hepatitis Panel (4) Comments: PATIENT NOT FASTINGPERFORMED BY: [place] [id number] [facility] [id number] BY: [address] [id number] Inf ormation: SRC:UR URINE Hep B Core Ab, IgM Negative (Normal) Hep C Virus Ab <0.1 {s/co_ratio} (Normal) Range: 0.0-0.9 Comments: Negative: < 0.8 Indeterminate 0.8 - 0.9 Positive: > 0.9 . In order to reduce the incidence of a false positive result, the [facility] recommends that all s/co ratios between 1.0 and 10.9 be confirmed by a more specific supplemental or PCR testing. [facility] offers HCV Ab w/Reflex to Verification test #[id number]. HBsAg Screen Negative (Normal) Hep A Ab, IgM Negative (Normal) :04 HSV 1 and 2 IgM Abs, Comments: PATIENT NOT FASTINGPERFORMED BY: [facility]6370 [facility] [id number] BY: [address] [id number] Indirect HSV 1 IgM Antibodies <1:10 {titer} [...] 2-Specific Ab, Comments: PATIENT NOT FASTINGPERFORMED BY: [place] [id number] [facility] [id number] BY: [address] [id number] IgG HSV 1 IgG, Type Spec 55.70 [...] date. Positive indicates antibodies detected to HSV-2. 16-Jxt-366384:04 [facility] 117135 Comments: PATIENT NOT FASTINGPERFORMED BY: [employer] TechgroupInspira Medical Center WoodburyHjizgs[address] [place] [address] [id number] BY: [employer] [id number] HIV 1/O/2 Abs, Non Reactive Qual (Normal) HIV 1/O/2 <1.00 (Normal) Comments: Index Value: Specimen reactivity relative to the negative cutoff. Abs-Index Value : RPR Non Reactive Comments: PATIENT NOT FASTINGPERFORMED BY: [employer] [address] [place] [address] [id number] BY: [employer] [id number] (Normal) 21-Xef-155926:01 CBCD ANC 3.2 {X10_3/uL} (Normal) Range: 2.0-7.7 [...] 4.6-6.2 WBC 5.1 K/mm3 (Normal) Range: 4.4-11.0 98-Dko-996469:01 CMP Comments: will review at 09/25/13 appt [...] CHOL 167 mg/dL (Normal) Comments: <200 mg/dL Ktehpmufm023-593 mg/dL Borderline>240 mg/dL High Risk 44-Piq-199628:38 MIACRE Comments: PLEASE ADD URINE FROM YESTERDAY 09/15/13 MIALB < 5.0 mg/L (Normal) tMICROCREAT Test not performed {mg/g_CRE} (Normal) CREU 65.8 mg/dL (Normal) : PSA 0.26 ng/mL (Normal) Range: 0.00-4.00 Comments: This test was performed using the TPSA assay method for [employer] chemistry system. Values obtained with differentassay methods [...] children havebeen associated with numerous adverse health effects.[facility] Guidelines: Blood lead level s in therange 5-9 ug/dL have been associated with adversehealth effects in children aged 6 years and younger..Environmental Exposure:WHO Recommendation <20Occupational Exposure:OSHA Lead Std 40.Detection Limit = 1Performed at: [address] [id number] Director: Tank Cummings PhD, Phone: [phone] :[phone] MIACRE tMICROCREAT 4.8 {mg/g_CRE} (Normal) MIALB [...] CHOL 154 mg/dL (Normal) Comments: <200 mg/dL [id number] mg/dL Borderline>240 mg/dL High Risk :57 PSA [...] (Normal) UCLAR CLEAR (Normal) UCOL YELLOW (Normal) 98-Yiw-085777:11 CHEST, PA AND LATERAL Radiology Report See [...] NEGATIVE CLARITY CLEAR (Normal) COLOR YELLOW (Normal) 95-Zob-007225:06 COMPLETE UA BACTERIA 0 SEEN {/hpf} (Normal) [...] NEGATIVE CLARITY CLEAR (Normal) COLOR YELLOW (Normal) 18-Zjg-731469:28 LIVER ALT 29 U/L (Normal) Range: 12-78 [...] CHOL 160 mg/dL (Normal) Comments: <200 mg/dL Ximpnhwmv633-229 mg/dL Borderline>240 mg/dL High Risk :27 LIVER [...] (Normal) Range: 6.4-8.2 :33 URINALYSIS W/O MICRO ([id number]) UA - APPEARANCE clear (Normal) UA - [...] g/dL (Normal) Range: 6.4-8.2 :51 Urinalysis, Office ([id number]) UA - BILIRUBIN Negative (Normal) UA - [...] Report See Note (Normal) Comments: Exam Number: [id number] CT SCAN OF ABDOMEN AND PELVIS HISTORYHematuria. [...] Report See Note (Normal) Comments: Exam Number: [id number] CT SCAN OF ABDOMEN AND PELVIS HISTORYHematuria. [...] Reported By: SHAI WHYTE M.D. :23 DAGOBERTO-D [id number] DAGOBERTO-DIRECT 19 AU/mL (Normal) Range: 0-99 Comments: [...] was performed using the TPSA method for the[employer] chemistry system.Values obtained with different assay methods cannot be usedinterchangably.When changing PSA assays in the course of monito ring apatient, additional sequential testing should be carriedout to confirm baseline values. :23 RA LATEX 6502 6.7 {IU/mL} (Normal) Range: 0.0-13.9 Comments: Performed At: [address] [id number] 92-Rqf-459477:23 ROUTINE UA BILIRUBIN URINE SeeNote (Normal) Comments: [...] Indication: Impaired fasting glucose Hematuria : Reviewed Historical Manuscripts Curator Letter Indication: Hematuria Impaired fasting glucose : *Diabetes Education Indication: Impaired fasting glucose Hypercholesterolemia : Cholesterol mgmt Indication: Hypercholesterolemia Common cold virus : Follow up if no improvement or if symptoms worsen Indication: Common cold virus Common cold virus : Common Cold *: cold Indication: Common cold virus Hematuria : Reviewed Historical Manuscripts Curator Letter Indication: Hematuria Impaired fasting glucose : [...] : Follow up in 10 days with [facility] Indication: Possible exposure to STD Impaired [...] ua cbc cmp Planned Observations ALKALINE PHOSPHATASE (84194)Indication: Enchondroma On: : Request METABOLIC PANEL, COMPREHENSIVE (36796)Indication: Enchondroma On: Request CBC W/AUTO DIFF WBC ([id number])Indication: Enchondroma On: : Request C-REACT PROT HIGH SENS(hsCRP) (93704)Indication: Enchondroma On: Request ESR-F (SED RATE ERYTHROCYTE - MALE) (74218)Indication: Enchondroma On: :28 Request PSA (PROSTATE SPECIFIC ANTIGEN) (V76.44)Indication: Screening for prostate cancer On: :24 Request CALCIFIDIOL (80348) VIT D 25Indication: Vitamin D deficiency On: :17 Request TSH (76031)Indication: Impaired fasting glucose On: :17 Request URINALYSIS, W/ MICRO ([id number])Indication: Impaired fasting glucose On: :17 Request MICROALBUMIN: CREATININE RATIO (07439) AND ([id number])Indication: Impaired fasting glucose On: :17 Request METABOLIC PANEL, COMPREHENSIVE (91593)Indication: Impaired fasting glucose On: :17 Request LIPID PANEL (35125)Indication: Impaired fasting glucose On: :17 Request CBC W/AUTO DIFF WBC (91801)Indication: Impaired fasting glucose On: :17 Request CBC, PLATELETS & MANUAL DIFF (78337)Indication: Leukopenia, unspecified type On: 97-Xyd-443415:39 Request CBC WITH MANUAL DIFF ([id number])Indication: Leukopenia, unspecified type On: 76-Bdw-543373:00 Request Comments: also have pathology look at for peripheral smear Sed Rate Erythrocyte (67138)Indication: Leukopenia, unspecified type On: :59 Request TSH ([id number])Indication: Impaired fasting glucose On: :21 Request MICROALBUMIN: CREATININE RATIO (06863) AND (36988)Indication: Impaired fasting glucose On: :21 Request METABOLIC PANEL, COMPREHENSIVE (23551)Indication: Impaired fasting glucose On: :21 Request LIPID PANEL (92677)Indication: Impaired fasting glucose On: :21 Request CBC W/AUTO DIFF WBC (26262)Indication: Impaired fasting glucose On: :21 Request CALCIFIDIOL (97553) VIT D 25Indication: Vitamin D deficiency On: :20 Request CBC WITH MANUAL DIFF (83254)Indication: Abnormal laboratory test On: :27 Request Comments: do in 1 mo CBC W/AUTO DIFF WBC (31023)Indication: Impaired fasting glucose On: :22 Request MICROALBUMIN: CREATININE RATIO (40226) AND (20755)Indication: Impaired fasting glucose On: :22 Request METABOLIC PANEL, COMPREHENSIVE (13920)Indication: Hypercholesterolemia On: :06 Request LIPID PANEL (89116)Indication: Hypercholesterolemia On: 99-Icm-547408:05 Request LIPID PANEL (27644)Indication: Other and unspecified hyperlipidemia On: 81-Ari-653949:23 Request CBC with auto diff (74088)Indication: Impaired fasting glucose On: : Request METABOLIC PANEL, COMPREHENSIVE (24344)Indication: Impaired fasting glucose On: : Request Hemoglobin Glyclated (HGB A1C) (00139)Indication: Impaired fasting glucose On: : Request PSA (PROSTATE SPECIFIC ANTIGEN) (V76.44)Indication: Screening for prostate cancer On: : Request URINALYSIS, W/ MICRO (78859)Indication: Hematuria On: : Request MICROALBUMIN: CREATININE RATIO (45167) AND (42032)Indication: Impaired fasting glucose On: : Request METABOLIC PANEL, COMPREHENSIVE (21170)Indication: Impaired fasting glucose On: : Request LIPID PANEL (49440)Indication: Hypercholesterolemia On: : Request RPR (RAPID PLASMA REAGIN) (93465)Indication: Unspecified Diagnosis On: 22-Tuo-523197:03 Request HIV ANTIGEN (72454)Indication: Possible exposure to STD On: 05-Oni-053199:59 Request HIV-2 ANTIBODY (99687)Indication: Possible exposure to STD On: 06-Wyr-588326:[address],NG,TV (Chlamydia, Gonorrhea, Trichomonas) (35693)Indication: Possible exposure to STD On: 49-Fwa-945239:56 Request Herpes Simplex I Ag, Direct Fluorescent Ab (31720)Indication: Possible exposure to STD On: :55 Request Herpes Simplex (HSV) II Ab (96358)Indication: Possible exposure to STD On: :54 Request HEPATITIS PANEL (96366)Indication: Possible exposure to STD On: 72-Ywe-919409:54 Request LIPID PANEL (90322)Indication: Other and unspecified hyperlipidemia On: Request METABOLIC PANEL, COMPREHENSIVE (44203)Indication: Impaired fasting glucose On: :44 Request PSA (PROSTATE SPECIFIC ANTIGEN) (V76.44)Indication: Screening for prostate cancer On: :55 Request TSH (22306)Indication: Chest pain On: :55 Request MICROALBUMIN: CREATININE RATIO (69183) AND (97588)Indication: Impaired fasting glucose On: :55 Request URINALYSIS, W/ MICRO (21722)Indication: Impaired fasting glucose On: : Request CBC WITH MANUAL DIFF (20915)Indication: Impaired fasting glucose On: :55 Request METABOLIC PANEL, COMPREHENSIVE (79523)Indication: Impaired fasting glucose On: : Request LIPID PANEL (99039)Indication: Other and unspecified hyperlipidemia On: : Request CBC WITH MANUAL DIFF (80721)Indication: Impaired fasting glucose On: : Request METABOLIC PANEL, COMPREHENSIVE (59247)Indication: Impaired fasting glucose On: Request HEPATIC FUNCTION PANEL (87590)Indication: Other and unspecified hyperlipidemia On: : Request LIPID PANEL (21478)Indication: Other and unspecified hyperlipidemia On: : Request LEAD (02282)Indication: Paresthesia On: :28 Request MICROALBUMIN: CREATININE RATIO (79566) AND (64922)Indication: Impaired fasting glucose On: : Request CBC WITH MANUAL DIFF (70797)Indication: Paresthesia On: Request VITAMIN B-12 (CYANOCOBALAMIN) (45104)Indication: Paresthesia On: : Request TSH (66563)Indication: Sleep Disorder On: Request LEAD (68883)Indication: Paresthesia On: : Request VITAMIN B-12 (CYANOCOBALAMIN) (84602)Indication: Paresthesia On: :10 Request LIPID PANEL (64621)Indication: Other and unspecified hyperlipidemia On: : Request PSA (PROSTATE SPECIFIC ANTIGEN) (V76.44)Indication: BPH without urinary obstruction On: :09 Request TSH ([id number])Indication: Paresthesia On: :09 Request MICROALBUMIN: CREATININE RATIO (28168) AND (86793)Indication: Impaired fasting glucose On: 6-Krz-696441:09 Request CBC WITH MANUAL DIFF (54832)Indication: Paresthesia On: 4-Nbb-700402:09 Request METABOLIC PANEL, COMPREHENSIVE (81763)Indication: Paresthesia On: 9-Izr-815482:09 Request Hemoglobin Glyclated (HGB A1C) (45369)Indication: Impaired fasting glucose On: 5-Nvs-080504:09 Request PSA (PROSTATE SPECIFIC ANTIGEN) (V76.44)Indication: BPH without urinary obstruction On: 28-Gjs-768276:05 Request METABOLIC PANEL, COMPREHENSIVE (44385)Indication: Impaired fasting glucose On: 40-Qiy-196219:05 Request LIPID PANEL (70947)Indication: Other and unspecified hyperlipidemia On: 86-Qoj-866543:04 Request HgA1C , Office (85303)Indication: Impaired fasting glucose On: 98-Efj-96838:20 Request CBC WITH MANUAL DIFF ([id number])Indication: Impaired fasting glucose On: 13-Jul-20118:14 Request METABOLIC PANEL, COMPREHENSIVE (82953)Indication: Impaired fasting glucose On: 13-Jul-20118:14 Request MICROALBUMIN: CREATININE RATIO (47053) AND ([id number])Indication: Impaired fasting glucose On: 13-Jul-20118:14 Request LIPID PANEL (46977)Indication: Other and unspecified hyperlipidemia On: 13-Jul-20118:13 Request HgA1C , Office (19538)Indication: Impaired fasting glucose On: 13-Jul-20118:05 Request CBC WITH MANUAL DIFF (05923)Indication: Anemia, unspecified On: :21 Request IRON BINDING CAPACITY (TIBC) (64953)Indication: Anemia, unspecified On: 7-Gpt-003495:21 Request IRON ([id number])Indication: Anemia, unspecified On: 7-Fqx-118070:21 Request FERRITIN ([id number])Indication: Anemia, unspecified On: 0-Hjl-303469:21 Request CBC WITH MANUAL DIFF ([id number])Indication: Elevated blood pressure (not hypertension) On: :20 Request METABOLIC PANEL, COMPREHENSIVE (50933)Indication: Elevated blood pressure (not hypertension) On: 2-Uaw-379290:20 Request URINALYSIS, W/ MICRO ([id number])Indication: Hematuria On: :20 Request Lipid Panel (78542)Indication: Hypercholesterolemia On: :07 Request PSA (Prostate Specific Antigen), Screening (77486)Indication: Elevated blood pressure (not hypertension) On: : Request CBC with manual diff ([id number])Indication: Elevated blood pressure (not hypertension) On: :07 Request Metabolic Panel, Comprehensive (12859)Indication: Elevated blood pressure (not hypertension) On: : Request URINALYSIS ([id number])Indication: Elevated blood pressure (not hypertension) On: :07 Request URINALYSIS, W/ MICRO ([id number])Indication: Hematuria On: :32 Request HEPATIC FUNCTION PANEL (24127)Indication: Hypercholesterolemia On: :20 Request METABOLIC PANEL, COMPREHENSIVE (91685)Indication: Elevated blood pressure (not hypertension) On: :25 Request URINALYSIS, W/ MICRO (30792)Indication: Elevated blood pressure (not hypertension) On: :24 Request HEPATIC FUNCTION PANEL (15772)Indication: Other and unspecified hyperlipidemia On: :24 Request LIPID PANEL ([id number])Indication: Other and unspecified hyperlipidemia On: :24 Request PSA (PROSTATE SPECIFIC ANTIGEN) (V76.44)Indication: Hematuria On: :12 Request HEPATIC FUNCTION PANEL ([id number])Indication: Other and unspecified hyperlipidemia On: :11 Request LIPID PANEL (38038)Indication: Other and unspecified hyperlipidemia On: :11 Request HEPATIC FUNCTION PANEL (82827)Indication: Other and unspecified hyperlipidemia On: :33 Request LIPID PANEL (94908)Indication: Other and unspecified hyperlipidemia On: :33 Request HEPATIC FUNCTION PANEL (76547)Indication: Other and unspecified hyperlipidemia On: :53 Request LIPID PANEL (98504)Indication: Other and unspecified hyperlipidemia On: :53 Request HEPATIC FUNCTION PANEL (67209)Indication: Other and unspecified hyperlipidemia On: :26 Request LIPID PANEL (87189)Indication: Other and unspecified hyperlipidemia On: : Request LIPID PANEL (72452)Indication: Other and unspecified hyperlipidemia On: :10 Request URINALYSIS W/O MICRO (54294)Indication: Elevated blood pressure (not hypertension) On: : Request PSA (PROSTATE SPECIFIC ANTIGEN) (V76.44)Indication: Screening for prostate cancer On: : Request SED RATE ERYTHROCYTE (95554)Indication: alopecia areata On: Request C-REACTIVE PROTEIN (92024)Indication: alopecia areata On: Request RHEUMATOID FACTOR-QUANT (51765)Indication: alopecia areata On: Request DAGOBERTO (ANTINUCLEAR ANTIBODY) (91672)Indication: alopecia areata On: : Request TSH ([id number])Indication: alopecia areata On: : Request METABOLIC PANEL, COMPREHENSIVE (60339)Indication: Elevated blood pressure (not hypertension) On: Request CBC WITH MANUAL DIFF (62505)Indication: alopecia areata On: Request FERRITIN ([id number])Indication: alopecia areata On: Request VITAMIN B-12 (CYANOCOBALAMIN) (12219)Indication: alopecia areata On: : Request LIPID PANEL (51531)Indication: Other and unspecified hyperlipidemia On: 4-Eec-036458:30 Request PSA (PROSTATE SPECIFIC ANTIGEN) (12414)Indication: Screening for prostate cancer On: 8-Yes-139768:29 Request Planned Encounters Medical; 4 Month FU - On: 15-Aug-2018 9:00 [facility] Anai Hernandez DO, DO, Kathleen Planned Procedures X-RAY KNEE WITH PATELLA, FIVE VIEWS On: 11-Apr-2018 Intent ([id number])By: Anai Hernandez DO Comments: L Anai QUEZADA X-RAY KNEE WITH PATELLA, FIVE VIEWS On: 11-Apr-2018 Intent (45990)By: Anai Hernandez DO Comments: R Anai QUEZADA ELECTROCARDIOGRAM, COMPLETE (ECG) On: 11-Apr-2018 Intent (70113)By: Anai Hernandez DO Comments: nsr no acute chg Anai QUEZADA Aerosol Treatment (20205)By: Luba On: 21-Jun-2017 Intent [place] DEJESUS ELECTROCARDIOGRAM, COMPLETE (ECG) On: 25-Mar-2017 Intent (37853)By: Flor Manriquez Comments: Sinus Rhythm-Heart rate 97. Aerosol Treatment (06659)By: Luba On: 23-Apr-2016 Intent [place] DEJESUS ELECTROCARDIOGRAM, COMPLETE (ECG) On: 23-Apr-2016 Intent (23493)By: Luba DEJESUS [place] Escobar ELECTROCARDIOGRAM, COMPLETE (ECG) On: 13-Apr-2016 Intent ([id number])By: Anai Hernandez DO Comments: nsr no acute chg Anai QUEZADA Radiology - Lumbar SpineBy: Mani QUEZADA, On: 13-Dec-2014 Intent Teresita A EKG (08323)By: Deidra Singleton DOa A On: 13-Dec-2014 Intent Comments: ekg showed normal sinus rhythym, normal axis, no acute st/t wave changes Inhaler Demo (31500)By: Mani QUEZADA, On: 07-Sep-2013 Intent Teresita A [...] Intent Starr Mcmahon TD Injection , IM (06230)By: On: 13-Jul-2011 Intent Starr Mcmahon Comments: 2007 EKGBy: Luba DEJESUS [place] Escobar On: 03-Apr-2011 Intent Radiology - Chest- PA and LatBy: Fast On: 14-Mar-2011 Intent DO Teresita A Comments: include left anterior ribs EKG ([id number])By: Teresita Singleton DO On: 14-Mar-2011 Intent Comments: ekg showed normal sinus rhythym, normal axis, no acute st/t wave changes FLU VAC, SPLIT, >3 YEARS, INTRAMUSC On: 14-Mar-2011 Intent ([id number])By: Starr Mcmahon Comments: Lot: [id number]: 11/03/11Site: Lt DeltoidDose: Prefilled DoseARiding, MOBILE APPLICATION TESTER IMMUNIZ ADMNIN, 1 VAC, SNGL/COMBO On: 14-Mar-2011 Intent (88435)By: Starr Mcmahon FLU VAC, SPLIT, >3 YEARS, INTRAMUSC On: 15-Mar-2010 Intent ([id number])By: Starr Mcmahon Comments: Lot #[id number]-/11Site-L dltd/IMDose 0.5mlgiven by:MATILDE LIRA EKG ([id number])By: Starr Mcmahon On: 15-Mar-2010 Intent Comments: ekg showed normal sinus rhythym, normal axis, no acute st/t wave changes IMMUNIZ ADMNIN, 1 VAC, SNGL/COMBO On: 15-Mar-2010 Intent ([id number])By: Starr Mcmahon CT - Abdomen & Pelvis Stone On: 05-Apr-2008 Intent ProtocolBy: Teresita Singleton DO EKG ([id number])By: Starr Mcmahon On: 21-Mar-2008 Intent Comments: ekg showed normal sinus rhythym, normal axis, no acute st/t wave changes EKG (04171)By: Teresita Singleton DO On: 04-Feb-2006 Intent Comments: [...] Advance Directives Name Dates Details Immunization Registry [place] - Effective on 04/11/2018. Effective: 11-Apr-2018 Expiration [...] moderate. 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 The symptoms have been associated with [...] [facility] End: 31-Jan-2006 9:38 Payers [facility] [place]us Matias; trudy guarantor
--- OUTSIDE RECORDS SUMMARY | 2018-06-02 17:51 | XMS RPT_ITS | Continuity of Care Document ---
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 Encounter for screening for malignant neoplasm of colon (Renamed from Special screening for malignant neoplasms, colon) (Z12.11, V76.51) Comments: [facility] Status: Active family hx [...] Single View Result: Comments: See Note; NOTES: [facility] Imaging Services [address] [place] [address] Verdana 4d Abdomen Single View MR#: [id number] Acct: [id number] Name: MARCUS MATIAS Rep #: [id number] : 1965 M 49 From: Jimmy Negrete DO PCP: Teresita Singleton DO Status: REG CLI Study: Abdomen Single View Date of Exam: 04/21/15 Exam# [id number] Ordering Dr: Anahy Lo MD STUDY: X-RAY [...] 7:34 EST Te l , Service support [phone], RAD/Abdomen Single View IMPRESSION: No acute process. No definite renal calcifications. Electronically Signed: Jimmy Negrete DO at 7:34 EST Tel , Service support [phone], CC: Teresita Singleton DO; Obie Lo MD Communication Equipment Mechanic: Signed 21-Apr-2015 Kidney and Bladder Result: Comments: See Note; NOTES: [facility] Services [address] [place] [address] Verdana 4d Kidney and Bladder MR#: [id number] Acct: [id number] Name: Awa MATIAS Rep #: [id number] : 1965 M 49 From: Daniel Long MD PCP: Teresita Singleton DO Status: REG CLI Study: Kidney and Bladder Date of Exam: 04/21/15 Exam# [id number] Ordering Dr: Maegan Lo MD STUDY: RENAL [...] Daniel Long MD at 11:21 EST Tel [phone], Service support [phone], CC: Teresita Singleton DO; Obie Lo MD Communication Equipment Mechanic: Signed 13-Dec-2014 L/S Spine Min 4 Views Result: Comments: See Note; NOTES: [facility] Services [address] [place] [address] Radiology Report MR#: [id number] Acct: [id number] Name: MARCUS MATIAS Garth Rep #: [id number] : 1965 M 49 From: Sai Wu DO PCP: Teresita Singleton DO Status: REG CLI Study: L/S Spine Min 4 Views Date of Exam: 12/13/14 Exam# [id number] Ordering Dr: Teresita Singleton DO STUDY: X-RAY [...] Sai Wu DO at 16:53 EDT Tel [phone], Service support [phone], RAD/L/S Spine Min 4 Views IMPRESSION: Minimal endplate spondylosis without other evidence of lumbar spine abnormality. Electronically Signed: Sai Wu DO at 16:53 EDT Tel [phone], Service support [phone], CC: Teresita Singleton DO Communication Equipment Mechanic: Signed 15-Sep-2013 Echocardiogram Complete Result: Comments: See Note; NOTES: [facility] Cardiovascular Services [address] [place] [address] Echo Complete 09/15/13 0754 MR#: [id number] Acct: [id number] Name: JESICA MATIAS Rep #: [id number] : 1965 47 From: Jorje Gomez MD Attending Dr: Teresita Singleton DO Status: REG CLI Ordering Dr: Teresita Singleton DO Date: 05/13/14 Location: [facility] Sex: M C Admitted: Sasha mackey This [...] 8.5 cm/sec 105.3 cm/sec MV A max jono: Ao max P.4 mmHg 60.3 cm/sec MV [...] Dictated: 09/15/13 0754 Date Transcribed: 09/15/13 1712 Communication Equipment Mechanic: Signed 15-Sep-2013 Chest PA and Lateral Result: Comments: See Note; NOTES: [facility] [address] [place] [address] Radiology Report MR#: [id number] Acct: [id number] Name: MARCUS MATIAS Rep #: [id number] : 1965 M 47 From: Daniel Long MD PCP: Teresita Singleton DO Status: REG CLI Study: Chest PA and Lateral Date of Exam: 09/15/13 Exam# [id number] Ordering Dr: Teresita Singleton DO STUDY: X [...] Daniel Long MD at 13:17 EDT Tel [phone], Service support [phone], CC: Teresita Singleton DO Communication Equipment Mechanic: Signed 15-Sep-2013 Nuclear Stress Test - Treadmil Result: Comments: See Note; NOTES: [facility] Services [address] [place] [address] Nuclear Medicine Report MR#: [id number] Acct: [id number] Name: MARCUS MATIAS Rep #: [id number] : 1965 M 47 From: Jorje Gomez MD PCP: Teresita Singleton DO Status: REG CLI Study: Nuclear Stress Test - Treadmil Date of Exam: 09/15/13 Exam# [id number] Ordering Dr: Teresita Singleton DO EXERCISE TOLERANCE [...] LVEF of 69%. CC: Teresita Singleton DO Communication Equipment Mechanic: WAN Signed 07-Sep-2013 Spirometry (33189) Result: 07-Sep-2013 EKG (78925) Result: [MEASUREMENTS ANALYSIS] Date of Test: 09/07/2013 10:09:59; Heart Rate: 75; [place] Interval: 166; QRS: 89; QT Interval: 370; Corrected QT Interval (QTc): 396; P Wave [place]: 24; QRS Wave [place]: 13; T Wave [place]: 19; Blood Pressure: 110/80 [ECG DIAGNOSTIC STATEMENTS] [...] kg/m2 Body Surface Area Calculated 2.07 m2 71-Eky-805393:43 Comments: I am nervous Temperature 97.8 f [...] Description Value Details :48 HgA1C , Office (34350) HgA1C , Office 5.6 % (Normal) Range: 4.6 - 7.1 :48 Blood Glucose , Office (84169) Blood Glucose , Office 105 (Normal) :08 CBC W/Diff, Automated Comments: [facility] [address] [place], [place], [address] Absolute Lymph 1.86 {X10_3/ul} (Normal) Range: 0.83-4.51 [...] 4.6-6.2 WBC 4.5 K/mm3 (Normal) Range: 4.4-11.0 54-Pll-16051:08 Comprehensive Metabolic Profil Comments: [facility] [address] [place], [place], [address] GAP 6 (Normal) Range: 5-15 CO2 28.0 [...] Comments: Please note revised GLUCOSE reference range iwwfqefxm54/02/2018. 43-Zxm-74656:08 Lipid Profile Comments: [facility] [address] [place], [address] VLDL 36 mg/dL (Normal) Range: 5-40 LDL [...] 200-240 mg/dL Borderline >240 mg/dL High Risk 19-Jzo-37200:08 Microalb:Creat Ratio,Random UR Comments: [facility] [address] [place], [id number] MALB:CREAT 8.9 {mg/g_CRE} (Normal) MICROALBUMIN,UR 6.3 mg/L (Normal) UR CREAT 71.30 mg/dL (Normal) 99-Okx-43615:08 PSA,Total - Annual Screen Comments: [facility] [address] [place], [id number] PSA,TOT SCREEN 0.20 ng/mL (Normal) Range: 0.00-4.00 Comments: This test was performed using the TPSA assay method for [employer] [place] [employer] chemistry system. Values obtained with differentassay methods cannot be used interchangably.When changing PSA assays in the course of monitoring apatient, additional sequential testing should be carriedout to confirm baseline values. :08 Thyroid Stim Hormone (TSH) Comments: [facility] [address] [place], [address] TSH 2.56 {uIU/mL} (Normal) Range: 0.358-3.74 71-Rgh-46143:08 Urinalysis, Complete Comments: How was Urine Obtained? CLEAN [facility] [address] [place] [place], [address] MUCUS, URINE 0 SEEN {/hpf} (Normal) BACTERIA [...] Yellow (Normal) :08 Vitamin D,25 Hydroxy Comments: [facility] [address] [place], [address] Vitamin D 25-OH 38.3 ng/mL (Normal) Range: 29.95-100.01 Comments: Vitamin D 25(OH) Status Range Deficiency <20 ng/mL (50nmol/L) Insuffciency 20 - 30 ng/mL (50 - 75 nmol/L) Sufficiency 30 - 100 ng/mL (75 - 250 nmol/L) Toxicity >100 ng/mL (>250 nmol/L) :56 HgA1C , Office (21802) HgA1C , Office 5.6 % (Normal) Range: 4.6 - 7.1 :55 Blood Glucose , Office (42306) Blood Glucose , Office 97 (Normal) :18 CBC W/Diff, Automated Comments: [facility] [address] [place], [address] ; ov 4/20 Absolute Lymph 1.87 {X10_3/ul} [...] 4.6-6.2 WBC 5.5 K/mm3 (Normal) Range: 4.4-11.0 28-Pdb-194169:29 CBC W/Diff, Automated Comments: [facility] [address] [place], [place], [address] Absolute Lymph 1.69 {X10_3/ul} (Normal) Range: 0.83-4.51 [...] Range: 4.4-11.0 :29 Erythrocyte Sed Rate Comments: [facility] [address] [place], [place], [address] SED RATE 4 mm/h (Normal) Range: 0-20 :53 HgA1C , Office (89199) HgA1C , Office 5.6 % (Normal) Range: 4.6 - 7.1 :53 Blood Glucose , Office (41386) Blood Glucose , Office 100 (Normal) :25 CBC W/Diff, Automated Comments: [facility] [address] [place], [place], [address] Absolute Lymph 1.62 {X10_3/ul} (Normal) Range: 0.83-4.51 [...] Range: 4.4-11.0 :25 Comprehensive Metabolic Profil Comments: [facility] [address] [place], [place], [address] GAP 7 (Normal) Range: 5-15 CO2 25.0 [...] (Normal) Range: 70-110 :25 Lipid Profile Comments: [facility] [address] [place], [place], [address] VLDL 27 mg/dL (Normal) Range: 5-40 LDL [...] High Risk :25 Microalb:Creat Ratio,Random UR Comments: [facility] [address] [place], [address] MALB:CREAT 13.5 {mg/g_CRE} (Normal) MICROALBUMIN,UR 12.4 mg/L (Normal) UR CREAT 92.00 mg/dL (Normal) :25 Thyroid Stim Hormone (TSH) Comments: [facility] [address] [place], [address] TSH 2.01 {uIU/mL} (Normal) Range: 0.358-3.74 :25 Vitamin D,25 Hydroxy Comments: [facility] [address] [facility] [address] [place], [place], [address] Vitamin D 25-OH 26.3 ng/mL (Normal) Comments: Vitamin D 25(OH) Status Range Deficiency <20 ng/mL (50nmol/L) Insuffciency 20 - 30 ng/mL (50 - 75 nmol/L) Sufficiency 30 - 100 ng/mL (75 - 250 nmol/L) Toxicity >100 ng/mL (>250 nmol/L) :50 Rapid Flu (12691 x 2) Comments: Negative Influenza A Ag Negative (Normal) :53 HgA1C , Office (34671) HgA1C , Office 5.5 % (Normal) Range: 4.6 - 7.1 :53 Blood Glucose , Office (89091) Blood Glucose , Office 85 (Normal) :23 Microscopic Examination Comments: PATIENT WAS FASTINGPERFORMED BY: [facility] [address]wnwns[address] [place] [id number] Bacteria None seen (Normal) Mucus Threads Present (Normal) Epithelial Cells (non renal) None seen {/hpf} (Normal) Range: 0 - 10 RBC None seen {/hpf} (Normal) Range: 0 - 2 WBC 0-5 {/hpf} (Normal) Range: 0 - 5 :23 CALCIFIDIOL (92383) VIT D 25 Comments: PATIENT WAS FASTINGPERFORMED BY: [facility] [address] [facility] CenterD[facility] [place] [id number] Vitamin D, 25-Hydroxy 29.6 ng/mL (Abnormal) Range: 30.0-100.0 Comments: Vitamin D deficiency has been defined by the [place] of[place]icine and an Endocrine Society practice guideline as alevel of serum 25-OH vitamin D less than 20 ng/mL (1,2).The Endocrine Society went on to further define vitamin Dinsufficiency as a level between 21 and 29 ng/mL (2).1. IOM ([place] of Medicine). 2010. Dietary reference intakes for calcium and D. [place]: The National Academies Press.2. Darcie MF, Chris NC, Nancy WAN, et al. Evaluation, treatment, and prevention of vitamin D deficiency: an Endocrine Society clinical practice guideline. JCEM. 2010; 96(7):1911-30. :23 TSH (41050) Comments: PATIENT WAS FASTINGPERFORMED BY: [facility] [address]vuygp[address] [place] [id number] TSH 2.180 {uIU/mL} (Normal) Range: 0.450-4.500 :23 URINALYSIS, W/ MICRO (01623) Comments: PATIENT WAS FASTINGPERFORMED BY: [facility] [address]opthj[address] Road[address]ublin [place] [id number] Microscopic Examination See below: (Normal) Comments: Microscopic was indicated and was performed. Nitrite, Urine Negative (Normal) Urobilinogen,Semi-Qn 0.2 mg/dL (Normal) Range: 0.2-1.0 Bilirubin Negative (Normal) Occult Blood Trace (Abnormal) Ketones Negative (Normal) Glucose Negative (Normal) Protein Negative (Normal) WBC Esterase Negative (Normal) Appearance Clear (Normal) Urine-Color Yellow (Normal) pH 6.5 (Normal) Range: 5.0-7.5 Specific [place] 1.016 (Normal) Range: 1.005-1.030 1-Eie-305587:23 MICROALBUMIN: CREATININE RATIO Comments: PATIENT WAS FASTINGPERFORMED BY: [facility] [id number] (20120) AND (36289) Microalb/Creat Ratio <3.1 {mg/g_creat} (Normal) Range: 0.0-30.0 Microalbumin, Urine <3.0 ug/mL (Normal) Creatinine, Urine 96.8 mg/dL (Normal) 1-Atr-594373:23 METABOLIC PANEL, COMPREHENSIVE Comments: PATIENT WAS FASTINGPERFORMED BY: RegulatoryBinder6370 Qual[employer] SystemsPending sale to [facility] [id number] (39367) ALT (SGPT) 27 [iU]/L (Normal) Range: 0-44 [...] Glucose, Serum 82 mg/dL (Normal) Range: 65-99 3-Hqa-280537:23 LIPID PANEL (88067) Comments: PATIENT WAS FASTINGPERFORMED BY: [employer] [id number] LDL/HDL Ratio 2.3 {ratio_units} (Normal) Range: 0.0-3.6 Comments: LDL/HDL Ratio Men Women 1/2 Avg.Risk 1.0 1.5 Av g.Risk 3.6 3.2 2X Avg.Risk 6.2 5.0 3X Avg.Risk 8.0 6.1 LDL Cholesterol Calc 84 mg/dL (Normal) Range: 0-99 VLDL Cholesterol Nader 24 mg/dL (Normal) Range: 5-40 HDL Cholesterol 37 mg/dL (Abnormal) Triglycerides 118 mg/dL (Normal) Range: 0-149 Cholesterol, Total 145 mg/dL (Normal) Range: 100-199 0-Owe-431476:23 CBC W/AUTO DIFF WBC (38838) Comments: PATIENT WAS FASTINGPERFORMED BY: [facility] [id number] Immature Grans (Abs) 0.0 {x10E3/uL} (Normal) Range: [...] 4.14-5.80 WBC 4.7 {x10E3/uL} (Normal) Range: 3.4-10.8 5-Ubr-233411:09 HgA1C , Office (71310) HgA1C , Office 5.4 % (Normal) Range: 4.6 - 7.1 :29 CBC W/Diff, Automated Comments: [facility] [address] [place], [place], [address] Absolute Lymph 1.84 {X10_3/ul} (Normal) Range: 0.83-4.51 [...] Range: 4.4-11.0 10-Apr-20168:29 Comprehensive Metabolic Profil Comments: [facility] [address] [place], [place], [address] GAP 5 (Normal) Range: 5-15 CO2 29.0 [...] (Normal) Range: 70-110 :29 Lipid Profile Comments: [facility] [address] [place], [address] VLDL 29 mg/dL (Normal) Range: [...] High Risk :29 Microalb:Creat Ratio,Random UR Comments: [facility] [address] [place], [address] MALB:CREAT 7.5 {mg/g_CRE} (Normal) MICROALBUMIN,UR 8.2 mg/L (Normal) UR CREAT 109.00 mg/dL (Normal) :00 Cytology, Body Fluid / CSF Comments: Specimen Source: [facility] [address] [place], [address] CYTOLOGY,BF/CSF SEE PATHOLOGY REPORT (Normal) Comments: Specimen submitted to Anatomical Pathology Department fortesting. :00 Urinalysis, Complete Comments: How was Urine Obtained? CLEAN [facility]St[facility] [address] [place], [address] MUCUS, URINE 1+ {/hpf} (Normal) [...] (Normal) CLARITY Clear (Normal) COLOR Yellow (Normal) 88-Kxq-78505:00 CYTOSPIN ON FLUID See Note (Normal) Comments: [facility] [address] [place], [address] Comments: Patient: MARCUS MATIAS : 1965 (50/M) Acct Num: [id number] Phys: Rolando CHADWICK,Philip Unit Num: [id number] Loc: LABSPEC Specimen: [id number] Received: 11/01/15 - 1428 Spec Type: CYSPIN FL TISSUES TISSUES: CYTOLOGY GROSS Received is 70 ml of gold cloudy fluid labeled with the patient's name and and designated per the requisition as urine. Submit joselin for cytology preparation. 11/01/15 TC:5 CPT:69421 CYTOLOGY STUDY Slides are reviewed. DIAGNOSIS CYTOLOGY Urine for cytology (cytospins): Negative for malignant cells. AM:kena 11/02/15 HEADER OPERATION: Not noted PRE-OP DIAGNOSIS: Hematuria TISSUE SUBMITTED: Urine for cytology Signed Srinivasa Trejo 11/02/15 <sig nature on file> 05-Mmk-096973:05 HgA1C , Office (63760) HgA1C , Office 5.5 % (Normal) Range: 4.6 - 7.1 :05 CBC W/Diff, Automated Comments: [facility] [address] [place], [place], [address] Absolute Lymph 1.54 {X10_3/ul} (Normal) Range: 0.83-4.51 [...] Range: 4.4-11.0 :05 Comprehensive Metabolic Profil Comments: [facility] [address] [place], [place], [address] GAP 8 (Normal) Range: 5-15 CO2 24.0 [...] (Normal) Range: 70-110 :05 Lipid Profile Comments: [facility] [address] [place], [place], [address] ; sent message he needs an apt [...] Risk :05 PSA,Total - Annual Screen Comments: [facility] [address] [place], [place], [address] PSA,TOT SCREEN 0.24 ng/mL (Normal) Range: 0.00-4.00 Comments: This test was performed using the TPSA assay method for the[employer] chemistry system. Values obtained with differentassay methods cannot be used interchangably.When changing PSA assays in the course of monitoring apatient, additional sequential testing should be carriedout to confirm baseline values. 21-Dgo-908627:50 Cytology, Body Fluid / CSF Comments: Specimen [facility]: [facility] [address] [place], [address] CYTOLOGY,BF/CSF SEE PATHOLOGY REPORT (Normal) Comments: Specimen submitted to Anatomical Pathology Department [facility]. 88-Goh-871134:50 Urinalysis, Complete Comments: How was Urine Obtained? Urine, RandomSt[facility] [address] [place], [address] MUCUS, URINE 0 SEEN {/hpf} [...] (Normal) CLARITY Clear (Normal) COLOR Yellow (Normal) 79-Pvd-25350:00 CYTOSPIN ON FLUID See Note (Normal) Comments: [facility] [address] [place], [place], [address] Comments: Patient: MARCUS MATIAS : 1965 (49/M) Acct Num: [id number] Phys: Rolando CHADWICK,Obie Cuevas Unit Num: [id number] Loc: LABSPEC Specimen: [id number] Received: 04/26/151422 Spec Type: CYSPIN FL TISSUES TISSUES: CULTURE RESULTS No results available. CYTOLOGY GROSS Received is 60 ml of yellow gold hazy fluid labeled with the patient's name and and d esignated per the requisition as urine. Submitted for cytology preparation. / 04/26/15 TC:5 CPT: 71950 CYTOLOGY STUDY Slides are reviewed. DIAGNOSIS CYTOLOGY Urine for cytology (cyto spin): Negative for malignant cells. AM: 04/27/15 HEADER OPERATION: Not noted PRE-OP DIAGNOSIS: Hematuria TISSUE SUBMITTED: Urine cytology Signed Srinivasa Neil 04/27/15 <signature on file> :42 Blood Glucose , Office (25799) Blood Glucose , Office 94 (Normal) :34 HgA1C , Office (80870) HgA1C , Office 5.6 % (Normal) Range: 4.6 - 7.1 :57 Comprehensive Metabolic Profil Comments: Test performed at:[facility] [address] [place] [address] GAP 5 (Normal) Range: 5-15 CO2 28.0 [...] Comments: Please note revised CREATININE reference range iwedcvnjy42/22/2015. BUN 14 mg/dL (Normal) Range: 7-18 GLU 96 mg/dL (Normal) Range: 70-110 :57 Lipid Profile Comments: Test performed at:[facility] [address] [facility] [place] [address] ; has fu 8-10 VLDL [...] :57 Microalb:Creat Ratio,Random UR Comments: Test performed at:[facility] [address] [facility] [place] [address] MALB:CREAT 5.0 {mg/g_CRE} (Normal) MICROALBUMIN,UR 8.1 mg/L (Normal) UR CREAT 152.00 mg/dL (Normal) :57 Urinalysis, Complete Comments: How was Urine Obtained? CLEAN CATCHTest performed at:[facility] [address] [facility] [place] [address] ; non-emergent till apt MUCUS, [...] Patient: MARCUS MATIAS : 1965 (48/M)Acct Num: [id number] Phys: Beena [place] Num: [id number] Loc: LABSPECSpecimen: [id number] Received: 02/15/14 - 1611Spec Type: COLON BXTIS 0 SUESTISSUES:GROSS DESCRIPTIONReceived is one container labeled with the patient name and designated rightcolon polyp biopsy. The specimen consists of multiple irregular fragments oflight narayan soft tis ronald that in aggregate measure 0.7 x 0.5 x 0.1 cm. Thespecimen is totally submitted in one cassette. / MADELAINE:tana 02/16/14 TC:1CPT: 96952LPDDYROGOFATNNJ: ColonoscopyPRE-OPERATIVE DIAGNOSIS: Screening / po lypTISSUE SUBMITTED: Polyp biopsy right colon, rule out adenomaMICROSCOPIC DIAGNOSISPolyp, right colon, biopsy:Fragments of hyperplastic polyp.MADELAINE:tana 02/17/14Signed Alex Martins 02/17/14<signature on file> 71-Wxk-064282:26 HgA1C , Office (46408) HgA1C , Office 5.7 % (Normal) Range: [...] CHOL 160 mg/dL (Normal) Comments: <200 mg/dL Vpdyjnhhf975-754 mg/dL Borderline>240 mg/dL High Risk 96-Uzh-617992:04 Ct, Ng, Trich vag by Comments: PATIENT NOT FASTINGPERFORMED BY: [address] [id number] BY: [address] [id number] CYNDI Chlamydia by CYNDI Negative (Normal) Gonococcus by CYNDI Negative (Normal) Trich vag by CYNDI Negative (Normal) 16-Xre-328611:04 Hepatitis Panel (4) Comments: PATIENT NOT FASTINGPERFORMED BY: [address] [id number] BY: [address] [id number] Inf ormation: SRC:UR URINE Hep B Core [...] offers HCV Ab w/Reflex to Verification test #[id number]. HBsAg Screen Negative (Normal) Hep A Ab, IgM Negative (Normal) :04 HSV 1 and 2 IgM Abs, Comments: PATIENT NOT FASTINGPERFORMED BY: [address] [id number] BY: [address] [id number] Indirect HSV 1 IgM Antibodies <1:10 {titer} [...] by another medicallyestablished diagnostic product or procedure. 85-Fys-516223:04 HSV 1 and 2-Specific Ab, Comments: PATIENT NOT FASTINGPERFORMED BY: [employer] [id number] BY: [address] [id number] IgG HSV 1 IgG, Type Spec 55.70 [...] indicates antibodies detected to HSV-2. :04 Panel 433511 Comments: PATIENT NOT FASTINGPERFORMED BY: [employer] [id number] BY: [employer] [id number] HIV 1/O/2 Abs, Non Reactive Qual (Normal) HIV 1/O/2 <1.00 (Normal) Comments: Index Value: Specimen reactivity relative to the negative cutoff. Abs-Index Value : RPR Non Reactive Comments: PATIENT NOT FASTINGPERFORMED BY: [employer] [id number] BY: [address] [id number] 04 (Normal) 64-Hzh-286239:01 CBCD ANC 3.2 {X10_3/uL} (Normal) Range: 2.0-7.7 [...] 4.6-6.2 WBC 5.1 K/mm3 (Normal) Range: 4.4-11.0 29-Phl-011182:01 CMP Comments: will review at 09/25/13 appt [...] 0.8-1.3 GLU 91 mg/dL (Normal) Range: 70-110 57-Clg-218943:01 LIPID HDL 31 mg/dL (Abnormal) Comments: Reference [...] CHOL 167 mg/dL (Normal) Comments: <200 mg/dL Wtsilozrd888-548 mg/dL Borderline>240 mg/dL High Risk 24-Sct-768985:38 MIACRE Comments: PLEASE ADD URINE FROM YESTERDAY 09/15/13 MIALB < 5.0 mg/L (Normal) tMICROCREAT Test not performed {mg/g_CRE} (Normal) CREU 65.8 mg/dL (Normal) : PSA 0.26 ng/mL (Normal) Range: 0.00-4.00 Comments: This test was performed using the TPSA assay method for the[employer] chemistry system. Values obtained with differentassay methods [...] children havebeen associated with numerous adverse health effects.[facility] Guidelines: Blood lead level s in therange 5-9 ug/dL have been associated with adversehealth effects in children aged 6 years and younger..Environmental Exposure:WHO Recommendation <20Occupational Exposure:OSHA Lead Std 40.Detection Limit = 1Performed at: [facility] Lab[address] [id number] Director: Tank Cummings PhD, Phone: [phone] :54 [place]IACRE tMICROCREAT 4.8 {mg/g_CRE} (Normal) MIALB [...] CHOL 154 mg/dL (Normal) Comments: <200 mg/dL Hrqgxtphw157-517 mg/dL Borderline>240 mg/dL High Risk :57 PSA [...] (Normal) UCLAR CLEAR (Normal) UCOL YELLOW (Normal) 38-Mwr-125990:11 CHEST, PA AND LATERAL Radiology Report See [...] NEGATIVE CLARITY CLEAR (Normal) COLOR YELLOW (Normal) 75-Lbj-921880:06 COMPLETE UA BACTERIA 0 SEEN {/hpf} (Normal) [...] NEGATIVE CLARITY CLEAR (Normal) COLOR YELLOW (Normal) 83-Ruw-772610:28 LIVER ALT 29 U/L (Normal) Range: 12-78 [...] CHOL 160 mg/dL (Normal) Comments: <200 mg/dL Jfdzdljtg137-496 mg/dL Borderline>240 mg/dL High Risk :27 LIVER [...] (Normal) Range: 6.4-8.2 :33 URINALYSIS W/O MICRO (38500) UA - APPEARANCE clear (Normal) UA - [...] T PROT 7.3 g/dL (Normal) Range: 6.4-8.2 1-Xgl-335753:51 Urinalysis, Office (54473) UA - BILIRUBIN Negative (Normal) UA - [...] Report See Note (Normal) Comments: Exam Number: [id number] CT SCAN OF ABDOMEN AND PELVIS HISTORYHematuria. [...] Report See Note (Normal) Comments: Exam Number: [id number] CT SCAN OF ABDOMEN AND PELVIS HISTORYHematuria. [...] is identified. Reported By: SHAI WHYTE M.D. 74-Ngv-742437:23 DAGOBERTO-D [id number] DAGOBERTO-DIRECT 19 AU/mL (Normal) Range: 0-99 Comments: Negative <100 Equivocal 100 - 120 Positive >120 :23 C-REACTIVE PROT 3.87 mg/L (Normal) Range: 0.0-6.0 Comments: Test performed using the Dimension C-Reactive ProteinExtended Range assay method. This assay meets the AHA/CDC 2003 recommendations fordetermining patients at high risk for cardiovasculardisease. Reference: High risk CRP >3.0 mg/L 06-Plt-322050:23 CBCD,SMEAR DIFF ATYPICAL LYMPH RARE % (Normal) [...] was performed using the TPSA method for the[employer] Light[employer] chemistry system.Values obtained with different assay methods cannot be usedinterchangably.When changing PSA assays in the course of monito ring apatient, additional sequential testing should be carriedout to confirm baseline values. :23 RA LATEX 6502 6.7 {IU/mL} (Normal) Range: 0.0-13.9 Comments: Performed At: [address] [id number] :23 ROUTINE UA BILIRUBIN URINE SeeNote (Normal) [...] Indication: Impaired fasting glucose Hematuria : Reviewed Television Audio Engineer Letter Indication: Hematuria Impaired fasting glucose : *Diabetes Education Indication: Impaired fasting glucose Hypercholesterolemia : Cholesterol mgmt Indication: Hypercholesterolemia Common cold virus : Follow up if no improvement or if symptoms worsen Indication: Common cold virus Common cold virus : Common Cold *: cold Indication: Common cold virus Hematuria : Reviewed Television Audio Engineer Letter Indication: Hematuria Impaired fasting glucose : [...] : Follow up in 10 days with [facility] Indication: Possible exposure to STD [...] for prostate cancer On: :24 Request CALCIFIDIOL ([id number]) VIT D 25Indication: Vitamin D deficiency On: :17 Request TSH ([id number])Indication: Impaired fasting glucose On: :17 Request URINALYSIS, W/ MICRO ([id number])Indication: Impaired fasting glucose On: :17 Request MICROALBUMIN: CREATININE RATIO ([id number]) AND ([id number])Indication: Impaired fasting glucose On: :17 Request METABOLIC PANEL, COMPREHENSIVE ([id number])Indication: Impaired fasting glucose On: :17 Request LIPID PANEL ([id number])Indication: Impaired fasting glucose On: :17 Request CBC W/AUTO DIFF WBC ([id number])Indication: Impaired fasting glucose On: :17 Request CBC, PLATELETS & MANUAL DIFF ([id number])Indication: Leukopenia, unspecified type On: 80-Zuf-076990:39 Request CBC WITH MANUAL DIFF ([id number])Indication: Leukopenia, unspecified type On: 43-Vux-835280:00 Request Comments: also have pathology look at for peripheral smear Sed Rate Erythrocyte ([id number])Indication: Leukopenia, unspecified type On: 07-Mxg-25948:59 Request TSH ([id number])Indication: Impaired fasting glucose On: :21 Request MICROALBUMIN: CREATININE RATIO ([id number]) AND ([id number])Indication: Impaired fasting glucose On: :21 Request METABOLIC PANEL, COMPREHENSIVE ([id number])Indication: Impaired fasting glucose On: :21 Request LIPID PANEL ([id number])Indication: Impaired fasting glucose On: :21 Request CBC W/AUTO DIFF WBC ([id number])Indication: Impaired fasting glucose On: :21 Request CALCIFIDIOL ([id number]) VIT D 25Indication: Vitamin D deficiency On: :20 Request CBC WITH MANUAL DIFF ([id number])Indication: Abnormal laboratory test On: 4-Erw-912742:27 Request Comments: do in 1 mo CBC W/AUTO DIFF WBC ([id number])Indication: Impaired fasting glucose On: :22 Request MICROALBUMIN: CREATININE RATIO ([id number]) AND ([id number])Indication: Impaired fasting glucose On: :22 Request METABOLIC PANEL, COMPREHENSIVE ([id number])Indication: Hypercholesterolemia On: :06 Request LIPID PANEL ([id number])Indication: Hypercholesterolemia On: :05 Request LIPID PANEL ([id number])Indication: Other and unspecified hyperlipidemia On: 82-Xip-293194:23 Request CBC with auto diff ([id number])Indication: Impaired fasting glucose On: 85-Zoy-912629:11 Request METABOLIC PANEL, COMPREHENSIVE ([id number])Indication: Impaired fasting glucose On: : Request Hemoglobin Glyclated (HGB A1C) ([id number])Indication: Impaired fasting glucose On: : Request PSA (PROSTATE SPECIFIC ANTIGEN) (V76.44)Indication: Screening for prostate cancer On: : Request URINALYSIS, W/ MICRO ([id number])Indication: Hematuria On: :17 Request MICROALBUMIN: CREATININE RATIO ([id number]) AND ([id number])Indication: Impaired fasting glucose On: : Request METABOLIC PANEL, COMPREHENSIVE ([id number])Indication: Impaired fasting glucose On: : Request LIPID PANEL ([id number])Indication: Hypercholesterolemia On: : Request RPR (RAPID PLASMA REAGIN) ([id number])Indication: Unspecified Diagnosis On: 19-Axd-544761:03 Request HIV ANTIGEN ([id number])Indication: Possible exposure to STD On: :59 Request HIV-2 ANTIBODY ([id number])Indication: Possible exposure to STD On: 22-Ivw-343040:[address],NG,TV (Chlamydia, Gonorrhea, Trichomonas) ([id number])Indication: Possible exposure to STD On: 40-Abc-358095:56 Request Herpes Simplex I Ag, Direct Fluorescent Ab ([id number])Indication: Possible exposure to STD On: :55 Request Herpes Simplex (HSV) II Ab ([id number])Indication: Possible exposure to STD On: :54 Request HEPATITIS PANEL ([id number])Indication: Possible exposure to STD On: :54 Request LIPID PANEL ([id number])Indication: Other and unspecified hyperlipidemia On: :44 Request METABOLIC PANEL, COMPREHENSIVE (52034)Indication: Impaired fasting glucose On: :44 Request PSA (PROSTATE SPECIFIC ANTIGEN) (V76.44)Indication: Screening for prostate cancer On: :55 Request TSH ([id number])Indication: Chest pain On: :55 Request MICROALBUMIN: CREATININE RATIO ([id number]) AND ([id number])Indication: Impaired fasting glucose On: :55 Request URINALYSIS, W/ MICRO ([id number])Indication: Impaired fasting glucose On: :55 Request CBC WITH MANUAL DIFF ([id number])Indication: Impaired fasting glucose On: :55 Request METABOLIC PANEL, COMPREHENSIVE ([id number])Indication: Impaired fasting glucose On: :55 Request LIPID PANEL ([id number])Indication: Other and unspecified hyperlipidemia On: :55 Request CBC WITH MANUAL DIFF ([id number])Indication: Impaired fasting glucose On: : Request METABOLIC PANEL, COMPREHENSIVE ([id number])Indication: Impaired fasting glucose On: : Request HEPATIC FUNCTION PANEL ([id number])Indication: Other and unspecified hyperlipidemia On: : Request LIPID PANEL ([id number])Indication: Other and unspecified hyperlipidemia On: : Request LEAD ([id number])Indication: Paresthesia On: :28 Request MICROALBUMIN: CREATININE RATIO ([id number]) AND ([id number])Indication: Impaired fasting glucose On: : Request CBC WITH MANUAL DIFF ([id number])Indication: Paresthesia On: : Request VITAMIN B-12 (CYANOCOBALAMIN) ([id number])Indication: Paresthesia On: Request TSH ([id number])Indication: Sleep Disorder On: : Request LEAD ([id number])Indication: Paresthesia On: :10 Request VITAMIN B-12 (CYANOCOBALAMIN) ([id number])Indication: Paresthesia On: :10 Request LIPID PANEL ([id number])Indication: Other and unspecified hyperlipidemia On: :10 Request PSA (PROSTATE SPECIFIC ANTIGEN) (V76.44)Indication: BPH without urinary obstruction On: :09 Request TSH ([id number])Indication: Paresthesia On: :09 Request MICROALBUMIN: CREATININE RATIO ([id number]) AND ([id number])Indication: Impaired fasting glucose On: :09 Request CBC WITH MANUAL DIFF ([id number])Indication: Paresthesia On: 7-Wbs-221745:09 Request METABOLIC PANEL, COMPREHENSIVE ([id number])Indication: Paresthesia On: 0-Zcp-585727:09 Request Hemoglobin Glyclated (HGB A1C) ([id number])Indication: Impaired fasting glucose On: :09 Request PSA (PROSTATE SPECIFIC ANTIGEN) (V76.44)Indication: BPH without urinary obstruction On: 44-Hdi-872699:05 Request METABOLIC PANEL, COMPREHENSIVE ([id number])Indication: Impaired fasting glucose On: 67-Ibh-318579:05 Request LIPID PANEL ([id number])Indication: Other and unspecified hyperlipidemia On: 76-Fbb-427946:04 Request HgA1C , Office ([id number])Indication: Impaired fasting glucose On: 67-Ejz-79114:20 Request CBC WITH MANUAL DIFF ([id number])Indication: Impaired fasting glucose On: :14 Request METABOLIC PANEL, COMPREHENSIVE ([id number])Indication: Impaired fasting glucose On: :14 Request MICROALBUMIN: CREATININE RATIO ([id number]) AND ([id number])Indication: Impaired fasting glucose On: :14 Request LIPID PANEL ([id number])Indication: Other and unspecified hyperlipidemia On: 13-Jul-20118:13 Request HgA1C , Office ([id number])Indication: Impaired fasting glucose On: 13-Jul-20118:05 Request CBC WITH MANUAL DIFF ([id number])Indication: Anemia, unspecified On: 8-Xyh-174550:21 Request IRON BINDING CAPACITY (TIBC) ([id number])Indication: Anemia, unspecified On: 3-Hhq-749263:21 Request IRON ([id number])Indication: Anemia, unspecified On: :21 Request FERRITIN ([id number])Indication: Anemia, unspecified On: 0-Ojq-186066:21 Request CBC WITH MANUAL DIFF ([id number])Indication: Elevated blood pressure (not hypertension) On: :20 Request METABOLIC PANEL, COMPREHENSIVE ([id number])Indication: Elevated blood pressure (not hypertension) On: :20 Request URINALYSIS, W/ MICRO ([id number])Indication: Hematuria On: 0-Idr-315586:20 Request Lipid Panel ([id number])Indication: Hypercholesterolemia On: :07 Request PSA (Prostate Specific Antigen), Screening (14852)Indication: Elevated blood pressure (not hypertension) On: :07 Request CBC with manual diff ([id number])Indication: Elevated blood pressure (not hypertension) On: :07 Request Metabolic Panel, Comprehensive ([id number])Indication: Elevated blood pressure (not hypertension) On: :07 Request URINALYSIS ([id number])Indication: Elevated blood pressure (not hypertension) On: : Request URINALYSIS, W/ MICRO ([id number])Indication: Hematuria On: :32 Request HEPATIC FUNCTION PANEL ([id number])Indication: Hypercholesterolemia On: :20 Request METABOLIC PANEL, COMPREHENSIVE ([id number])Indication: Elevated blood pressure (not hypertension) On: :25 Request URINALYSIS, W/ MICRO ([id number])Indication: Elevated blood pressure (not hypertension) On: :24 Request HEPATIC FUNCTION PANEL ([id number])Indication: Other and unspecified hyperlipidemia On: :24 Request LIPID PANEL ([id number])Indication: Other and unspecified hyperlipidemia On: :24 Request PSA (PROSTATE SPECIFIC ANTIGEN) (V76.44)Indication: Hematuria On: :12 Request HEPATIC FUNCTION PANEL ([id number])Indication: Other and unspecified hyperlipidemia On: :11 Request LIPID PANEL ([id number])Indication: Other and unspecified hyperlipidemia On: :11 Request HEPATIC FUNCTION PANEL ([id number])Indication: Other and unspecified hyperlipidemia On: :33 Request LIPID PANEL ([id number])Indication: Other and unspecified hyperlipidemia On: :33 Request HEPATIC FUNCTION PANEL ([id number])Indication: Other and unspecified hyperlipidemia On: :53 Request LIPID PANEL ([id number])Indication: Other and unspecified hyperlipidemia On: :53 Request HEPATIC FUNCTION PANEL ([id number])Indication: Other and unspecified hyperlipidemia On: :26 Request LIPID PANEL ([id number])Indication: Other and unspecified hyperlipidemia On: :26 Request LIPID PANEL ([id number])Indication: Other and unspecified hyperlipidemia On: 41-Wkd-338537:10 Request URINALYSIS W/O MICRO ([id number])Indication: Elevated blood pressure (not hypertension) On: :08 Request PSA (PROSTATE SPECIFIC ANTIGEN) (V76.44)Indication: Screening for prostate cancer On: Request SED RATE ERYTHROCYTE (07528)Indication: alopecia areata On: Request C-REACTIVE PROTEIN ([id number])Indication: alopecia areata On: Request RHEUMATOID FACTOR-QUANT ([id number])Indication: alopecia areata On: Request DAGOBERTO (ANTINUCLEAR ANTIBODY) ([id number])Indication: alopecia areata On: Request TSH ([id number])Indication: alopecia areata On: Request METABOLIC PANEL, COMPREHENSIVE ([id number])Indication: Elevated blood pressure (not hypertension) On: Request CBC WITH MANUAL DIFF ([id number])Indication: alopecia areata On: Request FERRITIN ([id number])Indication: alopecia areata On: Request VITAMIN B-12 (CYANOCOBALAMIN) ([id number])Indication: alopecia areata On: Request LIPID PANEL ([id number])Indication: Other and unspecified hyperlipidemia On: 5-Fou-668942:30 Request PSA (PROSTATE SPECIFIC ANTIGEN) ([id number])Indication: Screening for prostate cancer On: 9-Xgt-507342:29 Request Planned Encounters Medical; 4 Month FU - On: 15-Aug-2018 9:00 [facility] Anai Hernandez DO, DO, Kathleen Planned Procedures X-RAY KNEE WITH PATELLA, FIVE VIEWS On: 11-Apr-2018 Intent ([id number])By: Anai Hernandez DO Comments: L Anai QUEZADA X-RAY KNEE WITH PATELLA, FIVE VIEWS On: 11-Apr-2018 Intent ([id number])By: Anai Hernandez DO Comments: R Anai QUEZADA ELECTROCARDIOGRAM, COMPLETE (ECG) On: 11-Apr-2018 Intent ([id number])By: Anai Hernandez DO Comments: nsr no acute chg Anai QUEZADA Aerosol Treatment ([id number])By: Luba On: 21-Jun-2017 Intent [place] DEJESUS ELECTROCARDIOGRAM, COMPLETE (ECG) On: 25-Mar-2017 Intent ([id number])By: Flor Manriquez Comments: Sinus Rhythm-Heart rate 97. Aerosol Treatment ([id number])By: Luba On: 23-Apr-2016 Intent [place] DEJESUS ELECTROCARDIOGRAM, COMPLETE (ECG) On: 23-Apr-2016 Intent ([id number])By: Luba DEJESUS [place] Escobar ELECTROCARDIOGRAM, COMPLETE (ECG) On: 13-Apr-2016 Intent ([id number])By: Anai Hernandez DO Comments: nsr no acute chg Anai QUEZADA Radiology - Lumbar SpineBy: Mani QUEZADA, On: 13-Dec-2014 Intent Teresita A EKG ([id number])By: Teresita Singleton DO On: 13-Dec-2014 Intent Comments: ekg showed normal sinus rhythym, normal axis, no acute st/t wave changes Inhaler Demo ([id number])By: Mani QUEZADA, On: 07-Sep-2013 Intent Teresita A [...] Intent Starr Mcmahon TD Injection , IM ([id number])By: On: 13-Jul-2011 Intent Starr Mcmahon Comments: 2006 EKGBy: Luba DEJESUS Meghna On: 03-Apr-2011 Intent Radiology - Chest- PA and LatBy: Mani On: 14-Mar-2011 Intent DO Teresita A Comments: include left anterior ribs EKG ([id number])By: Teresita Singleton DO On: 14-Mar-2011 Intent Comments: ekg showed normal sinus rhythym, normal axis, no acute st/t wave changes FLU VAC, SPLIT, >3 YEARS, INTRAMUSC On: 14-Mar-2011 Intent ([id number])By: Starr Mcmahon Comments: Lot: [id number]: 11/03/11Site: Lt DeltoidDose: Prefilled DoseARiding, TIRE CHANGER IMMUNIZ ADMNIN, 1 VAC, SNGL/COMBO On: 14-Mar-2011 Intent ([id number])By: Starr Mcmahon FLU VAC, SPLIT, >3 YEARS, INTRAMUSC On: 15-Mar-2010 Intent ([id number])By: Starr Mcmahon Comments: Lot #[id number]-L dltd/IMDose 0.5mlgiven by:MATILDE LIRA EKG ([id number])By: Starr Mcmahon On: 15-Mar-2010 Intent Comments: ekg showed normal sinus rhythym, normal axis, no acute st/t wave changes IMMUNIZ ADMNIN, 1 VAC, SNGL/COMBO On: 15-Mar-2010 Intent ([id number])By: Starr Mcmahon CT - Abdomen & Pelvis Stone On: 05-Apr-2008 Intent ProtocolBy: Deidra Singleton DOa A EKG ([id number])By: Starr Mcmahon On: 21-Mar-2008 Intent Comments: ekg showed normal sinus rhythym, normal axis, no acute st/t wave changes EKG (76172)By: Deidra Singleton DOa A On: 04-Feb-2006 Intent [...] Advance Directives Name Dates Details Immunization Registry [place] - Effective on 04/11/2018. Effective: 11-Apr-2018 Expiration [...] moderate. The menstrual problem is characterized as pyrometer temperature regulator awakenings. The symptoms have been associated with [...] [facility] End: 31-Jan-2006 9:38 Payers [facility] Matias; zay guarantor
--- OUTSIDE RECORDS SUMMARY | 2018-06-02 17:52 | XMS RPT_ITS ---
:1965 Author Organization OHIP Care Team Providers Name Role Phone David DOAnai Attending Unavailable Fast DO, Teresita A Referring Unavailable David DOAnai Consulting Unavailable David, Anai Attending Unavailable David, Anai Primary Care Unavailable David, Anai Referring Unavailable David, Anai Attending Unavailable David, Anai Primary Care Unavailable David, Anai Referring Unavailable David, Anai Attending Unavailable David, Anai Referring Unavailable David, Anai Primary Care Unavailable David, Anai Attending Unavailable David, Anai Referring Unavailable David, Anai Primary Care Unavailable David, Anai Attending Unavailable David, Anai Referring Unavailable David, Anai Primary Care Unavailable PROBLEMS PROBLEMS DATE TYPE CONDITION / CODE ATTENDING STATUS SOURCE 04/03/2018 Unknown R73.01 - Impaired David, Active [place] fasting glucose / [facility] R73.01(ICD-10) Hospital Repository 04/03/2018 Unknown Z12.5 - Encounter David, Active [place] for screening for [facility] malignant Hospital neoplasm of Repository prostate / Z12.5(ICD-10) 04/03/2018 Unknown E55.9 - Vitamin D David, Active [place] deficiency, [facility] unspecified / Hospital E55.9(ICD-10) Repository PROCEDURES PROCEDURES No Procedure Records FoundRESULTS RESULTS CRP Collected: 04/24/2018 Status: F Source: [place] 4:37 PM [facility] TYPE CODE TESTS RESULT OUT OF RANGE REFERENCE UNITS LAB L501.6710 0.0-3.0 mg/L High 10.30 C-REACTIVE PROT Result Comment: C-Reactive Protein (CRP) provides useful information for the diagnosis, therapy and monitoring of inflammatory processes and associated diseases. For the evaluation of Relative Risk for Cardiovascular Disease, a High Sensitivity CRP (HSCRP) should be ordered. Performed By: #### L501.6710 #### [facility] [address]. [place], [place], [address] ERYTHROCYTE SED RATE Collected: 04/16/2018 Status: F Source: [place] 1:55 PM [facility] TYPE CODE TESTS RESULT OUT OF RANGE REFERENCE UNITS LAB L102.0000 0-20 mm/hr Normal SED RATE 7 Performed By: #### L101.9900, L100.0100 #### [facility] [address] [place], [address] CBC W/DIFF, AUTOMATED Collected: 04/16/2018 Status: F Source: [place] 1:55 PM [facility] TYPE CODE TESTS RESULT OUT OF [...] 1.81 Performed By: #### L101.9900, L100.0100 #### [facility] [address] [place], [address] COMPREHENSIVE METABOLIC Collected: 04/16/2018 Status: F Source: [facility] 1:55 PM [facility] TYPE CODE TESTS RESULT OUT OF [...] Performed By: #### L500.4050, L501.6710, L501.6750 #### [facility] [address] [place], [address] CRP Collected: 04/16/2018 Status: F Source: [place] 1:55 PM [facility] TYPE CODE TESTS RESULT OUT OF RANGE REFERENCE UNITS LAB L501.6710 0.0-3.0 mg/L High 5.66 C-REACTIVE PROT Result Comment: C-Reactive Protein (CRP) provides useful information for the diagnosis, therapy and monitoring of inflammatory processes and associated diseases. For the evaluation of Relative Risk for Cardiovascular Disease, a High Sensitivity CRP (HSCRP) should be ordered. Performed By: #### L500.4050, L501.6710, L501.6750 #### [facility] [address] [place], [address] CRP, HIGH SENSITIVITY Collected: 04/16/2018 Status: F Source: [place] C[facility] 1:55 PM [facility] TYPE CODE TESTS RESULT OUT OF RANGE REFERENCE UNITS LAB L501.6750 mg/L High CRP HIGH 5.58 SENS Result Comment: Low Relative Risk of CVD <1.0 mg/L Average Relative Risk of CVD 1.0 - 3.0 mg/L High Relative Risk of CVD >3.0 mg/L Performed By: #### L500.4050, L501.6710, L501.6750 #### [facility] [address] [place], [address] KNEE 4 OR MORE Observed: 04/11/2018 Status: F Source: [place] VIEWS 10:36 AM [facility] Imaging Services [address] [place] [address] Knee 4 or More Views MR#: [id number] Acct: [id number] Name: JOSÉ ANTONIO MATIAS Rep #: [id number] : 1965 M 52 From: Sanchez Elliott MD PCP: Anai Hernandez DO Status: REG CLI Study: Knee 4 or More Views Date of Exam: 04/11/18 Exam# [id number] Ordering Dr: Anai Hernandez DO STUDY: X-RAY [...] Service support , CC: Anai Hernandez DO Printing Machine Operator: Signed KNEE 4 OR MORE Observed: 04/11/2018 Status: F Source: [place] VIEWS 10:36 AM [facility] Imaging Services [address] [place] [address] Knee 4 or More Views MR#: [id number] Acct: [id number] Name: JOSÉ ANTONIO MATIAS Rep #: [id number] : 1965 M 52 From: Sanchez Elliott MD PCP: Anai Hernandez DO Status: REG CLI Study: Knee 4 or More Views Date of Exam: 04/11/18 Exam# [id number] Ordering Dr: Anai Hernandez DO STUDY: X-RAY [...] Service support , CC: Anai Hernandez DO Printing Machine Operator: Signed CBC W/DIFF, AUTOMATED Collected: 04/03/2018 Status: F Source: [place] 8:08 AM [facility] TYPE CODE TESTS RESULT OUT OF [...] Lymph 1.86 Performed By: #### L100.0100 #### [facility] [address] [facility] [place], [place], [id number] URINALYSIS, COMPLETE Collected: 04/03/2018 Status: F Source: [place] 8:08 AM [facility] Order Comment: How was Urine Obtained? [...] URINE SEEN Performed By: #### L400.0001 #### [facility] [address] [place], [address] MICROALB:CREAT Collected: 04/03/2018 Status: F Source: [place] RATIO,RANDOM UR 8:08 AM [facility] TYPE CODE TESTS RESULT OUT OF RANGE REFERENCE UNITS LAB L501.1200 NO RANGE EST. mg/dL Normal UR CREAT 71.30 LAB L502.0500 NO RANGE EST. mg/L Normal 6.3 MICROALBUMIN ,UR LAB L502.0600 <30 mg/g CRE mg/g CRE Normal 8.9 MALB:CREAT Performed By: #### L502.0250 #### [facility] [place], [address] COMPREHENSIVE METABOLIC Collected: 04/03/2018 Status: F Source: [place] KRUEGER 8:08 AM [facility] TYPE CODE TESTS RESULT OUT OF [...] By: #### L500.4050, L500.4100, L501.9520, L501.9910 #### [facility] [address] [place], [place], [address] LIPID PROFILE Collected: 04/03/2018 Status: F Source: [place] 8:08 AM [facility] TYPE CODE TESTS RESULT OUT OF [...] By: #### L500.4050, L500.4100, L501.9520, L501.9910 #### [facility] [address] [facility] [place], [place], [address] THYROID STIM HORMONE Collected: 04/03/2018 Status: F Source: [place] (TSH) 8:08 AM [facility] TYPE CODE TESTS RESULT OUT OF RANGE REFERENCE UNITS LAB L501.9520 0.358-3.74 uIU/mL Normal TSH 2.56 Performed By: #### L500.4050, L500.4100, L501.9520, L501.9910 #### [facility] [address] [place], [place], [address] PSA,TOTAL - ANNUAL Collected: 04/03/2018 Status: F Source: [place] SCREEN 8:08 AM [facility] TYPE CODE TESTS RESULT OUT OF RANGE REFERENCE UNITS LAB L501.9910 0.00-4.00 ng/mL Normal PSA,TOT 0.20 SCREEN Result Comment: This test was performed using the TPSA assay method for the [employer] chemistry system. Values obtained with different assay methods cannot be used interchangably. When changing PSA assays in the course of monitoring a patient, additional sequential testing should be carried out to confirm baseline values. Performed By: #### L500.4050, L500.4100, L501.9520, L501.9910 #### [facility] [address] [place], [address] VITAMIN D,25 HYDROXY Collected: 04/03/2018 Status: F Source: [place] 8:08 AM [facility] TYPE CODE TESTS RESULT OUT OF RANGE REFERENCE UNITS LAB L506.1000 29.95-100.01 ng/mL Normal Vitamin D 38.3 25-OH Result Comment: Vitamin D 25(OH) Status Range Deficiency <20 ng/mL (50nmol/L) Insuffciency 20 - 30 ng/mL (50 - 75 nmol/L) Sufficiency 30 - 100 ng/mL (75 - 250 nmol/L) Toxicity >100 ng/mL (>250 nmol/L) Performed By: #### L506.1000 #### [facility] [address] [place], [address] CBC W/DIFF, AUTOMATED Collected: 08/22/2017 Status: F Source: [place] 12:18 PM [facility] TYPE CODE TESTS RESULT OUT OF [...] Lymph 1.87 Performed By: #### L100.0100 #### [facility] [address] [place], [address] ALLERGIES ALLERGIES No Allergies Records FoundENCOUNTERS ENCOUNTERS ADMIT/DISCHARGE ACCOUNT ADMITTING ENCOUNTER LOCATION SOURCE NUMBER CLASS 04/24/2018 [id number] [facility] ing:LAB Repository 04/16/2018 [id number] [facility] ing:LAB Repository 04/11/[id number] ing:HPRAD Repository 04/11/2018 [id number] Ambulatory Building:[facility] Practices Repository 04/03/[id number] ing:LAB Repository 08/22/2017 [id number] [facility] ing:LAB Repository PAYERS PAYERS ENCOUNTER GUARANTOR PAYER SUBSCRIBER SOURCE 04/24/2018 JOSÉ ANTONIO Liang Primary JOSÉ ANTONIO Liang [place] [id number] [facility] licy [place]: [id number] Repository [address]Xxo: ([phone]) Date:3933-35-27IS [phone] (HP) [address] [id number]: 04/24/2018 Secondary NOT GIVENUNK [place] Insurance:SELF PAY [facility] Number: Effective Repository Date:2018-04-18 04/16/2018 JOSÉ ANTONIO L Primary JOSÉ ANTONIO L [place] [id number] Insurance:CORESOURCEPo SCAIFEDOB: Community [place] licy Number: [id number], [id number] Repository [address]Bls: ([phone]) Date:6366-39-83EK [address] () [address] [address]MO: 04/16/2018 Secondary NOT GIVENUNK [place] Insurance:SELF PAY [facility] Number: Effective Repository Date:2018-04-15 04/11/2018 José Antonio L Primary José Antonio L [place] [id number] Insurance:CORESOURCEPo ScaifeDOB: Community [place] licy Number: [id number], [place] [id number] Repository [address]Qzk: ([phone]) Date:2623-92-85MQ [address] () [address] [address]KD: 04/11/2018 Secondary NOT GIVENUNK [place] Insurance:SELF PAY [facility] Number: Effective Repository Date:2018-04-11 04/11/2018 José Antonio L Primary Insurance:NGS José Antonio L OHIP Practices ScaifeDOB: THAI ScaifeDOB: Repository [id number] CORESOURCEPolicy [id number] [place] Number: [address] [place], [place] [id number] [place], [place] [address]Jgh: ([phone]) Date:0696-51-75Ynnh [address]Mcp: Name:[facility] [phone] () ()Tel: [phone] CLAIMS [id number] (WP) DEPTMT. KASIE AGRAWAL [address]TJ: 04/11/2018 Secondary José Antonio L OHIP Practices Insurance:Medical ScaifeDOB: Repository [facility] [id number] Number: [address] [id number] [place], [place] Date:2007-05-06 - [address]Srx: [phone] [id number] [phone] (HP) Name:[facility] [address]Tfzlpkdhq, [place] [id number]: 04/03/2018 José Antonio L Primary José Antonio L [place] [id number] Insurance:CORESOURCEPo ScaifeDOB[facility] Number: [id number], [place] [id number] Repository [address]Fws: [phone]) Date:3025-07-82NN [phone] () [address] [id number]: 04/03/2018 Secondary NOT GIVENUNK [place] Insurance:SELF PAY [facility] Number: Effective Repository Date:2018-04-03 08/22/2017 José Antonio L Primary José Antonio L [place] [id number] Insurance:CORESOURCEPo ScaifeDOB: [facility] Number: [id number], [place] [id number] Repository [address]Hvf: [phone]) Date:5409-29-17OS [phone] () [address] [id number]: 08/22/2017 Secondary NOT GIVENUNK [place] Insurance:SELF PAY [facility] Number: Effective Repository Date:2017-08-22
== END ==
PROVIDERS: Family Provider Internal Medicine; PCP Internal Medicine; Referring Provider Internal Medicine; Visit Provider Internal Medicine
DX: D16.9 Benign neoplasm of bone and articular cartilage, unspecified (principal)
CPT/HCPCS: 36415; 80053; 85025; 85652; 86140; 86141

== ENCOUNTER → 2018-04-24 16:30 | Outpatient (CLI) | payer OTHER, SELFPAY | PROVIDERS: Family Provider Internal Medicine; PCP Internal Medicine; Referring Provider Internal Medicine; Visit Provider Internal Medicine | DX: R79.82 Elevated C-reactive protein (CRP) (principal) | CPT/HCPCS: 36415; 86140 ==

== ENCOUNTER → 2018-06-30 12:38 | Outpatient (CLI) | payer OTHER, SELFPAY ==
--- NOTE | 2018-06-30 13:00 | CT_ITS ---
STUDY: CT ABDOMEN AND PELVIS WITH CONTRAST REASON FOR EXAM: Male, 52 years old. 4 day history of epigastric pain. RADIATION DOSAGE (If Supplied By Facility): CTDIvol = ( 14.59 ) mGy, DLP = ( 1125.08 ) mGycm TECHNIQUE: Transaxial images were obtained from the dome of the diaphragm to the symphysis pubis with oral contrast. Isovue 300 100 IV/Oral was administered. Sagittal and coronal images were reconstructed. Individualized dose optimization techniques were used for this CT. COMPARISON: None. FINDINGS: The visualized lung bases are unremarkable. The visualized portions of the heart are within normal limits. There is a 9 mm cyst in the superior aspect of the left lobe of the liver. Normal gallbladder and extrahepatic biliary system. Normal spleen. Normal pancreas. Normal bilateral adrenal glands. Normal right kidney. 2 mm calculus in the midpole calyx of the left kidney. There is a small hiatal hernia. Normal small intestine. There are scattered colonic diverticula consistent with diverticulosis. The appendix is visualized and appears normal. Normal abdominal aorta. Normal inferior vena cava. Normal retroperitoneum. Normal urinary bladder. Normal abdominal wall. Normal osseous structures. CT/Abdomen/Pelvis WITH Contrast IMPRESSION: 9 mm cyst in the left lobe of the liver. Electronically Signed: Daniel Long MD at 16:06 EST , Service support ,
[2018-06-30 13:02] LABS: Erythrocyte Sedimentation Rate 5 mm/hr (0-20)
[2018-06-30 13:06] LABS: Absolute Lymphocyte Count 1.82 X10^3/ul (0.83-4.51); Absolute Neutrophil Count 4.1 X10^3/uL (2.0-7.7); Basophil# 0.02 X10^3/uL; Basophil% 0.3 % (0-1); Eosinophil# 0.07 X10^3/uL; Eosinophils% 1.1 % (0-5); Hematocrit 46.1 % (40-54); Hemoglobin 15.5 g/dl (13.0-16.5); Lymphocyte # 1.82 X10^3/ul (4.0); Lymphocyte % 28.5 % (19-41); Mean Corp Hgb Conc 33.6 g/gl (32-36); Mean Corpuscular Hgb 30.8 pg (27.0-32.0); Mean Corpuscular Volume 91.5 fL (80-94); Mean Platelet Vol. 9.3 fl (6.2-12.0); Monocyte# 0.36 X10^3/uL; Monocyte% 5.6 % (0-10); Neutrophil % 64.3 % (47-70); Platelet Count 233 K/mm3 (150-450); RBC Distribution Width SD 43.2 fl (35.1-43.9); Red Blood Count 5.04 M/mm3 (4.6-6.2); White Blood Count 6.4 K/mm3 (4.4-11.0)
[2018-06-30 13:11] LABS: POSITIVE COUNT NO; POSITIVE DIFFERENTIAL NO; POSITIVE MORPHOLOGY NO
[2018-06-30 13:21] LABS: BUN 14 mg/dL (7-18); Creatinine, Serum 1.09 mg/dL (0.70-1.30); EST Glomerular Filtration Rate 75 mL/min (>60); Glucose 103 mg/dL (74-106)
[2018-06-30 13:22] LABS: ALB/GLOB Ratio 1.2 RATIO (0.9-2.4); AST(SGOT) 18 U/L (15-37); Alanine Aminotransfer ALT/SGPT 35 U/L (16-61); Albumin, Serum 4.2 g/dL (3.2-5.0); Alkaline Phosphatase 79 U/L (45-117); Anion Gap 9 (5-15); BUN/Creat Ratio 12.8 RATIO (10-20); Chloride 105 mmol/L (98-107); Est Glom Filt Rate - Afr Amer 90 mL/min (>60); Globulin 3.6 g/dL (2.2-4.2); Protein, Total 7.8 g/dL (6.4-8.2); Sodium Level 141 mmol/L (136-145); Thyroid Stim Hormone (TSH) 1.71 uIU/mL (0.358-3.74)
== END ==
PROVIDERS: Family Provider Internal Medicine; PCP Internal Medicine; Referring Provider Nurse Practitioner Gerontology; Visit Provider Nurse Practitioner Gerontology
DX: R10.9 Unspecified abdominal pain (principal)
CPT/HCPCS: 36415; 74177; 80053; 84443; 85025; 85652; 86140; Q9967

== ENCOUNTER → 2019-06-30 08:19 | Outpatient (CLI) | payer OTHER, SELFPAY ==
[2019-06-30 08:50] LABS: Mucous, Urine 0 SEEN /hpf (<or=2+); Squamous Epithelial Cells - UA 0 SEEN /hpf (0-5); White Blood Cells 0 SEEN /hpf (0-5)
[2019-06-30 09:21] LABS: Absolute Neutrophil Count 1.3 X10^3/uL (2.0-7.7); Basophil# 0.05 X10^3/uL; Basophil% 1.7 % (0-1); Eosinophil# 0.09 X10^3/uL; Eosinophils% 3.1 % (0-5); Hematocrit 43.2 % (40-54); Hemoglobin 14.3 g/dL (13.0-16.5); Mean Corp Hgb Conc 33.1 g/dL (32-36); Mean Corpuscular Hgb 29.9 pg (27.0-32.0); Mean Corpuscular Volume 90.2 fL (80-94); Mean Platelet Vol. 9.3 fl (6.2-12.0); Monocyte# 0.24 X10^3/uL; Monocyte% 8.2 % (0-10); NRBC Flagged by Analyzer 0 % (0-5); Neutrophil # 1.34 X10^3/uL (2.7-7.7); Neutrophil % 45.7 % (47-70); Platelet Count 199 K/mm3 (150-450); RBC Distribution Width CV 13.2 % (11.6-14.6); RBC Distribution Width SD 43.4 fl (35.1-43.9); Red Blood Count 4.79 M/mm3 (4.6-6.2); White Blood Count 2.9 K/mm3 (4.4-11.0)
[2019-06-30 09:29] LABS: Color, Urine Yellow (Yellow); Glucose, Dipstick Normal (Normal); Ketone-Dipstick 50 mg/dl (Negative); Leukocyte Esterase-Dipstick Negative /ul (Negative); Nitrite-Dipstick Negative (Negative); Occult Blood-Urine 150 /ul (Negative); Protein-Dipstick Negative (Negative); Specific Gravity, Urine 1.025 (1.002-1.030); Urine Bilirubin Dipstick Negative (Negative); Urine Clarity Clear (Clear); Urine Urobilinogen Normal (Normal)
[2019-06-30 09:46] LABS: Bacteria RARE /hpf (None Seen); Red Blood Cells-Urine 0-5 SEEN /hpf (0-5)
[2019-06-30 09:58] LABS: Vitamin D,25 Hydroxy 69.6 ng/mL
[2019-06-30 10:00] LABS: ALB/GLOB Ratio 1.2 RATIO (0.9-2.4); AST(SGOT) 26 U/L (15-37); Alanine Aminotransfer ALT/SGPT 48 U/L (16-61); Albumin, Serum 4.1 g/dL (3.2-5.0); Alkaline Phosphatase 62 U/L (45-117); Anion Gap 9 (5-15); BUN 18 mg/dL (7-18); BUN/Creat Ratio 19.7 RATIO (10-20); Calcium,Total 8.8 mg/dL (8.5-10.1); Chloride 109 mmol/L (98-107); Cholesterol 146 mg/dL (200); Creatinine, Serum 0.91 mg/dL (0.70-1.30); EST Glomerular Filtration Rate 91 mL/min (>60); Est Glom Filt Rate - Afr Amer 110 mL/min (>60); Globulin 3.4 g/dL (2.2-4.2); Glucose 94 mg/dL (74-106); High Density Lipoprotein 36 mg/dL; PSA,Total - Annual Screen 0.27 ng/mL (0.00-4.00); Potassium 4.1 mmol/L (3.5-5.1); Protein, Total 7.5 g/dL (6.4-8.2); Sodium Level 142 mmol/L (136-145); Triglycerides 93 mg/dL; Very Low Density Lipoprotein 19 mg/dL (5-40)
[2019-06-30 10:23] LABS: Hemoglobin A1c 5.6 % (4.2-6.3)
[2019-06-30 10:29] LABS: Microalbumin,Random Urine 25.1 mg/L (NO RANGE EST.); Microalbumin:Creatinine Ratio 14.2 mg/g CRE (<30 mg/g CRE)
== END ==
PROVIDERS: PCP Internal Medicine; Referring Provider Internal Medicine; Visit Provider Internal Medicine
DX: R73.01 Impaired fasting glucose (principal); E78.00 Pure hypercholesterolemia, unspecified; Z12.5 Encounter for screening for malignant neoplasm of prostate
CPT/HCPCS: 36415; 80053; 80061; 81001; 82043; 82306; 82570; 83036; 84153; 84443; 85025; G0103

== ENCOUNTER → 2021-04-05 14:33 | Outpatient (CLI) | payer OTHER, SELFPAY | PROVIDERS: PCP Internal Medicine; Visit Provider Family Medicine | DX: Z23 Encounter for immunization (principal) | CPT/HCPCS: 0004A; 91300 ==